=== PATIENT | female | born 1990 | race Caucasian/White ===

== ENCOUNTER → 2017-10-28 15:29 | Outpatient (CLI) | payer SELFPAY ==
[2017-10-28 19:30] LABS: Chlamydia Trachomatis by PCR Negative (Negative); Neisserai gonorrhoeae by PCR Negative (Negative)
[2017-10-28 19:33] LABS: Probe Check PASS; Sample Adequacy Control PASS; Specimen Processing Control PASS
[2017-11-02 10:34] LABS: HPV Reflexed? NOT INDICATED
== END ==
PROVIDERS: Visit Provider Obstetrics & Gynecology
DX: Z12.4 Encounter for screening for malignant neoplasm of cervix (principal); Z11.3 Encounter for screening for infections with a predominantly sexual mode of transmission; Z32.01 Encounter for pregnancy test, result positive
CPT/HCPCS: 87491; 87591; 88175; G0145

== ENCOUNTER → 2017-11-24 16:12 | Outpatient (CLI) | payer SELFPAY ==
[2017-11-24 17:23] LABS: Color, Urine Straw (Yellow); Glucose, Dipstick Normal (Normal); Ketone-Dipstick Negative (Negative); Leukocyte Esterase-Dipstick Negative /ul (Negative); Nitrite-Dipstick Negative (Negative); Occult Blood-Urine Negative /ul (Negative); Protein-Dipstick Negative (Negative); Specific Gravity, Urine 1.005 (1.002-1.030); Urine Bilirubin Dipstick Negative (Negative); Urine Clarity Clear (Clear); Urine Urobilinogen Normal (Normal)
[2017-11-24 17:36] LABS: Absolute Lymphocyte Count 1.45 X10^3/ul (0.83-4.51); Absolute Neutrophil Count 4.5 X10^3/uL (2.0-7.7); Eosinophil# 0.06 X10^3/uL; Eosinophils% 0.9 % (0-5); Hematocrit 36.8 % (37-47); Lymphocyte # 1.45 X10^3/ul (4.0); Lymphocyte % 22.7 % (19-41); Mean Corp Hgb Conc 32.6 g/gl (32-36); Mean Corpuscular Hgb 30.6 pg (27.0-32.0); Mean Corpuscular Volume 93.9 fL (81-99); Mean Platelet Vol. 11.7 fl (6.2-12.0); Monocyte% 6.3 % (0-10); Neutrophil # 4.47 X10^3/uL (2.7-7.7); Neutrophil % 69.8 % (47-70); Platelet Count 219 K/mm3 (150-450); RBC Distribution Width SD 44.6 fl (35.1-43.9); Red Blood Count 3.92 M/mm3 (4.2-5.4); White Blood Count 6.4 K/mm3 (4.4-11.0)
[2017-11-24 17:44] LABS: POSITIVE COUNT NO; POSITIVE DIFFERENTIAL NO; POSITIVE MORPHOLOGY NO
[2017-11-24 17:51] LABS: Thyroid Stim Hormone (TSH) 0.85 uIU/mL (0.358-3.74)
[2017-11-24 17:58] LABS: COTININE Drug Screen Negative (<200 ng/mL)
[2017-11-24 18:04] LABS: Amphetamine Urine VISTA NEGATIVE (<1000 ng/mL); Barbiturate Urine VISTA NEGATIVE (< 200 ng/mL); Benzodiazepine Urine VISTA NEGATIVE (< 200 ng/mL); Cocaine Urine VISTA NEGATIVE (< 300 ng/mL); Ecstacy Urine VISTA NEGATIVE (< 500 ng/mL); Methadone Urine VISTA NEGATIVE (< 300 ng/mL); PCP Urine VISTA NEGATIVE (< 25 ng/mL); THC Urine VISTA NEGATIVE (< 50 ng/mL); Vista UDS pH Range 7
[2017-11-25 10:44] LABS: HIV - WCH Non-Reactive (Nonreactive); Rubella IgG 97.4 IU/mL
[2017-11-27 03:47] LABS: Prenatal RPR NONREACTIVE (NONREACTIVE)
[2017-11-27 07:07] LABS: HEPATITIS B SURFACE AG Negative (Negative); Hep C Antibodies <0.1 s/co ratio (0.0-0.9)
== END ==
PROVIDERS: Visit Provider Obstetrics & Gynecology
DX: Z34.82 Encounter for supervision of other normal pregnancy, second trimester (principal)
CPT/HCPCS: 36415; 80307; 81002; 84443; 85025; 86703; 86762; 86803; 87340

== ENCOUNTER → 2018-02-10 14:29 | Outpatient (CLI) | payer OTHER, SELFPAY ==
[2018-02-10 15:42] LABS: Glucose Challenge Gest 1H 50g 171 mg/dL (70-140)
[2018-02-10 15:44] LABS: Hematocrit 37.6 % (37-47); Hemoglobin 12.2 g/dl (12.0-15.0); Mean Corp Hgb Conc 32.4 g/gl (32-36); Mean Corpuscular Hgb 31.4 pg (27.0-32.0); Mean Corpuscular Volume 96.7 fL (81-99); Mean Platelet Vol. 11.9 fl (6.2-12.0); Platelet Count 184 K/mm3 (150-450); RBC Distribution Width CV 13.4 % (11.6-14.6); RBC Distribution Width SD 46.8 fl (35.1-43.9); Red Blood Count 3.89 M/mm3 (4.2-5.4); White Blood Count 7.5 K/mm3 (4.4-11.0)
[2018-02-10 15:56] LABS: Scan Indicated on CBC? Y/N NO
== END ==
PROVIDERS: Visit Provider Obstetrics & Gynecology
DX: Z34.83 Encounter for supervision of other normal pregnancy, third trimester (principal)
CPT/HCPCS: 82950; 85027

== ENCOUNTER → 2018-02-24 09:27 | Outpatient (CLI) | payer OTHER, SELFPAY ==
[2018-02-24 10:33] LABS: Glucose GTT-Gestation. Fasting 82 mg/dL (<105)
[2018-02-24 11:33] LABS: Glucose GTT-Gestational 1 Hr 213 mg/dL (<190)
[2018-02-24 13:19] LABS: Glucose GTT-Gestational 2 Hr 171 mg/dL (<165)
[2018-02-24 13:42] LABS: Glucose GTT-Gestational 3 Hr 115 L (<145)
== END ==
PROVIDERS: Visit Provider Obstetrics & Gynecology
DX: Z34.83 Encounter for supervision of other normal pregnancy, third trimester (principal)
CPT/HCPCS: 36415; 82951; 82952

== ENCOUNTER 2018-03-12 10:30 | Outpatient (RCR) | payer OTHER, SELFPAY | END 2018-03-14 23:59 | LOC: NS 10:30 | PROVIDERS: Visit Provider Obstetrics & Gynecology | DX: O24.912 Unspecified diabetes mellitus in pregnancy, second trimester (principal); Z71.3 Dietary counseling and surveillance | CPT/HCPCS: 97802; G0108 ==

== ENCOUNTER 2018-03-23 17:30 | Outpatient (RCR) | payer OTHER, SELFPAY | END 2018-03-23 23:59 | LOC: DC 17:30 | PROVIDERS: Visit Provider Obstetrics & Gynecology | DX: O24.912 Unspecified diabetes mellitus in pregnancy, second trimester (principal); Z71.3 Dietary counseling and surveillance ==

== ENCOUNTER → 2018-04-02 14:11 | Outpatient (CLI) | payer OTHER, SELFPAY ==
[2018-04-02 19:21] LABS: Group B Strep DNA By PCR Negative (Negative); Internal Control PASS; Probe Check PASS; Specimen Processing Control PASS
== END ==
PROVIDERS: Visit Provider Obstetrics & Gynecology
DX: Z36.85 Encounter for antenatal screening for Streptococcus B (principal)
CPT/HCPCS: 87081; 87653

== ENCOUNTER 2018-04-11 18:10 | Inpatient (IN) | payer OTHER, SELFPAY ==
[2018-04-11 13:17] VITALS: BMI 36.1
[2018-04-11 13:38] LABS: ROM Internal Control Test YES-OK TO RESULT pt. (Internal QC); ROM Patient Test Negative (Negative)
[2018-04-11] MEDS: Betamethasone/Betamethasone 30 MG/5 ML Vial 12 MG IM (14:16)
[2018-04-11 14:45] LABS: Bedside Glucose 79 mg/dL (70-110)
[2018-04-11 14:50] LABS: Bacteria 0 SEEN /hpf (None Seen); Mucous, Urine 0 SEEN /hpf (<or=2+); Red Blood Cells-Urine 0 SEEN /hpf (0-5)
[2018-04-11 14:51] LABS: Color, Urine Yellow (Yellow); Glucose, Dipstick Normal (Normal); Ketone-Dipstick Negative (Negative); Leukocyte Esterase-Dipstick 100 /ul (Negative); Nitrite-Dipstick Negative (Negative); Occult Blood-Urine Negative /ul (Negative); Protein-Dipstick Negative (Negative); Specific Gravity, Urine 1.005 (1.002-1.030); Urine Bilirubin Dipstick Negative (Negative); Urine Clarity Clear (Clear); Urine Urobilinogen Normal (Normal)
[2018-04-11 14:57] LABS: Amorphous Sediment 1+; White Blood Cells 0-5 SEEN /hpf (0-5)
[2018-04-11 15:04] LABS: Squamous Epithelial Cells - UA 0-5 SEEN /hpf (5-10)
[2018-04-11] MEDS: Lactated Ringers 1,000 ML 50 ML IV (16:15)
[2018-04-11 16:34] LABS: Absolute Neutrophil Count 8.9 X10^3/uL (2.0-7.7); Eosinophil# 0.01 X10^3/uL; Eosinophils% 0.1 % (0-5); Hematocrit 42.1 % (37-47); Hemoglobin 13.9 g/dl (12.0-15.0); Lymphocyte % 8.8 % (19-41); Mean Corpuscular Hgb 31.6 pg (27.0-32.0); Mean Corpuscular Volume 95.7 fL (81-99); Mean Platelet Vol. 12.8 fl (6.2-12.0); Monocyte# 0.37 X10^3/uL; Monocyte% 3.6 % (0-10); Neutrophil # 8.91 X10^3/uL (2.7-7.7); Neutrophil % 87.2 % (47-70); Platelet Count 193 K/mm3 (150-450); RBC Distribution Width CV 13.4 % (11.6-14.6); RBC Distribution Width SD 46.8 fl (35.1-43.9); White Blood Count 10.2 K/mm3 (4.4-11.0)
[2018-04-11 16:35] LABS: POSITIVE COUNT NO; POSITIVE DIFFERENTIAL NO; POSITIVE MORPHOLOGY NO
[2018-04-11] MEDS: Oxytocin 30 units/NS 500 ml 30 UNITS/500 ML IV.SOLN 334 UNITS IV (18:23)
--- NOTE | 2018-04-11 18:46 | OP.PCM_ITS ---
- Problem List (1) 36 weeks gestation of Status: Acute (2) (spontaneous vaginal delivery) Status: Acute Vaginal Delivery Maternal Presentation: Active Labor, - - labor Amniotic Membrane Rupture Type: Spontaneous Amniotic Fluid Description: Clear Final JOSEMANUEL: 05/05/18 Gestational age: 36 Weeks and 4 Days [place] doctor who attended delivery (if requested by OB): Haylee Gilbert Date of Procedure: 04/11/18 Pre-Operative Diagnosis: 36 4/7wga, labor Post-Operative Diagnosis: 36 4/7wga, labor Surgery/ Procedure Performed: Spontaneous Vaginal Delivery Type of Anesthesia: None Description of Procedure: Patient was previously 4cm. She had spontaneous rupture of membranes and rapidly progressed to 7cm and was FD/+3 on my arrival. She pushed to deliver a vigorous female infant over an intact perineum. The infant was placed on the maternal abdomen and further attended by the nursery personnel. The cord was doubly clamped and cut after approximately 3 minutes of life. The placenta delivered spontaneously and appeared intact on inspection. Cord gases obtained. Sponge counts correct x 2. Fundus firm, good hemostasis. Presentation: Vertex Placental Delivery Description: Spontaneous Placenta Disposition: Sent to Pathology Cord Vessel Description: 3 Vessels Nuchal Cord Compression: Without compression Cord Gases drawn per routine: ABG, VBG Cord Entanglement: None Estimated Blood Loss: 200 ml Infant A gender: Female (1 minute): 8 (5 minute): 9 Episiotomy Description: None Laceration: None Medications given after delivery: IV Pitocin Complications: None
--- NOTE | 2018-04-11 18:50 | PLAC_PTH ---
PATIENT: KATHARINE MACIAS LOC: [facility] U#:[id number] AGE/SX: 27/F ROOM: WP008 RE04/11/[address]: Dr. Gloria Sahu MD : 1990 BED: 1 DIS: 04/13/2018 SPEC #: [id number] RECD: 04/12/18 02:42 STATUS: JULIÁN REQ #: [id number] MARY JO: 04/11/18 18:[address]: Gloria Esparza DEPT: SURGICAL PATHOLOGY RECD BY: Juan Pickett ENTERED: 04/12/18 09:41 SP TYPE: PLACENTA OTHR DR: MD Tania Cardenas Tissues: Placenta, NOS Procedures: Surgery Specimen Level V HEADER OPERATION: Vaginal delivery PRE-OP DIAGNOSIS: labor 36wga TISSUE SUBMITTED: Placenta MICROSCOPIC DIAGNOSIS Placenta: Placental disc - third trimester placenta (264 gm). Focal area of increased intervillous and perivillous fibrin deposition (1.5 cm in greatest dimension). Membranes - no pathologic diagnosis. Umbilical cord - three blood vessels and no pathologic diagnosis. SJ:ingel 04/14/18 MICROSCOPIC DESCRIPTION Slides are reviewed. GROSS DESCRIPTION SPECIMEN: PLACENTA / CLINICAL INFORMATION: A. Weight: 2.015 kg B. Gestational Age: 36 weeks C. Sex: Female PLACENTAL WEIGHT (POST FIXATION): 264 gm PLACENTAL DIMENSIONS: 15 x 15 x 2.5 cm PLACENTAL SHAPE: Usual ovoid PLACENTAL WEIGHT FOR GESTATIONAL AGE: <10th percentile MEMBRANES - Present A. Insertion: Marginal B. Site of rupture from edge: At edge of placental disc C. Color of membrane: Durand-damico D. Abnormalities: None UMBILICAL CORD - Present A. Color: Durand-damico B. Insertion: Paracentral C. Length: 21 cm D. Diameter: 1 cm E. Number of vessels: Three F. Abnormalities: None PLACENTAL DISC - Present A. Color of surface: Durand-damico B. surface abnormalities: None C. Maternal cotyledons: Intact with minimal tears D. Attached retro placental clot: No clot E. Cut surface: Dark red and spongy F. Lesions: Sections reveal a durand, indurated area close to maternal surface measuring 1.5 x 1 x 1 cm. G. Separate clot: Received are multiple blood clots measuring in aggregate 6.5 x 6 x 2 cm and weighing 20 gm. SECTIONS SUBMITTED: 1. Membrane roll 2. Cord, maternal end 3. Cord, end 4. Placental disc, and maternal surfaces, lesion 5. Placental disc, and maternal surfaces 6. Placental disc, and maternal surfaces DEBORAH:nigel 04/13/18 TC:5 CPT: 76422
[2018-04-11] MEDS: Oxytocin 30 units/NS 500 ml 30 UNITS/500 ML IV.SOLN 167 UNITS IV (18:53)
[2018-04-11 19:36] LABS: Bedside Glucose 116 mg/dL (70-110)
[2018-04-11] MEDS: 0.9% Saline Lock 10 ML Syringe IV (20:18)
--- NOTE | 2018-04-11 21:37 | DCINST_ITS ---
Discharge Diet: No Restrictions Discharge Activity: Return to Normal Activity, May Shower, May Take a Tub Bath May resume sexual activity in: 6 weeks Lifting Restrictions: 20 lb Call your doctor if you observe: Fever of 101 or Higher, Inability to urinate, Inability to have a bowel movement, Using more than one pad per hour, Shortness of breath, Chest pain, Calf discomfort, Uncontrolled pain Additional Instructions: If you experience any of the following, contact your healthcare provider. * Bleeding that soaks a pad every hour for 2 hours * Fever 100.4 or higher * Unrelieved incision or abdominal pain * Swelling, redness, discharge or bleeding from your incision or episiotomy site * Your incision begins to separate * Problems urinating (including inability to urinate or burning while urinating). * Visual changes * Severe headache * Flu-like symptoms * Pain or redness in one of both of your breasts * Pain, warmth, tenderness or swelling in your legs, especially the calf area * Frequent nausea and vomiting * Symptoms of depression or anxiety If you experience any of the following, call 911 or go to the nearest Emergency Room. * Chest pain * Problems breathing * Seizure activity * Partial or complete paralysis of a body part, slurred speech, weakness or drooping of the face, or a sudden inability to walk or hold your balance Allergies/Adverse Reactions: Allergies Penicillins Allergy (Verified 04/11/18 13:19) Rash Medications to take at Discharge Docusate Sodium [Colace] 100 mg PO BID PRN PRN #60 capsule 04/11/18 Ibuprofen 600 mg PO TID PRN #30 tablet 04/11/18 Vits [Prenatabs FA] 1 tablet PO DAILY 04/11/18 The following prescriptions were given: Docusate Sodium [Colace] 100 mg PO BID PRN PRN #60 capsule PRN Reason: Constipation Ibuprofen 600 mg PO TID PRN #30 tablet PRN Reason: Pain Please Follow Up With: Juvencio Benton MD When: 6 weeks Primary Care Physician: Juvencio Madrigal MD [Primary Care Provider] - Test Results: Test results from this visit will be discussed in further detail at your follow- up appointment, if applicable.
[2018-04-12 00:15] VITALS: BP 98/47; PULSE 73; RESP 16; TEMP 36.2; O2SAT 97
[2018-04-12] MEDS: Ibuprofen 600 MG Tablet PO (00:57)
[2018-04-12 04:05] VITALS: BP 118/66; PULSE 64; RESP 18; TEMP 36.4; O2SAT 98
[2018-04-12 05:41] LABS: Bedside Glucose 104 mg/dL (70-110)
[2018-04-12 08:00] VITALS: BP 85/55; PULSE 61; RESP 16; TEMP 36.1
--- NOTE | 2018-04-12 08:30 | PCM.PN.OB ---
Patient Problems: Active and Suspected Problems 36 weeks gestation of (Acute) (spontaneous vaginal delivery) (Acute) Subjective: No issues overnight. She feels well and is without complaints. She is nursing and latching well. Objective: AVSS - Physical Exam General: Alert, Oriented x3, Cooperative, No apparent distress HEENT: Atraumatic, Normocephalic Lungs: Normal air movement Cardiovascular: Regular rate, Regular Rhythm, Normal S1, Normal S2 Abdomen: Soft, Non Tender, Non-Distended Neurological: Neuro grossly intact Psych/Mental Status: Normal Affect, Appropriate, Alert and oriented to time, place, person, mood and affect Vital Signs Temp Pulse Resp BP Pulse Ox 97.1 F L 67 16 111/73 98 04/12/18 16:00 04/12/18 16:00 04/12/18 16:00 04/12/18 16:00 04/12/18 04:05 Oxygen Delivery Method Room Air Weight: 92.533 kg Body Mass Index (BMI) 36.1 Intake and Output for Last 24 Hours 04/10/18 04/11/18 04/12/18 23:59 23:59 23:59 Output Total 800 / 800 Balance -800 / -800 POC Glucose 04/12/18 04/11/18 05:36 19:20 POC Glucose 104 116 H Medical Necessity - Tobacco Use Smoking Status: Never smoker Assessment/Plan All Active Problems 36 weeks gestation of (Acute) (spontaneous vaginal delivery) (Acute) 27yo PPD#1 s/p doing well. -Rh positive - -Routine care
[2018-04-12] MEDS: Prenatal Vits Tablet 1 TABLET PO (11:16)
[2018-04-12 11:49] VITALS: BP 107/56; PULSE 69; RESP 18; TEMP 36.1
[2018-04-12 16:00] VITALS: BP 111/73; PULSE 67; RESP 16; TEMP 36.2
[2018-04-12 19:51] VITALS: BP 125/68; PULSE 71; RESP 18; TEMP 36.8
[2018-04-13 02:00] VITALS: BP 122/70; PULSE 68; RESP 16; TEMP 36.8
--- NOTE | 2018-04-13 08:19 | PCM.PN.OB ---
Patient Problems: Active and Suspected Problems 36 weeks gestation of (Acute) (spontaneous vaginal delivery) (Acute) Subjective: No complaints. Denies heavy lochia, feels well and looks forward to going home. Objective: avss - Physical Exam General: Alert, Oriented x3, Cooperative, No apparent distress HEENT: Atraumatic, Normocephalic Lungs: Clear to auscultation, Normal air movement Cardiovascular: Regular rate, Regular Rhythm, Normal S1, Normal S2 Abdomen: Soft, Non Tender, Non-Distended, - - Fundus firm and nontender Extremities: No edema, No Calf Tenderness Neurological: Neuro grossly intact Psych/Mental Status: Normal Affect, Appropriate, Alert and oriented to time, place, person, mood and affect Vital Signs Temp Pulse Resp BP Pulse Ox 98.2 F 68 16 122/70 H 98 04/13/18 02:00 04/13/18 02:00 04/13/18 02:00 04/13/18 02:00 04/12/18 04:05 Oxygen Delivery Method Room Air Weight: 92.533 kg Body Mass Index (BMI) 36.1 Intake and Output for Last 24 Hours 04/11/18 04/12/18 04/13/18 23:59 23:59 23:59 Output Total 800 / 800 Balance -800 / -800 Medical Necessity - Tobacco Use Smoking Status: Never smoker Assessment/Plan All Active Problems 36 weeks gestation of (Acute) (spontaneous vaginal delivery) (Acute) 27yo PPD#2 s/p doing well. -Rh positive - -Routine care -ms home
--- NOTE | 2018-04-13 08:29 | PCM.DC.SUM ---
Discharge Date and Diagnosis - Problem List Patient Problems: Active and Suspected Problems 36 weeks gestation of (Acute) (spontaneous vaginal delivery) (Acute) Date of Admission: 04/11/18 Date of Discharge: 04/13/18 - Primary Discharge Diagnosis Active and Suspected Problems 36 weeks gestation of (Acute) (spontaneous vaginal delivery) (Acute) Hospital Course and Treatment Operations: None Procedures: - - Summary of Care Provided: The patient is a 27 year old F [admitted in labor progressed to FD then pushed to deliver a live female without complication. Post course unremarkable. Discharged home on PP day#2.] Patient Problems: Active and Suspected Problems 36 weeks gestation of (Acute) (spontaneous vaginal delivery) (Acute) - Physical Exam Vital Signs Temp Pulse Resp BP Pulse Ox 98.2 F 68 16 122/70 H 98 04/13/18 02:00 04/13/18 02:00 04/13/18 02:00 04/13/18 02:00 04/12/18 04:05 Oxygen Delivery Method Room Air Weight: 204 lb Body Mass Index (BMI) 36.1 Intake and Output for Last 24 Hours 04/11/18 04/12/18 04/13/18 23:59 23:59 23:59 Output Total 800 / 800 Balance -800 / -800 Discharge Diet: No Restrictions Discharge Activity: Return to Normal Activity, May Shower, May Take a Tub Bath Return to work on:: 06/11/18 May shower in (days): 0 May resume sexual activity in: 6 weeks Call your doctor if your incision/area has: Sudden Increased Bleeding, Increased Pain/ Swelling, Increased Redness, Foul Smelling Discharge Call your doctor if you observe: Fever of 101 or Higher, Inability to urinate, Inability to have a bowel movement, Using more than one pad per hour, Shortness of breath, Chest pain, Calf discomfort, Uncontrolled pain Home Medications: Medications to take at Discharge Docusate Sodium [Colace] 100 mg PO BID PRN PRN #60 capsule 04/11/18 Ibuprofen 600 mg PO TID PRN #30 tablet 04/11/18 Vits [Prenatabs FA] 1 tablet PO DAILY 04/11/18 Following Prescrptions Were Given to Patient: Docusate Sodium [Colace] 100 mg PO BID PRN PRN #60 capsule PRN Reason: Constipation Ibuprofen 600 mg PO TID PRN #30 tablet PRN Reason: Pain Primary Care Physician: Juvencio Madrigal MD [Primary Care Provider] - Please Follow Up With: Juvencio Benton MD When: 6 weeks Disposition: Home Minutes spent on discharge:: 15 Patient Condition:: Good Medical Necessity - Tobacco Use Smoking Status: Never smoker Meaningful Use Info Meaningful Use Diagnoses (Choose all that apply): None applicable
[2018-04-13 08:57] VITALS: BP 124/67; PULSE 62; RESP 14; TEMP 36.6; O2SAT 97
[2018-04-15 09:44] LABS: Pathology Specimen OB SEE PATHOLOGY REPORT
== END 2018-04-13 10:15 | disposition home or self-care (01) | DRG 807 ==
LOC: WP 18:32 → WPOUT 04-12 10:31
PROVIDERS: Admitting Provider Obstetrics & Gynecology; Visit Provider Obstetrics & Gynecology
DX: O60.14X0 Preterm labor third trimester with preterm delivery third trimester, not applicable or unspecified (principal); Z37.0 Single live birth; O62.3 Precipitate labor; Z3A.36 36 weeks gestation of pregnancy
CPT/HCPCS: 59025; 59050; 81001; 82962; 84112; 85025; 86850; 86900; 88307; 99218; J7120; A4216; G0378; J0702

== ENCOUNTER → 2018-05-25 11:23 | Outpatient (CLI) | payer OTHER, SELFPAY ==
[2018-05-25 12:57] LABS: Progesterone Level 0.51 ng/mL (See Comment)
[2018-05-25 13:07] LABS: hCG Titer Quant., Serum < 1 mIU/mL (<9 non-preg)
--- OUTSIDE RECORDS SUMMARY | 2018-07-11 12:25 | XMS RPT_ITS ---
:1990 Author Organization [place] Support Name Relationship Address Phone RORO GAINES Unavailable [address] + [place] [address] [facility] Unavailable [address] + [facility] [address] RORO GAINES Unavailable [address] + [place] [address] [facility] Unavailable [address] + [place] [address] ANTONIETA GAINESUA Unavailable [address] + [place] [address] [facility] Unavailable [address] + [place] [address] DANIELLE GAINESSHUA Unavailable [address] + [place] [address] [facility] Unavailable [address] + [place] [address] DANIELLE GAINESSHUA Unavailable [address] + [place] [address] [facility] Unavailable [address] + [place] [address] DANIELLE GAINESSHUA Unavailable [address] + [place] [address] [facility] Unavailable [address] + [place] [address] DANIELLE GAINESSHUA Unavailable [address] + [place] [address] [facility] Unavailable [address] + [place] [address] DANIELLE GAINESSHUA Unavailable [address] + [place] [address] [facility] Unavailable [address] + [place] [address] RORO GAINES Unavailable [address] [phone] [place] [address] [facility] Unavailable [address] + [place] [address] NOT GIVEN Unavailable OFFICE Unavailable RORO GAINES Unavailable [address] [phone] [facility] [address] [facility] Unavailable [address] + [place] [address] Care Team Providers Name Role Phone [facility] Primary Care Unavailable [facility] Attending Unavailable [facility] Admitting Unavailable Seals, Juvencio Attending Unavailable Seals, Juvencio Attending Unavailable Seals, Juvencio Attending Unavailable Seals, Juvencio Attending Unavailable Seals, Juvencio Attending Unavailable Seals, Juvencio Referring Unavailable Madrigal, Juvencio Primary Care Unavailable Seals, Juvencio Attending Unavailable Madrigal, Juvencio Primary Care Unavailable Seals, Juvencio Attending Unavailable Rohan, Juvencio Primary Care Unavailable Seals, Juvencio Attending Unavailable Gloria Levi Attending Unavailable ROHAN, MAXIMINO Primary Care Unavailable Gloria Levi Admitting Unavailable Seals, Juvencio Attending Unavailable ROHAN, MAXIMINO Primary Care Unavailable PROBLEMS PROBLEMS DATE TYPE CONDITION / CODE ATTENDING STATUS SOURCE 05/25/2018 Unknown Z30.014 - Encounter Juvencio Benton Active [facility] for initial Community prescription of Hospital intrauterine Repository contraceptive device / Z30.014(ICD-10) 04/02/2018 Unknown Z36.85 - Encounter Juvencio Benton Active [facility] for Community screening for Hospital Streptococcus B / Repository Z36.85(ICD-10) 04/15/2018 Unknown O24.912 - SealJuvencio salomon Active [facility] Unspecified Community diabetes mellitus Hospital in , Repository second trimester / O24.912(ICD-10) 02/12/2018 Unknown Z34.83 - Encounter Juvencio Benton Active [facility] for supervision of Community other normal Hospital , third Repository trimester / Z34.83(ICD-10) 11/24/2017 Unknown Z34.82 - Encounter Juvencio Benton Active [facility] for supervision of Community other normal Hospital , second Repository trimester / Z34.82(ICD-10) 10/29/2017 Unknown Z12.4 - Encounter SealJuvencio salomon Active [facility] for screening for Community malignant neoplasm Hospital of cervix / Repository Z12.4(ICD-10) 10/29/2017 Unknown Z32.01 - Encounter SealJuvencio salomon Active [facility] for test, Community result positive / Hospital Z32.01(ICD-10) Repository 10/29/2017 Unknown Z11.3 - Encounter SealJuvencio salomon Active [facility] for screening for Community infections with a Hospital predominantly Repository sexual mode of transmission / Z11.3(ICD-10) PROCEDURES PROCEDURES No Procedure Records FoundRESULTS RESULTS PROGESTERONE LEVEL Collected: 05/25/2018 Status: F Source: [place] 11:24 AM [facility] [place] [facility] TYPE CODE TESTS RESULT OUT OF REFERENCE UNITS RANGE LAB L509.4001 See Comment ng/mL Progesterone Normal 0.51 Result Comment: Progesterone Reference Table: UNITS Female: Follicular 0.15 - 1.40 ng/mL Luteal 3.34 - 25.56 ng/mL Mid-luteal 4.44 - 28.03 ng/mL Postmenopausal 0.0 - 0.73 ng/mL : 1st Trimester 11.22 - 90.00 ng/mL 2nd Trimester 25.55 - 89.40 ng/mL 3rd Trimester 48.40 -422.50 ng/mL Performed By: #### L509.4001 #### [facility] [address] [place], [place], [address] HCG TITER QUANT., Collected: 05/25/2018 Status: F Source: [place] SERUM 11:24 AM [facility] [place] TYPE CODE TESTS RESULT OUT OF RANGE REFERENCE UNITS LAB L700.8000 <9 non-preg mIU/mL Normal HCG < 1 QUANT. Performed By: #### L700.8000 #### [facility] [address] [place], [address] DISCHARGE SUMMARY Observed: 04/13/2018 Status: F Source: [place] 8:31 AM [facility] [place] [facility] Medical Records Department [address] [place] [address] Discharge Summary 04/13/18 0829 MR#: [id number] Acct: [id number] Name: JACOB MACIAS Rep #: [id number] : 1990 27 From: Juvencio Benton MD PCP: Juvencio Madrigal MD Status: ADM IN Y [id number] Date and Diagnosis - Problem List Patient Problems: Active and Suspected Problems 36 weeks gestation of (Acute) (spontaneous vaginal delivery) (Acute) Date of Admission: 04/11/18 Date of Discharge: 04/13/18 - Primary Discharge Diagnosis Active and Suspected Problems 36 weeks gestation of (Acute) (spontaneous vaginal delivery) (Acute) Hospital Course and Treatment Operations: None Procedures: - - Summary of Care Provided: The patient is a 27 year old F [admitted in labor progressed to FD then pushed to deliver a live female without complication. Post course unremarkable. Discharged home on PP day#2.] Patient Problems: Active and Suspected Problems 36 weeks gestation of (Acute) (spontaneous vaginal delivery) (Acute) - Physical Exam Vital Signs Temp Pulse Resp BP Pulse Ox 98.2 F 68 16 122/70 H 98 04/13/18 02:00 04/13/18 02:00 04/13/18 02:00 04/13/18 02:00 04/12/18 04:05 Oxygen Delivery Method Room Air Weight: 204 lb Body Mass Index (BMI) 36.1 Intake and Output for Last 24 Hours Output Total 800 / 800 Balance -800 / -800 Discharge Diet: No Restrictions Discharge Activity: Return to Normal Activity, May Shower, May Take a Tub Bath Return to work on:: 06/11/18 May shower in (days): 0 May resume sexual activity in: 6 weeks Call your doctor if your incision/area has: Sudden Increased Bleeding, Increased Pain/ Swelling, Increased Redness, Foul Smelling Discharge Call your doctor if you observe: Fever of 101 or Higher, Inability to urinate, Inability to have a bowel movement, Using more than one pad per hour, Shortness of breath, Chest pain, Calf discomfort, Uncontrolled pain Home Medications: Medications to take at Discharge Docusate Sodium [Colace] 100 mg PO BID PRN PRN #60 capsule 04/11/18 Ibuprofen 600 mg PO TID PRN #30 tablet 04/11/18 Vits [Prenatabs FA] 1 tablet PO DAILY 04/11/18 Following Prescrptions Were Given to Patient: Docusate Sodium [Colace] 100 mg PO BID PRN PRN #60 capsule PRN Reason: Constipation Ibuprofen 600 mg PO TID PRN #30 tablet PRN Reason: Pain Primary Care Physician: Juvencio Madrigal MD [Primary Care Provider] - Please Follow Up With: Juvencio Benton MD When: 6 weeks Disposition: Home Minutes spent on discharge:: 15 Patient Condition:: Good Medical Necessity - Tobacco Use Smoking Status: Never smoker Meaningful Use Info Meaningful Use Diagnoses (Choose all that apply): None applicable 04/13/18830 <Electronically signed by Juvencio Benton MD> Date Juvencio Benton MD Cosigner Signature (if applicable): Date CC: Juvencio Madrigal MD; Juvencio Benton MD; MAXIMINO MADRIGAL Signed BEDSIDE GLUCOSE Collected: 04/12/2018 Status: F Source: [place] 5:36 AM [facility] [place] [facility] TYPE CODE TESTS RESULT OUT OF RANGE REFERENCE UNITS LAB L501.080 70-110 mg/dL Normal BEDSIDE GLU 104 Result Comment: MANAGEMENT OF PATIENT CARE PER NURSING PROTOCOL Performed By: #### L501.080 #### [facility] Point of Care [address] [place] [address]. [place] [address] DISCHARGE INSTRUCTION Observed: 04/11/2018 Status: F Source: [place] 9:37 PM [facility] [place] [facility] Medical Records Department [address] [place] [address] Instructions for Home/Discharge Instructions 04/11/18 2135 MR#: [id number] Acct: [id number] Name: JACOB MACIAS Rep #: [id number] : 1990 27 From: Gloria Sahu MD PCP: Juvencio Madrigal MD Status: ADM IN Discharge Diet: No Restrictions Discharge Activity: Return to Normal Activity, May Shower, May Take a Tub Bath May resume sexual activity in: 6 weeks Lifting Restrictions: 20 lb Call your doctor if you observe: Fever of 101 or Higher, Inability to urinate, Inability to have a bowel movement, Using more than one pad per hour, Shortness of breath, Chest pain, Calf discomfort, Uncontrolled pain Additional Instructions: If you experience any of the following, contact your healthcare provider. * Bleeding that soaks a pad every hour for 2 hours * Fever 100.4 or higher * Unrelieved incision or abdominal pain * Swelling, redness, discharge or bleeding from your incision or episiotomy site * Your incision begins to separate * Problems urinating (including inability to urinate or burning while urinating). * Visual changes * Severe headache * Flu-like symptoms * Pain or redness in one of both of your breasts * Pain, warmth, tenderness or swelling in your legs, especially the calf area * Frequent nausea and vomiting * Symptoms of depression or anxiety If you experience any of the following, call 911 or go to the nearest Emergency Room. * Chest pain * Problems breathing * Seizure activity * Partial or complete paralysis of a body part, slurred speech, weakness or drooping of the face, or a sudden inability to walk or hold your balance Allergies/Adverse Reactions: Allergies Penicillins Allergy (Verified 04/11/18 13:19) Rash Medications to take at Discharge Docusate Sodium [Colace] 100 mg PO BID PRN PRN #60 capsule 04/11/18 Ibuprofen 600 mg PO TID PRN #30 tablet 04/11/18 Vits [Prenatabs FA] 1 tablet PO DAILY 04/11/18 The following prescriptions were given: Docusate Sodium [Colace] 100 mg PO BID PRN PRN #60 capsule PRN Reason: Constipation Ibuprofen 600 mg PO TID PRN #30 tablet PRN Reason: Pain Please Follow Up With: Juvencio Benton MD When: 6 weeks Primary Care Physician: Juvencio Madrigal MD [Primary Care Provider] - Test Results: Test results from this visit will be discussed in further detail at your follow-up appointment, if applicable. 04/11/182136 <Electronically signed by Gloria Levi MD> Date Summer Amita MALDONADO CC: Juvencio Madrigal MD; MAXIMINO MADRIGAL PATHOLOGY SPECIMEN OB Collected: 04/11/2018 Status: F Source: [place] 7:22 PM [facility] [place] Order Comment: Reason for Laboratory Test Placenta for lab studies Send Specimen For (Specify): Studies @ [facility] Lab:Routine Time of Procedure: 1849 Date of Procedure: 04/11/18 Reason specimen being sent to pathology (Hx/complications): labor 36wga Type of specimen: Placenta Type of procedure performed: othe TYPE CODE TESTS RESULT OUT OF RANGE REFERENCE UNITS LAB L350.1800 SEE Normal PATH. PATHOLOGY Spec. OB REPORT Result Comment: Specimen submitted to Anatomical Pathology Department for testing. Performed By: #### L350.1800 #### [facility] [address] [place], [address] BEDSIDE GLUCOSE Collected: 04/11/2018 Status: F Source: [place] 7:20 PM [facility] [place] TYPE CODE TESTS RESULT OUT OF REFERENCE UNITS RANGE LAB L501.080 70-110 mg/dL High BEDSIDE GLU 116 Result Comment: MANAGEMENT OF PATIENT CARE PER NURSING PROTOCOL Performed By: #### L501.080 #### [facility] Point of Care [address] [facility] [place] [address] PLACENTA Observed: 04/11/2018 Status: F Source: [place] 6:50 PM [facility] [place] [facility] Patient: JACOB MACIAS : 1990 () Acct Num: [id number] Phys: Amita MALDONADO,Summer Unit Num: [id number] Loc: WP [id number] Specimen: [id number] Received: 04/12/18 - 0242 Spec Type: PLACENTA TISSUES 1 TISSUES: Placenta, NOS GROSS DESCRIPTION SPECIMEN: PLACENTA / CLINICAL INFORMATION: A. Weight: 2.015 kg B. Gestational Age: 36 weeks C. Sex: Female PLACENTAL WEIGHT (POST FIXATION): 264 gm PLACENTAL DIMENSIONS: 15 x 15 x 2.5 cm PLACENTAL SHAPE: Usual ovoid PLACENTAL WEIGHT FOR GESTATIONAL AGE: <10th percentile MEMBRANES - Present A. Insertion: Marginal B. Site of rupture from edge: At edge of placental disc C. Color of membrane: Durand-damico D. Abnormalities: None UMBILICAL CORD - Present A. Color: Durand-damico B. Insertion: Paracentral C. Length: 21 cm D. Diameter: 1 cm E. Number of vessels: Three F. Abnormalities: None PLACENTAL DISC - Present A. Color of surface: Durand-damico B. surface abnormalities: None C. Maternal cotyledons: Intact with minimal tears D. Attached retro placental clot: No clot E. Cut surface: Dark red and spongy F. Lesions: Sections reveal a durand, indurated area close to maternal surface measuring 1.5 x 1 x 1 cm. G. Separate clot: Received are multiple blood clots measuring in aggregate 6.5 x 6 x 2 cm and weighing 20 gm. SECTIONS SUBMITTED: 1. Membrane roll 2. Cord, maternal end 3. Cord, end 4. Placental disc, and maternal surfaces, lesion 5. Placental disc, and maternal surfaces 6. Placental disc, and maternal surfaces SJ:nigel 04/13/18 TC:5 CPT: 69187 HEADER OPERATION: Vaginal delivery PRE-OP DIAGNOSIS: labor 36wga TISSUE SUBMITTED: Placenta MICROSCOPIC DESCRIPTION Slides are reviewed. MICROSCOPIC DIAGNOSIS Placenta: Placental disc - third trimester placenta (264 gm). Focal area of increased intervillous and perivillous fibrin deposition (1.5 cm in greatest dimension). Membranes - no pathologic diagnosis. Umbilical cord - three blood vessels and no pathologic diagnosis. :nigel 04/14/18 Signed Julio Monteiro 04/14/18 <signature on file> Performed By: #### PPLA #### [facility] [address] [facility] [address] [place], [place], [address] OPERATIVE REPORT Observed: 04/11/2018 Status: F Source: [place] 6:47 PM [facility] [place] [facility] Medical Records Department [address] [place] [address] Operative Report 04/11/18 1841 MR#: [id number] Acct: [id number] Name: JACOB MACIAS Rep #: [id number] : 1990 27 From: Gloria Sahu MD PCP: Juvencio Madrigal MD Status: ADM IN Y Location: [id number] - Problem List (1) 36 weeks gestation of Status: Acute (2) (spontaneous vaginal delivery) Status: Acute Vaginal Delivery Maternal Presentation: Active Labor, - - labor Amniotic Membrane Rupture Type: Spontaneous Amniotic Fluid Description: Clear Final JOSEMANUEL: 05/05/18 Gestational age: 36 Weeks and 4 Days doctor who attended delivery (if requested by OB): Haylee Gilbert Date of Procedure: 04/11/18 Pre-Operative Diagnosis: 36 4/7wga, labor Post-Operative Diagnosis: 36 4/7wga, labor Surgery/ Procedure Performed: Spontaneous Vaginal Delivery Type of Anesthesia: None Description of Procedure: Patient was previously 4cm. She had spontaneous rupture of membranes and rapidly progressed to 7cm and was FD/+3 on my arrival. She pushed to deliver a vigorous female infant over an intact perineum. The was placed on the maternal abdomen and further attended by the nursery personnel. The cord was doubly clamped and cut after approximately 3 minutes of life. The placenta delivered spontaneously and appeared intact on inspection. Cord gases obtained. Sponge counts correct x 2. Fundus firm, good hemostasis. Presentation: Vertex Placental Delivery Description: Spontaneous Placenta Disposition: Sent to Pathology Cord Vessel Description: 3 Vessels Nuchal Cord Compression: Without compression Cord Gases drawn per routine: ABG, VBG Cord Entanglement: None Estimated Blood Loss: 200 ml A gender: Female (1 minute): 8 (5 minute): 9 Episiotomy Description: None Laceration: None Medications given after delivery: IV Pitocin Complications: None 04/11/18 1847 <Electronically signed by Gloria Levi MD> Date Gloria Levi MD CC: Juvencio Madrigal MD; Gloria Levi MD; MAXIMINO MADRIGAL Signed CBC W/DIFF, AUTOMATED Collected: 04/11/2018 Status: F Source: [place] 4:15 PM [facility] [place] TYPE CODE TESTS RESULT OUT OF RANGE REFERENCE UNITS LAB L100.1000 4.4-11.0 K/mm3 Normal WBC 10.2 LAB L100.1200 4.2-5.4 M/mm3 Normal RBC 4.40 LAB L100.1300 12.0-15.0 g/dl Normal HGB 13.9 LAB L100.1400 37-47 % Normal HCT 42.1 LAB L100.1500 81-99 fL Normal MCV 95.7 LAB L100.1600 27.0-32.0 pg Normal MCH 31.6 LAB L100.1700 32-36 g/gl Normal MCHC 33.0 LAB L100.1810 11.6-14.6 % Normal RDW CV 13.4 LAB L100.1820 35.1-43.9 fl High RDW SD 46.8 LAB L100.1900 150-450 K/mm3 Normal PLT 193 LAB L100.2000 6.2-12.0 fl High MPV 12.8 LAB L100.2100 47-70 % High NEUT% 87.2 LAB L100.2200 19-41 % Low LY% 8.8 LAB L100.2300 0-10 % Normal MONO% 3.6 LAB L100.2400 0-5 % Normal EO% 0.1 LAB L100.2500 0-1 % Normal BASO% 0.0 LAB L100.2550 0.0-0.9 % Normal IM GRAN % 0.300 Result Comment: IG% - Immature Granulocytes (promyelocytes, myelocytes and metamyelocytes) > 1% indicates that a LEFT SHIFT is Present. LAB L100.2620 2.0-7.7 X10 3/uL High Absolute Neut 8.9 LAB L100.2720 0.83-4.51 X10 3/ul Normal Absolute Lymph 0.90 Performed By: #### L100.0100 #### [facility] [address] [place], [place], [address] TYPE AND SCREEN Collected: 04/11/2018 Status: F Source: [place] 4:15 PM [facility] Order Comment: Reason for Type AND Screen/Red Cells: admission TYPE CODE TESTS RESULT OUT OF RANGE REFERENCE UNITS LAB B10.0800 A Normal BLOOD TYPE GEL POSITIVE LAB B100.4000 Normal Antibody NEGATIVE Screen Performed By: #### B101.7450 #### [facility] [address] [place], [place], [address] URINALYSIS, COMPLETE Collected: 04/11/2018 Status: C Source: [place] 2:30 PM [facility] Order Comment: How was Urine Obtained? HOSPITAL SCIENTIST TO SPECIFY TYPE CODE TESTS RESULT OUT OF RANGE REFERENCE UNITS LAB L400.3000 Yellow COLOR Normal Yellow LAB L400.3050 Clear Normal CLARITY Clear LAB L400.3200 Normal mg/dl Normal GLUCOSE, UR Normal LAB L400.3300 Negative mg/dL Normal BILIRUBIN URINE Negative LAB L400.3400 Negative mg/dl Normal KETONE UR Negative LAB L400.3465 1.002-1.030 Normal SP.GR. DIPSTX 1.005 LAB L400.3550 5.0 - 8.0 pH UR Normal 7.0 LAB L400.3600 Negative mg/dl PROT Normal DIPSTX Negative LAB L400.3700 Normal mg/dl Normal UROBILI Normal LAB L400.3750 Negative Normal NITRITE UR Negative LAB L400.3780 Negative /ul Normal OCCULT BLOOD-UR Negative LAB L400.3800 Negative /ul High LEUK ESTERASE 100 LAB L400.4050 0-5 /hpf WBC Normal 0-5 SEEN LAB L400.4100 0-5 /hpf 0 Normal RBC-UA SEEN LAB L400.4150 5-10 /hpf SQUAM Normal EPI 0-5 SEEN Result Comment: AMENDED REPORT 04/11/18 1504 SQUAM EPI previously reported as: 0 SEEN /hpf LAB L400.4300 None Seen /hpf BACTERIA Normal 0 SEEN LAB L400.4350 <or=2+ /hpf MUCUS, Normal URINE 0 SEEN LAB L400.4900 Normal AMORPHOUS 1+ Performed By: #### L400.0001 #### [facility] [address] [place], [address] BEDSIDE GLUCOSE Collected: 04/11/2018 Status: F Source: [place] 2:12 PM [facility] TYPE CODE TESTS RESULT OUT OF RANGE REFERENCE UNITS LAB L501.080 70-110 mg/dL Normal BEDSIDE GLU 79 Result Comment: MANAGEMENT OF PATIENT CARE PER NURSING PROTOCOL Performed By: #### L501.080 #### [facility] Point of Care [address] [place], [place] [address] (ROM) RUPTURE OF Collected: 04/11/2018 Status: F Source: [place] MEMBRANES 1:10 PM [facility] TYPE CODE TESTS RESULT OUT OF RANGE REFERENCE UNITS LAB L205.1310 Negative Normal ROM Negative Result Comment: Amniotic fluid not present indicates No Rupture of Membranes at time of specimen collection. Performed By: #### L205.1000 #### [facility] [address] [place], [address] GROUP B STREP DNA Collected: 04/02/2018 Status: F Source: [place] BY PCR 1:45 PM [facility] Order Comment: Source: Vaginal-Rectal TYPE CODE TESTS RESULT OUT OF RANGE REFERENCE UNITS LAB L8200.0100 Negative Normal GBS TEST Negative RESULT Performed By: #### L8200.0000 #### [facility], [address] Observed: 04/02/2018 Status: F Source: [place] CULTURE, GROUP B 12:00 AM [facility] REPOSIT[facility] ZACH Culture Group B Beta Streptococcus is not isolated. Performed By: #### M100.1800 #### [facility] [place], [place], [address] GESTATIONAL GTT 3HR Collected: 02/24/2018 Status: F Source: [place] 100G 9:45 AM [facility] Order Comment: Is Patient Fasting? Y TYPE CODE TESTS RESULT OUT OF RANGE REFERENCE UNITS LAB L501.0650 <105 mg/dL Normal GLU 82 GTT-FASTING Result Comment: GLUCOSE TOLERANCE TEST FOR Reference Interval GESTATIONAL DIABETES Fasting <105 mg/dL 1 hour <190 mg/dl 2 hour <165 mg/dl 3 hour <145 mg/dl LAB L501.0660 <190 mg/dL High GLU GTT- 1HR 213 LAB L501.0670 <165 mg/dL High GLU GTT- 2HR 171 LAB L501.0680 <145 L Normal GLU GTT- 3HR 115 Performed By: #### L500.4710 #### [facility] [address] [facility] [place], [address] GLUCOSE CHALLENGE GEST Collected: 02/10/2018 Status: F Source: [place] 1H 50G 10:50 AM [facility] [place] TYPE CODE TESTS RESULT OUT OF RANGE REFERENCE UNITS LAB L501.0250 70-140 mg/dL High GLU GEST 171 50g 1H Performed By: #### L501.0250 #### [facility] [address] [place], [address] CBC-COMPLETE BLOOD CNT Collected: 02/10/2018 Status: F Source: [place] NO DIFF 10:50 AM [facility] TYPE CODE TESTS RESULT OUT OF RANGE REFERENCE UNITS LAB L100.1000 4.4-11.0 K/mm3 Normal WBC 7.5 LAB L100.1200 4.2-5.4 M/mm3 Low RBC 3.89 LAB L100.1300 12.0-15.0 g/dl Normal HGB 12.2 LAB L100.1400 37-47 % Normal HCT 37.6 LAB L100.1500 81-99 fL Normal MCV 96.7 LAB L100.1600 27.0-32.0 pg Normal MCH 31.4 LAB L100.1700 32-36 g/gl Normal MCHC 32.4 LAB L100.1810 11.6-14.6 % Normal RDW CV 13.4 LAB L100.1820 35.1-43.9 fl High RDW SD 46.8 LAB L100.1900 150-450 K/mm3 Normal PLT 184 LAB L100.2000 6.2-12.0 fl Normal MPV 11.9 Performed By: #### L100.0500 #### [facility] [address] [place], [address] URINE DRUG SCREEN Collected: 11/24/2017 Status: F Source: [place] (VISTA) 4:16 PM [facility] Order Comment: List of Drugs Taken or Suspected? UNK TYPE CODE TESTS RESULT OUT OF RANGE REFERENCE UNITS LAB L505.0075 TO BE Normal CONFIRMED Result Comment: CONFIRMATORY TESTING FOR ALL POSITIVE URINE DRUG SCREEN RESULTS WILL ONLY BE SENT OUT UPON PHYSICIAN ORDER. VISTA Urine Drug Screen methods provide only preliminary analytical test results. A more specific alternate chemical method must be used in order to obtain a confirmed analytical result. Gas chromatography/mass spectrometery (GC/MS) is the preferred confirmatory method. Clinical consideration and professional judgement should be applied to any drug of abuse test result, particularly when preliminary positive results are used. URINE TCA TESTING MUST BE ORDERED SEPARATELY. USE TEST MNEMONIC: [facility] LAB L505.5005 VISTA UDS PH 7 Normal LAB L505.5015 <1000 ng/mL AMPHETAMINES Normal NEGATIVE LAB L505.5025 < 200 ng/mL BARBITIURATES Normal NEGATIVE LAB L505.5035 < 200 ng/mL BENZODIAZIPINE Normal NEGATIVE LAB L505.5045 < 300 ng/mL COCAINE Normal NEGATIVE LAB L505.5055 < 500 ng/mL ECSTACY Normal NEGATIVE LAB L505.5065 < 300 ng/mL METHADONE Normal NEGATIVE LAB L505.5075 < 300 ng/mL OPIATES Normal NEGATIVE LAB L505.5085 < 25 ng/mL PCP Normal NEGATIVE LAB L505.5095 < 50 ng/mL THC Normal NEGATIVE Performed By: #### L505.5000, L505.6240 #### [facility] [address] [place], [place], [id number] NICOTINE URINE DRUG Collected: 11/24/2017 Status: F Source: [place] SCREEN 4:16 PM [facility] Order Comment: List of Drugs Taken or Suspected? UNK TYPE CODE TESTS RESULT OUT OF RANGE REFERENCE UNITS LAB L505.6250 TO BE Normal CONFIRMED Result Comment: CONFIRMATORY TESTING FOR ALL POSITIVE URINE DRUG SCREEN RESULTS WILL ONLY BE SENT OUT UPON PHYSICIAN ORDER. The results of Urine Drug Screen methods provide only preliminary analytical test results. A more specific alternate chemical method must be used in order to obtain a confirmed analytical result. Gas chromatography/mass spectrometery (GC/MS) is the preferred confirmatory method. Clinical consideration and professional judgement should be applied to any drug of abuse test result, particularly when preliminary positive results are used. LAB L505.6270 <200 ng/mL Normal COT DRG Negative SCREEN Result Comment: Cotinine is the first-stage metabolite of Nicotine. Performed By: #### L505.5000, L505.6240 #### [facility] [address] [place], [place], [id number] URINALYSIS, ROUTINE Collected: 11/24/2017 Status: F Source: EVERT (DIPSTICK) 4:16 PM [facility] Order Comment: How was Urine Obtained? Urine, Random TYPE CODE TESTS RESULT OUT OF RANGE REFERENCE UNITS LAB L400.3000 Yellow COLOR Normal Straw LAB L400.3050 Clear Normal CLARITY Clear LAB L400.3200 Normal mg/dl Normal GLUCOSE, UR Normal LAB L400.3300 Negative mg/dL Normal BILIRUBIN URINE Negative LAB L400.3400 Negative mg/dl Normal KETONE UR Negative LAB L400.3465 1.002-1.030 Normal SP.GR. DIPSTX 1.005 LAB L400.3550 5.0 - 8.0 pH UR Normal 7.0 LAB L400.3600 Negative mg/dl PROT Normal DIPSTX Negative LAB L400.3700 Normal mg/dl Normal UROBILI Normal LAB L400.3750 Negative Normal NITRITE UR Negative LAB L400.3780 Negative /ul Normal OCCULT BLOOD-UR Negative LAB L400.3800 Negative /ul LEUK Normal ESTERASE Negative Performed By: #### L400.2010 #### [facility] [address] [place], [address] CBC W/DIFF, AUTOMATED Collected: 11/24/2017 Status: F Source: EVERT 4:16 PM [facility] TYPE CODE TESTS RESULT OUT OF RANGE REFERENCE UNITS LAB L100.1000 4.4-11.0 K/mm3 Normal WBC 6.4 LAB L100.1200 4.2-5.4 M/mm3 Low RBC 3.92 LAB L100.1300 12.0-15.0 g/dl Normal HGB 12.0 LAB L100.1400 37-47 % Low HCT 36.8 LAB L100.1500 81-99 fL Normal MCV 93.9 LAB L100.1600 27.0-32.0 pg Normal MCH 30.6 LAB L100.1700 32-36 g/gl Normal MCHC 32.6 LAB L100.1810 11.6-14.6 % Normal RDW CV 13.0 LAB L100.1820 35.1-43.9 fl High RDW SD 44.6 LAB L100.1900 150-450 K/mm3 Normal PLT 219 LAB L100.2000 6.2-12.0 fl Normal MPV 11.7 LAB L100.2100 47-70 % Normal NEUT% 69.8 LAB L100.2200 19-41 % Normal LY% 22.7 LAB L100.2300 0-10 % Normal MONO% 6.3 LAB L100.2400 0-5 % Normal EO% 0.9 LAB L100.2500 0-1 % Normal BASO% 0.0 LAB L100.2550 0.0-0.9 % Normal IM GRAN % 0.300 Result Comment: IG% - Immature Granulocytes (promyelocytes, myelocytes and metamyelocytes) > 1% indicates that a LEFT SHIFT is Present. LAB L100.2620 2.0-7.7 X10 3/uL Normal Absolute Neut 4.5 LAB L100.2720 0.83-4.51 X10 3/ul Normal Absolute Lymph 1.45 Performed By: #### L100.0100 #### [facility] [address] [place], [place], [id number] THYROID STIM HORMONE Collected: 11/24/2017 Status: F Source: PICKENS (TSH) 4:16 PM [facility] TYPE CODE TESTS RESULT OUT OF RANGE REFERENCE UNITS LAB L501.9520 0.358-3.74 uIU/mL Normal TSH 0.85 Performed By: #### L501.9520 #### [facility] [place], [place], [id number] T AND S-NO Collected: 11/24/2017 Status: F Source: EV[place] CHARGE W/PNP 4:16 PM [facility] Order Comment: Reason for Type AND Screen/Red Cells: Surgery? N TYPE CODE TESTS RESULT OUT OF RANGE REFERENCE UNITS LAB B10.0800 A Normal BLOOD POSITIVE TYPE GEL LAB B100.4050 Normal Ab SCREEN NEGATIVE GEL Performed By: #### B100.7550 #### [facility] [place], [place], [id number] RUBELLA IGG Collected: 11/24/2017 Status: F Source: PICKENS 4:16 PM [facility] TYPE CODE TESTS RESULT OUT OF RANGE REFERENCE UNITS LAB L509.4000 IU/mL Normal Rubella IgG 97.4 Result Comment: Antibody results Interpretation of Immune Status < 5 IU/ml Presumed Non-immune 5 - < 10 IU/ml Equivocal > or = 10 IU/ml Presumed Immune Performed By: #### L509.4000, L3890.6005 #### [facility] [address] [place], [place], [address] HIV - [facility] Collected: 11/24/2017 Status: F Source: [place] 4:16 PM [facility] TYPE CODE TESTS RESULT OUT OF RANGE REFERENCE UNITS LAB L3890.6005 Nonreactive Normal HIV - [facility] Non-Reactive Performed By: #### L509.4000, L3890.6005 #### [facility] [address] [place], [place], [address] RPR Collected: 11/24/2017 Status: F Source: [place]ENS 4:16 PM [facility] TYPE CODE TESTS RESULT OUT OF REFERENCE UNITS RANGE LAB L700.5100 NONREACTIVE Normal RPR NONREACTIVE Performed By: #### L700.5100 #### [facility] [address] [facility] [place], [place], [address] HEPATITIS B SURFACE Collected: 11/24/2017 Status: F Source: [place] AG 4:16 PM [facility] TYPE CODE TESTS RESULT OUT OF RANGE REFERENCE UNITS LAB L3100.0400 Negative Normal HB Negative SURF AG Result Comment: Performed at: [facility] [id number] Team Cdl Driver: Danyel Loja PhD, Phone: [phone] Performed By: #### L3100.0390, L3100.0625 #### [facility] (refer to report for specific site) refer to report for address and phone number HEPATITIS C ANTIBODIES Collected: 11/24/2017 Status: F Source: [place] 4:16 PM [facility] TYPE CODE TESTS RESULT OUT OF RANGE REFERENCE UNITS LAB L3100.0650 0.0-0.9 s/co ratio Normal HEP C AB <0.1 Result Comment: Negative: < 0.8 Indeterminate: 0.8 - 0.9 Positive: > 0.9 The CDC recommends that a positive HCV antibody result be followed up with a HCV Nucleic Acid Amplification test (064581). Performed By: #### L3100.0390, L3100.0625 #### [facility] (refer to report for specific site) refer to report for address and phone number CT/NG [facility] BY PCR Collected: 10/28/2017 Status: F Source: PICKENS 3:05 PM [facility] TYPE CODE TESTS RESULT OUT OF RANGE REFERENCE UNITS LAB L8200.2100 Negative Normal Chlam Negative Trac PCR LAB L8200.2200 Negative Normal NG by Negative PCR Performed By: #### L8200.2000 #### [facility] [address] [place], [address] PAP I-G W/RFX HRHPV Collected: 10/28/2017 Status: F Source: PICKENS 3:05 PM [facility] Order Comment: CYTOLOGY INFORMATION: - CLINICAL INFORMATION: - DATE LMP/MENOPAUSE: 08/04/17 LMP - COLLECTION VIAL: Thin Prep Vial - SURFBOARD MAKER SOURCE: CERVICAL/ENDOCERVICAL - COLLECTION TECHNIQUE: BRUSH/SPATULA Specimen Comment: [id number] Specimen Comment: No. of containers..01 ThinPrep Vial TYPE CODE TESTS RESULT OUT OF RANGE REFERENCE UNITS LAB L7400.0800 . Normal DIAGN Comment Result Comment: NEGATIVE FOR INTRAEPITHELIAL LESION AND MALIGNANCY. LAB L7400.0900 . Normal ADEQ Comment Result Comment: Satisfactory for evaluation. Endocervical and/or squamous metaplastic cells (endocervical component) are present. LAB L7400.1400 . Normal PERFORM Comment Result Comment: Gabriel Cummins, Despatching And Receiving Clerk (ASCP) LAB L7400.2575 . Normal TEST METHOD Comment Result Comment: This liquid based ThinPrep(R) pap test was screened with the use of an image guided system. LAB L7400.2600 . Normal . COMM LAB L7400.2700 . Normal PAPSMR Comment Result Comment: The Pap smear is a screening test designed to aid in the detection of premalignant and malignant conditions of the uterine cervix. It is not a diagnostic procedure and should not be used as the sole means of detecting cervical cancer. Both false-positive and false-negative reports do occur. LAB L7400.2800 . Normal HPV RFLX Comment Result Comment: The HPV DNA reflex criteria were not met with this specimen result therefore, no HPV testing was performed. Performed at: [facility] [id number] Team Cdl Driver: Julisa Lazcano MD, Phone: [phone] Performed By: #### L7200.0350 #### [facility] (refer to report for specific site) refer to report for address and phone number ALLERGIES ALLERGIES DATE TYPE / CODE NAME / CODE REACTION SEVERITY SOURCE 04/11/2018 Drug Penicillins/ Rash Unknown [facility] Allergy/4160 [id number]( Hospital [address](SNOMED XNORM) Repository CT) ENCOUNTERS ENCOUNTERS ADMIT/DISCHARGE ACCOUNT ADMITTING ENCOUNTER LOCATION SOURCE NUMBER CLASS 05/25/2018 [id number] [place] 1 [facility] ing:WOBLAB Repository 04/25/2018 [id number] Ambulatory [place] 6 [facility] ing:DC Repository 04/11/2018/ [id number] Amita, Inpatient [place] 8 4 Summer Encounter [facility] ing:WPRoom: Repository [id number]: 1 04/02/2018 [id number] Ambulatory [place] 3 [facility] ing:LABSPEC Repository 03/23/2018/ [id number] Ambulatory [place] 8 7 [facility] ing:DC Repository 03/12/2018/ [id number] Ambulatory [place] 8 4 [facility] ing:NS Repository 02/24/2018 [id number] Ambulatory [place] 3 [facility] Hospital ing:LAB Repository 02/10/2018 [id number] Ambulatory [place] 1 [facility] ing:LABSPEC Repository 11/24/2017 [id number] Ambulatory [place] 5 [facility] ing:WOBLAB Repository 11/20/2017/ [id number] NABIL, [facility] Repository 10/28/2017 [id number] Ambulatory [place] 5 [facility] ing:LABSPEC Repository PAYERS PAYERS ENCOUNTER GUARANTOR PAYER SUBSCRIBER SOURCE 05/25/2018 JACOB Johnson Primary JACOB [id number] Insurance:AULTCAREPol ALGIREDOB: Community WATER icy Number: [id number], [id number] Repository [place] [address]Buz: Date:7911-28-02UL [address] [place] [address] () [phone]: 05/25/2018 Secondary NOT GIVENUNK [place] Insurance:SELF PAY [facility] Number: Effective Repository Date:2018-05-25 04/25/2018 JACOB Johnson Primary JACOB [address] [id number] Insurance:AULTCAREPol ALGIREDOB: Community WATER icy Number: [id number], [id number] [place]ository [place] [address]Pbv: Date:9413-92-90LY [address] [place] [address] () [phone]: 04/25/2018 Secondary NOT GIVENUNK [place] Insurance:SELF PAY [facility] Number: Effective Repository Date:2018-04-15 04/11/2018 JACOB Johnson Primary JACOB Elizabeth [address] [id number] Insurance:AULTCAREPol ALGIREDOB: Community WATER icy Number: [id number], [id number] [place]ository [place] [address]Mbx: Date:4185-34-42VJ [address], [place] () [phone]: 04/11/2018 Secondary NOT GIVENUNK [place] Insurance:SELF PAY [facility] Number: Effective Repository Date:2018-04-11 04/02/2018 JACOB Johnson Primary JACOB [id number] Insurance:AULTCAREPol ALGIREDOB: Community WATER icy Number: [id number] [facility], [id number] [place]ository [place] [address]Ual: Date:0766-26-87RR [address], [place] () [address]VQ: 04/02/2018 Secondary NOT GIVENUNK [place] Insurance:SELF PAY [facility] Number: Effective Repository Date:2018-04-02 03/23/2018 JACOB Johnson Primary JACOB Johnson Evertmini [id number] Insurance:AULTCAREPol ALGIREDOB: Community WATER icy Number: [id number] [facility], [id number] Repository [place] [address]Rxf: Date:0518-44-87EL [address] [place] [address] () [phone]: 03/23/2018 Secondary NOT GIVENUNK [place] Insurance:SELF PAY [facility] Number: Effective Repository Date:2018-03-15 03/12/2018 JACOB Elizabeth Primary JACOB Elizabeth [address] [id number] Insurance:AULTCAREPol ALGIREDOB: Community WATER icy Number: [id number] [facility], [id number] Repository [place] [address]Oqz: Date:0715-37-77BT [address] [place] [address] () [phone]: 03/12/2018 Secondary NOT GIVENUNK [place] Insurance:SELF PAY [facility] Number: Effective Repository Date:2018-03-02 02/24/2018 JACOB Elizabeth Primary AJCOB [id number] Insurance:AULTCAREPol ALGIREDOB: Community WATER icy Number: [id number] [facility], [id number] Repository [place] [address]Yom: Date:1657-47-09LQ [address] [place] [address] () [phone]: 02/24/2018 Secondary NOT GIVENUNK [place] Insurance:SELF PAY [facility] Number: Effective Repository Date:2018-02-17 02/10/2018 Jacob Avalos Primary Jacob [address] Insurance:AULTCAREPol AlgireDOB: [facility] Number: [id number]. [facility] [place] [address]Sje: [id number] Repository Date:8403-92-94BL [address] [address]VS: 02/10/2018 Secondary NOT GIVENUNK [place] Insurance:SELF PAY [facility] Number: Effective Repository Date:2018-02-10 11/24/2017 Jacob Avalos Primary NOT GIVENUNK [place] [address] Insurance:[facility]LF [facility] [place] [address]Ckn: Number: Effective Repository Date:2017-11-24 () 10/28/2017 Jacob Avalos Primary NOT GIVENUNK [place] [address] Insurance:SELF [place], [place] [address]Ezq: Number: Effective Repository Date:2017-10-28 ()
== END ==
PROVIDERS: Visit Provider Obstetrics & Gynecology
DX: Z30.014 Encounter for initial prescription of intrauterine contraceptive device (principal)
CPT/HCPCS: 36415; 84144; 84702

== ENCOUNTER 2025-01-23 17:20 | Outpatient (CLI) | payer OTHER, SELFPAY ==
[2025-01-23 17:23] VITALS: BMI 34.4
[2025-01-23 17:40] VITALS: BP 146/71; PULSE 60; RESP 16; TEMP 36.8; O2SAT 99
[2025-01-23] MEDS: 0.9% Saline Lock 10 ML Syringe IV (18:05)
[2025-01-23 19:25] VITALS: BP 139/72; PULSE 78; RESP 16; TEMP 36.2; O2SAT 97
--- OUTSIDE RECORDS SUMMARY | 2025-01-23 21:33 | XMS RPT_ITS | CCD ---
Author Organization [facility] Care Team Providers Care Manager Benefit Name Role Phone Chetan, Crispin Attending Unavailable Seals, Crispin Attending Unavailable Seals, Crispin Attending Unavailable Seals, Crispin Attending Unavailable Seals, Crispin Attending Unavailable Seals, Crispin Referring Unavailable Madrigal, Crispin Primary Care Unavailable Seals, Crispin Attending Unavailable Madrigal, Crispin Primary Care Unavailable Seals, Crispin Attending Unavailable Rohan, Crispin Primary Care Unavailable Seals, Crispin Attending Unavailable Gloria Levi Attending Unavailable ROHAN, MAXIMINO Primary Care Unavailable Gloria Levi Admitting Unavailable Sealumm, Crispin Attending Unavailable MAXIMINO MADRIGAL Primary Care Unavailable LAZARO VARMA Consulting Unavailable NATHANIEL, DR JOHANNY Calero Attending Unavaila ble NATHANIEL, DR JOHANNY Calero Primary Care Unavaila ble NATHANIEL, DR JOHANNY Calero Admitting Unavaila ble PROVIDER, UNKNOWN Consulting Unavailable OberhausPatricia aguilar DO Primary Care Provider [phone] PATRICIA AARON Primary Care Unavailable SEAN SMITH Attending Unava ilable OBERPATRICIA KEY Primary Care Unavailable OBERHAUSERPATRICIA Primary Care Unavailable OBERHAUSERPATRICIA Attending Unavailable OBERHAUSERPATRICIA Primary Care Unavailable OBERHAUSERPATRICIA Attending Unavailable OBERHAUSERPATRICIA Referring Unavailable OBERHAUSERPATRICIA Primary Care Unavailable OBERHAUSERPATRICIA Attending Unavailable OBERHAUSER, PATRICIA Grace Referring Unavailable OBERHAUSER, PATRICIA Grace Primary Care Unavailable Oberhauser Patricia FORRESTER Primary Care Provider [phone] OberPatricia key DO Primary Care Provider PATRICIA AARON Primary Care Unavailab BERT Terrell Referring Unavailable SHEYLA ELLIS Attending Unavailable OBERHAUSER, PATRICIA CATALINO Primary Care Unavailab JAIME Briseno Attending Unavailable OBERHAUSER, PATRICIA BAE Primary Care Unavailab le ANY TREVINO Referring Unavail able OBERHAUSER, PATRICIA BAE Primary Care Unavailab le PLOTTS, HAYLEE Attending Unavailable OBERHAUSERPATRICIA Primary Care Unavailab SHEYLA Ohara Referring Unavailable BERT WAGNER Attending Unavailable OBERHAUSER, PATRICIA BAE Primary Care Unavailab le GONZALEZSHEYLA PRICE Referring Unavailable OBERHAUSER, PATRICIA BAE Primary Care Unavailab le PLOTTS, HAYLEE Referring Unavailable OBERHAUSER, PATRICIA BAE Primary Care Unavailab le PLOTTS, HAYLEE Referring Unavailable OBERHAUSER, PATRICIA BAE Primary Care Unavailab le KRISTY, BERT Grace Referring Unavailable OBERHAUSER, PATRICIA BAE Primary Care Unavailab le PLOTTS, HAYLEE Referring Unavailable GONZALEZSHEYLA PRICE Attending Unavailable OBERHAUSERPATRICIA Primary Care Unavailab le GONZALEZ, SHEYLA Referring Unavailable GONZALEZ, SHEYLA Attending Unavailable OBERHAUSERPATRICIA Primary Care Unavailab malou GONZALEZ, SHEYLA Referring Unavailable OBERHAUSER, PATRICIA BAE Primary Care Unavailab le PLOTTS, HAYLEE Referring Unavailable ANY TREVINO Attending Unavail able OBERHAUSER, PATRICIA BAE Primary Care Unavailab MAYRA Gray Attending Unavailable OBERHAUSER, PATRICIA BAE Primary Care Unavailab malou CHAUHAN, KARDONA Referring Unavailable GONZALEZSHEYLA PRICE Attending Unavailable OBERHAUSERPATRICIA Primary Care Unavailab malou TIEN, KARMON Referring Unavailable OBERHAUSER, PATRICIA BAE Primary Care Unavailab le PLOTTS, HAYLEE Referring Unavailable BRITTANEY CHAUHAN Attending Unavailable OBERHAUSERPATRICIA Primary Care Unavailab le PLOTTS, HAYLEE Referring Unavailable YOLANDA BUCHANAN Attending Unavailable OBERHAUSER, PATRICIA BAE Primary Care Unavailab le PLOTTS, HAYLEE Referring Unavailable Allergies Allergy Classification Reported Allergen(s) Allergy Type Date of Onset Reaction(s) Facility (6 sources) Penicillins; Translations: [PENICILLINS] Drug allergy (disorder) 5 Hivviviana, Swelling [facility] (4 sources) Penicillins Propensity to adverse reactions 5 Hives [facility] (20 sources) Penicillins Drug Allergy 5 Hives, Swelling [facility] Medications Current Medications Medication Drug Class(es) Dates Sig (Normalized) Sig (Original) aspirin 81 mg delayed release oral tablet (20 sources) Platelet Aggregation Inhibitor, Nonsteroidal Anti-inflammatory Drug Start: 08-11-2024 take 1 tablet by mouth once daily aspirin, enteric coated (ECOTRIN LOW STRENGTH) 81 mg EC tablet Take 1 tablet by mouth once daily. 90 tablet 3 08/11/2024 Active Blood-Glucose Sensor (DEXCOM G7 SENSOR) jonathan (20 sources) Start: 10-17-2024 Blood-Glucose Sensor (DEXCOM G7 SENSOR) jonathan 1 device every 10 days. 3 each 3 10/17/2024 Active Start: 09-13-2024 End: 10-17-2024 Blood-Glucose Sensor (DEXCOM G7 SENSOR) jonathan 1 Device every 10 days. 3 Each 3 09/13/2024 10/17/2024 Discontinued Start: 09-13-2024 Blood-Glucose Sensor (DEXCOM G7 SENSOR) jonathan 1 Device every 10 days. 3 Each 3 09/13/2024 Active 3 ml insulin isophane, human 100 unt/ml pen injector (20 sources) Start: 2024 inject 24 [IU] by subcutaneous injection once daily in the morning, then inject 14 [IU] by subcutaneous injection once daily at bedtime insulin NPH subcutaneous pen Indications: Insulin controlled gestational diabetes mellitus (GDM) in second trimester ([facility]) Inject 24 Units subcutaneously every morning AND 14 Units daily at bedtime. 15 mL 2 2024 Active Start: 11-23-2024 End: 2024 inject 14 [IU] by subcutaneous injection once daily in the morning, then inject 14 [IU] by subcutaneous injection once daily at bedtime insulin NPH subcutaneous pen Indications: Insulin controlled gestational diabetes mellitus (GDM) in second trimester ([facility]) Inject 14 Units subcutaneously every morning AND 14 Units daily at bedtime. 15 mL 1 11/23/2024 2024 Discontinued Start: 11-01-2024 inject 10 [IU] by dewey bcutaneous injection once daily at bedtime insulin NPH subcutaneous pen Indications: Insulin controlled gestational diabetes mellitus (GDM) in second trimester ([facility]) Inject 10 Units subcutaneously daily at bedtime. 15 mL 11/01/2024 Active 3 ml insulin lispro 100 unt/ml pen injector (17 sources) Insulin Analog Start: 11-23-2024 inject 4 [IU] by subcutaneous injection once daily at breakfast, then inject 4 [IU] by subcutaneous injection once daily at dinner insulin lispro (HUMALOG KWIKPEN) 100 unit/mL Inject 4 Units subcutaneously daily with breakfast AND 4 Units daily with dinner. 15 mL 11/23/2024 Active PNV no.103/folic/om 3s/fish oil ( WITH DHA-FOLIC ACID ORAL) (20 sources) PNV no.103/folic/om3s/fi sh oil ( WITH DHA-FOLIC ACID ORAL) Take by mouth. Active Completed/Discontinued Medications Medication Drug Class(es) Dates Sig (Normalized) Sig (Original) metFORMIN hydrochloride 500 mg oral tablet (19 sources) Biguanide Start: 07-25-2024 End: 07-25-2025 take 2 tablets by mouth twice daily metFORMIN (Glucophage) 500 mg tablet Indications: Type 2 diabetes mellitus without complication, without long-term current use of insulin (Multi) Take 2 tablets (1,000 mg) by mouth 2 times daily (morning and late afternoon). 360 tablet 3 07/25/2024 07/25/2025 Active Start: 10-06-2022 End: 02-21-2025 take 1 mg by mouth twice daily at mealtime metFORMIN (GLUCOPHAGE) 500 mg tablet Take 500 mg by mouth two times a day with meals. Has RX for 1000mg BID to 07/28/2024 11/11/2024 Discontinued (Other) ondansetron 4 mg disintegrating oral tablet (10 sources) Serotonin-3 Receptor Antagonist Start: 07-25-2024 End: 10-14-2024 take 1 tablet by mouth every eight hours for nausea ondansetron orally disintegrating (ZOFRAN ODT) 4 mg disintegrating tablet Dissolve 1 tablet (4 mg) in the mouth every 8 hours if needed for nausea or vomiting. 07/25/2024 10/14/2024 Discontinued (Other) semaglutide 0.25 mg or 0.5 mg (2 mg/3 mL) pen injector (2 sources) Start: 06-06-2024 End: 07-25-2024 semaglutide 0.25 mg or 0.5 mg (2 mg/3 mL) pen injector Indications: Type 2 diabetes mellitus without complication, without long-term current use of insulin (Multi) Inject 0.25 mg under the skin 1 (one) time per week. 2 mL 2 06/06/2024 07/25/2024 Discontinued (Therapy completed) Start: 05-30-2024 semaglutide 0. 25 mg or 0.5 mg (2 mg/3 mL) pen injector Indications: Type 2 diabetes mellitus without complication, without long-term current use of insulin (Multi) Inject 0.25 mg under the skin 1 (one) time per week. 2 mL 05/30/2024 Active Problems Active Problems Problem Classification Problem Date Documented Date Episodic/Chronic Contraceptive and procreative management (1 source) Encounter for initial prescription of intrauterine contraceptive device; Translations: [Z30.014 - Encounter for initial prescription of intrauterine contraceptive device] Onset: 05-25-2018 Episodic Diabetes mellitus without complication (20 sources) Type 2 diabetes mellitus without complication; Translations: [Type 2 diabetes mellitus without complications] Onset: 02-22-2024 05-30-2024 Chronic Diabetes or abnormal glucose tolerance complicating ; childbirth; or the puerperium (9 sources) Unspecified diabetes mellitus in , second trimester; Translations: [Pre-existing diabetes mellitus in ] Onset: 08-09-2018 11-11-2024 Chronic Diabetes or abnormal glucose tolerance complicating ; childbirth; or the puerperium (6 sources) Gestational diabetes mellitus; Translations: [Gestational diabetes mellitus in , insulin controlled] Onset: 2024 12-12-2024 Episodic Immunizations and screening for infectious disease (4 sources) Encounter for screening for infections with a predominantly sexual mode of transmission; Translations: [Patient encounter status] Onset: 10-29-2017 08-11-2024 Episodic Nonspecific chest pain (1 source) Chest pain; Translations: [Chest pain, unspecified] 10-02-2022 Episodic Open wounds of extremities (2 sources) Laceration without foreign body of left little finger without damage to nail, initial encounter; Translations: [Laceration without foreign body of left little finger without damage to nail, initial encounter] Onset: 01-25-2024 Episodic Other complications of (15 sources) High risk ; Translations: [Supervision of high risk , unspecified, second trimester] Onset: 08-11-2024 08-11-2024 Episodic Other complications of (1 source) Supervision of high risk , unspecified, third trimester; Translations: [Supervision of high risk in third trimester ([facility])] Onset: 01-09-2025 Episodic Other complications of (1 source) Supervision of elderly multigravida, third trimester; Translations: [AMA (advanced maternal age) multigravida 35+, third trimester ([facility])] Onset: 01-09-2025 Episodic Other complications of (1 source) Supervision of with insufficient care, unspecified trimester; Translations: [Late care ([facility])] Onset: 2024 Episodic Other complications of (1 source) Supervision of high risk , unspecified, second trimester; Translations: [Supervision of high risk in second trimester ([facility])] Onset: 2024 Episodic Other screening for suspected conditions (not mental disorders or infectious disease) (1 source) Encounter for screening for Streptococcus B; Translations: [Z36.85 - Encounter for screening for Streptococcus B] Onset: 04-02-2018 Residual codes; unclassified (3 sources) First trimester ; Translations: [Less than 8 weeks gestation of ] Onset: 07-25-2024 07-25-2024 Episodic Residual codes; unclassified (1 source) Less than 8 weeks gestation of ; Translations: [Less than 8 weeks gestation of ([facility])] Onset: 07-25-2024 Episodic Residual codes; unclassified (2 sources) Gestation period, 12 weeks; Translations: [12 weeks gestation of ] 08-11-2024 Episodic Residual codes; unclassified (2 sources) Gestation period, 17 weeks; Translations: [17 weeks gestation of ] 09-13-2024 Episodic Residual codes; unclassified (2 sources) Gestation period, 21 weeks; Translations: [21 weeks gestation of ] 10-14-2024 Episodic Residual codes; unclassified (1 source) Gestation period, 25 weeks; Translations: [25 weeks gestation of ] 11-11-2024 Episodic Residual codes; unclassified (1 source) Gestation period, 28 weeks; Translations: [28 weeks gestation of ] 12-02-2024 Episodic Residual codes; unclassified (1 source) Gestation period, 31 weeks; Translations: [31 weeks gestation of ] 12-19-2024 Episodic Residual codes; unclassified (4 sources) Gestation period, 32 weeks; Translations: [32 weeks gestation of ] 2024 Episodic Residual codes; unclassified (1 source) Gestation period, 34 weeks; Translations: [34 weeks gestation of ] 01-09-2025 Episodic Residual codes; unclassified (1 source) 34 weeks gestation of ; Translations: [34 weeks gestation of (HCC)] Onset: 01-09-2025 Episodic Residual codes; unclassified (1 source) 25 weeks gestation of ; Translations: [25 weeks gestation of (HCC)] Onset: 2024 Episodic Residual codes; unclassified (1 source) 32 weeks gestation of ; Translations: [32 weeks gestation of (HCC)] Onset: 2024 Episodic Residual codes; unclassified (1 source) 31 weeks gestation of ; Translations: [31 weeks gestation of (HCC)] Onset: 12-19-2024 Episodic Residual codes; unclassified (1 source) 28 weeks gestation of ; Translations: [28 weeks gestation of (HCC)] Onset: 12-02-2024 Episodic Unclassified (1 source) CONTACT WITH AND SUSPECTED EXPOSURE TO COVID-19; Translations: [CONTACT WITH AND SUSPECTED EXPOSURE TO COVID-19] Onset: 03-12-2021 Unclassified (20 sources) [facility] Education - COMMON Onset: 08-11-2024 08-11-2024 Unclassified (20 sources) Education - [place] Onset: 08-11-2024 08-11-2024 Unclassified (20 sources) Gestational Diabetes Home Monitoring Onset: 09-13-2024 09-13-2024 Unclassified (1 source) OPENED IN ERROR 11-18-2024 Viral infection (1 source) COVID-19; Translations: [COVID-19] Onset: 03-12-2021 Past or Other Problems Problem Classification Problem Date Documented Da te Episodic/Chronic Allergic reactions (20 sources) Allergy to penicillin; Translations: [Allergy status to penicillin] Onset: 08-11-2024 08-11-2024 Episodic Diabetes mellitus without complication (5 sources) Prediabetes; Translations: [Prediabetes] Onset: 08-14-2019 10-02-2022 Episodic Other complications of (20 sources) Late entry into care; Translations: [Supervision of with insufficient care, unspecified trimester] Onset: 08-11-2024 Resolved: 09-13-2024 08-11-2024 Episodic Other complications of (20 sources) Multigravida of advanced maternal age; Translations: [Supervision of elderly multigravida, second trimester] Onset: 08-11-2024 08-11-2024 Episodic Other complications of (1 source) Supervision of elderly multigravida, second trimester; Translations: [Multigravida of advanced maternal age in second trimester ([facility])] Onset: 09-12-2024 Episodic Other female genital disorders (20 sources) H/O: premature delivery; Translations: [Personal history of pre-term labor] Onset: 08-11-2024 08-11-2024 Episodic Other female genital disorders (1 source) Personal history of pre-term labor; Translations: [History of delivery] Onset: 08-11-2024 Episodic Other and delivery including normal (8 sources) Encounter for supervision of other normal , third trimester; Translations: [Encounter for supervision of other normal , second trimester] Onset: 10-29-2017 08-11-2024 Episodic Other screening for suspected conditions (not mental disorders or infectious disease) (7 sources) Encounter for screening for malignant neoplasm of cervix; Translations: [Patient encounter status] Onset: 10-29-2017 10-02-2022 Episodic Residual codes; unclassified (1 source) 21 weeks gestation of ; Translations: [21 weeks gestation of ([facility])] Onset: 10-14-2024 Episodic Residual codes; unclassified (2 sources) 12 weeks gestation of ; Translations: [12 weeks gestation of ([facility])] Onset: 09-08-2024 Episodic Unclassified (1 source) CONTACT WITH AND SUSPECTED EXPOSURE TO COVID-19; Translations: [CONTACT WITH AND SUSPECTED EXPOSURE TO COVID-19] Onset: 03-12-2021 Unclassified (4 sources) Onset: 10-02-2022 Resolved: 02-22-2024 10-02-2022 Results Test Name Value Interpretation Reference Range Facil ity CBC W Auto Differential pane l (Bld)on 2024 Basophils (Bld) [#/Vol] 10*3/uL Normal <0.11 [facility] Comment on above: Order Comment: Speci men Type: BLOOD SPECIMEN Ordering Facility: [facility] Address: [address] [place] [address] Performed By: #### 5 195-3, 38534-8, 62408-1 #### [facility] CLIA [id number] [address] [place] [address] [place] Basophils/100 WBC (Bld) 0.3 % Normal [facility] Comment on above: Order Comment: Speci men Type: BLOOD SPECIMEN Ordering Facility: [facility] Address: [address] [place] [address] Performed By: #### 5 195-3, 63351-3, 36647-5 #### [facility] CLIA [id number] [address] [place] [address] [place] Differential cell count method Nom (Bld) Auto Normal [facility] Comment on above: Order Comment: Speci men Type: BLOOD SPECIMEN Ordering Facility: [facility] Address: [address] [place] [address] Performed By: #### 5 195-3, 45457-4, 85394-2 #### [facility] CLIA [id number] [address] [place] [address] [place] Eosinophils (Bld) [#/Vol] 0.10 10*3/uL Normal <0.46 [facility] Comment on above: Order Comment: Speci men Type: BLOOD SPECIMEN Ordering Facility: [facility] Address: [address] [place] [address] Performed By: #### 5 195-3, 39907-3, 73136-9 #### [facility] CLIA [id number] [address] [place] [address] [place] Eosinophils/100 WBC (Bld) 1.3 % Normal [facility] Comment on above: Order Comment: Speci men Type: BLOOD SPECIMEN Ordering Facility: [facility] Address: [address] [place] [address] Performed By: #### 5 195-3, 38123-4, 26621-0 #### [facility] CLIA [id number] [address] [place] [address] [place] Erythrocyte distribution width (RBC) [Ratio] 13.4 % Normal 11.5-15.0 [facility] Comment on above: Order Comment: Speci men Type: BLOOD SPECIMEN Ordering Facility: [facility] Address: [address] [place] [address] Performed By: #### 5 195-3, 88160-0, 40619-7 #### [facility] CLIA [id number] [address] [place] [address] [place] Hematocrit (Bld) [Volume fraction] 38.7 % Normal 36.0-46.0 [facility] Comment on above: Order Comment: Speci men Type: BLOOD SPECIMEN Ordering Facility: [facility] Address: [address] [place] [address] Performed By: #### 5 195-3, 45455-3, 22934-2 #### [facility] CLIA [id number] [address] [place] [address] [place] Hemoglobin (Bld) [Mass/Vol] 13.0 g/dL Normal 11.5-15.5 [facility] Comment on above: Order Comment: Speci men Type: BLOOD SPECIMEN Ordering Facility: [facility] Address: [address] [place] [address] Performed By: #### 5 195-3, 40198-8, 86282-3 #### [facility] CLIA [id number] [address] [place] [address] [place] Immature granulocytes (Bld) [#/Vol] 0.04 10*3/uL Normal <0.10 [facility] Comment on above: Order Comment: Speci men Type: BLOOD SPECIMEN Ordering Facility: [facility] Address: [address] [place] [address] Performed By: #### 5 195-3, 15507-3, 11339-5 #### [facility] CLIA [id number] [address] [place] [address] [place] Immature granulocytes/100 WBC (Bld) 0.5 % Normal [facility] Comment on above: Order Comment: Speci men Type: BLOOD SPECIMEN Ordering Facility: [facility] Address: [address] [place] [address] Performed By: #### 5 195-3, 05150-9, 04890-3 #### [facility] CLIA [id number] [address] [place] [address] [place] Lymphocytes (Bld) [#/Vol] 1.49 10*3/uL Normal 1.00-4.00 [facility] Comment on above: Order Comment: Speci men Type: BLOOD SPECIMEN Ordering Facility: [facility] Address: [address] [place] [address] Performed By: #### 5 195-3, 37110-8, 66601-4 #### [facility] CLIA [id number] [address] [place] [address] [place] Lymphocytes/100 WBC (Bld) 18.9 % Normal [facility] Comment on above: Order Comment: Speci men Type: BLOOD SPECIMEN Ordering Facility: [facility] Address: [address] [place] [address] Performed By: #### 5 195-3, 09094-6, 75288-6 #### [facility] CLIA [id number] [address] [place] [address] [place] MCH (RBC) [Entitic mass] 30.5 pg Normal 26.0-34.0 [facility] Comment on above: Order Comment: Speci men Type: BLOOD SPECIMEN Ordering Facility: [facility] Address: [address] [place] [address] Performed By: #### 5 195-3, 33381-4, 81029-5 #### [facility] CLIA [id number] [address] [place] [address] [place] MCHC (RBC) [Mass/Vol] 33.6 g/dL Normal 30.5-36.0 [facility] Comment on above: Order Comment: Speci men Type: BLOOD SPECIMEN Ordering Facility: [facility] Address: [address] [place] [address] Performed By: #### 5 195-3, 90433-0, 89846-2 #### [facility] CLIA [id number] [address] [place] [address] [place] MCV (RBC) [Entitic vol] 90.8 fL Normal 80.0-100.0 [facility] Comment on above: Order Comment: Speci men Type: BLOOD SPECIMEN Ordering Facility: [facility] Address: [address] [place] [address] Performed By: #### 5 195-3, 82619-9, 98391-0 #### [facility] CLIA [id number] [address] [place] [address] [place] Monocytes (Bld) [#/Vol] 0.68 10*3/uL Normal <0.87 [facility] Comment on above: Order Comment: Speci men Type: BLOOD SPECIMEN Ordering Facility: [facility] Address: [address] [place] [address] Performed By: #### 5 195-3, 94754-3, 92756-2 #### [facility] CLIA [id number] [address] [place] [address] [place] Monocytes/100 WBC (Bld) 8.6 % Normal [facility] Comment on above: Order Comment: Speci men Type: BLOOD SPECIMEN Ordering Facility: [facility] Address: [address] [place] [address] Performed By: #### 5 195-3, 79806-2, 54489-6 #### [facility] CLIA [id number] [address] [place] [address] [place] Neutrophils (Bld) [#/Vol] 5.57 10*3/uL Normal 1.45-7.50 [facility] Comment on above: Order Comment: Speci men Type: BLOOD SPECIMEN Ordering Facility: [facility] Address: [address] [place] [address] Performed By: #### 5 195-3, 71158-5, 02845-5 #### [facility] CLIA [id number] [address] [place] [address] [place] Neutrophils/100 WBC (Bld) 70.4 % Normal [facility] Comment on above: Order Comment: Speci men Type: BLOOD SPECIMEN Ordering Facility: [facility] Address: [address] [place] [address] Performed By: #### 5 195-3, 77932-7, 20162-8 #### [facility] CLIA [id number] [address] [place] [address] [place] Nucleated RBC (Bld) [#/Vol] 10*3/uL Normal <0.01 [facility] Comment on above: Order Comment: Speci men Type: BLOOD SPECIMEN Ordering Facility: [facility] Address: [address] [place] [address] Performed By: #### 5 195-3, 83887-6, 88783-4 #### [facility] CLIA [id number] [address] [place] [address] [place] Nucleated RBC/100 WBC (Bld) [Ratio] 0.0 /100 WBC Normal [facility] Comment on above: Order Comment: Speci men Type: BLOOD SPECIMEN Ordering Facility: [facility] Address: [address] [place] [address] Performed By: #### 5 195-3, 92982-4, 82274-3 #### [facility] CLIA [id number] [address] [place] [address] [place] Platelet mean volume (Bld) [Entitic vol] 11.3 fL Normal 9.0-12.7 [facility] Comment on above: Order Comment: Speci men Type: BLOOD SPECIMEN Ordering Facility: [facility] Address: [address] [place] [address] Performed By: #### 5 195-3, 95553-4, 63916-0 #### [facility] CLIA [id number] [address] [place] [address] [place] Platelets (Bld) [#/Vol] 212 10*3/uL Normal 150-400 [facility] Comment on above: Order Comment: Speci men Type: BLOOD SPECIMEN Ordering Facility: [facility] Address: [address] [place] [address] Performed By: #### 5 195-3, 06344-4, 18170-6 #### [facility] CLIA [id number] [address] [place] [address] [place] RBC (Bld) [#/Vol] 4.26 10*6/uL Normal 3.90-5.20 [facility] Comment on above: Order Comment: Speci men Type: BLOOD SPECIMEN Ordering Facility: [facility] Address: [address] [place] [address] Performed By: #### 5 195-3, 20474-3, 42388-5 #### [facility] CLIA [id number] [address] [place], [place] [address] [place] WBC (Bld) [#/Vol] 7.90 10*3/uL Normal 3.70-11.00 [facility] Comment on above: Order Comment: Speci men Type: BLOOD SPECIMEN Ordering Facility: [facility] Address: [address] [place] [address] Performed By: #### 5 195-3, 72525-2, 66355-1 #### [facility] CLIA [id number] [address] [place] [address] [place] Examination level ultrasound on 2024 [facility] Radiology Study observation (narrative) [facility] HbA1c (Bld)on 2024 Average glucose Estimated from glycated hemoglobin (Bld) [Mass/Vol] 105 mg/dL Normal [facility] Comment on above: Order Comment: Derrell perez Type: BLOOD SPECIMEN Ordering Facility: [facility] Address: [address] [place] [address] Result Comment: eAG: (Estimated average glucose) is a calculated value from HgbA1c and 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 Performed By: #### 5 195-3, 16030-7, 52542-7 #### [facility] CLIA [id number] [address] [place] [address] [place] HbA1c (Bld) [Mass fraction] 5.3 % Normal 4.3-5.6 [facility] Comment on above: Order Comment: Derrell perez Type: BLOOD SPECIMEN Ordering Facility: [facility] Address: [address] [place] [address] Result Comment: [place] Diabetes Association guidelines indicate that patients with HgbA1c in the range 5.7-6.4% are at increased risk for development of diabetes, and intervention by lifestyle modification may be beneficial. HgbA1c greater or equal to 6.5% is considered diagnostic of diabetes. Performed By: #### 5 195-3, 53200-3, 42578-1 #### [facility] CLIA [id number] [address] [place] [address] [place] Reagin and Treponema pallidu m IgG and IgM [Interp]on 2024 T. pallidum IgG+IgM IA Ql (S) Non-Reactive Normal Nonreactive [facility] Comment on above: Order Comment: Derrell perez Type: BLOOD SPECIMENOrdering Facility: [facility] Address: [address] [place] [address] Performed By: #### 7 3752-8 ####[facility] [id number] [place] [address] [place] Reagin+T pallidum IgG+IgM Se rPl-Impon 2024 Reagin and Treponema pallidum IgG and IgM [Interp] Cannot exclude recent Treponemal infection if specimen collected within 7-10 days after appearance of suspect lesions or 2-3 weeks after an exposure. Clinical correlation is required. Normal [facility] Comment on above: Order Comment: Speci men Type: BLOOD SPECIMENOrdering Facility: [facility] Address: [address] [place] [address] Performed By: #### 7 3752-8 ####[facility] [id number] [place] [id number] [place] URINE OB DIP B/Oon 5 Glucose Ql (U) Negative Neg mg/dL [facility] Interpretation and review of laboratory results Normal [facility] Protein.monoclonal (U) [Mass/Vol] Negative Neg mg/dL [facility] URINE OB DIP B/Oon 5 Glucose Ql (U) Negative Neg mg/dL [facility] Interpretation and review of laboratory results Normal [facility] Protein.monoclonal (U) [Mass/Vol] Negative Neg mg/dL [facility] Examination level ultrasound on 12-02-2024 [facility] Radiology Study observation (narrative) [facility] URINE OB DIP B/Oon 5 Glucose Ql (U) Negative Neg mg/dL [facility] Interpretation and review of laboratory results Normal [facility] Protein.monoclonal (U) [Mass/Vol] Negative Neg mg/dL [facility] CNPNon 11-21-2024 CNPN Telephone ([facility]) KATHARINE FARAH ([id number]) 1990 F Date Time Provider Department 11/21/24 FV OB MFM [facility] During your visit today, we recorded the following information about you: Allergies As of Date: 11/21/2024 Noted Allergy Reaction PENICILLINS 08/10/2024 4 - Hives 7 - Swelling Comments: Childhood reaction Date Reviewed: 11/11/2024 Reviewed by: Melissa Arredondo MA - Fully Assessed Prescriptions as of 11/22/2024 - insulin NPH subcutaneous pen Inject 10 Units subcutaneously daily at bedtime. - insulin needles, DISPOSABLE, (LITE TOUCH INSULIN PEN NEEDLES) 31 gauge x 5/16 1 each daily at bedtime. - Blood-Glucose Sensor (DEXCOM G7 SENSOR) jonathan 1 device every 10 days. - aspirin, enteric coated (ECOTRIN LOW STRENGTH) 81 mg EC tablet Take 1 tablet by mouth once daily. - PNV no.103/folic/om3s/fi sh oil ( WITH DHA-FOLIC ACID ORAL) Take by mouth. Problem List As Of Date 11/21/2024 Noted Resolved Late care (HCC) [O09.30] 08/11/2024 09/13/2024 History of delivery [Z87.51] 08/11/2024 Multigravida of advanced maternal age in second*08/11/2024 Penicillin allergy [Z88.0] 08/11/2024 Controlled type 2 diabetes mellitus without com* Encounter Status:Closed by OLGA PUTNAM on 11/22/24 Normal [facility] URINE OB DIP B/Oon Glucose Ql (U) Negative Neg mg/dL [facility] Interpretation and review of laboratory results Normal [facility] Protein.monoclonal (U) [Mass/Vol] Negative Neg mg/dL [facility] Examination level ultrasound on 10-14-2024 Indication Detailed anatomic survey Advanced maternal age, Maternal obesity, BMI >30, Diabetes mellitus, History of delivery Impression The patient is referred for a detailed anatomic survey. - Single, live, intrauterine . - biometry is consistent with the established gestational age. - No malformations were visualized on a complete detailed anatomic survey. - The amniotic fluid volume is normal amount. - The placenta is posterior, fundal. - The Transabdominal cervical length measures 39.3 mm with no evidence of funneling or other dynamic changes. Patient declined TV ultrasound for cervical length. - Not all structural malformations can be detected by ultrasound examination. Recommendations Monthly growth ultrasound at 28 weeks Maternal Assessment Height 163 cm Height (ft) 5 ft Height (in) 4 in Physical Exam Initial weight (lb) 193 lb Initial BMI 33.13 kg/m Maternal assessment other: 4 Para 3 REMOTE READ Method Transabdominal ultrasound examination. View: Adequate visualization Bejarano . Number of fetuses: 1 Dating LMP on: 05/15/2024 GA by LMP 21 w + 5 d JOSEMANUEL by LMP: 02/19/2025 GA by prior assessment 21 w + 5 d JOSEMANUEL by prior assessment: 02/19/2025 Ultrasound examination on: 10/14/2024 GA by U/S based upon: AC, BPD, Femur, HC GA by U/S 20 w + 6 d JOSEMANUEL by U/S: 02/25/2025 Assigned: based on stated JOSEMANUEL, selected on 10/14/2024 Assigned GA 21 w + 5 d Assigned JOSEMANUEL: 02/19/2025 General Evaluation Cardiac activity present. FHR 158 bpm. movements: present. Presentation: breech Placenta: Placental site: posterior, fundal Umbilical cord: Cord vessels: 3 vessel cord Amniotic fluid: Amount of AF: normal amount. MVP 5.0 cm Growth Overview Exam date GA BPD (mm) HC (mm) AC (mm) FL (mm) HL (mm) EFW (g) 09/13/2024 17w 2d 34.3 19% 135.3 33% 109.9 34% 21.8 27% 21 22% 165 14% 10/14/2024 21w 5d 46.6 4% 186.1 28% 162.7 30% 34.2 32% 33.3 32% 395 16% Biometry Standard BPD 46.6 mm 20w 1d 4% Hadlock OFD 68.5 mm 21w 3d 61% Nicolaides HC 186.1 mm 20w 6d 28% Morris Cerebellum tr 22.6 mm 21w 0d 47% Hill Nuchal fold 4.9 mm AC 162.7 mm 21w 2d 30% Hadlock Femur 34.2 mm 21w 0d 32% Morris Humerus 33.3 mm 21w 2d 32% Morris EFW 395 g 21w 0d 16% Hadlock EFW (lb) 0 lb EFW (oz) 14 oz EFW by: Hadlock (HC-AC-FL) Extended Certified Alcohol Drug Counselor 5.9 mm CM 5.0 mm 36% Nicolaides Extremities / Bony Struc FL / HC 0.18 Other Structures FHR 158 bpm Anatomy Cranium: normal Lateral ventricles: normal Choroid plexus: normal Midline falx: normal Cavum septi pellucidi: normal Cerebellum: normal Cisterna magna: normal Head / Neck Vermis: normal Neck: normal Nuchal fold: normal Lips: normal Profile: normal Nose: normal Face Maxilla: normal Mandible: normal Orbits: normal Lens: normal 4-chamber view: normal RVOT view: normal LVOT view: normal 3-vessel view: normal 4-ysnqal-tqskrpx view: normal Heart / Thorax Situs: situs solitus (normal) Aortic arch view: normal SVC: normal IVC: normal Cardiac axis: normal Rt lung: normal Lt lung: normal Diaphragm: normal Cord insertion: normal Stomach: normal Kidneys: normal Bladder: normal Genitals: normal Abdomen Abdom. wall: normal Cervical spine: normal Thoracic spine: normal Lumbar spine: normal Sacral spine: normal Arms: normal Legs: normal Rt upper arm: normal Rt forearm: normal Rt hand: normal Rt fingers: normal Lt upper arm: normal Lt forearm: normal Lt hand: normal Lt fingers: normal Rt upper leg: normal Rt lower leg: normal Rt foot: normal Lt upper leg: normal Lt lower leg: normal Lt foot: normal sex: female Wants to know sex: yes Maternal Structures Uterus / Cervix Uterus: Visualized Cervix: Visualized Approach: Transabdominal Cervical length 39.3 mm Other: Patient declined transvaginal ultrasound for cervical length. Ovaries / Tubes / Adnexa Rt ovary: Not visualized Lt ovary: Visualized Performed By: Alyssa Szymanski RDMS, RVT Read By: Yolanda Buchanan M.D. MATERNAL MEDICINE [facility] Radiology Study observation (narrative) [facility] URINE OB DIP B/Oon 5 Glucose Ql (U) Negative Neg mg/dL [facility] Interpretation and review of laboratory results Normal [facility] Protein.monoclonal (U) [Mass/Vol] Negative Neg mg/dL [facility] CNNURSEon 09-13-2024 CNNURSE Nurse Visit (ENDIMT) KATHARINE FARAH ([id number]) 1990 F Date Time Provider Department 09/13/24 11:00 AM CRISPIN LAY During your visit today, we recorded the following information about you: Crispin Lay RN 09/13/2024 11:08 AM Signed DIABETES CARE AND EDUCATION VISIT Location: [place] Type of visit: In person individual PATIENT'S MAIN CONCERN TODAY: Pre-existing type 2 Support person present for education today: none Cognitive ability: Alert and oriented Motivation to learn: Interested Learning barriers identified by educator: none Method of instruction: written, verbal, and demonstration DIABETES FINDINGS: Monitoring: Pingree about Dexcom G7 today Meal Planning: Reviewed basic GDM dietary recommendations Medications: discussed use of insulin in as Problem Solving: Reviewed checking of sugars and reporting to physician Physical Activity: benefits of gentle exercise following meals reviewed HANDOUTS: Healthy You: Diabetes and LEARNING RESPONSE: Monitoring glucose: Demonstrated understanding/compet ency today or at previous visit POSSIBLE FUTURE TOPICS: 1. DIABETES CARE AND EDUCATION PLAN: Education completed and annual diabetes education follow-up visit recommended Time Spent (Minutes): 30 This visit note will be communicated to the healthcare provider via access to shared medical record. SIGNATURE: Crispin Lay RN PATIENT NAME: Katharine Farah DATE: September 13, 2024 TIME: 10:37 AM Referring Provider: HAYLEE SEPULVEDA [[id number]] Allergies As of Date: 09/13/2024 Noted Allergy Reaction PENICILLINS 08/10/2024 4 - Hives 7 - Swelling Comments: Childhood reaction Date Reviewed: 09/13/2024 Reviewed by: Radha Coleman MA - Fully Assessed Primary Visit Diagnosis:Controlled type 2 diabetes mellitus without complication, without long-term current use of insulin (HCC) [E11.9] Prescriptions as of 09/13/2024 - Blood-Glucose Sensor (DEXCOM G7 SENSOR) jonathan 1 Device every 10 days. - aspirin, enteric coated (ECOTRIN LOW STRENGTH) 81 mg EC tablet Take 1 tablet by mouth once daily. - metFORMIN (GLUCOPHAGE) 500 mg tablet Take 500 mg by mouth two times a day with meals. Has RX for 1000mg BID to - ondansetron orally disintegrating (ZOFRAN ODT) 4 mg disintegrating tablet Dissolve 1 tablet (4 mg) in the mouth every 8 hours if needed for nausea or vomiting. - PNV no.103/folic/om3s/fi sh oil ( WITH DHA-FOLIC ACID ORAL) Take by mouth. Problem List As Of Date 09/13/2024 Noted Resolved Late care [O09.30] 08/11/2024 Encounter for supervision of high risk pregnanc*08/11/2024 History of delivery [Z87.51] 08/11/2024 Multigravida of advanced maternal age in second*08/11/2024 Penicillin allergy [Z88.0] 08/11/2024 Controlled type 2 diabetes mellitus without com* Encounter Status:Closed by CRISPIN LAY on 09/13/24 Normal [facility] Examination level ultrasound on 09-13-2024 Indication Early anatomic survey Maternal obesity, BMI >30, Advanced maternal age, Diabetes mellitus, History of delivery 36 weeks Impression The patient is referred for an early anatomic survey because of identified risk factors. - Single, live, intrauterine . - biometry is consistent with the established gestational age. - No malformations were visualized on a complete early anatomic assessment. - The amniotic fluid volume is normal amount. - The placenta is posterior. - A detailed anatomic survey at 20 weeks is indicated secondary to increased risk. - Not all structural malformations can be detected by ultrasound examination. Recommendations Return around 20 weeks for detailed anatomic survey echocardiogram ordered Maternal Assessment Height 163 cm Height (ft) 5 ft Height (in) 4 in Physical Exam Initial weight (lb) 193 lb Initial BMI 33.13 kg/m Maternal assessment other: 4 Para 3 Method Transabdominal and transvaginal ultrasound examination. View: Suboptimal view: limited by early gestational age Bejarano . Number of fetuses: 1 Dating LMP on: 05/15/2024 GA by LMP 17 w + 2 d JOSEMANUEL by LMP: 02/19/2025 GA by prior assessment 17 w + 2 d JOSEMANUEL by prior assessment: 02/19/2025 Ultrasound examination on: 09/13/2024 GA by U/S based upon: AC, BPD, Femur, HC GA by U/S 16 w + 5 d JOSEMANUEL by U/S: 02/23/2025 Assigned: based on stated JOSEMANUEL, selected on 09/13/2024 Assigned GA 17 w + 2 d Assigned JOSEMANUEL: 02/19/2025 General Evaluation Cardiac activity present. FHR 153 bpm. movements: present. Presentation: cephalic Placenta: Placental site: posterior Umbilical cord: Cord vessels: 3 vessel cord Amniotic fluid: Amount of AF: normal amount Biometry Standard BPD 34.3 mm 16w 4d 19% Hadlock OFD 49.9 mm 17w 0d 61% Nicolaides HC 135.3 mm 16w 5d 33% Morris AC 109.9 mm 16w 6d 34% Hadlock Femur 21.8 mm 16w 4d 27% Morris Humerus 21.0 mm 16w 2d 22% Morris EFW 165 g 16w 4d 14% Hadlock EFW (lb) 0 lb EFW (oz) 6 oz EFW by: Hadlock (HC-AC-FL) Extended Certified Alcohol Drug Counselor 5.5 mm Extremities / Bony Struc FL / HC 0.16 14% Hadlock Other Structures FHR 153 bpm Anatomy Cranium: normal Lateral ventricles: normal Choroid plexus: normal Midline falx: normal Cerebellum: normal Cisterna magna: normal Lips: normal 4-chamber view: normal RVOT view: normal LVOT view: normal 3-vessel view: normal 9-pbvkwl-vgffpzg view: normal Heart / Thorax Diaphragm: normal Cord insertion: normal Stomach: normal Kidneys: normal Bladder: normal Cervical spine: normal Thoracic spine: normal Lumbar spine: normal Sacral spine: normal Arms: normal Legs: normal Rt upper arm: normal Rt forearm: normal Rt hand: normal Lt upper arm: normal Lt forearm: normal Lt hand: normal Rt upper leg: normal Rt lower leg: normal Rt foot: normal Lt upper leg: normal Lt lower leg: normal Lt foot: normal sex: female Wants to know sex: yes Maternal Structures Uterus / Cervix Uterus: Visualized Cervix: Visualized Approach: Transvaginal Cervical length 39.6 mm Ovaries / Tubes / Adnexa Rt ovary: Not visualized Lt ovary: Visualized Performed By: Alyssa Szymanski RDMS, RVT Read By: Yolanda Buchanan M.D. MATERNAL MEDICINE [facility] Radiology Study observation (narrative) [facility] URINE OB DIP B/Oon Glucose Ql (U) Negative Neg mg/dL [facility] Interpretation and review of laboratory results Normal [facility] Protein.monoclonal (U) [Mass/Vol] Negative Neg mg/dL [facility] CBC W Auto Differential pane l (Bld)on 09-08-2024 Basophils (Bld) [#/Vol] 10*3/uL Normal <0.11 [facility] Comment on above: Order Comment: Speci men Type: BLOOD SPECIMEN Ordering Facility: [facility] Address: [address] [place] [address] Performed By: #### 5 7021-8 #### [facility] CLIA [id number] [address] [place] [address] [place] Basophils/100 WBC (Bld) 0.3 % Normal [facility] Comment on above: Order Comment: Speci men Type: BLOOD SPECIMEN Ordering Facility: [facility] Address: [address] [place] [address] Performed By: #### 5 7021-8 #### [facility] CLIA [id number] [address] [place] [address] [place] Differential cell count method Nom (Bld) Auto Normal [facility] Comment on above: Order Comment: Speci men Type: BLOOD SPECIMEN Ordering Facility: [facility] Address: [address] [place] [address] Performed By: #### 5 7021-8 #### [facility] CLIA [id number] [address] [place] [address] [place] Eosinophils (Bld) [#/Vol] 0.23 10*3/uL Normal <0.46 [facility] Comment on above: Order Comment: Speci men Type: BLOOD SPECIMEN Ordering Facility: [facility] Address: [address] [place] [address] Performed By: #### 5 7021-8 #### [facility] CLIA [id number] [address] [place] [address] [place] Eosinophils/100 WBC (Bld) 3.4 % Normal [facility] Comment on above: Order Comment: Speci men Type: BLOOD SPECIMEN Ordering Facility: [facility] Address: [address] [place] [address] Performed By: #### 5 7021-8 #### [facility] CLIA [id number] [address] [place] [address] [place] Erythrocyte distribution width (RBC) [Ratio] 12.8 % Normal 11.5-15.0 [facility] Comment on above: Order Comment: Speci men Type: BLOOD SPECIMEN Ordering Facility: [facility] Address: [address] [place], [place] [address] Performed By: #### 5 7021-8 #### [facility] CLIA [id number] [address] [place] [address] [place] Hematocrit (Bld) [Volume fraction] 36.9 % Normal 36.0-46.0 [facility] Comment on above: Order Comment: Speci men Type: BLOOD SPECIMEN Ordering Facility: [facility] Address: [address] [place] [address] Performed By: #### 5 7021-8 #### [facility] CLIA [id number] [address] [place] [address] [place] Hemoglobin (Bld) [Mass/Vol] 12.5 g/dL Normal 11.5-15.5 [facility] Comment on above: Order Comment: Speci men Type: BLOOD SPECIMEN Ordering Facility: [facility] Address: [address] [place], [place] [address] Performed By: #### 5 7021-8 #### [facility] CLIA [id number] [address] [place] [address] [place] Immature granulocytes (Bld) [#/Vol] 0.04 10*3/uL Normal <0.10 [facility] Comment on above: Order Comment: Speci men Type: BLOOD SPECIMEN Ordering Facility: [facility] Address: [address] [place] [address] Performed By: #### 5 7021-8 #### [facility] CLIA [id number] [address] [place] [address] [place] Immature granulocytes/100 WBC (Bld) 0.6 % Normal [facility] Comment on above: Order Comment: Speci men Type: BLOOD SPECIMEN Ordering Facility: [facility] Address: [address] [place] [address] Performed By: #### 5 7021-8 #### [facility] CLIA [id number] [address] [place] [address] [place] Lymphocytes (Bld) [#/Vol] 1.39 10*3/uL Normal 1.00-4.00 [facility] Comment on above: Order Comment: Speci men Type: BLOOD SPECIMEN Ordering Facility: [facility] Address: [address] [place] [address] Performed By: #### 5 7021-8 #### [facility] CLIA [id number] [address] [place] [address] [place] Lymphocytes/100 WBC (Bld) 20.4 % Normal [facility] Comment on above: Order Comment: Speci men Type: BLOOD SPECIMEN Ordering Facility: [facility] Address: [address] [place] [address] Performed By: #### 5 7021-8 #### [facility] CLIA [id number] [address] [place] [address] [place] MCH (RBC) [Entitic mass] 30.3 pg Normal 26.0-34.0 [facility] Comment on above: Order Comment: Speci men Type: BLOOD SPECIMEN Ordering Facility: [facility] Address: [address] [place] [address] Performed By: #### 5 7021-8 #### [facility] CLIA [id number] [address] [place] [address] [place] MCHC (RBC) [Mass/Vol] 33.9 g/dL Normal 30.5-36.0 [facility] Comment on above: Order Comment: Speci men Type: BLOOD SPECIMEN Ordering Facility: [facility] Address: [address] [place] [address] Performed By: #### 5 7021-8 #### [facility] CLIA [id number] [address] [place] [address] [place] MCV (RBC) [Entitic vol] 89.6 fL Normal 80.0-100.0 [facility] Comment on above: Order Comment: Speci men Type: BLOOD SPECIMEN Ordering Facility: [facility] Address: [address] [place] [address] Performed By: #### 5 7021-8 #### [facility] CLIA [id number] [address] [place] [address] [place] Monocytes (Bld) [#/Vol] 0.53 10*3/uL Normal <0.87 [facility] Comment on above: Order Comment: Speci men Type: BLOOD SPECIMEN Ordering Facility: [facility] Address: [address] [place] [address] Performed By: #### 5 7021-8 #### [facility] CLIA [id number] [address] [place] [address] [place] Monocytes/100 WBC (Bld) 7.8 % Normal [facility] Comment on above: Order Comment: Speci men Type: BLOOD SPECIMEN Ordering Facility: [facility] Address: [address] [place] [address] Performed By: #### 5 7021-8 #### [facility] CLIA [id number] [address] [place] [address] [place] Neutrophils (Bld) [#/Vol] 4.62 10*3/uL Normal 1.45-7.50 [facility] Comment on above: Order Comment: Speci men Type: BLOOD SPECIMEN Ordering Facility: [facility] Address: [address] [place] [address] Performed By: #### 5 7021-8 #### [facility] CLIA [id number] [address] [place] [address] [place] Neutrophils/100 WBC (Bld) 67.5 % Normal [facility] Comment on above: Order Comment: Speci men Type: BLOOD SPECIMEN Ordering Facility: [facility] Address: [address] [place] [address] Performed By: #### 5 7021-8 #### [facility] CLIA [id number] [address] [place] [address] [place] Nucleated RBC (Bld) [#/Vol] 10*3/uL Normal <0.01 [facility] Comment on above: Order Comment: Speci men Type: BLOOD SPECIMEN Ordering Facility: [facility] Address: [address] [place] [address] Performed By: #### 5 7021-8 #### [facility] CLIA [id number] [address] [place] [address] [place] Nucleated RBC/100 WBC (Bld) [Ratio] 0.0 /100 WBC Normal [facility] Comment on above: Order Comment: Speci men Type: BLOOD SPECIMEN Ordering Facility: [facility] Address: [address] [place] [address] Performed By: #### 5 7021-8 #### [facility] CLIA [id number] [address] [place] [address] [place] Platelet mean volume (Bld) [Entitic vol] 10.3 fL Normal 9.0-12.7 [facility] Comment on above: Order Comment: Speci men Type: BLOOD SPECIMEN Ordering Facility: [facility] Address: [address] [place] [address] Performed By: #### 5 7021-8 #### [facility] CLIA [id number] [address] [place] [address] [place] Platelets (Bld) [#/Vol] 220 10*3/uL Normal 150-400 [facility] Comment on above: Order Comment: Speci men Type: BLOOD SPECIMEN Ordering Facility: [facility] Address: [address] [place] [address] Performed By: #### 5 7021-8 #### [facility] CLIA [id number] [address] [place] [address] [place] RBC (Bld) [#/Vol] 4.12 10*6/uL Normal 3.90-5.20 [facility] Comment on above: Order Comment: Speci men Type: BLOOD SPECIMEN Ordering Facility: [facility] Address: [address] [place] [address] Performed By: #### 5 7021-8 #### [facility] CLIA [id number] [address] [place] [address] [place] WBC (Bld) [#/Vol] 6.83 10*3/uL Normal 3.70-11.00 [facility] Comment on above: Order Comment: Speci men Type: BLOOD SPECIMEN Ordering Facility: [facility] Address: [address] [place] [address] Performed By: #### 5 7021-8 #### [facility] CLIA [id number] [address] [place] [address] [place] HBV surface Ag Ser Qlon 03-2 HBV surface Ag Ql (S) Negative Normal Negative [facility] Comment on above: Order Comment: Speci men Type: BLOOD SPECIMEN Ordering Facility: [facility] Address: [address] [place] [address] Performed By: #### 5 195-3, 02741-1, 56010-0 #### [facility] CLIA [id number] [address] [place] [address] [place] HCV Ab Ser Qlon 09-08-2024 HCV Ab Ql (S) Negative Normal Negative [facility] Comment on above: Order Comment: Speci men Type: BLOOD SPECIMENOrdering Facility: [facility] Address: [address] [place] [address] Result Comment: The result suggests no evidence of infection with Hepatitis C virus. Should recent infection be suspected, repeat testing may be considered 4-6 weeks after this draw. Performed By: #### 1 6128-1 ####[facility] [id number] [place] [address] [place] HIV 1+2 Ab IA Qlon HIV 1 and 2 Ab IA.rapid Nom (S/P/Bld) Normal [facility] Comment on above: Order Comment: Speci men Type: BLOOD SPECIMEN Ordering Facility: [facility] Address: [address] [place] [address] Result Comment: Test not indicated. Performed By: #### 5 195-3, 79889-9, 94222-3 #### [facility] CLIA [id number] [address] [place] [address] [place] HIV 1+2 Ab+HIV1 p24 Ag IA Ql Non-Reactive Normal Nonreactive [facility] Comment on above: Order Comment: Speci men Type: BLOOD SPECIMEN Ordering Facility: [facility] Address: [address] [place] [address] Performed By: #### 5 195-3, 82172-7, 24491-1 #### [facility] CLIA [id number] [address] [place] [address] [place] HIV immunoassay testing algorithm interpretation (S/P/Bld) [Interp] Normal [facility] Comment on above: Order Comment: Speci men Type: BLOOD SPECIMEN Ordering Facility: [facility] Address: [address] [place] [address] Result Comment: No e vidence of HIV-1 or HIV-2 infection. Should recent infection be suspected, repeat testing may be considered 2-3 weeks after this draw. [place] Rev. Code 3701.243(E): This information has been disclosed to you from confidential records protected from disclosure by state law. ???You shall make no further disclosure of this information without the specific, written, and informed release of the individual to whom it pertains or as otherwise permitted by state law. A general authorization for the release of medical or other information is not sufficient for the purpose of the release of HIV test results or diagnoses. Performed By: #### 5 195-3, 33492-2, 01928-7 #### [facility] CLIA [id number] [address] [place] [address] [place] HbA1c (Bld)on 09-08-2024 Average glucose Estimated from glycated hemoglobin (Bld) [Mass/Vol] 131 mg/dL Normal [facility] Comment on above: Order Comment: Amandasameer perez Type: BLOOD SPECIMEN Ordering Facility: [facility] Address: [address] [place] [address] Result Comment: eAG: (Estimated average glucose) is a calculated value from HgbA1c and 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 Performed By: #### 5 195-3, 20496-2, 51577-7 #### [facility] CLIA [id number] [address] [place] [address] [place] HbA1c (Bld) [Mass fraction] 6.2 % High 4.3-5.6 [facility] Comment on above: Order Comment: Derrell perez Type: BLOOD SPECIMEN Ordering Facility: [facility] Address: [address] [place] [address] Result Comment: Amer [place] Diabetes Association guidelines indicate that patients with HgbA1c in the range 5.7-6.4% are at increased risk for development of diabetes, and intervention by lifestyle modification may be beneficial. HgbA1c greater or equal to 6.5% is considered diagnostic of diabetes. Performed By: #### 5 195-3, 80483-4, 75797-4 #### [facility] CLIA [id number] [address] [place] [address] [place] RUBELLA IGG ANTIBODYon 09-08 RUBELLA IGG AB, QUAL Positive Normal Positive [facility] Comment on above: Order Comment: Derrell perez Type: BLOOD SPECIMEN Ordering Facility: [facility] Address: [address] [place] [address] Result Comment: The result suggests recent or past exposure to Rubella virus or history of Rubella vaccination. Positive result may also be seen due to presence of passively-transferred antibodies. Please correlate with patient's history. Performed By: #### 5 195-3, 03502-5, 43103-3 #### [facility] CLIA [id number] [address] [place] [address] [place] Reagin and Treponema pallidu m IgG and IgM [Interp]on 09-08-2024 T. pallidum IgG+IgM IA Ql (S) Non-Reactive Normal Nonreactive [facility] Comment on above: Order Comment: Derrell perez Type: BLOOD SPECIMEN Ordering Facility: [facility] Address: [address] [place] [address] Performed By: #### 5 195-3, 78593-1, 79422-0 #### [facility] CLIA [id number] [address] [place] [address] [place] Reagin+T pallidum IgG+IgM Se rPl-Impon 09-08-2024 Reagin and Treponema pallidum IgG and IgM [Interp] Cannot exclude recent Treponemal infection if specimen collected within 7-10 days after appearance of suspect lesions or 2-3 weeks after an exposure. Clinical correlation is required. Normal [facility] Comment on above: Order Comment: Derrell perez Type: BLOOD SPECIMEN Ordering Facility: [facility] Address: [address] [place] [address] Performed By: #### 5 195-3, 18762-5, 94714-4 #### [facility] CLIA [id number] [address] [place] [address] [place] TYPE + SCREEN PRENATALon ABO A Normal [facility] Comment on above: Order Comment: Speci men Type: BLOOD SPECIMEN Ordering Facility: [facility] Address: [address] [place] [address] Performed By: #### 5 195-3, 02970-5, 19788-6 #### [facility] CLIA [id number] [address] [place] [address] [place] Rh Nom (Bld) Positive Normal [facility] Comment on above: Order Comment: Speci men Type: BLOOD SPECIMEN Ordering Facility: [facility] Address: [address] [place] [address] Performed By: #### 5 195-3, 33352-0, 67212-4 #### [facility] CLIA [id number] [address] [place] [address] [place] TYPE AND SCREEN EXPIRATION 09/11/2024 23:59 Normal [facility] Comment on above: Order Comment: Speci men Type: BLOOD SPECIMEN Ordering Facility: [facility] Address: [address] [place] [address] Performed By: #### 5 195-3, 76245-9, 77838-5 #### [facility] CLIA [id number] [address] [place], [place] [address] [place] Bacteria Ur Culton 5 Bacteria identified Cx Nom (U) ORGANISM ID: 1 <10,000 CFU/ml Normal urogenital elissa Normal [facility] Comment on above: Performed By: #### 5 195-3, 74385-7, 47966-4 #### [facility] CLIA [id number] [address] [place] [address] [place] C. trachomatis+N. gonorrhoea e DNA JOSE+probe Ql (Unsp spec)on 08-11-2024 C. trachomatis rRNA JOSE+probe Ql (Unsp spec) Not detected Normal Not detected [facility] Comment on above: Order Comment: Speci men Type: SWABOrdering Facility: [facility] Address: [address] [place] [address] Performed By: #### T RVAMP, 00229-5 ####[facility] [id number] [place] [address] [place] N. gonorrhoeae rRNA JOSE+probe Ql (Unsp spec) Not detected Normal Not detected [facility] Comment on above: Order Comment: Speci men Type: SWABOrdering Facility: [facility] Address: [address] [place] [address] Performed By: #### T RVAMP, 59238-2 ####[facility] [id number] [place] [address] [place] HIGH RISK HUMAN PAPILLOMA VIVI (HPV), PCR FOR DETECTION AND GENOTYPINGon 08-11-2024 HPV 16 Ag Ql (Unsp spec) Not detected Normal Not detected [facility] Comment on above: Order Comment: Speci men Type: FLUID SPECIMENOrdering Facility: [facility] Address: [address] [place] [address] Performed By: #### H PVHRT ####[facility] [id number] [place] [address] [place] HPV 18 Ag Ql (Unsp spec) Not detected Normal Not detected [facility] Comment on above: Order Comment: Speci men Type: FLUID SPECIMENOrdering Facility: [facility] Address: [address] [place] [address] Performed By: #### H PVHRT ####[facility] [id number] [address] [address] [place] HPV 31+33+35+39+45+51+5 2+56+58+59+66+68 DNA JOSE+probe Ql (Cvx) Not detected Normal Not detected [facility] Comment on above: Order Comment: Speci men Type: FLUID SPECIMENOrdering Facility: [facility] Address: [address] [place] [address] Result Comment: High Risk HPV Other Type includes HPV types 31, 33, 35, 39, 45, 51, 52, 56, 58, 59, 66 and 68. Performed By: #### H PVHRT ####[facility] [id number] [place] [address] [place] PAP TESTon 08-11-2024 ADEQUACY Normal [facility] Comment on above: Order Comment: Speci men Type: BLOOD SPECIMEN Ordering Facility: [facility] Address: [address] [place] [address] Result Comment: Sati sfactory for interpretation. Transformation zone present Performed By: #### 5 195-3, 54550-3, 35773-4 #### [facility] CLIA [id number] [address] [place] [address] [place] CASE REPORT Normal [facility] Comment on above: Order Comment: Speci men Type: BLOOD SPECIMEN Ordering Facility: [facility] Address: [address] [place] [address] Result Comment: Gyne cologic Cytology Report Case: [id number] Authorizing Provider: Haylee Sepulveda APRN.CNM Collected: 08/11/2024 09:43 AM Ordering Location: OB/Gynecology Received: 08/11/2024 12:13 PM First Screen: Alexandre, Fiona, CT, ASCP Rescreen: Clapacs, Rosalinda Specimen: Pap Test, ThinPrep, Cervix Performed By: #### 5 195-3, 73513-0, 39386-6 #### [facility] CLIA [id number] [address] [place] [address] [place] CLINICAL HISTORY, CYTOLOGY, PAIN COORDINATOR Routine Exam Normal [facility] Comment on above: Order Comment: Speci men Type: BLOOD SPECIMEN Ordering Facility: [facility] Address: [address] [place] [address] Performed By: #### 5 195-3, 09658-9, 69291-6 #### [facility] CLIA [id number] [address] [place] [address] [place] FINAL PERFORMING LAB Normal [facility] Comment on above: Order Comment: Speci men Type: BLOOD SPECIMEN Ordering Facility: [facility] Address: [address] [place], [place] [address] Result Comment: Tech nical component, bench boring machine operator screening performed at [facility], [address] [place] [address] CLIA# [id number] Diagnostic interpretation performed at [facility], [address] [place] [address] CLIA# [id number] Financial Reserve Clerk: Rip Kerr M.D. Performed By: #### 5 195-3, 45972-4, 12495-4 #### [facility] CLIA [id number] [address] [place] [address] [place] INTERPRETATION, CYTOLOGY, PAIN COORDINATOR Normal [facility] Comment on above: Order Comment: Speci men Type: BLOOD SPECIMEN Ordering Facility: [facility] Address: [address] [place] [address] Result Comment: Nega tive for intraepithelial lesion or malignancy. at 1526 EST Performed By: #### 5 195-3, 78209-1, 77083-2 #### [facility] CLIA [id number] [address] [place] [address] [place] LMP 05/17/2024 Normal [facility] Comment on above: Order Comment: Speci men Type: BLOOD SPECIMEN Ordering Facility: [facility] Address: [address] [place] [address] Performed By: #### 5 195-3, 37516-8, 76923-0 #### [facility] CLIA [id number] [address] [place], [place] [address] [place] PAP DISCLAIMER COMMENT The Pap Smear is a screening test for cervical cancer. False negative results occur with all screening tests, emphasizing the need for rescreening at recommended intervals, and clinical correlation. Normal [facility] Comment on above: Order Comment: Speci men Type: BLOOD SPECIMEN Ordering Facility: [facility] Address: [address] [place] [address] Performed By: #### 5 195-3, 90370-1, 39529-5 #### [facility] CLIA [id number] [address] [place] [address] [place] PAP ASSOCIATE SOFTWARE APPLICATION ENGINEER COMMENT This specimen has been analyzed by the ThinPrep Imaging System, an automated imaging and review system, which assists the laboratory in evaluating cells on ThinPrep Pap tests. Following automated imaging, selected rea from every slide are reviewed by a bench boring machine operator. Normal [facility] Comment on above: Order Comment: Speci men Type: BLOOD SPECIMEN Ordering Facility: [facility] Address: [address] [place] [address] Performed By: #### 5 195-3, 45905-8, 89755-7 #### [facility] CLIA [id number] [address] [place], [place] [address] [place] POC DOCK SUPERINTENDENT ULTRASOUNDon 08-11-19 25 Indication Uncertain dates Impression Single intrauterine gestational sac, CRL is appropriate for clinical dates, corresponding to JOSEMANUEL cardiac activity is visualized Recommendations Follow up for 1st Trimester Anatomy with Nuchal Translucency as clinically indicated if desired. Method Transabdominal ultrasound examination Bejarano . Number of fetuses: 1 Dating LMP on: 05/15/2024 GA by LMP 12 w + 4 d JOSEMANUEL by LMP: 02/19/2025 Ultrasound examination on: 08/11/2024 GA by U/S based upon: CRL GA by U/S 12 w + 0 d JOSEMANUEL by U/S: 02/23/2025 Assigned: based on the LMP, selected on 08/11/2024 Assigned GA 12 w + 4 d Assigned JOSEMANUEL: 02/19/2025 Biometry Standard FHR 174 bpm 97% Nicolaides CRL 54.6 mm 12w 0d 9% Hadlock Assessment CRL 54.6 mm 12w 0d 9% Hadlock Cardiac activity: present FHR 174 bpm 97% Nicolaides General Evaluation Cardiac activity present. FHR 174 bpm Performed By: Haylee Sepulveda CNM Read By: Haylee Sepulveda CNM MATERNAL MEDICINE [facility] Radiology Study observation (narrative) [facility] TRICHOMONAS VAGINALIS NAATon 08-11-2024 T. vaginalis DNA JOSE+probe Ql (Unsp spec) Not detected Normal Not detected [facility] Comment on above: Order Comment: Speci men Type: SWABOrdering Facility: [facility] Address: [address] [place] [address] Performed By: #### T RVAMP, 75674-4 ####[facility] [id number] [address] CNPNon 08-09-2024 CNPN Telephone (OBGYWM) KATHARINE FARAH ([id number]) 1990 F Date Time Provider Department 08/09/24 HAYLEE SEPULVEDA OBGYWM During your visit today, we recorded the following information about you: Mary Jane Bernal MA 08/09/2024 2:58 PM Signed Attempted to contact patient to go over new ob intake questions. Patient identified by using phone number listed in chart. No answer but did leave a voicemail. Will attempt to call patient back. SANGEETA Avalos Teresa, ROBEL 08/10/2024 9:00 AM Signed Patient agreeable for callback today at 11am Allergies As of Date: 08/09/2024 (Not on File) Date Reviewed: Never Reviewed Reason for Visit: Appointment [186] Problem List As Of Date: 08/09/2024 (None) Encounter Status:Closed by PINA MARK on 08/10/24 Normal [facility] metabolic 2000 panelon 05-30-2024 Albumin BCP dye [Mass/Vol] 4.1 g/dL Normal 3.4-5.0 [facility] Comment on above: Performed By: #### 2 4323-8 #### JAS ANTONY ([id number]) [facility] ([facility]) [address] [place] [address] ALP [Catalytic activity/Vol] 90 U/L Normal 33-110 [facility] Comment on above: Performed By: #### 2 4323-8 #### JAS ANTONY ([id number]) [facility] ([facility]) [address] [place] [address] 71091 ALT With P-5'-P [Catalytic activity/Vol] 17 U/L Normal 7-45 [facility] Comment on above: Result Comment: Teressa ents treated with Sulfasalazine may generate falsely decreased results for ALT. Performed By: #### 2 4323-8 #### JAS ANTONY ([id number]) [facility] ([facility]) [address] [place] [address] 21958 Anion gap [Moles/Vol] 11 mmol/L Normal 10-20 [facility] Comment on above: Performed By: #### 2 4323-8 #### JAS ANTONY ([id number]) [facility] ([facility]) [address] [place] [address]17 AST With P-5'-P [Catalytic activity/Vol] 24 U/L Normal 9-39 [facility] Comment on above: Performed By: #### 2 4323-8 #### JAS ANTONY ([id number]) [facility] ([facility]) [address] [place] [address]1986 Bilirubin [Mass/Vol] 0.5 mg/dL Normal 0.0-1.2 [facility] Comment on above: Performed By: #### 2 4323-8 #### JAS ANTONY ([id number]) [facility] ([facility]) [address] [place] [address] Calcium [Mass/Vol] 9.2 mg/dL Normal 8.6-10.3 [facility] Comment on above: Performed By: #### 2 4323-8 #### JAS ANTONY ([id number]) [facility] ([facility]) [address] [place] [address] 18270 Chloride [Moles/Vol] 102 mmol/L Normal 98-107 [facility] Comment on above: Performed By: #### 2 4323-8 #### JAS ANTONY ([id number]) [facility] ([facility]) [address] [place] [address]307 CO2 [Moles/Vol] 29 mmol/L Normal 21-32 [facility] Comment on above: Performed By: #### 2 4323-8 #### JAS ANTOYN ([id number]) [facility] ([facility]) [address] [place] [address]103 Creatinine [Mass/Vol] 0.66 mg/dL Normal 0.50-1.05 [facility] Comment on above: Performed By: #### 2 4323-8 #### JAS ANTONY ([id number]) [facility] ([facility]) [address] [place] [address]843 GFR/1.73 sq M.predicted MDRD (S/P/Bld) [Vol rate/Area] mL/min/{1.73_m2} Normal >60 [facility] Comment on above: Result Comment: Calc ulations of estimated GFR are performed using the 2020 CKD-EPI Study Refit equation without the race variable for the IDMS-Traceable creatinine methods. https://jasn.asnjournals.org/content//ASN.33573789 88 Performed By: #### 2 4323-8 #### JAS ANTONY ([id number]) [facility] ([facility]) [address] [place] [address] 26570 Glucose [Mass/Vol] 138 mg/dL High 74-99 [facility] Comment on above: Performed By: #### 2 4323-8 #### JAS ANTONY ([id number]) [facility] ([facility]) [address] [place] [address]80 Potassium [Moles/Vol] 4.6 mmol/L Normal 3.5-5.3 [facility] Comment on above: Performed By: #### 2 4323-8 #### JAS ANTONY ([id number]) [facility] ([facility]) [address] [place] [address] 17306 Protein [Mass/Vol] 6.6 g/dL Normal 6.4-8.2 [facility] Comment on above: Performed By: #### 2 4323-8 #### JAS ANTONY ([id number]) [facility] LAB ([facility]) [address] [place] [address]31 Sodium [Moles/Vol] 137 mmol/L Normal 136-145 [facility] Comment on above: Performed By: #### 2 4323-8 #### JAS ANTONY ([id number]) [facility] ([facility]) [address] [place] [address] 09352 Urea nitrogen [Mass/Vol] 15 mg/dL Normal 6-23 [facility] Comment on above: Performed By: #### 2 4323-8 #### JAS ANTONY ([id number]) [facility] ([facility]) [address] [place] [address] 72093 HbA1c (Bld) [Mass fraction]o n 05-30-2024 Average glucose Estimated from glycated hemoglobin (Bld) [Mass/Vol] 157 mg/dL Normal Not Established [facility] Comment on above: Order Comment: Diagn osis of Diabetes-Adults Non-Diabetic: < or = 5.6% Increased risk for developing diabetes: 5.7-6.4% Diagnostic of diabetes: > or = 6.5% Performed By: #### 4 548-4 #### ALBERT Grace ([id number]) [facility] ([facility]) [address] [place] [address] Hemoglobin A1c/Hemoglobin.to cony 05-30-2024 HbA1c (Bld) [Mass fraction] 7.1 % High See comment [facility] Comment on above: Order Comment: Diagn osis of Diabetes-Adults Non-Diabetic: < or = 5.6% Increased risk for developing diabetes: 5.7-6.4% Diagnostic of diabetes: > or = 6.5% Performed By: #### 4 548-4 #### ALBERT Grace ([id number]) [facility] ([facility]) [address] [place] [address] Lipid 1996 panelon 4 Cholesterol [Mass/Vol] 188 mg/dL Normal 0-199 [facility] Comment on above: Result Comment: Age Desirable Borderline High High 0-19 Y 0 - 169 170 - 199 >/= 200 20-24 Y 0 - 189 190 - 224 >/= 225 >24 Y 0 - 199 200 - 239 >/= 240 All ranges are based on fasting samples. Specific therapeutic targets will vary based on patient-specific cardiac risk. Pediatric guidelines reference:Pediatrics 2011, 128(S5).Adult guidelines reference: NCEP ATPIII Guidelines,JULIANNE 2001, 258:2486-97 Venipuncture immediately after or during the administration of Metamizole may lead to falsely low results. Testing should be performed immediately prior to Metamizole dosing. Performed By: #### 2 4331-1 #### JAS ANTONY ([id number]) [facility] ([facility]) [facility] [place] [address] Cholesterol in HDL [Mass/Vol] 40.0 mg/dL Normal [facility] Comment on above: Result Comment: Age Very Low Low Normal High 0-19 Y < 35 < 40 40-45 ---- 20-24 Y ---- < 40 >45 ---- >24 Y ---- < 40 40-60 >60 Performed By: #### 2 4331-1 #### JAS ANTONY ([id number]) [facility] ([facility]) [facility] [place] [address] Cholesterol in LDL [Mass/Vol] 109 mg/dL High <=99 [facility] Comment on above: Result Comment: Near Borderline AGE Desirable Optimal High High Very High 0-19 Y 0 - 109 --- 110-129 >/= 130 ---- 20-24 Y 0 - 119 --- 120-159 >/= 160 ---- >24 Y 0 - 99 100-129 130-159 160-189 >/=190 Performed By: #### 2 4331-1 #### JAS ANTONY ([id number]) [facility] ([facility]) [address] [place] [address] Cholesterol in VLDL [Mass/Vol] 39 mg/dL Normal 0-40 [facility] Comment on above: Performed By: #### 2 4331-1 #### JAS ANTONY ([id number]) [facility] ([facility]) [address] [place] [address] 38144 CHOLESTEROL/HDL RATIO 4.7 Normal [facility] Comment on above: Result Comment: Ref Values Desirable < 3.4 High Risk > 5.0 Performed By: #### 2 4331-1 #### JAS ANTONY ([id number]) [facility] ([facility]) [address] [place] [address] 89015 NON HDL CHOLESTEROL 148 mg/dL Normal 0-149 [facility] Comment on above: Result Comment: Age Desirable Borderline High High Very High 0-19 Y 0 - 119 120 - 144 >/= 145 >/= 160 20-24 Y 0 - 149 150 - 189 >/= 190 ---- >24 Y 30 mg/dL above LDL Cholesterol goal Performed By: #### 2 4331-1 #### JAS ANTONY ([id number]) [facility] ([facility]) [address] [place] [address] 29852 Triglyceride [Mass/Vol] 194 mg/dL High 0-149 [facility] Comment on above: Result Comment: Age Desirable Borderline High Very High SEX:B mg/dL mg/dL mg/dL mg/dL <=14D 86-277 ---- ---- ---- 15D-365D 55-277 ---- ---- ---- 1Y-9Y 0-74 75-99 >=100 ---- 10Y-19Y 0-89 90-129 >=130 ---- 20Y-24Y 0-114 115-149 >=150 ---- >= 25Y 0-149 150-199 200-499 >=500 Venipuncture immediately after or during the administration of Metamizole may lead to falsely low results. Testing should be performed immediately prior to Metamizole dosing. Performed By: #### 2 4331-1 #### JAS ANTONY ([id number]) [facility] ([facility]) [address] [place] [address] Comprehensive metabolic 2000 panelon 02-29-2024 Albumin BCP dye [Mass/Vol] 4.0 g/dL Normal 3.4-5.0 [facility] Comment on above: Performed By: #### 2 4323-8 #### JAS ANTONY ([id number]) [facility] ([facility]) [address] [place] [address] ALP [Catalytic activity/Vol] 81 U/L Normal 33-110 [facility] Comment on above: Performed By: #### 2 4323-8 #### JAS ANTONY ([id number]) [facility] ([facility]) [address] [place] [address] ALT With P-5'-P [Catalytic activity/Vol] 30 U/L Normal 7-45 [facility] Comment on above: Result Comment: Teressa ents treated with Sulfasalazine may generate falsely decreased results for ALT. Performed By: #### 2 4323-8 #### JAS ANTONY ([id number]) [facility] ([facility]) [address] [place] [address] Anion gap [Moles/Vol] 10 mmol/L Normal 10-20 [facility] Comment on above: Performed By: #### 2 4323-8 #### JAS ANTONY ([id number]) [facility] ([facility]) [address] [place] [address] 66704 AST With P-5'-P [Catalytic activity/Vol] 39 U/L Normal 9-39 [facility] Comment on above: Performed By: #### 2 4323-8 #### JAS ANTONY ([id number]) [facility] ([facility]) [address] [place] [address] Bilirubin [Mass/Vol] 0.5 mg/dL Normal 0.0-1.2 [facility] Comment on above: Performed By: #### 2 4323-8 #### JAS ANTONY ([id number]) [facility] ([facility]) [address] [place] [address] Calcium [Mass/Vol] 8.7 mg/dL Normal 8.6-10.3 [facility] Comment on above: Performed By: #### 2 4323-8 #### JAS ANTONY ([id number]) [facility] ([facility]) [address] [place] [address] Chloride [Moles/Vol] 104 mmol/L Normal 98-107 [facility] Comment on above: Performed By: #### 2 4323-8 #### JAS ANTONY ([id number]) [facility] ([facility]) [address] [place] [address] 39032 CO2 [Moles/Vol] 27 mmol/L Normal 21-32 [facility] Comment on above: Performed By: #### 2 4323-8 #### JAS ANTONY ([id number]) [facility] ([facility]) [facility] [place] [address] Creatinine [Mass/Vol] 0.71 mg/dL Normal 0.50-1.05 [facility] Comment on above: Performed By: #### 2 4323-8 #### JAS ANTONY ([id number]) [facility] ([facility]) [address] [place] [address] 52238 GFR/1.73 sq M.predicted MDRD (S/P/Bld) [Vol rate/Area] mL/min/{1.73_m2} Normal >60 [facility] Comment on above: Result Comment: Calc ulations of estimated GFR are performed using the 2020 CKD-EPI Study Refit equation without the race variable for the IDMS-Traceable creatinine methods. https://jasn.asnjournals.org/content//ASN.96106923 88 Performed By: #### 2 4323-8 #### JAS ANTONY ([id number]) [facility] ([facility]) [facility] [place] [address] Glucose [Mass/Vol] 146 mg/dL High 74-99 [facility] Comment on above: Performed By: #### 2 432-8 #### JAS ANTONY ([id number]) [facility] ([facility]) [address] [place] [address] 29631 Potassium [Moles/Vol] 4.3 mmol/L Normal 3.5-5.3 [facility] Comment on above: Performed By: #### 2 4322-8 #### JAS ANTONY ([id number]) [facility] ([facility]) [address] [place] [address] 68369 Protein [Mass/Vol] 6.3 g/dL Low 6.4-8.2 [facility] Comment on above: Performed By: #### 2 4322-8 #### JAS ANTONY ([id number]) [facility] ([facility]) [address] [place] [address] 17791 Sodium [Moles/Vol] 137 mmol/L Normal 136-145 [facility] Comment on above: Performed By: #### 2 4322-8 #### JAS ANTONY ([id number]) [facility] ([facility]) [address] [place] [address] 56467 Urea nitrogen [Mass/Vol] 13 mg/dL Normal 6-23 [facility] Comment on above: Performed By: #### 2 4322-8 #### JAS ANTONY ([id number]) [facility] ([facility]) [address] [place] [address] 07884 HbA1c (Bld) [Mass fraction]o n 02-29-2024 Average glucose Estimated from glycated hemoglobin (Bld) [Mass/Vol] 192 mg/dL Normal Not Established [facility] Comment on above: Order Comment: Diagn osis of Diabetes-Adults Non-Diabetic: < or = 5.6% Increased risk for developing diabetes: 5.7-6.4% Diagnostic of diabetes: > or = 6.5% Performed By: #### 4 548-4 #### ALBERT Grace ([id number]) [facility] ([facility]) [address] [place] [address] Hemoglobin A1c/Hemoglobin.to cony 02-29-2024 HbA1c (Bld) [Mass fraction] 8.3 % High see below [facility] Comment on above: Order Comment: Diagn osis of Diabetes-Adults Non-Diabetic: < or = 5.6% Increased risk for developing diabetes: 5.7-6.4% Diagnostic of diabetes: > or = 6.5% Performed By: #### 4 548-4 #### ALBERT Grace ([id number]) [facility] ([facility]) [address] [place] [address] TSH WITH REFLEX TO FREE T4 I F ABNORMALon 02-29-2024 TSH Qn 1.34 m[IU]/L Normal 0.44-3.98 [facility] Comment on above: Order Comment: TSH t esting is performed using different testing methodology at [facility] than at [facility]. Direct result comparisons should only be made within the same method. Performed By: #### T HYDS #### MARK ARPAN ([id number]) [facility] ([facility]) [address] [place] [address] ED Prov Noteon 01-25-2024 ED Prov Note ED PROVIDER NOTE [facility] EMERGENCY DEPARTMENT NAME: Katharine Farah AGE: 33 y.o. : 1990 VISIT DATE: 01/25/2024 CSN: [id number] PCP: Patricia Aaron DO No chief complaint on file. Patient is a 33-year-old female with no significant past medical history who presents today for concern of finger laceration. 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 Bleeding was controlled direct pressure. Patient's tetanus is not up-to-date. Patient denies any paresthesias or loss of function. Patient denies any concern for foreign body. Patient denies any concern for underlying bony fracture. History reviewed. No pertinent past medical history. History reviewed. No pertinent surgical history. History reviewed. No pertinent family history. Social History Socioeconomic History Marital status: Single Tobacco Use Smoking status: Never Smokeless tobacco: Never Vaping Use Vaping status: Never Used Substance and Sexual Activity Alcohol use: Never Drug use: Never No current outpatient medications on file prior to encounter. Allergies Allergen Reactions Penicillins Rash Review of Systems Constitutional: Negative for chills and fever. Eyes: Negative for pain. Respiratory: Negative for cough, chest tightness and shortness of breath. Cardiovascular: Negative for chest pain and palpitations. Gastrointestinal: Negative for abdominal pain, nausea and vomiting. Genitourinary: Negative for flank pain. Musculoskeletal: Negative for arthralgias and myalgias. Skin: Positive for wound. Negative for rash. Neurological: Negative for dizziness, syncope, light-headedness and headaches. Psychiatric/Behavior al: Negative for agitation. All other systems reviewed and are negative. Patient Vitals for the past 24 hrs: BP Temp Temp src Pulse Resp SpO2 Height Weight 01/25/24 1858 (!) 162/105 98.7 degrees F (37.1 degrees C) Oral 88 16 96 % 5' 4 89.8 kg (198 lb) Physical Exam Vitals and nursing note reviewed. Constitutional: Appearance: Normal appearance. HENT: Head: Normocephalic. Eyes: Pupils: Pupils are equal, round, and reactive to light. Cardiovascular: Rate and Rhythm: Normal rate and regular rhythm. Pulses: Normal pulses. Heart sounds: Normal heart sounds. Musculoskeletal: Cervical back: Normal range of motion. Pulmonary: Effort: Pulmonary effort is normal. Breath sounds: Normal breath sounds. Skin: General: Skin is warm. Capillary Refill: Capillary refill takes less than 2 seconds. Comments: Left fifth digit has 2 linear well-approximated lacerations on the dorsal aspect with no evidence of associated foreign body or infection. Equal sensation motor function the bilateral median, radial ulnar nerve. Equal radial pulses bilaterally. Neurological: General: No focal deficit present. Mental Status: She is alert. Psychiatric: Mood and Affect: Mood normal. . Laboratory & Radiographic Imaging (if done): No results found for this visit on 01/25/24. No orders to display Procedures Medical Decision Making Patient was seen and evaluated for concern of finger laceration. Patient's finger laceration was cleansed with no foreign body identified. Tetanus updated. Patient received 5.0 x 7 nylon sutures which provided good wound approximation. Patient was neurovascularly intact. Patient educated regarding wound care. Patient agrees assessment and plan and was told to have stitches removed in 7 to 10 days and educated on reasons return and agrees to do so and was discharged in stable condition. The patient has been informed that they may have pre-hypertension or hypertension based on a blood pressure reading in the Emergency Department. I recommend that the patient call the primary care provider listed on their discharge instructions or a physician of their choice as soon as possible to arrange follow-up in the next 4 weeks for further evaluation of possible pre-hypertension or hypertension. . Clinical Impression: 1. Laceration of left little finger without foreign body without damage to nail, initial encounter ED Disposition ED Disposition Discharge Condition Stable Comment Katharine Farah discharged to home/self care in stable condition. Follow-up Information 1. Patricia Aaron DO. Specialty: Internal Medicine Why: As needed, If symptoms worsen, For suture removal [address] [phone] Contact information for after-discharge care Follow-up information has not been specified. Sean Smith DO 01/25/241929 AUTHENTICATED BY SHONDA MEDINA 01/25/2024 19:30:21 Normal [facility] CBC AND DIFFERENTIALon 10-03 % AUTOMATED IMMATURE GRAN 0.7 % Normal 0.0 - 0.9 [facility] Comment on above: Result Comment: Tressa ture Granulocyte Count (IG) includes promyelocytes, myelocytes and metamyelocytes but does not include bands. Percent differential counts (%) should be interpreted in the context of the absolute cell counts (cells/L). Performed By: #### C BCDF #### [address] [address] Basophils (Bld) [#/Vol] 0.02 10*3/uL Normal 0.00 - 0.10 [facility] Comment on above: Performed By: #### C BCDF #### [address] [address] Basophils/100 WBC (Bld) 0.3 % Normal 0.0 - 2.0 [facility] Comment on above: Performed By: #### C BCDF #### [facility] [address] Eosinophils (Bld) [#/Vol] 0.13 10*3/uL Normal 0.00 - 0.70 [facility] Comment on above: Performed By: #### C BCDF #### [address] [address] Eosinophils/100 WBC (Bld) 2.2 % Normal 0.0 - 6.0 [facility] Comment on above: Performed By: #### C BCDF #### [address] [address] Erythrocyte distribution width (RBC) [Ratio] 12.1 % Normal 11.5 - 14.5 [facility] Comment on above: Performed By: #### C BCDF #### [address] [address] Hematocrit (Bld) [Volume fraction] 44.3 % Normal 36.0 - 46.0 [facility] Comment on above: Performed By: #### C BCDF #### [address] [address] Hemoglobin (Bld) [Mass/Vol] 14.4 g/dL Normal 12.0 - 16.0 [facility] Comment on above: Performed By: #### C BCDF #### [address] [address] Lymphocytes (Bld) [#/Vol] 1.86 10*3/uL Normal 1.20 - 4.80 [facility] Comment on above: Performed By: #### C BCDF #### [address] [address] Lymphocytes/100 WBC (Bld) 31.7 % Normal 13.0 - 44.0 [facility] Comment on above: Performed By: #### C BCDF #### [address] [address] MCHC (RBC) [Mass/Vol] 32.5 g/dL Normal 32.0 - 36.0 [facility] Comment on above: Performed By: #### C BCDF #### [address] [address] MCV (RBC) [Entitic vol] 94 fL Normal 80 - 100 [facility] Comment on above: Performed By: #### C BCDF #### [address] [address] Monocytes (Bld) [#/Vol] 0.47 10*3/uL Normal 0.10 - 1.00 [facility] Comment on above: Performed By: #### C BCDF #### [address] [address] Monocytes/100 WBC (Bld) 8.0 % Normal 2.0 - 10.0 [facility] Comment on above: Performed By: #### C BCDF #### [address] [address] Neutrophils (Bld) [#/Vol] 3.35 10*3/uL Normal 1.20 - 7.70 [facility] Comment on above: Result Comment: Perc ent differential counts (%) should be interpreted in the context of the absolute cell counts (cells/L). Performed By: #### C BCDF #### [address] [address] Neutrophils/100 WBC (Bld) 57.1 % Normal 40.0 - 80.0 [facility] Comment on above: Performed By: #### C BCDF #### [address] [address] Platelets (Bld) [#/Vol] 244 10*3/uL Normal 150 - 450 [facility] Comment on above: Performed By: #### C BCDF #### [address] [address] RBC 4.70 x10E12/L Normal 4.00 - 5.20 [facility] Comment on above: Performed By: #### C BCDF #### [address] [address] WBC (Bld) [#/Vol] 5.9 10*3/uL Normal 4.4 - 11.3 [facility] Comment on above: Performed By: #### C BCDF #### [place] [address] Lab Specimen Source Normal [facility] Comment on above: Performed By: #### C BCDF #### [place] [address] Performed By: #### T HYDS #### [place] [address] Performed By: #### L IPID #### [place] [address] Performed By: #### C MP #### [place] [address] COMPREHENSIVE PANELon 2022 Albumin [Mass/Vol] 4.1 g/dL Normal 3.4 - 5.0 [facility] Comment on above: Performed By: #### C MP #### [place] [address] ALP [Catalytic activity/Vol] 101 U/L Normal 33 - 110 [facility] Comment on above: Performed By: #### C MP #### [place] [address] ALT [Catalytic activity/Vol] 46 U/L High 7 - 45 [facility] Comment on above: Result Comment: Teressa ents treated with Sulfasalazine may generate falsely decreased results for ALT. Performed By: #### C MP #### [place] [address] Anion gap [Moles/Vol] 11 mmol/L Normal 10 - 20 [facility] Comment on above: Performed By: #### C MP #### [place] [id number] AST [Catalytic activity/Vol] 65 U/L High 9 - 39 [facility] Comment on above: Performed By: #### C MP #### [place] [id number] Bilirubin [Mass/Vol] 0.5 mg/dL Normal 0.0 - 1.2 [facility] Comment on above: Performed By: #### C MP #### [place] [address] Calcium [Mass/Vol] 9.2 mg/dL Normal 8.6 - 10.3 [facility] Comment on above: Performed By: #### C MP #### [address] [address] Chloride [Moles/Vol] 103 mmol/L Normal 98 - 107 [facility] Comment on above: Performed By: #### C MP #### [address] [address] Creatinine [Mass/Vol] 0.72 mg/dL Normal 0.50 - 1.05 [facility] Comment on above: Performed By: #### C MP #### [address] [address] eGFR FEMALE >90 Normal >90 [facility] Comment on above: Result Comment: CALC ULATIONS OF ESTIMATED GFR ARE PERFORMED USING THE 2020 CKD-EPI STUDY REFIT EQUATION WITHOUT THE RACE VARIABLE FOR THE IDMS-TRACEABLE CREATININE METHODS. https://jasn.asnjournals.org/content/early//ASN.33084403 88 Performed By: #### C MP #### [address] [address] Glucose [Mass/Vol] 160 mg/dL High 74 - 99 [facility] Comment on above: Performed By: #### C MP #### [address] [address] HCO3 (Bld) [Moles/Vol] 29 mmol/L Normal 21 - 32 [facility] Comment on above: Performed By: #### C MP #### [address] [address] Potassium [Moles/Vol] 4.0 mmol/L Normal 3.5 - 5.3 [facility] Comment on above: Performed By: #### C MP #### [address] [address] Protein [Mass/Vol] 6.8 g/dL Normal 6.4 - 8.2 [facility] Comment on above: Performed By: #### C MP #### [address] [address] Sodium [Moles/Vol] 139 mmol/L Normal 136 - 145 [facility] Comment on above: Performed By: #### C MP #### [address] [address] Urea nitrogen [Mass/Vol] 15 mg/dL Normal 6 - 23 [facility] Comment on above: Performed By: #### C MP #### [address] [address] HEMOGLOBIN A1Con 10-03-2022 Glucose [Mass/Vol] 189 mg/dL Normal [facility] Comment on above: Performed By: #### H BA1E #### [address] [address] HbA1c (Bld) [Mass fraction] 8.2 % Abnormal [facility] Comment on above: Result Comment: Diag nosis of Diabetes-Adults Non-Diabetic: < or = 5.6% Increased risk for developing diabetes: 5.7-6.4% Diagnostic of diabetes: > or = 6.5% . Monitoring of Diabetes Age (y) Therapeutic Goal (%) Adults: >18 <7.0 Pediatrics: 13-18 <7.5 7-12 <8.0 0- 6 7.5-8.5 [employer]. Diabetes Care 33(S1), Jun 2009. Performed By: #### H BA1E #### [address] [address] LIPID PANEL (CORONARY RISK 2 )on 10-03-2022 Cholesterol [Mass/Vol] 200 mg/dL High 0 - 199 [facility] Comment on above: Result Comment: . AGE DESIRABLE BORDERLINE HIGH HIGH 0-19 Y 0 - 169 170 - 199 >/= 200 20-24 Y 0 - 189 190 - 224 >/= 225 >24 Y 0 - 199 200 - 239 >/= 240 All ranges are based on fasting samples. Specific therapeutic targets will vary based on patient-specific cardiac risk. . Pediatric guidelines reference:Pediatrics 2011, 128(S5). Adult guidelines reference: NCEP ATPIII Guidelines, JULIANNE 2001, 258:2486-97 . Venipuncture immediately after or during the administration of Metamizole may lead to falsely low results. Testing should be performed immediately prior to Metamizole dosing. Performed By: #### L IPID #### [address] [address] Cholesterol in HDL [Mass/Vol] 45.0 mg/dL Normal [facility] Comment on above: Result Comment: . AGE VERY LOW LOW NORMAL HIGH 0-19 Y < 35 < 40 40-45 ---- 20-24 Y ---- < 40 >45 ---- >24 Y ---- < 40 40-60 >60 . Performed By: #### L IPID #### [address] [address] Cholesterol in LDL [Mass/Vol] 126 mg/dL High 0 - 99 [facility] Comment on above: Result Comment: . NEAR BORD AGE DESIRABLE OPTIMAL HIGH HIGH VERY HIGH 0-19 Y 0 - 109 --- 110-129 >/= 130 ---- 20-24 Y 0 - 119 --- 120-159 >/= 160 ---- >24 Y 0 - 99 100-129 130-159 160-189 >/=190 . Performed By: #### L IPID #### [address] [address] Cholesterol in VLDL [Mass/Vol] 29 mg/dL Normal 0 - 40 [facility] Comment on above: Performed By: #### L IPID #### [address] [address] Cholesterol.total/C holesterol in HDL [Mass ratio] 4.4 {ratio} Normal [facility] Comment on above: Result Comment: REF VALUES DESIRABLE < 3.4 HIGH RISK > 5.0 Performed By: #### L IPID #### [address] [address] Triglyceride [Mass/Vol] 145 mg/dL Normal 0 - 149 [facility] Comment on above: Result Comment: . AGE DESIRABLE BORDERLINE HIGH HIGH VERY HIGH 0 D-90 D 19 - 174 ---- ---- ---- 91 D- 9 Y 0 - 74 75 - 99 >/= 100 ---- 10-19 Y 0 - 89 90 - 129 >/= 130 ---- 20-24 Y 0 - 114 115 - 149 >/= 150 ---- >24 Y 0 - 149 150 - 199 200- 499 >/= 500 . Venipuncture immediately after or during the administration of Metamizole may lead to falsely low results. Testing should be performed immediately prior to Metamizole dosing. Performed By: #### L IPID #### [address] [address] TSH WITH REFLEX TO FREE T4 I F ABNORMALon 10-03-2022 TSH Qn 1.25 m[IU]/L Normal 0.44 - 3.98 [facility] Comment on above: Result Comment: TSH testing is performed using different testing methodology at [facility] than at other [facility]. Direct result comparisons should only be made within the same method. Performed By: #### T HYDS #### [address] [address] CORONAVIRUS PCR - [facility] 03-12-2021 SARS-CoV-2 (COVID-19) RNA JOSE+probe Ql (Unsp spec) Positive Critically abnormal NORMAL: NEGATIVE [facility] Comment on above: Result Comment: { CA LLED TO FAXED TO AG { READ BACK BY Performed By: #### [id number] #### [facility],[address] [place] [address] SEND TO IC? YES Normal [facility] Comment on above: Result Comment: RESU LTS FAXED TO INFECTION CONTROL. SARS-CoV-2 THIS TEST IS BEING USED UNDER THE FDA EUA PROCEDURE. THIS ASSAY HAS BEEN VALIDATED IN THE [facility] FOR USE WITH NASOPHARYNGEAL SPECIMENS IN [facility]. INTERPRETIVE DATA LABORATORY TEST RESULTS SHOULD ALWAYS BE CONSIDERED IN THE CONTEXT OF CLINICAL OBSERVATIONS AND EPIDEMIOLOGICAL DATA IN MAKING FINAL DIAGNOSIS AND PATIENT MANAGEMENT DECISIONS. PATIENT MANAGEMENT SHOULD FOLLOW CURRENT CDC GUIDELINES. A POSITIVE TEST RESULT FOR COVID-19 INDICATES THAT RNA FROM SARS-CoV-2 WAS DETECTED, AND THE PATIENT IS INFECTED WITH THE VIRUS AND PRESUMED TO BE CONTAGIOUS. A NEGATIVE TEST RESULT FOR THIS TEST MEANS THAT SARS-CoV-2 RNA WAS NOT PRESENT IN THE SPECIMEN ABOVE THE LIMIT OF DETECTION. HOWEVER, A NEGATVIE RESULT DOES NOT RULE OUT COVID-19 AND SHOULD NOT BE USED THE SOLE BASIS FOR TREATMENT OR PATIENT MANAGEMENT DECISIONS. A NEGATIVE RESULT DOES NOT EXCLUDE THE POSSIBILITY OF COVID-19. WHEN DIAGNOSTIC TESTING IS NEGATIVE, THE POSSIBLILTY OF A FALSE NEGATIVE RESULT SHOULD BE CONSIDERED IN THE CONTEXT OF A PATIENT'S RECENT EXPOSURES AND THE PRESENCE OF CLINICAL SIGNS AND SYMPTOMS CONSISTENT WITH COVID-19. THE POSSIBILITY OF A FALSE NEGATIVE RESULT SHOULD ESPECIALLY BE CONSIDERED IF THE PATIENT'S RECENT EXPOSURES OR CLINICAL PRESENTATION INDICATE THAT COVID-19 IS LIKELY, AND DIAGNOSTIC TESTS FOR OTHER CAUSES OF ILLNESS (e.g., OTHER RESPIRATORY ILLNESS) ARE NEGATIVE. IF COVID-19 IS STILL SUSPECTED BASED ON EXPOSURE HISTORY TOGETHER WITH OTHER CLINICAL FINDINGS, RE-TESTED SHOULD BE CONSIDERED BY HEALTHCARE PROVIDERS IN CONSULTATION WITH PUBLIC HEALTH AUTHORITIES. Performed By: #### 2 [id number] #### [facility],[address] [place] [address] Coronavirus 2019on 0 COVID 19 Result [employer]DER Normal Negative for COVID19 (SARS CoV2) by PCR. [facility] Comment on above: Result Comment: Nega tive for This test was developed and its performance characteristics determined by [facility] [place]. This test has been authorized by FDA under an Emergency Use Authorization (EUA). This test has been validated in accordance with the FDA's Guidance Document Policy for Diagnostics Testing in Laboratories Certified to Perform High Complexity Testing under CLIA prior to Emergency use Authorization for Coronavirus Disease 2019 during the Public Health Emergency issued on August 13, 2019. COVID19 (SARS This test was developed and its performance characteristics determined by [facility] [place]. This test has been authorized by FDA under an Emergency Use Authorization (EUA). This test has been validated in accordance with the FDA's Guidance Document Policy for Diagnostics Testing in Laboratories Certified to Perform High Complexity Testing under CLIA prior to Emergency use Authorization for Coronavirus Disease 2019 during the Public Health Emergency issued on August 13, 2019. CoV2) by PCR. This test was developed and its performance characteristics determined by [facility] [place]. This test has been authorized by FDA under an Emergency Use Authorization (EUA). This test has been validated in accordance with the FDA's Guidance Document Policy for Diagnostics Testing in Laboratories Certified to Perform High Complexity Testing under CLIA prior to Emergency use Authorization for Coronavirus Disease 2019 during the Public Health Emergency issued on August 13, 2019. COVID 19 Source [employer] BUILDER Normal [facility] Comment on above: Result Comment: Naso pharyngeal Corrected on 12/16 AT 0601: Previously reported as LOOM [employer] CH[employer]DER SWAB Swab Corrected on 12/16 AT 0601: Previously reported as LOOM CONTROL CH[employer] BU[employer]DER SWAB Hemoglobin A1con 10-04-2019 HbA1c (Bld) [Mass fraction] 6.0 % High 4.3-5.6 [facility] Comment on above: Performed By: #### H BA1C #### [facility] Lab [address] [address] HbA1c (Bld) [Mass fraction] 126 mg/dL Normal [facility] Comment on above: Performed By: #### H BA1C #### [facility] Lab [facility] [phone] POC Strep Aon 10-29-2018 Strep A Screen Positive Abnormal Negative [facility] Comment on above: Performed By: #### C [id number] #### [facility] POC Subsection [address] [place] [address] Strep A Scrn Int Ctl Negative Abnormal Positive [facility] Comment on above: Performed By: #### C [id number] #### [facility] POC Subsection [address] [place] [address] Progesterone Levelon 018 Protein mass conc 0.51 ng/mL Normal See Comment [facility] Comment on above: Result Comment: Prog esterone Reference Table: UNITS Female: Follicular 0.15 - 1.40 ng/mL Luteal 3.34 - 25.56 ng/mL Mid-luteal 4.44 - 28.03 ng/mL Postmenopausal 0.0 - 0.73 ng/mL : 1st Trimester 11.22 - 90.00 ng/mL 2nd Trimester 25.55 - 89.40 ng/mL 3rd Trimester 48.40 -422.50 ng/mL Performed By: #### L 505.5000, L505.6240 #### [facility] [address] [place], [address] hCG Titer Quant., Serumon HCG QUANT. < 1 Normal <9 non-preg [facility] Comment on above: Performed By: #### L 505.5000, L505.6240 #### [facility] [address] [place], [address] Pathology Specimen OBon PATH. Spec. OB SEE PATHOLOGY REPORT Normal [facility] Comment on above: Order Comment: List of Drugs Taken or Suspected? UNK Result Comment: Spec imen submitted to Anatomical Pathology Department for testing. Performed By: #### L 505.5000, L505.6240 #### [facility] [address] [place], [address] Bedside Glucoseon 04-12-2018 BEDSIDE GLU 104 mg/dL Normal 70-110 [facility] Comment on above: Result Comment: KIMBERLEY GEMENT OF PATIENT CARE PER NURSING PROTOCOL Performed By: #### L 505.5000, L505.6240 #### [facility] [address] [place], [address] (ROM) Rupture Of Membraneson 04-11-2018 ROM Negative Normal Negative [facility] Comment on above: Result Comment: Amni otic fluid not present indicates No Rupture of Membranes at time of specimen collection. Performed By: #### L 7400.0350 #### [facility] (refer to report for specific site) refer to report for address and phone number Bedside Glucoseon 04-11-2018 BEDSIDE GLU 116 mg/dL High 70-110 [facility] Comment on above: Result Comment: KIMBERLEY GEMENT OF PATIENT CARE PER NURSING PROTOCOL Performed By: #### L 505.5000, L505.6240 #### [facility] [address] [place], [address] BEDSIDE GLU 79 mg/dL Normal 70-110 [facility] Comment on above: Result Comment: KIMBERLEY GEMENT OF PATIENT CARE PER NURSING PROTOCOL Performed By: #### L 7400.0350 #### [facility] (refer to report for specific site) refer to report for address and phone number CBC W/Diff, Automatedon 10-2 Absolute Neut 8.9 X10 3/uL High 2.0-7.7 [facility] Comment on above: Performed By: #### L 505.5000, L505.6240 #### [facility] [address] [place], [address] Basophils/100 WBC (Bld) 0.0 % Normal 0-1 [facility] Comment on above: Performed By: #### L 505.5000, L505.6240 #### [facility] [address] [place], [address] Eosinophils/100 WBC (Bld) 0.1 % Normal 0-5 [facility] Comment on above: Performed By: #### L 505.5000, L505.6240 #### [facility] [address] [place], [address] Erythrocyte distribution width Ratio (RBC) 13.4 % Normal 11.6-14.6 [facility] Comment on above: Performed By: #### L 505.5000, L505.6240 #### [facility] [address] [place], [address] Hematocrit Volume Fraction (Bld) 42.1 % Normal 37-47 [facility] Comment on above: Performed By: #### L 505.5000, L505.6240 #### [facility] [address] [place], [address] Hemoglobin mass conc (Bld) 13.9 g/dL Normal 12.0-15.0 [facility] Comment on above: Performed By: #### L 505.5000, L505.6240 #### [facility] [address] [place], [address] IM GRAN % 0.300 % Normal 0.0-0.9 [facility] Comment on above: Result Comment: IG% - Immature Granulocytes (promyelocytes, myelocytes and metamyelocytes) > 1% indicates that a LEFT SHIFT is Present. Performed By: #### L 505.5000, L505.6240 #### [facility] [address] [place], [address] Lymphocytes #/vol (Bld) 0.90 X10 3/ul Normal 0.83-4.51 [facility] Comment on above: Performed By: #### L 505.5000, L505.6240 #### [facility] [address] [place], [address] Lymphocytes/100 WBC (Bld) 8.8 % Low 19-41 [facility] Comment on above: Performed By: #### L 505.5000, L505.6240 #### [facility] [address] [place], [address] MCH Entitic mass (RBC) 31.6 pg Normal 27.0-32.0 [facility] Comment on above: Performed By: #### L 505.5000, L505.6240 #### [facility] [address] [place], [address] MCHC mass conc (RBC) 33.0 g/gl Normal 32-36 [facility] Comment on above: Performed By: #### L 505.5000, L505.6240 #### [facility] [address] [place], [address] MCV Entitic volume (RBC) 95.7 fL Normal 81-99 [facility] Comment on above: Performed By: #### L 505.5000, L505.6240 #### [facility] [address] [place], [address] Monocytes/100 WBC (Bld) 3.6 % Normal 0-10 [facility] Comment on above: Performed By: #### L 505.5000, L5.6240 #### [facility] [address] [place], [address] Neutrophils/100 WBC (Bld) 87.2 % High 47-70 [facility] Comment on above: Performed By: #### L 505.5000, L505.6240 #### [facility] [address] [place], [address] Platelet mean volume Entitic volume (Bld) 12.8 fL High 6.2-12.0 [facility] Comment on above: Performed By: #### L 505.5000, L505.6240 #### [facility] [address] [place], [address] Platelets #/vol (Bld) 193 10*3/uL Normal 150-450 [facility] Comment on above: Performed By: #### L 505.5000, L505.6240 #### [facility] [address] [place], [address] RBC #/vol (Bld) 4.40 M/mm3 Normal 4.2-5.4 [facility] Comment on above: Performed By: #### L 505.5000, L505.6240 #### [facility] [address] [place], [address] RDW SD 46.8 fl High 35.1-43.9 [facility] Comment on above: Performed By: #### L 505.5000, L505.6240 #### [facility] [address] [place], [address] WBC #/vol (Bld) 10.2 10*3/uL Normal 4.4-11.0 [facility] Comment on above: Performed By: #### L 505.5000, L505.6240 #### [facility] [address] [place], [address] Discharge Instructionon 10-2 Discharge Instruction [facility] Medical Records Department [address] [place] [address] Instructions for Home/Discharge Instructions 04/11/18 2135 MR#: [id number] Acct: [id number] Name: KATHARINE FARAH Rep #: [id number] : 1990 27 From: Gloria Levi MD PCP: Crispin Madrigal MD Status: ADM IN Discharge Diet: [...] PRN Reason: Pain Please Follow Up With: Crispin Benton MD When: 6 weeks Primary Care Physician: Crispin Madrigal MD [Primary Care Provider] - Test Results: Test results from this visit will be discussed in further detail at your follow-up appointment, if applicable. 04/11/182136 Date Gloria Levi MD CC: Crispin Madrigal MD; MAXIMINO MADRIGAL Normal [facility] Operative Reporton 8 Operative Report [facility] Medical Records Department [address] [place] [address] Operative Report 04/11/18 1841 MR#: [id number] Acct: [id number] Name: KATHARINE FARAH Rep #: [id number] : 1990 27 From: Gloria Levi MD PCP: Crispin Madrigal MD Status: ADM IN Location: [id number] - Problem List (1) 36 weeks gestation of Status: Acute (2) (spontaneous vaginal delivery) Status: Acute Vaginal Delivery Maternal Presentation: Active Labor, - - labor Amniotic Membrane Rupture Type: Spontaneous Amniotic Fluid Description: Clear Final JOSEMANUEL: 05/05/18 Gestational age: 36 Weeks and 4 Days [place] doctor who attended delivery (if requested by [...] female infant over an intact perineum. The infant was placed on the maternal abdomen and [...] given after delivery: IV Pitocin Complications: None 04/11/181846 Date Gloria Levi MD CC: Crispin Madrigal MD; Gloria Levi MD; MAXIMINO MADRIGAL Signed Normal [facility] PLACENTAon 04-11-2018 PLACENTA Patient: KATHARINE FARAH : 1990 () Acct Num: [id number] Phys: Amita MALDONADO,Summer Unit Num: [id number] Loc: WP [id number] Specimen: [id number] Received: 04/12/18241 Spec Type: PLACENTA TISSUES 1 TISSUES: Placenta, [...] of placental disc C. Color of membrane: Ansari-damico D. Abnormalities: None UMBILICAL CORD - Present A. Color: Ansari-damico B. Insertion: Paracentral C. Length: 21 cm D. Diameter: 1 cm E. Number of vessels: Three F. Abnormalities: None PLACENTAL DISC - Present A. Color of surface: Ansari-damico B. surface abnormalities: None C. Maternal cotyledons: Intact with minimal tears D. Attached retro placental clot: No clot E. Cut surface: Dark red and spongy F. Lesions: Sections reveal a ansari, indurated area close to maternal surface measuring [...] surfaces 6. Placental disc, and maternal surfaces : 04/13/18 TC:5 CPT: 43212 HEADER OPERATION: Vaginal delivery PRE-OP DIAGNOSIS: labor 36wga TISSUE SUBMITTED: Placenta MICROSCOPIC DESCRIPTION Slides are reviewed. MICROSCOPIC DIAGNOSIS Placenta: Placental disc - third trimester placenta (264 gm). Focal area of increased intervillous and perivillous fibrin deposition (1.5 cm in greatest dimension). Membranes - no pathologic diagnosis. Umbilical cord - three blood vessels and no pathologic diagnosis. SJ:nigel 04/14/18 Signed ____ Julio Monteiro 04/14/18 Normal [facility] Comment on above: Performed By: #### L 505.5000, L505.6240 #### [facility] [address] [place], [place], [address] Type AND Screenon 04-11-2018 ABO and Rh group Nom (Bld) A POSITIVE Normal [facility] Comment on above: Order Comment: List of Drugs Taken or Suspected? UNK Performed By: #### L 505.5000, L505.6240 #### [facility] [address] [place], [place], [address] Urinalysis, Completeon 04-11 SQUAM EPI 0-5 SEEN Normal 5-10 [facility] Comment on above: Order Comment: List of Drugs Taken or Suspected? UNK Result Comment: AMENDED REPORT 04/11/18 1504 SQUAM EPI previously reported as: 0 SEEN /hpf Performed By: #### L 505.5000, L505.6240 #### [facility] [address] [place], [address] AMORPHOUS 1+ Normal [facility] Comment on above: Order Comment: List of Drugs Taken or Suspected? UNK Performed By: #### L 505.5000, L505.6240 #### [facility] [address] [place], [address] Bacteria LM.HPF #/area (Urine sed) 0 SEEN Normal None Seen [facility] Comment on above: Order Comment: List of Drugs Taken or Suspected? UNK Performed By: #### L 505.5000, L505.6240 #### [facility] [address] [place], [address] MUCUS, URINE 0 SEEN Normal [facility] Comment on above: Order Comment: List of Drugs Taken or Suspected? UNK Performed By: #### L 505.5000, L505.6240 #### [facility] [address] [place], [address] RBC #/vol (U) 0 SEEN Normal 0-5 [facility] Comment on above: Order Comment: List of Drugs Taken or Suspected? UNK Performed By: #### L 505.5000, L505.6240 #### [facility] [address] [place], [address] WBC #/vol (Bld) 0-5 SEEN Normal 0-5 [facility] Comment on above: Order Comment: List of Drugs Taken or Suspected? UNK Performed By: #### L 505.5000, L505.6240 #### [facility] [address] [place], [address] BILIRUBIN URINE Negative Normal Negative [facility] Comment on above: Order Comment: List of Drugs Taken or Suspected? UNK Performed By: #### L 505.5000, L505.6240 #### [facility] [address] [place], [address] Clarity Nom (U) Clear Normal Clear [facility] Comment on above: Order Comment: List of Drugs Taken or Suspected? UNK Performed By: #### L 505.5000, L505.6240 #### [facility] [address] [place], [address] Color Nom (U) Yellow Normal Yellow [facility] Comment on above: Order Comment: List of Drugs Taken or Suspected? UNK Performed By: #### L 505.5000, L505.6240 #### [facility] [address] [place], [address] GLUCOSE, UR Normal Normal Normal [facility] Comment on above: Order Comment: List of Drugs Taken or Suspected? UNK Performed By: #### L 505.5000, L505.6240 #### [facility] [address] [place], [address] KETONE UR Negative Normal Negative [facility] Comment on above: Order Comment: List of Drugs Taken or Suspected? UNK Performed By: #### L 505.5000, L505.6240 #### [facility] [address] [place], [address] LEUK ESTERASE 100 /ul High Negative [facility] Comment on above: Order Comment: List of Drugs Taken or Suspected? UNK Performed By: #### L 505.5000, L505.6240 #### [facility] [address] [place], [address] NITRITE UR Negative Normal Negative [facility] Comment on above: Order Comment: List of Drugs Taken or Suspected? UNK Performed By: #### L 505.5000, L505.6240 #### [facility] [address] [place], [address] OCCULT BLOOD-UR Negative Normal Negative [facility] Comment on above: Order Comment: List of Drugs Taken or Suspected? UNK Performed By: #### L 505.5000, L505.6240 #### [facility] [address] [place], [address] pH UR 7.0 Normal 5.0 - 8.0 [facility] Comment on above: Order Comment: List of Drugs Taken or Suspected? UNK Performed By: #### L 505.5000, L505.6240 #### [facility] [address] [place], [address] Protein mass conc (U) Negative Normal Negative [facility] Comment on above: Order Comment: List of Drugs Taken or Suspected? UNK Performed By: #### L 505.5000, L505.6240 #### [facility] [address] [place], [address] SP.GR. DIPSTX 1.005 Normal 1.002-1.030 [facility] Comment on above: Order Comment: List of Drugs Taken or Suspected? UNK Performed By: #### L 505.5000, L505.6240 #### [facility] [address] [place], [address] UROBILI Normal Normal Normal [facility] Comment on above: Order Comment: List of Drugs Taken or Suspected? UNK Performed By: #### L 505.5000, L505.6240 #### [facility] [address] [place], [address] Culture, Group B Streptococc uson 04-05-2018 CUGRB ZACH Culture Group B Beta Streptococcus is not isolated. Normal [facility] Comment on above: Performed By: #### L 7400.0350 #### [facility] (refer to report for specific site) refer to report for address and phone number Group B Strep DNA By PCRon 1 GBS TEST RESULT Negative Normal Negative [facility] Comment on above: Order Comment: CYTOL OGY INFORMATION: - CLINICAL INFORMATION: - DATE LMP/MENOPAUSE: 08/04/17 LMP - COLLECTION VIAL: Thin Prep Vial - PAIN COORDINATOR SOURCE: CERVICAL/ENDOCERVICAL - COLLECTION TECHNIQUE: BRUSH/SPATULA Specimen Comment: [id number] Specimen Comment: No. of containers..01 ThinPrep Vial Performed By: #### L 7400.0350 #### [facility] (refer to report for specific site) refer to report for address and phone number Gestational GTT 3HR 100gon 0 02-24-2018 GLU GTT- 3HR 115 L Normal <145 [facility] Comment on above: Order Comment: CYTOL OGY INFORMATION: - CLINICAL INFORMATION: - DATE LMP/MENOPAUSE: 08/04/17 LMP - COLLECTION VIAL: Thin Prep Vial - PAIN COORDINATOR SOURCE: CERVICAL/ENDOCERVICAL - COLLECTION TECHNIQUE: BRUSH/SPATULA Specimen Comment: [id number] Specimen Comment: No. of containers..01 ThinPrep Vial Performed By: #### L 7400.0350 #### [facility] (refer to report for specific site) refer to report for address and phone number GLU GTT- 2HR 171 mg/dL High <165 [facility] Comment on above: Order Comment: CYTOL OGY INFORMATION: - CLINICAL INFORMATION: - DATE LMP/MENOPAUSE: 08/04/17 LMP - COLLECTION VIAL: Thin Prep Vial - PAIN COORDINATOR SOURCE: CERVICAL/ENDOCERVICAL - COLLECTION TECHNIQUE: BRUSH/SPATULA Specimen Comment: [id number] Specimen Comment: No. of containers..01 ThinPrep Vial Performed By: #### L 7400.0350 #### [facility] (refer to report for specific site) refer to report for address and phone number GLU GTT- 1HR 213 mg/dL High <190 [facility] Comment on above: Order Comment: CYTOL OGY INFORMATION: - CLINICAL INFORMATION: - DATE LMP/MENOPAUSE: 08/04/17 LMP - COLLECTION VIAL: Thin Prep Vial - PAIN COORDINATOR SOURCE: CERVICAL/ENDOCERVICAL - COLLECTION TECHNIQUE: BRUSH/SPATULA Specimen Comment: [id number] Specimen Comment: No. of containers..01 ThinPrep Vial Performed By: #### L 7400.0350 #### [facility] (refer to report for specific site) refer to report for address and phone number GLU GTT-FASTING 82 mg/dL Normal <105 [facility] Comment on above: Order Comment: CYTOL OGY INFORMATION: - CLINICAL INFORMATION: - DATE LMP/MENOPAUSE: 08/04/17 LMP - COLLECTION VIAL: Thin Prep Vial - PAIN COORDINATOR SOURCE: CERVICAL/ENDOCERVICAL - COLLECTION TECHNIQUE: BRUSH/SPATULA Specimen Comment: [id number] Specimen Comment: No. of containers..01 ThinPrep Vial Result Comment: GLUCOSE TOLERANCE TEST FOR Reference Interval GESTATIONAL DIABETES Fasting <105 mg/dL 1 hour <190 mg/dl 2 hour <165 mg/dl 3 hour <145 mg/dl Performed By: #### L 74.0350 #### [facility] (refer to report for specific site) refer to report for address and phone number CBC-Complete Blood Cnt No Di ffon 02-10-2018 Erythrocyte distribution width Ratio (RBC) 13.4 % Normal 11.6-14.6 [facility] Comment on above: Performed By: #### L 74.0350 #### [facility] (refer to report for specific site) refer to report for address and phone number Hematocrit Volume Fraction (Bld) 37.6 % Normal 37-47 [facility] Comment on above: Performed By: #### L 7399.0350 #### [facility] (refer to report for specific site) refer to report for address and phone number Hemoglobin mass conc (Bld) 12.2 g/dL Normal 12.0-15.0 [facility] Comment on above: Performed By: #### L 7399.0350 #### [facility] (refer to report for specific site) refer to report for address and phone number MCH Entitic mass (RBC) 31.4 pg Normal 27.0-32.0 [facility] Comment on above: Performed By: #### L 74.0350 #### [facility] (refer to report for specific site) refer to report for address and phone number MCHC mass conc (RBC) 32.4 g/gl Normal 32-36 [facility] Comment on above: Performed By: #### L 7399.0350 #### [facility] (refer to report for specific site) refer to report for address and phone number MCV Entitic volume (RBC) 96.7 fL Normal 81-99 [facility] Comment on above: Performed By: #### L 74.0350 #### [facility] (refer to report for specific site) refer to report for address and phone number Platelet mean volume Entitic volume (Bld) 11.9 fL Normal 6.2-12.0 [facility] Comment on above: Performed By: #### L 7399.0350 #### [facility] (refer to report for specific site) refer to report for address and phone number Platelets #/vol (Bld) 184 10*3/uL Normal 150-450 [facility] Comment on above: Performed By: #### L 74.0350 #### [facility] (refer to report for specific site) refer to report for address and phone number RBC #/vol (Bld) 3.89 M/mm3 Low 4.2-5.4 [facility] Comment on above: Performed By: #### L 74.0350 #### [facility] (refer to report for specific site) refer to report for address and phone number RDW SD 46.8 fl High 35.1-43.9 [facility] Comment on above: Performed By: #### L 74.0350 #### [facility] (refer to report for specific site) refer to report for address and phone number WBC #/vol (Bld) 7.5 10*3/uL Normal 4.4-11.0 [facility] Comment on above: Performed By: #### L 74.0350 #### [facility] (refer to report for specific site) refer to report for address and phone number Glucose Challenge Gest 1H 50 estuardo 02-10-2018 GLU GEST 50g 1H 171 mg/dL High 70-140 [facility] Comment on above: Performed By: #### L 7400.0350 #### [facility] (refer to report for specific site) refer to report for address and phone number Hepatitis B Surface Agon HB SURF AG Negative Normal Negative [facility] Comment on above: Result Comment: Perf ormed at: CB - [facility] [place] [address] [place], [place] [id number] Branch Lending Manager: Danyel Loja PhD, Phone: [phone] Performed By: #### L 7400.0350 #### [facility] (refer to report for specific site) refer to report for address and phone number Hepatitis C Antibodieson HEP C AB <0.1 Normal 0.0-0.9 [facility] Comment on above: Result Comment: Nega tive: < 0.8 Indeterminate: 0.8 - 0.9 Positive: > 0.9 The CDC recommends that a positive HCV antibody result be followed up with a HCV Nucleic Acid Amplification test (965760). Performed By: #### L 7400.0350 #### [facility] (refer to report for specific site) refer to report for address and phone number RPRon 11-27-2017 RPR NONREACTIVE Normal NONREACTIVE [facility] Comment on above: Performed By: #### L 7400.0350 #### [facility] (refer to report for specific site) refer to report for address and phone number HIV - WCHon 11-25-2017 HIV - WCH Non-Reactive Normal Nonreactive [facility] Comment on above: Performed By: #### L 509.4000, L3890.6005 #### [facility] [address] [place], [address] Rubella IgGon 11-25-2017 Rubella IgG 97.4 IU/mL Normal [facility] Comment on above: Result Comment: Anti body results Interpretation of Immune Status < 5 IU/ml Presumed Non-immune 5 - < 10 IU/ml Equivocal > or = 10 IU/ml Presumed Immune Performed By: #### L 509.4000, L3890.6005 #### [facility] [address] [place], [address] CBC W/Diff, Automatedon 11-13 Absolute Neut 4.5 X10 3/uL Normal 2.0-7.7 [facility] Comment on above: Performed By: #### L 100.0100 #### [facility] [address] [place], [address] Basophils/100 WBC (Bld) 0.0 % Normal 0-1 [facility] Comment on above: Performed By: #### L 100.0100 #### [facility] [address] [place], [address] Eosinophils/100 WBC (Bld) 0.9 % Normal 0-5 [facility] Comment on above: Performed By: #### L 100.0100 #### [facility] [address] [place], [address] Erythrocyte distribution width Ratio (RBC) 13.0 % Normal 11.6-14.6 [facility] Comment on above: Performed By: #### L 100.0100 #### [facility] [address] [place], [address] Hematocrit Volume Fraction (Bld) 36.8 % Low 37-47 [facility] Comment on above: Performed By: #### L 100.0100 #### [facility] [address] [place], [address] Hemoglobin mass conc (Bld) 12.0 g/dL Normal 12.0-15.0 [facility] Comment on above: Performed By: #### L 100.0100 #### [facility] [address] [place], [address] IM GRAN % 0.300 % Normal 0.0-0.9 [facility] Comment on above: Result Comment: IG% - Immature Granulocytes (promyelocytes, myelocytes and metamyelocytes) > 1% indicates that a LEFT SHIFT is Present. Performed By: #### L 100.0100 #### [facility] [address] [place], [address] Lymphocytes #/vol (Bld) 1.45 X10 3/ul Normal 0.83-4.51 [facility] Comment on above: Performed By: #### L 100.0100 #### [facility] [address] [place], [address] Lymphocytes/100 WBC (Bld) 22.7 % Normal 19-41 [facility] Comment on above: Performed By: #### L 100.0100 #### [facility] [address] [place], [address] MCH Entitic mass (RBC) 30.6 pg Normal 27.0-32.0 [facility] Comment on above: Performed By: #### L 100.0100 #### [facility] [address] [place], [address] MCHC mass conc (RBC) 32.6 g/gl Normal 32-36 [facility] Comment on above: Performed By: #### L 100.0100 #### [facility] [address] [place], [address] MCV Entitic volume (RBC) 93.9 fL Normal 81-99 [facility] Comment on above: Performed By: #### L 100.0100 #### [facility] [address] [place], [address] Monocytes/100 WBC (Bld) 6.3 % Normal 0-10 [facility] Comment on above: Performed By: #### L 100.0100 #### [facility] [address] [place], [address] Neutrophils/100 WBC (Bld) 69.8 % Normal 47-70 [facility] Comment on above: Performed By: #### L 100.0100 #### [facility] [address] [place], [address] Platelet mean volume Entitic volume (Bld) 11.7 fL Normal 6.2-12.0 [facility] Comment on above: Performed By: #### L 100.0100 #### [facility] [address] [place], [address] Platelets #/vol (Bld) 219 10*3/uL Normal 150-450 [facility] Comment on above: Performed By: #### L 100.0100 #### [facility] [address] [place], [address] RBC #/vol (Bld) 3.92 M/mm3 Low 4.2-5.4 [facility] Comment on above: Performed By: #### L 100.0100 #### [facility] [address] [place], [address] RDW SD 44.6 fl High 35.1-43.9 [facility] Comment on above: Performed By: #### L 100.0100 #### [facility] [address] [place], [address] WBC #/vol (Bld) 6.4 10*3/uL Normal 4.4-11.0 [facility] Comment on above: Performed By: #### L 100.0100 #### [facility] [address] [place], [address] Nicotine Urine Drug Screenon 11-24-2017 COT DRG SCREEN Negative Normal <200 ng/mL [facility] Comment on above: Order Comment: List of Drugs Taken or Suspected? UNK Result Comment: Coti nine is the first-stage metabolite of Nicotine. Performed By: #### L 505.5000, L505.6240 #### [facility] [address] [place], [place], [id number] TO BE CONFIRMED Normal [facility] Comment on above: Order Comment: List of Drugs Taken or Suspected? UNK Result Comment: CONF IRMATORY TESTING FOR ALL POSITIVE URINE DRUG SCREEN [...] particularly when preliminary positive results are used. Performed By: #### L 505.5000, L505.6240 #### [facility] [address] [place], [place], [address] T AND S-No Charge w /PNPon 11-24-2017 Ab SCREEN GEL Negative Normal [facility] Comment on above: Order Comment: Reaso n for Type AND Screen/Red Cells: Surgery? N Performed By: #### B 100.7550 #### [facility] [address] [place], [address] ABO and Rh group Nom (Bld) A POSITIVE Normal [facility] Comment on above: Order Comment: Reaso n for Type AND Screen/Red Cells: Surgery? N Performed By: #### B 100.7550 #### [facility] [address] [place], [address] Thyroid Stim Hormone (TSH)on 11-24-2017 Thyrotropin Qn 0.85 uIU/mL Normal 0.358-3.74 [facility] Comment on above: Performed By: #### L 501.9520 #### [facility] [address] [place], [address] Urinalysis, Routine (Dipstic k)on 11-24-2017 BILIRUBIN URINE Negative Normal Negative [facility] Comment on above: Order Comment: How w as Urine Obtained? Urine, Random Performed By: #### L 400.2010 #### [facility] [address] [place], [address] Clarity Nom (U) Clear Normal Clear [facility] Comment on above: Order Comment: How w as Urine Obtained? Urine, Random Performed By: #### L 400.2010 #### [facility] [address] [place], [address] Color Nom (U) Straw Normal Yellow [facility] Comment on above: Order Comment: How w as Urine Obtained? Urine, Random Performed By: #### L 400.2010 #### [facility] [address] [place], [address] GLUCOSE, UR Normal Normal Normal [facility] Comment on above: Order Comment: How w as Urine Obtained? Urine, Random Performed By: #### L 400.2010 #### [facility] [address] [place], [address] KETONE UR Negative Normal Negative [facility] Comment on above: Order Comment: How w as Urine Obtained? Urine, Random Performed By: #### L 400.2010 #### [facility] [address] [place], [address] LEUK ESTERASE Negative Normal Negative [facility] Comment on above: Order Comment: How w as Urine Obtained? Urine, Random Performed By: #### L 400.2010 #### [facility] [address] [place], [address] NITRITE UR Negative Normal Negative [facility] Comment on above: Order Comment: How w as Urine Obtained? Urine, Random Performed By: #### L 400.2010 #### [facility] [address] [place], [address] OCCULT BLOOD-UR Negative Normal Negative [facility] Comment on above: Order Comment: How w as Urine Obtained? Urine, Random Performed By: #### L 400.2010 #### [facility] [address] [place], [address] pH UR 7.0 Normal 5.0 - 8.0 [facility] Comment on above: Order Comment: How w as Urine Obtained? Urine, Random Performed By: #### L 400.2010 #### [facility] [address] [place], [address] Protein mass conc (U) Negative Normal Negative [facility] Comment on above: Order Comment: How w as Urine Obtained? Urine, Random Performed By: #### L 400.2010 #### [facility] [address] [place], [address] SP.GR. DIPSTX 1.005 Normal 1.002-1.030 [facility] Comment on above: Order Comment: How w as Urine Obtained? Urine, Random Performed By: #### L 400.2010 #### [facility] [address] [place], [address] UROBILI Normal Normal Normal [facility] Comment on above: Order Comment: How w as Urine Obtained? Urine, Random Performed By: #### L #### [facility] [address] [place], [address] Urine Drug Screen (VISTA)on 11-24-2017 Amphetamines Ql (U) Negative Normal <1000 ng/mL [facility] Comment on above: Order Comment: List of Drugs Taken or Suspected? UNK Performed By: #### L 505.5000, L505.6240 #### [facility] [address] [place], [address] BARBITIURATES Negative Normal < 200 ng/mL [facility] Comment on above: Order Comment: List of Drugs Taken or Suspected? UNK Performed By: #### L 505.5000, L505.6240 #### [facility] [address] [place], [address] BENZODIAZIPINE Negative Normal < 200 ng/mL [facility] Comment on above: Order Comment: List of Drugs Taken or Suspected? UNK Performed By: #### L 505.5000, L505.6240 #### [facility] [address] [place], [address] Cocaine Ql (U) Negative Normal < 300 ng/mL [facility] Comment on above: Order Comment: List of Drugs Taken or Suspected? UNK Performed By: #### L 505.5000, L505.6240 #### [facility] [address] [place], [address] ECSTACY Negative Normal < 500 ng/mL [facility] Comment on above: Order Comment: List of Drugs Taken or Suspected? UNK Performed By: #### L 505.5000, L505.6240 #### [facility] [address] [place], [address] Methadone Ql (U) Negative Normal < 300 ng/mL [facility] Comment on above: Order Comment: List of Drugs Taken or Suspected? UNK Performed By: #### L 505.5000, L505.6240 #### [facility] [address] [place], [address] Opiates Ql (U) Negative Normal < 300 ng/mL [facility] Comment on above: Order Comment: List of Drugs Taken or Suspected? UNK Performed By: #### L 505.5000, L505.6240 #### [facility] [address] [place], [address] PCP Negative Normal < 25 ng/mL [facility] Comment on above: Order Comment: List of Drugs Taken or Suspected? UNK Performed By: #### L 505.5000, L505.6240 #### [facility] [address] [place], [address] THC Negative Normal < 50 ng/mL [facility] Comment on above: Order Comment: List of Drugs Taken or Suspected? UNK Performed By: #### L 505.5000, L505.6240 #### [facility] [address] [place], [address] VISTA UDS PH 7 Normal [facility] Comment on above: Order Comment: List of Drugs Taken or Suspected? UNK Performed By: #### L 505.5000, L505.6240 #### [facility] [address] [place], [address] TO BE CONFIRMED Normal [facility] Comment on above: Order Comment: List of Drugs Taken or Suspected? UNK Result Comment: CONF IRMATORY TESTING FOR ALL POSITIVE URINE DRUG SCREEN [...] BE ORDERED SEPARATELY. USE TEST MNEMONIC: [facility] Performed By: #### L 505.5000, L505.6240 #### [facility] [place], [address] PAP I-G w/rfx hrHPVon 2017 ADEQ Comment Normal . [facility] Comment on above: Order Comment: CYTOL OGY INFORMATION: - CLINICAL INFORMATION: - DATE LMP/MENOPAUSE: 08/04/17 LMP - COLLECTION VIAL: Thin Prep Vial - PAIN COORDINATOR SOURCE: CERVICAL/ENDOCERVICAL - COLLECTION TECHNIQUE: BRUSH/SPATULA Specimen Comment: [id number] Specimen Comment: No. of containers..01 ThinPrep Vial Result Comment: Sati sfactory for evaluation. Endocervical and/or squamous metaplastic cells (endocervical component) are present. Performed By: #### L 7400.0350 #### [facility] (refer to report for specific site) refer to report for address and phone number COMM . Normal . [facility] Comment on above: Order Comment: CYTOL OGY INFORMATION: - CLINICAL INFORMATION: - DATE LMP/MENOPAUSE: 08/04/17 LMP - COLLECTION VIAL: Thin Prep Vial - PAIN COORDINATOR SOURCE: CERVICAL/ENDOCERVICAL - COLLECTION TECHNIQUE: BRUSH/SPATULA Specimen Comment: [id number] Specimen Comment: No. of containers..01 ThinPrep Vial Performed By: #### L 7400.0350 #### [facility] (refer to report for specific site) refer to report for address and phone number DIAGN Comment Normal . [facility] Comment on above: Order Comment: CYTOL OGY INFORMATION: - CLINICAL INFORMATION: - DATE LMP/MENOPAUSE: 08/04/17 LMP - COLLECTION VIAL: Thin Prep Vial - PAIN COORDINATOR SOURCE: CERVICAL/ENDOCERVICAL - COLLECTION TECHNIQUE: BRUSH/SPATULA Specimen Comment: [id number] Specimen Comment: No. of containers..01 ThinPrep Vial Result Comment: NEGA TIVE FOR INTRAEPITHELIAL LESION AND MALIGNANCY. Performed By: #### L 7400.0350 #### [facility] (refer to report for specific site) refer to report for address and phone number HPV RFLX Comment Normal . [facility] Comment on above: Order Comment: CYTOL OGY INFORMATION: - CLINICAL INFORMATION: - DATE LMP/MENOPAUSE: 08/04/17 LMP - COLLECTION VIAL: Thin Prep Vial - PAIN COORDINATOR SOURCE: CERVICAL/ENDOCERVICAL - COLLECTION TECHNIQUE: BRUSH/SPATULA Specimen Comment: [id number] Specimen Comment: No. of containers..01 ThinPrep Vial Result Comment: The HPV DNA reflex criteria were not met with this specimen result therefore, no HPV testing was performed. Performed at: [address] [id number] Branch Lending Manager: Julisa Lazcano MD, Phone: [phone] Performed By: #### L 7400.0350 #### [facility] (refer to report for specific site) refer to report for address and phone number PAPSMR Comment Normal . [facility] Comment on above: Order Comment: CYTOL OGY INFORMATION: - CLINICAL INFORMATION: - DATE LMP/MENOPAUSE: 08/04/17 LMP - COLLECTION VIAL: Thin Prep Vial - PAIN COORDINATOR SOURCE: CERVICAL/ENDOCERVICAL - COLLECTION TECHNIQUE: BRUSH/SPATULA Specimen Comment: [id number] Specimen Comment: No. of containers..01 ThinPrep Vial Result Comment: The Pap smear is a screening test designed to aid in the detection of premalignant and malignant conditions of the uterine cervix. It is not a diagnostic procedure and should not be used as the sole means of detecting cervical cancer. Both false-positive and false-negative reports do occur. Performed By: #### L 7400.0350 #### [facility] (refer to report for specific site) refer to report for address and phone number PERFORM Comment Normal . [facility] Comment on above: Order Comment: CYTOL OGY INFORMATION: - CLINICAL INFORMATION: - DATE LMP/MENOPAUSE: 08/04/17 LMP - COLLECTION VIAL: Thin Prep Vial - PAIN COORDINATOR SOURCE: CERVICAL/ENDOCERVICAL - COLLECTION TECHNIQUE: BRUSH/SPATULA Specimen Comment: [id number] Specimen Comment: No. of containers..01 ThinPrep Vial Result Comment: Giorgi Cummins, Pain Coordinator (ASCP) Performed By: #### L 7400.0350 #### [facility] (refer to report for specific site) refer to report for address and phone number TEST METHOD Comment Normal . [facility] Comment on above: Order Comment: CYTOL OGY INFORMATION: - CLINICAL INFORMATION: - DATE LMP/MENOPAUSE: 08/04/17 LMP - COLLECTION VIAL: Thin Prep Vial - PAIN COORDINATOR SOURCE: CERVICAL/ENDOCERVICAL - COLLECTION TECHNIQUE: BRUSH/SPATULA Specimen Comment: [id number] Specimen Comment: No. of containers..01 ThinPrep Vial Result Comment: This liquid based ThinPrep(R) pap test was screened with the use of an image guided system. Performed By: #### L 7400.0350 #### [facility] (refer to report for specific site) refer to report for address and phone number CT/NG [facility] BY PCRon 8 [facility] PCR Negative Normal Negative [facility] Comment on above: Performed By: #### L 8200.1999 #### [facility] [address] [place], [place], [id number] NG by PCR Negative Normal Negative [facility] Comment on above: Performed By: #### L 8200.1999 #### [facility] [address] [place], [place], [id number] Vital Signs Date Time Vital Sign Value Performing Clinician Estefania horton 01-09-2025 14:37-0400 Diastolic blood pressure 79 mm[Hg] Sheyla Ellis MD Work Phone: [facility] 01-09-2025 14:37-0400 Systolic blood pressure 125 mm[Hg] Sheyla Ellis MD Work Phone: [facility] 2024 08:39-0400 Body mass index (BMI) [Ratio] 33.99 kg/m2 Bert Wagner MD Work Phone: [facility] 2024 08:39-0400 Body weight 89.81 kg Bert Wagner MD Work Phone: [facility] 2024 08:39-0400 Diastolic blood pressure 68 mm[Hg] Bert Wagner MD Work Phone: [facility] 2024 08:39-0400 Systolic blood pressure 116 mm[Hg] Bert Wagner MD Work Phone: [facility] 12-19-2024 14:56-0400 Body mass index (BMI) [Ratio] 34.26 kg/m2 Sheyla Ellis MD Work Phone: [facility] 12-19-2024 14:56-0400 Body weight 90.54 kg Sheyla Ellis MD Work Phone: [facility] 12-19-2024 14:56-0400 Diastolic blood pressure 80 mm[Hg] Sheyla Ellis MD Work Phone: [facility] 12-19-2024 14:56-0400 Systolic blood pressure 120 mm[Hg] Sheyla Ellis MD Work Phone: [facility] 12-02-2024 08:59-0400 Body mass index (BMI) [Ratio] 33.81 kg/m2 Sheyla Ellis MD Work Phone: [facility] 12-02-2024 08:59-0400 Body weight 89.36 kg Sheyla Ellis MD Work Phone: [facility] 12-02-2024 08:59-0400 Diastolic blood pressure 60 mm[Hg] Sheyla Ellis MD Work Phone: [facility] 12-02-2024 08:59-0400 Systolic blood pressure 104 mm[Hg] Sheyla Ellis MD Work Phone: [facility] 11-11-2024 09:29-0400 Body mass index (BMI) [Ratio] 33.13 kg/m2 Any Zambrano MD Work Phone: [facility] 11-11-2024 09:29-0400 Body weight 87.54 kg Any Zambrano MD Work Phone: [facility] 11-11-2024 09:29-0400 Diastolic blood pressure 64 mm[Hg] Any Zambrano MD Work Phone: [facility] 11-11-2024 09:29-0400 Systolic blood pressure 108 mm[Hg] Any Itz Zambrano MD Work Phone: [facility] 10-14-2024 10:25-0400 Body mass index (BMI) [Ratio] 33.47 kg/m2 Sheyla Ellis MD Work Phone: [facility] 10-14-2024 10:25-0400 Body weight 88.45 kg Sheyla Ellis MD Work Phone: [facility] 10-14-2024 10:25-0400 Diastolic blood pressure 64 mm[Hg] Sheyla Ellis MD Work Phone: [facility] 10-14-2024 10:25-0400 Systolic blood pressure 112 mm[Hg] Sheyla Ellis MD Work Phone: [facility] 09-13-2024 11:07-0400 Body mass index (BMI) [Ratio] 34.19 kg/m2 Brittaney Chauhan MD Work Phone: [facility] 09-13-2024 11:07-0400 Body weight 90.36 kg Brittaney Chauhan MD Work Phone: [facility] 09-13-2024 11:07-0400 Diastolic blood pressure 80 mm[Hg] Brittaney Chauhan MD Work Phone: [facility] 09-13-2024 11:07-0400 Systolic blood pressure 130 mm[Hg] Brittaney Chauhan MD Work Phone: [facility] 09-13-2024 09:09-0400 Body mass index (BMI) [Ratio] 34.19 kg/m2 Yolanda Buchanan MD Work Phone: [facility] 09-13-2024 09:09-0400 Body weight 90.36 kg Yolanda Buchanan MD Work Phone: [facility] 09-13-2024 09:09-0400 Diastolic blood pressure 80 mm[Hg] Yolanda Buchanan MD Work Phone: [facility] 09-13-2024 09:09-0400 Systolic blood pressure 130 mm[Hg] Yolanda Buchanan MD Work Phone: [facility] 08-11-2024 08:45-0500 Body height 162.6 cm Haylee Plotts NETWORK ADMIN.CNM Work Phone: [facility] 08-11-2024 08:45-0500 Body mass index (BMI) [Ratio] 33.81 kg/m2 Haylee Plotts NETWORK ADMIN.CNM Work Phone: [facility] 08-11-2024 08:45-0500 Body weight 89.36 kg Haylee Plotts NETWORK ADMIN.CNM Work Phone: [facility] 08-11-2024 08:45-0500 Diastolic blood pressure 80 mm[Hg] Haylee Plotts NETWORK ADMIN.CNM Work Phone: [facility] 08-11-2024 08:45-0500 Systolic blood pressure 124 mm[Hg] Haylee Plotts NETWORK ADMIN.CNM Work Phone: [facility] 05-30-2024 07:52-0500 Body height 160 cm Patricia Oberhauser DO Work Phone: [facility] 05-30-2024 07:52-0500 Body mass index (BMI) [Ratio] 35.43 kg/m2 Patricia Oberhauser DO Work Phone: [facility] 05-30-2024 07:52-0500 Body weight 90.72 kg Patricia Oberhauser DO Work Phone: [facility] 05-30-2024 07:52-0500 Diastolic blood pressure 77 mm[Hg] Patricia Oberhauser DO Work Phone: [facility] 05-30-2024 07:52-0500 Heart rate 65 /min Patricia Oberhauser DO Work Phone: [facility] 05-30-2024 07:52-0500 Systolic blood pressure 132 mm[Hg] Patricia Oberhauser DO Work Phone: [facility] 02-22-2024 11:34-0400 Body height 160 cm Patricia Oberhauser DO Work Phone: 5(309)486-833385 [place] [address] 02-22-2024 11:34-0400 Body mass index (BMI) [Ratio] 36.31 kg/m2 Patricia Oberhauser DO Work Phone: 8(464)150-312930 [address] 02-22-2024 11:34-0400 Body weight 92.99 kg Patricia Oberhauser DO Work Phone: 3(668)996-169330 [address] 02-22-2024 11:34-0400 Diastolic blood pressure 85 mm[Hg] Patricia Oberhauser DO Work Phone: 9(314)502-776630 [address] 02-22-2024 11:34-0400 Heart rate 60 /min Patricia Oberhauser DO Work Phone: 3(405)487-811885 [place] [address] 02-22-2024 11:34-0400 Systolic blood pressure 139 mm[Hg] Patricia Oberhauser DO Work Phone: 7(837)753-170585 [place] [address] 10-02-2022 08:51-0400 Body height 160 cm Patricia Oberhauser DO Work Phone: 2(647)[phone] [place] [address] 10-02-2022 08:51-0400 Body mass index (BMI) [Ratio] 35.78 kg/m2 Patricia Oberhauser DO Work Phone: 0(125)[phone] [place] [address] 10-02-2022 08:51-0400 Body weight 91.63 kg Patricia Oberhauser DO Work Phone: 6(761)[phone] [place] [address] 10-02-2022 08:51-0400 Diastolic blood pressure 80 mm[Hg] Patricia Oberhauser DO Work Phone: 5(405)241-912830 [address] 10-02-2022 08:51-0400 Heart rate 57 /min Patricia Oberhauser DO Work Phone: 4([phone])[phone] [place] [address] 10-02-2022 08:51-0400 Systolic blood pressure 124 mm[Hg] Patricia Aaron DO Work Phone: [facility] Encounters Encounter Date Encounter Type Care Provider Facility Start: 01-16-2025 End: 01-16-2025 ambulatory [facility] Ob [facility] Work Phone: [facility]aternal [facility] Start: 01-09-2025 End: 01-09-2025 Patient encounter procedure Sheyla Ellis MD Work Phone: OB/Gynecology Comment on above: Supervision of high risk in third trimester ([facility]) (Primary Dx); Preexisting diabetes complicating in third trimester, antepartum ([facility]); AMA (advanced maternal age) multigravida 35+, third trimester ([facility]); 34 weeks gestation of ([facility]) Start: 01-09-2025 End: 01-09-2025 ambulatory [facility] Ob [facility]fm Work Phone: Maternal [facility] Start: 01-02-2025 End: 01-02-2025 ambulatory Bert Wagner MD Work Phone: OB/Gynecology Comment on above: FMLA paperwork Start: 01-02-2025 End: 01-02-2025 E-mail encounter from caregiver Bert Wagner MD Work Phone: OB/Gynecology Start: 2024 End: 2024 Telemedicine consultation with patient Jaime Nunn MD Work Phone: Maternal Medicine [facility] Start: 2024 End: 2024 ambulatory Jaime Nunn MD Work Phone: Maternal [facility] Comment on above: GDM, class A2 ([facility]) (Primary Dx); Controlled type 2 diabetes mellitus without complication, without long-term current use of insulin ([facility]); History of delivery; 32 weeks gestation of ([facility]) Start: 2024 End: 2024 ambulatory PATRICIA AARON Facility:[facility] Start: 2024 End: 2024 Patient encounter procedure Bert Wagner MD Work Phone: OB/Gynecology Comment on above: Supervision of high risk in third trimester (HCC) (Primary Dx); Preexisting diabetes complicating in third trimester, antepartum ([facility]); 32 weeks gestation of ([facility]); Insulin controlled gestational diabetes mellitus (GDM) in second trimester ([facility]) Encounter for ultras ound to check growth ([facility]) (Primary Dx); Controlled type 2 diabetes mellitus without complication, without long-term current use of insulin ([facility]); Multigravida of advanced maternal age in second trimester ([facility]); 32 weeks gestation of ([facility]) Start: 2024 End: 2024 ambulatory PATRICIA AARON Facility:[facility] Start: 12-27-2024 End: 12-27-2024 ambulatory [facility]v Ob Mfm Work Phone: Maternal Medicine [facility] Start: 12-23-2024 End: 12-23-2024 Refill Bert Wagner MD Work Phone: Maternal Medicine Comment on above: Refill Request Start: 12-19-2024 End: 12-19-2024 Patient encounter procedure Sheyla Ellis MD Work Phone: OB/Gynecology Comment on above: 31 weeks gestation o f ([facility]) (Primary Dx); Supervision of high risk in second trimester ([facility]); Multigravida of advanced maternal age in second trimester ([facility]); Preexisting diabetes complicating in second trimester, antepartum ([facility]) Start: 12-19-2024 End: 12-19-2024 ambulatory PATRICIA AARON Facility:[facility] Start: 12-13-2024 End: 12-13-2024 ambulatory [facility] Ob Mfm Work Phone: Maternal Medicine [facility] Start: 12-12-2024 End: 12-13-2024 Refill Mayra Torres APRN.CNP Work Phone: Maternal Medicine Comment on above: Refill Request Start: 12-05-2024 End: 12-05-2024 ambulatory [facility] Ob [facility] Work Phone: Maternal Medicine [facility] Start: 12-02-2024 End: 12-02-2024 Patient encounter procedure [employer] [facility] [facility] Maternal Medicine Comment on above: Controlled type 2 di abetes mellitus without complication, without long-term current use of insulin (HCC); Multigravida of advanced maternal age in second trimester (HCC) 28 weeks gestation o f (HCC) (Primary Dx); Supervision of high risk in second trimester ([facility]); Multigravida of advanced maternal age in second trimester (HCC); Preexisting diabetes complicating in second trimester, antepartum ([facility]); Late care ([facility]); Need for vaccination Start: 12-02-2024 End: 12-02-2024 ambulatory PATRICIA AARON Facility:[facility] Start: 11-29-2024 End: 11-29-2024 ambulatory [facility] Ob Mfm Work Phone: Maternal Medicine [facility] Start: 11-23-2024 End: 12-05-2024 ambulatory [facility]cf Provider Maternal Medic [facility] Comment on above: Insulin update Start: 11-23-2024 End: 12-05-2024 E-mail encounter from caregiver Ccf Provider Maternal Medicine [facility] Start: 11-21-2024 End: 11-21-2024 ambulatory [facility] Ob Mfm Work Phone: Maternal Medicine [facility] Start: 11-21-2024 End: 11-22-2024 Telephone encounter [facility] Ob [facility] Work Phone: Maternal Medicine [facility] Start: 11-18-2024 End: 11-18-2024 ambulatory Yolanda Buchanan MD Work Phone: Maternal Medicine [facility] Comment on above: Insulin Start: 11-18-2024 End: 11-18-2024 E-mail encounter from caregiver Yolanda Buchanan MD Work Phone: Maternal Medicine [facility] Start: 11-18-2024 End: 11-18-2024 Unlisted evaluation and management service Yolanda Buchanan MD Work Phone: Maternal Medicine [facility] Comment on above: Opened In Error Start: 11-15-2024 End: 11-15-2024 ambulatory [facility] Ob Mfm Work Phone: [facility] Medicine [facility] Start: 11-11-2024 End: 11-11-2024 Patient encounter procedure Any Zambrano MD Work Phone: OB/Gynecology Comment on above: Supervision of high risk in second trimester (HCC) (Primary Dx); Multigravida of advanced maternal age in second trimester (HCC); Preexisting diabetes complicating in second trimester, antepartum ([facility]); Late care ([facility]); History of delivery; 25 weeks gestation of ([facility]) Start: 11-11-2024 End: 11-11-2024 ambulatory PATRICIA AARON Facility:[facility] Start: 11-08-2024 End: 11-08-2024 ambulatory [facility] Ob Mfm Work Phone: Maternal Medicine [facility] Start: 11-01-2024 End: 11-01-2024 ambulatory PATRICIA AARON Facility:[facility] Start: 10-24-2024 End: 10-24-2024 ambulatory [facility] Ob Mfm Work Phone: [facility] Start: 10-14-2024 End: 12-14-2024 Follow-up encounter Brittaney Chauhan MD Work Phone: OB/Gynecology Start: 10-14-2024 End: 10-14-2024 Patient encounter procedure [employer] [facility] Maternal Medicine Comment on above: Encounter for anatomic survey (HCC) (Primary Dx); Controlled type 2 diabetes mellitus without complication, without long-term current use of insulin (HCC); Multigravida of advanced maternal age in second trimester (HCC); 21 weeks gestation of (HCC) Multigravida of adva nced maternal age in second trimester (HCC) (Primary Dx); Controlled type 2 diabetes mellitus without complication, without long-term current use of insulin (HCC); Late care (HCC); History of delivery; 21 weeks gestation of (HCC) Start: 10-14-2024 End: 10-14-2024 ambulatory PATRICIA AARON Facility:[facility] Start: 10-10-2024 End: 10-17-2024 ambulatory Yolanda Buchanan MD Work Phone: Maternal Medicine Comment on above: Dexcom Start: 10-10-2024 End: 10-17-2024 E-mail encounter from caregiver Yolanda Buchanan MD Work Phone: Maternal Medicine Start: 10-03-2024 End: 10-03-2024 ambulatory [facility] Ob M[facility] Work Phone: Maternal Medicine [facility] Comment on above: Blood Sugar update Start: 10-03-2024 End: 10-03-2024 E-mail encounter from caregiver [facility] Ob Mfm Work Phone: Maternal Medicine [facility] Start: 09-26-2024 End: 09-26-2024 ambulatory [facility] Ob Mfm Work Phone: Maternal Medicine [facility] Comment on above: Blood sugar update Start: 09-26-2024 End: 09-26-2024 E-mail encounter from caregiver [facility] Ob [facility] Work Phone: Maternal Medicine [facility] Start: 09-13-2024 End: 09-13-2024 Nursing evaluation of patient and report Crispin Lay RN Work Phone: Endocrinology Comment on above: Controlled type 2 di abetes mellitus without complication, without long-term current use of insulin (HCC) (Primary Dx) Start: 09-13-2024 End: 09-13-2024 ambulatory PATRICIA AARON Facility:[facility] Start: 09-13-2024 End: 09-13-2024 Patient encounter procedure [employer] [facility] Maternal Medicine Comment on above: Encounter for antena leno screening for malformation using ultrasound (HCC) (Primary Dx); Controlled type 2 diabetes mellitus without complication, without long-term current use of insulin (HCC); History of delivery; 17 weeks gestation of (HCC) Controlled type 2 di abetes mellitus without complication, without long-term current use of insulin ([facility]) (Primary Dx); History of delivery; Multigravida of advanced maternal age in second trimester (HCC); 17 weeks gestation of (HCC) Controlled type 2 di abetes mellitus without complication, without long-term current use of insulin ([facility]) (Primary Dx); Multigravida of advanced maternal age in second trimester ([facility]) Start: 09-08-2024 End: 09-08-2024 ambulatory PATRICIA AARON Facility:[facility] Start: 08-11-2024 End: 10-11-2024 Follow-up encounter Haylee Sepulveda APRN.CNM Work Phone: OB/Gynecology Start: 08-11-2024 End: 08-11-2024 ambulatory PATRICIA AARON Facility:[facility] Start: 08-11-2024 End: 08-11-2024 Patient encounter procedure Haylee Sepulveda APRN.CNM Work Phone: OB/Gynecology Comment on above: with uncer tain dates in first trimester (Primary Dx); Encounter for screening for malignant neoplasm of cervix; Special screening examination for human papillomavirus (HPV); 12 weeks gestation of ; Controlled type 2 diabetes mellitus without complication, without long-term current use of insulin ([facility]); History of delivery; Late care; Encounter for supervision of high risk in second trimester, antepartum; Multigravida of advanced maternal age in second trimester; Penicillin allergy Start: 08-09-2024 End: 08-10-2024 Telephone encounter Haylee Sepulveda APRN.CNM Work Phone: OB/Gynecology Comment on above: Appointment Start: 07-25-2024 End: 07-25-2024 Office outpatient visit 15 minutes Patricia Aaron DO Work Phone: [facility] Comment on above: Less than 8 weeks [place] station of ([facility]) (Primary Dx); Type 2 diabetes mellitus without complication, without long-term current use of insulin (Multi) Start: 07-25-2024 End: 07-25-2024 ambulatory [facility] Start: 05-30-2024 End: 05-30-2024 Office outpatient visit 25 minutes Patricia Aaron DO Work Phone: [facility] Comment on above: Type 2 diabetes jazmine itus without complication, without long- term current use of insulin (Multi) (Primary Dx) Start: 05-30-2024 End: 05-30-2024 ambulatory [facility] Start: 02-29-2024 End: 02-29-2024 ambulatory [facility] Start: 02-22-2024 End: 02-22-2024 Patient encounter status Patricia Aaron DO Work Phone: [facility] Work Phone: Start: 02-22-2024 End: 02-22-2024 Periodic preventive med est patient 18-39 yrs Patricia Aaron DO Work Phone: [facility] Comment on above: Wellness examination (Primary Dx); Type 2 diabetes mellitus without complication, without long-term current use of insulin (Multi) Start: 02-22-2024 End: 02-22-2024 ambulatory [facility] Start: 02-22-2024 End: 02-22-2024 Encounter for general adult medical examination without abnormal findings [facility] Start: 01-25-2024 End: 01-25-2024 Emergency department patient visit [facility] Start: 10-02-2022 End: 10-02-2022 Office outpatient new 45 minutes Patricia Aaron DO Work Phone: [facility] Primary [facility] Comment on above: Screening for lipid disorders (Primary Dx); Wellness examination; Chest pain, unspecified type; Pre-diabetes Start: 10-02-2022 End: 10-02-2022 Patient encounter status Patricia Aaron DO Work Phone: [facility] Work Phone: Start: 03-12-2021 End: 03-12-2021 ambulatory LAZARO Ferrer [facility] Start: 05-25-2018 Patient encounter procedure Crispin Benton Facility:[facility] Start: 04-25-2018 Patient encounter procedure Crispin Benton Facility:[facility] Start: 04-11-2018 End: 04-13-2018 Evaluation and management of inpatient Gloria Levi Facility:[facility] Start: 04-02-2018 Patient encounter procedure Crispin Benton Facility:[facility] Start: 03-23-2018 End: 03-24-2018 Patient encounter procedure Crispin Benton Facility:[facility] Start: 03-12-2018 End: 03-15-2018 Patient encounter procedure Crispin [facility] Facility:[facility] Start: 02-24-2018 Patient encounter procedure Crispin Benton Facility:[facility] Start: 02-10-2018 Patient encounter procedure Crispin Benton Facility:[facility] Start: 11-24-2017 Patient encounter procedure Crispin Benton Facility:[facility] Start: 10-28-2017 Patient encounter procedure Crispin Benton Facility:[facility] Procedures Date Procedure Procedure Detail Performing Clinician Start: 2024 Urnls dip stick/tabl et rgnt non-auto w/o micrscp Bert Wagner MD Work Phone: Start: 2024 Us preg uterus after 1st trimest 06/15 gestation Sheyla Ellis MD Work Phone: Start: 12-19-2024 Urnls dip stick/tabl et rgnt non-auto w/o micrscp Sheyla Ellis MD Work Phone: Start: 12-02-2024 Urnls dip stick/tabl et rgnt non-auto w/o micrscp Sheyla Ellis MD Work Phone: Start: 12-02-2024 Us preg uterus after 1st trimest 06/15 gestation Sheyla Ellis MD Work Phone: Start: 11-11-2024 Urnls dip stick/tabl et rgnt non-auto w/o micrscp Any Zambrano MD Work Phone: Start: 10-14-2024 Urnls dip stick/tabl et rgnt non-auto w/o micrscp Sheyla Ellis MD Work Phone: Start: 10-14-2024 Us preg uterus after 1st trimest 1/ gestation Brittaney Chauhan MD Work Phone: Start: 09-13-2024 Urnls dip stick/tabl et rgnt non-auto w/o micrscp Brittaney Chauhan MD Work Phone: Start: 09-13-2024 Us preg uterus after 1st trimest 1/1st gestation Haylee Hassanbryan NETWORK ADMIN.CNM Work Phone: Start: 09-08-2024 Antibody screen PATRICIA PEARCE Comment on above: Order Comment: Speci men Type: BLOOD SPECIMEN Ordering Facility: [facility] Address: [address] [place] [address] Performed By: #### 5 [id number], [id number], [id number] #### [facility] CLIA [id number] [address] [place] [address] [place] Start: 08-11-2024 Us uterus limited 1/> fetuses Haylee Hassanbryan NETWORK ADMIN.CNM Work Phone: Start: 05-30-2024 Lipid 1996 panel - S jethro or Plasma Patricia Aaron DO Work Phone: Start: 10-03-2022 Lipid 1996 panel - S jethro or Plasma Patricia Aaron DO Work Phone: Start: 04-11-2018 Antibody screen Crispin khan Comment on above: Order Comment: List of Drugs Taken or Suspected? UNK Performed By: #### L 505.5000, [id number] #### D[facility] [address] [place], [place], [address] Plan of Treatment Date Care Activity Detail Author Start: 12-31-2063 RSV Vaccine (1 - 1-dose 75+ series) RSV Vaccine (1 - 1-dose 75+ series) [facility] Start: 2038 Zoster Vaccines (1 o f 2) Zoster Vaccines (1 of 2) [facility] Start: 12-02-2034 Urine microalbumin profile DTaP,Tdap,Td Vaccine (8 - Td or Tdap) [facility] Start: 01-24-2034 DTaP/Tdap/Td Vaccine s (2 - Td or Tdap) DTaP/Tdap/Td Vaccines (2 - Td or Tdap) [facility] Start: 01-24-2034 Urine microalbumin profile DTaP,Tdap,Td Vaccine (7 - Td or Tdap) [facility] Start: 08-11-2029 Screening for malignant neoplasm of cervix Cervical Cancer Screening [facility] Start: 10-04-2027 Lipid panel Lipid Panel [facility] Start: 07-02-2025 Hemoglobin A1c measurement HbA1C [facility] Start: 05-30-2025 Hepatitis B surface antibody level LDL Cholesterol [facility] Start: 05-30-2025 Lipid panel Lipid Panel [facility] Start: 03-11-2025 Hemoglobin A1c measurement HbA1C [facility] Start: 02-22-2025 Yearly Adult Physical Yearly Adult P hysical [facility] Start: 02-13-2025 Influenza vaccination C [facility] Start: 02-08-2025 End: 02-08-2025 Patient encounter procedure OB/Gynecology Comment on above: NST NST/OB Start: 01-31-2025 End: 01-31-2025 Patient encounter procedure OB/Gynecology Comment on above: NST NST/OB Start: 01-27-2025 End: 01-27-2025 Patient encounter procedure 01/27/2025 3:30 PM EDT Routine Office Visit OB/Gynecology [address] [place] [address] NST OB/Gynecology Comment on above: NST Start: 01-24-2025 End: 01-24-2025 Patient encounter procedure Maternal Medicine Comment on above: Growth/OB Start: 01-09-2025 End: 01-09-2025 Patient encounter procedure OB/Gynecology Comment on above: Preexisting diabetes complicating in third trimester, antepartum (HCC) [O24.313]; Supervision of high risk in third trimester (HCC) [O09.93]; 32 weeks gestation of (HCC) [Z3A.32] NST/OB NST/OB- FMLA paperwo rk completed and in chart prep folder Start: 2024 End: 2024 ambulatory 2024 11:15 AM EDT [facility] Maternal Medicine [facility] [address] [place] [address] [place] [address] [address] co-mangement Maternal Medicine [facility] Comment on above: co-mangement Start: 2024 End: 2024 Patient encounter procedure Maternal Medicine Comment on above: 32w Growth OB Routine Start: 12-19-2024 End: 12-19-2024 Patient encounter procedure 12/19/2024 3:10 PM EDT Routine Office Visit OB/Gynecology [address] [place] [address] Sheyla Ellis MD [address] [place], [place] [id number] OB OB/Gynecology Comment on above: OB Start: 12-02-2024 End: 12-02-2024 Patient encounter procedure Maternal Medicine Comment on above: Growth/ OB Start: 11-11-2024 End: 02-10-2025 ANEMIA REFLEX PANEL ANEMIA REFLEX PANEL Lab Routine Multigravida of advanced maternal age in second trimester (HCC) Late care ([facility]) History of delivery 25 weeks gestation of ([facility]) Supervision of high risk in second trimester ([facility]) Expected: 11/11/2024, Expires: 02/10/2025 [facility] Comment on above: Expected: 11/11/2024 , Expires: 02/10/2025 Start: 11-11-2024 End: 02-10-2025 Hemoglobin A1c in Blood HEMOGLOBIN A1C Lab Routine Multigravida of advanced maternal age in second trimester (HCC) Late care ([facility]) History of delivery 25 weeks gestation of ([facility]) Supervision of high risk in second trimester ([facility]) Expected: 11/11/2024, Expires: 02/10/2025 [facility] Comment on above: Expected: 11/11/2024 , Expires: 02/10/2025 Start: 11-11-2024 End: 11-11-2025 SYPHILIS TREPONEMAL W/REFLEX SYPHILIS TREPONEMAL W/REFLEX Lab Routine Multigravida of advanced maternal age in second trimester ([facility]) Late care ([facility] [facility] History of delivery 25 weeks gestation of ([facility]) Supervision of high risk in second trimester ([facility]) Expected: 11/11/2024, Expires: 11/11/2025 [facility] Work Phone: Comment on above: Expected: 11/11/2024 , Expires: 11/11/2025 Start: 11-11-2024 End: 11-11-2024 Patient encounter procedure 11/11/2024 9:40 AM EDT Routine Office Visit OB/Gynecology [address] [place] [id number] Any Trevino MD [address] [place] [id number] OB Routine OB/Gynecology Comment on above: OB Routine Start: 11-04-2024 End: 11-04-2024 Patient encounter procedure Ophthalmology Comment on above: CONSULT TO OPHTHALMO LOGY Controlled type 2 di abetes mellitus without complication Start: 10-14-2024 End: 10-14-2024 Patient encounter procedure Maternal Medicine Comment on above: Anatomy OB Start: 09-15-2024 End: 09-15-2024 Patient encounter procedure 09/15/2024 10:20 AM EDT Routine Office Visit OB/Gynecology [address] [place] [address] Bert Wagner MD [address] [place] [address] 1st OB - LMP 05/22/25 OB/Gynecology Comment on above: 1st OB - LMP 12/8/25 Start: 09-13-2024 End: 09-13-2025 OBSTETRIC ULTRASOUND WHI OBSTETRIC ULTRASOUND WHI Anc Imaging Routine Controlled type 2 diabetes mellitus without complication, without long-term current use of insulin (HCC) Multigravida of advanced maternal age in second trimester Expected: 09/13/2024, Expires: 09/13/2025 [facility] Work Phone: Comment on above: Expected: 09/13/2024 , Expires: 09/13/2025 Start: 09-13-2024 End: 09-13-2024 Patient encounter procedure Maternal Medicine Comment on above: Early Anatomy 16w New MFM Consult OB Routine Start: 08-28-2024 Hemoglobin A1c measurement Diabetes: Hemoglobin A1C [facility] Start: 08-11-2024 End: 11-10-2024 ANEMIA REFLEX PANEL ANEMIA REFLEX PANEL Lab Routine with uncertain dates in first trimester Expected: 08/11/2024, Expires: 11/10/2024 [facility] Work Phone: Comment on above: Expected: 08/11/2024 , Expires: 11/10/2024 Start: 08-11-2024 End: 11-10-2024 Hemoglobin A1c in Blood HEMOGLOBIN A1C Lab Routine with uncertain dates in first trimester Expected: 08/11/2024, Expires: 11/10/2024 [facility] Comment on above: Expected: 08/11/2024 , Expires: 11/10/2024 Start: 08-11-2024 End: 11-10-2024 Hepatitis B virus surface Ag [Presence] in Serum HEPATITIS B SURFACE ANTIGEN Lab Routine with uncertain dates in first trimester Expected: 08/11/2024, Expires: 11/10/2024 [facility] Comment on above: Expected: 08/11/2024 , Expires: 11/10/2024 Start: 08-11-2024 End: 11-10-2024 Hepatitis C virus Ab [Presence] in Serum HEPATITIS C ANTIBODY IA WITH CONFIRMATION Lab Routine with uncertain dates in first trimester Expected: 08/11/2024, Expires: 11/10/2024 [facility] Comment on above: Expected: 08/11/2024 , Expires: 11/10/2024 Start: 08-11-2024 End: 11-10-2024 HIV 1+2 Ab [Presence] in Serum or Plasma by Immunoassay HIV 1/2 COMBO WITH REFLEX TO DIFFERENTIATION Lab Routine with uncertain dates in first trimester Expected: 08/11/2024, Expires: 11/10/2024 [facility] Comment on above: Expected: 08/11/2024 , Expires: 11/10/2024 Start: 08-11-2024 End: 08-11-2025 OBSTETRIC ULTRASOUND WHI [facility] Comment on above: Expected: 08/11/2024 , Expires: 08/11/2025 Start: 08-11-2024 End: 11-10-2024 RUBELLA IGG ANTIBODY RUBELLA IGG ANTIBODY Lab Routine with uncertain dates in first trimester Expected: 08/11/2024, Expires: 11/10/2024 [facility] Comment on above: Expected: 08/11/2024 , Expires: 11/10/2024 Start: 08-11-2024 End: 11-10-2024 SYPHILIS TREPONEMAL W/REFLEX SYPHILIS TREPONEMAL W/REFLEX Lab Routine with uncertain dates in first trimester Expected: 08/11/2024, Expires: 11/10/2024 [facility] Comment on above: Expected: 08/11/2024 , Expires: 11/10/2024 Start: 08-11-2024 End: 11-10-2024 TYPE + SCREEN TYPE + SCREEN Blood Bank Routine 12 weeks gestation of Expected: 08/11/2024, Expires: 11/10/2024 [facility] Comment on above: Expected: 08/11/2024 , Expires: 11/10/2024 Start: 08-11-2024 End: 08-11-2024 Patient encounter procedure 08/11/2024 8:45 AM EST Initial Office Visit OB/Gynecology [address] [place], [place] [address] Haylee Sepulveda APRN.[facility] [address] [place] [address] OB/Gynecology Start: 07-25-2024 End: 07-25-2024 Patient encounter procedure 07/25/2024 2:40 PM EST Office Visit [facility] [address] [facility] [address] [place] [address] Patricia Aaron, DO [address] [facility] [place] [address] [facility] Start: 05-30-2024 Hemoglobin A1c measurement Diabetes: Hemoglobin A1C [facility] Start: 05-30-2024 End: 05-30-2024 Patient encounter procedure 05/30/2024 8:00 AM EST Office Visit [facility] [address] [facility] [address] [place] [address] Patricia Aaron, DO [address] [facility] [place] [address] [facility] Start: 05-23-2024 End: 02-21-2025 Comprehensive metabolic 2000 panel - Serum or Plasma Comprehensive Metabolic Panel Lab Routine Type 2 diabetes mellitus without complication, without long-term current use of insulin (Multi) Expected: 05/23/2024 (Approximate), Expires: 02/21/2025 [facility] Work Phone: Comment on above: Expected: 05/23/2024 (Approximate), Expires: 02/21/2025 Start: 05-23-2024 End: 02-21-2025 Hemoglobin A1c/Hemoglobin.total in Blood Hemoglobin A1C Lab Routine Type 2 diabetes mellitus without complication, without long-term current use of insulin (Multi) Expected: 05/23/2024 (Approximate), Expires: 02/21/2025 [facility] Work Phone: Comment on above: Expected: 05/23/2024 (Approximate), Expires: 02/21/2025 Start: 05-23-2024 End: 02-21-2025 Lipid 1996 panel - Serum or Plasma Lipid Panel Lab Routine Type 2 diabetes mellitus without complication, without long-term current use of insulin (Multi) Expected: 05/23/2024 (Approximate), Expires: 02/21/2025 [facility] Work Phone: Comment on above: Expected: 05/23/2024 (Approximate), Expires: 02/21/2025 Start: 02-22-2024 End: 02-21-2025 Comprehensive metabolic 2000 panel - Serum or Plasma Comprehensive Metabolic Panel Lab Routine Type 2 diabetes mellitus without complication, without long-term current use of insulin (Multi) Expected: 02/22/2024 (Approximate), Expires: 02/21/2025 [facility] Service Area Work Phone: Comment on above: Expected: 02/22/2024 (Approximate), Expires: 02/21/2025 Start: 02-22-2024 End: 02-21-2025 Hemoglobin A1c/Hemoglobin.total in Blood Hemoglobin A1C Lab Routine Type 2 diabetes mellitus without complication, without long-term current use of insulin (Multi) Expected: 02/22/2024 (Approximate), Expires: 02/21/2025 [facility] Work Phone: Comment on above: Expected: 02/22/2024 (Approximate), Expires: 02/21/2025 Start: 02-22-2024 End: 02-21-2025 TSH with reflex to Free T4 if abnormal TSH with reflex to Free T4 if abnormal Lab Routine Type 2 diabetes mellitus without complication, without long-term current use of insulin (Multi) Expected: 02/22/2024 (Approximate), Expires: 02/21/2025 [facility] Work Phone: Comment on above: Expected: 02/22/2024 (Approximate), Expires: 02/21/2025 Start: 02-14-2024 COVID-19 Vaccine ( season) COVID-19 Vaccine ( season) [facility] Start: 02-14-2024 COVID-19 Vaccine () COVID-19 Vaccine ( season) [facility] Start: 02-14-2024 Influenza vaccination Influenza Vacc ine (#1) [facility] Start: 10-04-2023 Hemoglobin A1c measurement Diabetes: Hemoglobin A1C [facility] Start: 10-04-2023 Lipid panel Lipid Panel [facility] Start: 02-13-2023 Influenza vaccination Influenz a Vaccine (Season Ended) [facility] Start: 10-02-2022 End: 10-03-2023 CBC W Auto Differential panel - Blood CBC and Auto Differential Lab Routine Wellness examination Expected: 10/02/2022 (Approximate), Expires: 10/03/2023 [facility] Work Phone: Comment on above: Expected: 10/02/2022 (Approximate), Expires: 10/03/2023 Start: 10-02-2022 End: 10-03-2023 Comprehensive metabolic 2000 panel - Serum or Plasma Comprehensive Metabolic Panel Lab Routine Wellness examination Expected: 10/02/2022 (Approximate), Expires: 10/03/2023 [facility] Service Area Work Phone: Comment on above: Expected: 10/02/2022 (Approximate), Expires: 10/03/2023 Start: 10-02-2022 End: 10-03-2023 Hemoglobin A1c/Hemoglobin.total in Blood Hemoglobin A1C Lab Routine Pre-diabetes Expected: 10/02/2022 (Approximate), Expires: 10/03/2023 [facility] Work Phone: Comment on above: Expected: 10/02/2022 (Approximate), Expires: 10/03/2023 Start: 10-02-2022 End: 10-03-2023 Lipid 1996 panel - Serum or Plasma Lipid Panel Lab Routine Screening for lipid disorders Expected: 10/02/2022 (Approximate), Expires: 10/03/2023 [facility] Work Phone: Comment on above: Expected: 10/02/2022 (Approximate), Expires: 10/03/2023 Start: 10-02-2022 End: 10-03-2023 TSH with reflex to Free T4 if abnormal TSH with reflex to Free T4 if abnormal Lab Routine Chest pain, unspecified type Expected: 10/02/2022 (Approximate), Expires: 10/03/2023 [facility] Work Phone: Comment on above: Expected: 10/02/2022 (Approximate), Expires: 10/03/2023 Start: 2010 DTaP/Tdap/Td Vaccine s (1 - Tdap) DTaP/Tdap/Td Vaccines (1 - Tdap) [facility] Start: 2009 Screening for malignant neoplasm of cervix [facility] Start: 12-31-2007 Hepatitis B Vaccine (1 of 3 - 19+ 3-dose series) Hepatitis B Vaccine (1 of 3 - 19+ 3-dose series) [facility] Start: 12-31-2007 Hepatitis B Vaccines (1 of 3 - 19+ 3-dose series) Hepatitis B Vaccines (1 of 3 - 19+ 3-dose series) [facility] Start: 12-31-2007 Pneumococcal vaccination Pneumococcal Vaccine (1 of 2 - PCV) [facility] Start: 12-31-2007 Pneumococcal Vaccine : Pediatrics and At-Risk Adult Patients (1 of 2 - PCV) Pneumococcal Vaccine: Pediatrics and At-Risk Adult Patients (1 of 2 - PCV) [facility] Start: 12-31-2007 Urine microalbumin profile DTaP,Tdap,Td Vaccine (1 - Tdap) [facility] Start: 12-31-2007 Urine screening for protein Diabetes: Urine Protein Screening [facility] Start: 2006 Annual PCP Team Chronic Disease Visit Annual PCP Team Chronic Disease Visit [facility] Start: 2006 Anxiety Screening Anxiety Screening [facility] Start: 2006 Depression Screening Depression Scre ening [facility] Start: 2006 Hepatitis C screening Hepatitis C Sc reening [facility] Start: 2006 HIV screening HIV Screening [facility] Start: 2001 Varicella vaccination Varicell a Vaccines (1 of 2 - 13+ 2-dose series) [facility] Start: 1998 Diabetic foot examination Diabetic Foot Exam [facility] Start: 1998 Glaucoma screening [facility] Start: 1998 Hepatitis B screening Urine Al bumin:Creatinine Ratio [facility] Start: 1994 Pneumococcal Vaccine : Pediatrics (0 to 5 Years) and At-Risk Patients (6 to 64 Years) (1 of 2 - PCV) Pneumococcal Vaccine: Pediatrics (0 to 5 Years) and At-Risk Patients (6 to 64 Years) (1 of 2 - PCV) [facility] Start: 1989 MMR Vaccines (1 of 1 - Standard series) MMR Vaccines (1 of 1 - Standard series) [facility] Start: 1989 Varicella vaccination Varicell a Vaccines (1 of 2 - 2-dose childhood series) [facility] Start: 07-02-1989 COVID-19 Vaccine (#1) COVID-19 Vacci ne (#1) [facility] Start: 1988 Hemoglobin A1c measurement Diabetes: Hemoglobin A1C [facility] Start: 1988 Hepatitis B Vaccines (1 of 3 - 3-dose series) Hepatitis B Vaccines (1 of 3 - 3-dose series) [facility] Start: 1988 HIV screening HIV Screening [facility] Start: 1988 Lipid panel Lipid Panel [facility] Start: 1988 Urine screening for protein Diabetes: Urine Protein Screening [facility] Start: 1988 Yearly Adult Physical Yearly Adult P hysical [facility] Bacteria identified in Urine by Culture BACTERIAL CULTURE, URINE Microbiology Routine with uncertain dates in first trimester 08/11/2024 9:43 AM [facility] End: 06-28-2025 BIOPHYSICAL PROFILE US I BIOPHYSICAL PROFILE US [facility] Anc Imaging Routine GDM, class A2 ([facility]) Once per week for 10 Occurrences starting 2024 until 06/28/2025 [facility] Work Phone: Comment on above: Once per week for 10 Occurrences starting 2024 until 06/28/2025 Chlamydia trachomatis+Neisseria gonorrhoeae DNA [Presence] in Unspecified specimen by JOSE with probe detection GONORRHEA/CHLAMYDIA NAAT Lab Routine with uncertain dates in first trimester 08/11/2024 9:43 AM [facility] End: 03-30-2025 nonstress test NON-STRESS TEST Procedures Routine Preexisting diabetes complicating in third trimester, antepartum ([facility]) Supervision of high risk in third trimester ([facility]) 32 weeks gestation of ([facility]) Once per week for 8 Occurrences starting 2024 until 03/30/2025 [facility] Work Phone: Comment on above: Once per week for 8 Occurrences starting 2024 until 03/30/2025 End: 04-12-2025 OBSTETRIC ULTRASOUND WHI OBSTETRIC ULTRASOUND WHI Anc Imaging Routine Controlled type 2 diabetes mellitus without complication, without long-term current use of insulin (HCC) Multigravida of advanced maternal age in second trimester (HCC) Once per month for 5 Occurrences starting 10/14/2024 until 04/12/2025 [facility] Work Phone: Comment on above: Once per month for 5 Occurrences starting 10/14/2024 until 04/12/2025 PAP TEST PAP TEST Lab Chela polo Encounter for screening for malignant neoplasm of cervix Special screening examination for human papillomavirus (HPV) 08/11/2024 9:43 AM [facility] TRICHOMONAS VAGINALI S NAAT TRICHOMONAS VAGINALIS NAAT Lab Routine with uncertain dates in first trimester 08/11/2024 9:43 AM [facility] URINE OB DIP B/O URINE OB DIP B/ O Lab Routine Preexisting diabetes complicating in third trimester, antepartum ([facility]) Supervision of high risk in third trimester ([facility]) AMA (advanced maternal age) multigravida 35+, third trimester ([facility]) 34 weeks gestation of ([facility]) Ordered: 01/09/2025 [facility] Work Phone: Comment on above: Ordered: 01/09/2025 Immunizations Immunization Date Immunization Notes Care Provider Lorin boogie 12-02-2024 tetanus toxoid, redu mauricio diphtheria toxoid, and acellular pertussis vaccine, adsorbed [facility] 04-19-2009 influenza virus vacc ine, unspecified formulation Haylee Sepulveda APRN.CNM Work Phone: [facility] Payers Date Payer Category Payer Private Health Insurance [employer] [id number] 2022 Managed Care (Private) [employer] [id number] 2022 Unknown [employer] [id number] 2022-Present [address] [place] [address] [id number] 2022 Unknown [id number] 2018 Unknown [id number] 2017 Self-pay 1988 Unknown [id number]. 2.651 1988 Unknown [id number] .[id number]. 2.902 1988 Unknown [id number] .[id number]. 2.124 1988 Unknown [id number]. 2.124 1988 Unknown [id number] .[id number]. 2.124 1988 Unknown [id number] .[id number]. 2.124 1988 Unknown [id number] .[id number]. 2.1244 Unknown [id number] [id number]. 2.462 Unknown [id number] 2.16.840.1.182833.3.579. 2.462 Unknown [id number] 2.16.840.1.156461.3.579. 2.462 Unknown [id number] 2.16.840.1.216923.3.579. 2.462 Unknown [id number] [id number]. 2.462 Unknown [id number] 2.16.840.1.424420.3.579. 2.462 Unknown [id number] 2.16.840.1.373565.3.579. 2.462 Unknown [id number] 2.16.840.1.738978.3.579. 2.462 Unknown [id number] [id number]. 2.462 Unknown [id number] [id number]. 2.462 Social History Date Type Detail Facility Start: 10-02-2022 End: 08-10-2024 Tobacco smoking status NHIS Never smoked tobacco [facility] Work Phone: Start: 10-02-2022 End: 08-10-2024 Tobacco use and exposure Smokeless tobacco non-user [facility] Work Phone: Start: 10-02-2022 End: 07-25-2024 Alcohol intake Current drinker of alcohol (finding) [facility] Work Phone: Start: 10-02-2022 End: 09-08-2024 Alcohol intake [facility] Work Phone: Start: 10-02-2022 End: 09-08-2024 Tobacco use panel [facility] Work Phone: Start: 1990 Sex Assigned At Not on file [facility] Work Phone: Start: 09-22-2022 End: 07-25-2024 Exposure to SARS-CoV-2 (event) Not sure [facility] Start: 02-22-2024 Alcohol Comment Occasional glass of wine [facility] Work Phone: Tobacco smoking stat us [facility] Tobacco smoking consumption unknown [facility] Start: 08-11-2024 End: 01-09-2025 Alcoholic beverage intake Ex-drinker (finding) [facility] Start: 08-10-2024 Education 16 [facility] Start: 08-10-2024 [facility] Start: 05-29-2024 [facility] National Score (1-100), lower number is lower risk 89 [facility] Medical Equipment Procedure Code Equipment Code Equipment Origin al Text Equipment Identifier Dates 1 each daily at bedtime. [id number] Start: 11-01-2024 End: 12-12-2024 1 each daily at bedtime. [id number] Start: 12-13-2024 Goals Date Patient Goal Desired Activity /State Personal health goal Personal health goal Clinical Notes 10-02-2022 to 01-16-2025 Olga Putnam LPN - 01/16/2025 9:28 AM EDTPrenatal Quick Notes - Sheyla Ellis MD - 01/09/2025 3:39 PM EDTPrenatal Quick Notes - Sheyla Ellis MD - 01/09/2025 3:39 PM EDT Note Date & Type Note Facility 01-16-2025 Note HNO ID: [id number] Author: OLGA PUTNAM LPN Service: ? Author Type: LICENSED NURSE Type: Progress Notes Filed: 01/16/2025 09:34 Note Text: Diabetes in Monitoring MFM Recommendations Katharine Farah is a 34 year old, , [place] 35w1d with Type 2 Diabetes. [facility] Management: Medication controlled NPH 24 units in AM, 14 units in PM Lispro 4 units breakfast, 8 units lunch and 14 units dinner Maternal Medicine Recommendations: Dr. Buchanan to review blood sugar readings. Olga Putnam LPN January 16, 2025 9:28 AM [facility] 01-16-2025 History of Presen t illness Narrative Diabetes in Monitoring MFM Recommendations Katharine Farah is a 34 year old, , [place] 35w1d with Type 2 Diabetes. [facility] Management: Medication controlled NPH 24 units in AM, 14 units in PM Lispro 4 units breakfast, 8 units lunch and 14 units dinner Maternal Medicine Recommendations: Dr. Buchanan to review blood sugar readings. Olga Putnam LPN January 16, 2025 9:28 AM documented in this encounter [facility] 01-11-2025 Note HNO ID: [id number] Author: YOLANDA BUCHANAN MD Service: ? Author Type: Physician Type: Progress Notes Filed: 01/11/2025 10:47 Note Text: Glucoses reviewed Mostly goal range still some mild postprandial lunch and dinner elevations Please notify patient of recommended adjustment: NPH Lispro 09/20/13 Thanks Yolanda Buchanan MD [facility] 01-09-2025 Progress note Formatting of t his note might be different from the original. S: Katharine Farah is a 34 year old female who presents at 02/19/2025, by Last Menstrual Period for a routine visit. Denies headache, visual changes, chest pain, shortness of breath, vaginal bleeding, leakage of fluid, or dysuria. Feeling well, no complaints. Good movement, No contractions O: See flow sheet Gen: No apparent distress Abd: Gravid, nontender BG managed by MFM NST reactive FMLA papers given today Wants tubal after delivery ASSESSMENT/PLAN: 1. Supervision of high risk in third trimester ([facility]) - ICD9: V23.9, ICD10: O09.93 (primary diagnosis) - URINE OB DIP B/O 2. Preexisting diabetes complicating in third trimester, antepartum ([facility]) - ICD9: 648.03, 250.00, ICD10: O24.313 - Controlled Weekly NSTs - URINE OB DIP B/O 3. AMA (advanced maternal age) multigravida 35+, third trimester ([facility]) - ICD9: 659.63, ICD10: O09.523 - URINE OB DIP B/O 4. 34 weeks gestation of ([facility]) - ICD9: V22.2, ICD10: Z3A.34 - URINE OB DIP B/O Sheyla Ellis MD [facility] 01-09-2025 Miscellaneous Notes S: Katharine Farah is a 34 year old female who presents at 02/19/2025, by Last Menstrual Period for a routine visit. Denies headache, visual changes, chest pain, shortness of breath, vaginal bleeding, leakage of fluid, or dysuria. Feeling well, no complaints. Good movement, No contractions O: See flow sheet Gen: No apparent distress Abd: Gravid, nontender BG managed by MFM NST reactive FMLA papers given today Wants tubal after delivery ASSESSMENT/PLAN: 1. Supervision of high risk in third trimester ([facility]) - ICD9: V23.9, ICD10: O09.93 (primary diagnosis) - URINE OB DIP B/O 2. Preexisting diabetes complicating in third trimester, antepartum ([facility]) - ICD9: 648.03, 250.00, ICD10: O24.313 - Controlled Weekly NSTs - URINE OB DIP B/O 3. AMA (advanced maternal age) multigravida 35+, third trimester ([facility]) - ICD9: 659.63, ICD10: O09.523 - URINE OB DIP B/O 4. 34 weeks gestation of ([facility]) - ICD9: V22.2, ICD10: Z3A.34 - URINE OB DIP B/O Sheyla Ellis MD documented in this encounter [facility] 01-09-2025 Note HNO ID: [id number] Author: SHEYLA ELLIS MD Service: ? Author Type: Physician Type: Progress Notes Filed: 01/09/2025 15:40 Note Text: NST SUMMARY PROVIDER ASSESSMENT AND INTERPRETATION Indications for NST: Diabetes - Insulin Controlled Baseline: 135 Variability: Moderate Accelerations: Present 15 X 15 Decelerations: None Interpretation: Reactive SIGNATURE: Sheyla Ellis MD [facility] 01-09-2025 History of Presen t illness Narrative NST SUMMARY PROVIDER ASSESSMENT AND INTERPRETATION Indications for NST: Diabetes - Insulin Controlled Baseline: 135 Variability: Moderate Accelerations: Present 15 X 15 Decelerations: None Interpretation: Reactive SIGNATURE: Sheyla Ellis MD documented in this encounter [facility] 01-09-2025 Instructions Melissa Arredondo MA - 01/09/2025 2:34 PM EDT SEQUENTIAL SCREENINGS The [facility] offers sequential screenings for women who are interested in screenings for chromosomal abnormalities and certain defects during a . The sequential screen combines ultrasound and blood tests to determine the risk of chromosomal abnormalities, including Down's Syndrome (Trisomy 21) and Trisomy 18, as well as open neural tube defects including spina bifida. Ultrasound examination is performed between 11 weeks and 13 weeks gestational age. Blood tests are drawn after the ultrasound and again later in the between 15 and 21 weeks gestational age. Please let your physician know if you are interested in this testing. It will require an appointment with our geotechnical laboratory technician. This is not an ultrasound performed by a physician in our office during a routine visit. SIGNS AND SYMPTOMS OF LABOR 1. Contractions every 10 minutes or more often 2. Clear, pink, or brownish fluid (water) leaking from vagina 3. Feeling that baby is pushing down, pressure 4. Low, dull backache 5. Cramps that feel like a period 6. Cramps with or without diarrhea If you notice any of the above symptoms, contact our office at [phone] and ask to speak with a nurse. After hours, you can call doctors registry at [phone] OR call [facility] at [phone] and ask to have the doctor front office clerk paged. If you consider this an emergency, dial or go to your nearest emergency department. NEED HELP? Are you dealing with a violent or abusive relationship? Are you a victim of rape or sexual assult? Call [facility] ([place]) 24 hour Crisis Hotline: 167.962.8110 or 572-204-3642. MANUAL Your Guide to a Healthy manual is now on-line. Visit [email or web address] to download your free copy documented in this encounter [facility] 01-09-2025 Note HNO ID: [id number] Author: OLGA PUTNAM LPN Service: ? Author Type: LICENSED NURSE Type: Progress Notes Filed: 01/09/2025 10:05 Note Text: Diabetes in Monitoring MFM Recommendations Katharine Farah is a 34 year old, , [place] 34w1d with Type 2 Diabetes. [facility] Management: Medication controlled NPH 24/14 Lispro 12 Maternal Medicine Recommendations: Dr. Buchanan to review blood sugar readings. Olga Putnam LPN January 09, 2025 10:03 AM [facility] 01-09-2025 History of Presen t illness Narrative Diabetes in Monitoring MFM Recommendations Katharine Farah is a 34 year old, , GA 34w1d with Type 2 Diabetes. [facility] Management: Medication controlled NPH 24/14 Lispro /12 Maternal Medicine Recommendations: Dr. Buchanan to review blood sugar readings. Olga Putnam LPN January 09, 2025 10:03 AM documented in this encounter [facility] 2024 Note HNO ID: [id number] Author: JAIME NUNN MD Service: ? Author Type: Physician Type: Progress Notes Filed: 2024 12:05 Note Text: CARE VISIT VIDEO VISIT Katharine Farah is a 34 year old at 32w5d being seen for routine care and management of medical co morbidities. She reports Good movement. Denies vaginal bleeding., Denies contractions., Denies leaking of fluid. . Her comorbidities include Gestational Diabetes OBJECTIVE: LMP 05/15/2024 See ultrasound report for details. See ACOG flowsheet. EXAM: GENERAL: pleasant, in no apparent distress ASSESSMENT/PLAN: 34 year old at 32w5d Problem List Items Addressed This Visit Endocrinology Controlled type 2 diabetes mellitus without complication, without long-term current use of insulin (HCC) Overview Pre Metformin 500mg BID (discontinues on 11/01) Hgb A1c 6.2 - 09/08/2024 Managed by: MARI Current treatment regimen (12/28/2024 ): NPH , Lispro 09/17/11 [x] MFM consult - individual [] Diabetes education consult [] Nutrition consult [x] Testing supplies [] Growth ultrasound every 4 weeks [] Twice-weekly testing starting at 32 weeks if on pharmacotherapy Current Assessment AND Plan Following with MFM - insulin was adjusted 2 days ago - discussed need for twice weekly testing - BPP/NST - discussed delivery timing - delivery between 38-39w if stable , - I explained that if diabetes is suboptimal we may need to consider an earlier delivery Plan BPP/NST weekly - BPP ordered Growth in 3-4w Monitor glucose if she has continuous spikes informed 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 Haylee Sepulveda APRN.CNM Current Assessment AND Plan Had 36w delivery with fast labors - recommended coming to hospital if she starts having regular contractions - explained that risk for earlier delivery is elevated Other Visit Diagnoses GDM, class A2 (HCC) - Primary Relevant Orders BIOPHYSICAL PROFILE [facility] Plan Continue monitoring Upload blood glucose weekly Jaime Nunn MD 2024 11:58 AM Medical Decision Making: Problems: Moderate: New problem with uncertain prognosis Data: Unique test(s) ordered: 1 Risk: Moderate: Moderate risk from testing/treatment Medical Decision Making Level: 4 - Moderate [facility] 2024 History of Presen t illness Narrative Images from the original note were not included. CARE VISIT VIDEO VISIT Katharine Farah is a 34 year old at 32w5d being seen for routine care and management of medical co morbidities. She reports Good movement. Denies vaginal bleeding., Denies contractions., Denies leaking of fluid. . Her comorbidities include Gestational Diabetes OBJECTIVE: LMP 05/15/2024 See ultrasound report for details. See ACOG flowsheet. EXAM: GENERAL: pleasant, in no apparent distress ASSESSMENT/PLAN: 34 year old at 32w5d Problem List Items Addressed This Visit Endocrinology Controlled type 2 diabetes mellitus without complication, without long-term current use of insulin (HCC) Overview Pre Metformin 500mg BID (discontinues on 11/01) Hgb A1c 6.2 - 09/08/2024 Managed by: MFM Current treatment regimen (12/28/2024 ): NPH , Lispro 09/17/11 [x] MFM consult - individual [] Diabetes education consult [] Nutrition consult [x] Testing supplies [] Growth ultrasound every 4 weeks [] Twice-weekly testing starting at 32 weeks if on pharmacotherapy Current Assessment & Plan Following with MFM - insulin was adjusted 2 days ago - discussed need for twice weekly testing - BPP/NST - discussed delivery timing - delivery between 38-39w if stable , - I explained that if diabetes is suboptimal we may need to consider an earlier delivery Plan BPP/NST weekly - BPP ordered Growth in 3-4w Monitor glucose if she has continuous spikes informed 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 Haylee Sepulveda APRN.MO Current Assessment & Plan Had 36w delivery with fast labors - recommended coming to hospital if she starts having regular contractions - explained that risk for earlier delivery is elevated Other Visit Diagnoses GDM, class A2 ([facility]) - Primary Relevant Orders BIOPHYSICAL PROFILE [facility] Plan Continue monitoring Upload blood glucose weekly Jaime Nunn MD 2024 11:58 AM Medical Decision Making: Problems: Moderate: New problem with uncertain prognosis Data: Unique test(s) ordered: 1 Risk: Moderate: Moderate risk from testing/treatment Medical Decision Making Level: 4 - Moderate documented in this encounter [facility] 2024 Note Indication Evaluation of growth, Evaluation of well-being. Advanced maternal age, Maternal obesity, BMI >30, Diabetes mellitus Impression - Single, live, intrauterine . - presentation is cephalic. - The biometry is consistent with the assigned gestational dating. - The EFW is 1864 g, at the 20%. AC is at the 17%. - The amniotic fluid volume is normal amount with an MVP of 5.3 cm and an CORBIN of 15.7 cm. - The placenta is posterior, fundal. - BPP 01/20. - No malformations visualized on a limited survey as detailed below. Recommendations Continue planned testing Growth in four weeks Maternal Assessment Height 163 cm Height (ft) 5 ft Height (in) 4 in Physical Exam Initial weight (lb) 193 lb Initial BMI 33.13 kg/m Maternal assessment other: 4 Para 3 REMOTE READ Method Transabdominal ultrasound examination Bejarano . Number of fetuses: 1 Dating LMP on: 05/15/2024 GA by LMP 32 w + 5 d JOSEMANUEL by LMP: 02/19/2025 GA by prior assessment 32 w + 5 d JOSEMANUEL by prior assessment: 02/19/2025 Ultrasound examination on: 2024 GA by U/S based upon: AC, BPD, Femur, HC GA by U/S 31 w + 4 d JOSEMANUEL by U/S: 02/27/2025 Assigned: based on stated JOSEMANUEL, selected on 10/14/2024 Assigned GA 32 w + 5 d Assigned JOSEMANUEL: 02/19/2025 General Evaluation Cardiac activity present. FHR 139 bpm. movements: present. Presentation: cephalic Placenta: Placental site: posterior, fundal Umbilical cord: Cord vessels: 3 vessel cord Amniotic fluid: Amount of AF: normal amount. MVP 5.3 cm. CORBIN 15.7 cm. Q1 2.6 cm, Q2 5.3 cm, Q3 3.9 cm, Q4 3.9 cm Biophysical Profile 2: breathing movements 2: Gross body movements 2: tone 2: Amniotic fluid volume 01/20 Biophysical profile score Growth Overview Exam date GA BPD (mm) HC (mm) AC (mm) FL (mm) HL (mm) EFW (g) 09/13/2024 17w 2d 34.3 19% 135.3 33% 109.9 34% 21.8 27% 21 22% 165 14% 10/14/2024 21w 5d 46.6 4% 186.1 28% 162.7 30% 34.2 32% 33.3 32% 395 16% 12/02/2024 28w 5d 68.8 11% 264.9 40% 233.8 16% 54 58% 1189 21% 2024 32w 5d 76.2 3% 300.7 45% 274.1 17% 61.5 38% 1864 20% Biometry Standard BPD 76.2 mm 30w 4d 3% Hadlock OFD 111.0 mm 33w 4d 72% Nicolaides HC 300.7 mm 32w 3d 45% Morris AC 274.1 mm 31w 3d 17% Hadlock Femur 61.5 mm 31w 5d 38% Morris EFW 1,864 g 31w 4d 20% Hadlock EFW (lb) 4 lb EFW (oz) 2 oz EFW by: Hadlock (HC-AC-FL) Extended Certified Alcohol Drug Counselor 5.3 mm Extremities / Bony Struc FL / HC 0.20 Other Structures FHR 139 bpm Anatomy Lateral ventricles: normal Cavum septi pellucidi: normal Cerebellum: normal Cisterna magna: normal 4-chamber view: normal RVOT view: normal LVOT view: normal 3-vessel view: normal Heart / Thorax Situs: situs solitus (normal) Diaphragm: normal Stomach: normal Kidneys: normal Bladder: normal sex: female Wants to know sex: yes Performed By: Alyssa Szymanski RDMS, RVT Read By: Yolanda Buchanan M.D. [facility] 2024 Progress note Formatting of t his note might be different from the original. RR- VB No. LOF No. CTXS No. Movement: present. Other c/o: deneis CERRATO or visual changes Medication list reviewed. SENSITIVE EXAM: Sensitive exam not performed. Physical Exam See Flow Sheet Abd: soft, nontender, gravid Ext: edema: Trace A/P 32w5d Estimated Date of Delivery: 02/19/25 Assessment & Plan Preexisting diabetes complicating in third trimester, antepartum ([facility]) Orders: URINE OB DIP B/O NON-STRESS TEST; Standing Supervision of high risk in third trimester ([facility]) Orders: URINE OB DIP B/O NON-STRESS TEST; Standing 32 weeks gestation of ([facility]) Orders: URINE OB DIP B/O NON-STRESS TEST; Standing Insulin controlled gestational diabetes mellitus (GDM) in second trimester ([facility]) Orders: insulin NPH subcutaneous pen; Inject 24 Units subcutaneously every morning AND 14 Units daily at bedtime. MFM following BS, refill on insulin recommend allergy consult cont. terence Wagner M.D. [facility] 2024 Miscellaneous Notes RR- VB No. LOF No. CTXS No. Movement: present. Other c/o: deneis CERRATO or visual changes Medication list reviewed. SENSITIVE EXAM: Sensitive exam not performed. Physical Exam See Flow Sheet Abd: soft, nontender, gravid Ext: edema: Trace A/P 32w5d Estimated Date of Delivery: 02/19/25 Assessment & Plan Preexisting diabetes complicating in third trimester, antepartum ([facility]) Orders: URINE OB DIP B/O NON-STRESS TEST; Standing Supervision of high risk in third trimester ([facility]) Orders: URINE OB DIP B/O NON-STRESS TEST; Standing 32 weeks gestation of ([facility]) Orders: URINE OB DIP B/O NON-STRESS TEST; Standing Insulin controlled gestational diabetes mellitus (GDM) in second trimester ([facility]) Orders: insulin NPH subcutaneous pen; Inject 24 Units subcutaneously every morning AND 14 Units daily at bedtime. MFM following BS, refill on insulin recommend allergy consult cont. terence Wagner M.D. documented in this encounter [facility] 2024 Instructions Melissa Arredondo MA - 2024 8:39 AM EDT SEQUENTIAL SCREENINGS The [facility] offers sequential screenings for women who are interested in screenings for chromosomal abnormalities and certain defects during a . The sequential screen combines ultrasound and blood tests to determine the risk of chromosomal abnormalities, including Down's Syndrome (Trisomy 21) and Trisomy 18, as well as open neural tube defects including spina bifida. Ultrasound examination is performed between 11 weeks and 13 weeks gestational age. Blood tests are drawn after the ultrasound and again later in the between 15 and 21 weeks gestational age. Please let your physician know if you are interested in this testing. It will require an appointment with our geotechnical laboratory technician. This is not an ultrasound performed by a physician in our office during a routine visit. SIGNS AND SYMPTOMS OF LABOR 1. Contractions every 10 minutes or more often 2. Clear, pink, or brownish fluid (water) leaking from vagina 3. Feeling that baby is pushing down, pressure 4. Low, dull backache 5. Cramps that feel like a period 6. Cramps with or without diarrhea If you notice any of the above symptoms, contact our office at [phone] and ask to speak with a nurse. After hours, you can call doctors registry at [phone] OR call [facility] at [phone] and ask to have the doctor front office clerk paged. If you consider this an emergency, dial 7- or go to your nearest emergency department. NEED HELP? Are you dealing with a violent or abusive relationship? Are you a victim of rape or sexual assult? Call [facility] ([place]) 24 hour Crisis Hotline: 135.688.3075 or 796-519-7145. MANUAL Your Guide to a Healthy manual is now on-line. Visit [email or web address] to download your free copy documented in this encounter [facility] 12-28-2024 Note HNO ID: [id number] Author: YOLANDA BUCHANAN MD Service: ? Author Type: Physician Type: Progress Notes Filed: 12/28/2024 10:07 Note Text: Glucoses reviewed Elevated postprandial dinner and lunches Please notify patient of recommended increase: NPH 24u AM, 14u PM Lispro 4u breakfast, 4 units lunch and 12 units dinner Yolanda Buchanan MD [facility] 12-27-2024 Note HNO ID: [id number] Author: OLGA PUTNAM LPN Service: ? Author Type: LICENSED NURSE Type: Progress Notes Filed: 12/27/2024 08:21 Note Text: Diabetes in Monitoring MFM Recommendations Katharine Farah is a 33 year old, , [place] 32w2d with Type 2 Diabetes. [facility] Management: Medication controlled NPH 20 units AM, NPH 14 units PM Lispro 4 units with breakfast, Lispro 8 units with dinner. Maternal Medicine Recommendations: Dr. Buchanan to review blood sugar readings. Pt has an appt virtually with Dr. Nunn. Olga Putnam LPN December 27, 2024 8:16 AM [facility] 12-27-2024 History of Presen t illness Narrative Diabetes in Monitoring MFM Recommendations Katharine Farah is a 33 year old, , GA 32w2d with Type 2 Diabetes. [facility] Management: Medication controlled NPH 20 units AM, NPH 14 units PM Lispro 4 units with breakfast, Lispro 8 units with dinner. Maternal Medicine Recommendations: Dr. Buchanan to review blood sugar readings. Pt has an appt virtually with Dr. Nunn. Olga Putnam LPN December 27, 2024 8:16 AM documented in this encounter [facility] 12-19-2024 Progress note Formatting of t his note might be different from the original. S: Katharine Farah is a 33 year old female who presents at 02/19/2025, by Last Menstrual Period for a routine visit. Denies headache, visual changes, chest pain, shortness of breath, vaginal bleeding, leakage of fluid, or dysuria. Feeling well, no complaints. Good movement, No contractions O: See flow sheet Gen: No apparent distress Abd: Gravid, nontender Will stop and get remaining 28 week labs Insulin increased today by MFM. Growth US at next appointment. ASSESSMENT/PLAN: 1. 31 weeks gestation of ([facility]) - ICD9: V22.2, ICD10: Z3A.31 (primary diagnosis) - URINE OB DIP B/O 2. Supervision of high risk in second trimester ([facility]) - ICD9: V23.9, ICD10: O09.92 - URINE OB DIP B/O 3. Multigravida of advanced maternal age in second trimester ([facility]) - ICD9: 659.63, ICD10: O09.522 - URINE OB DIP B/O 4. Preexisting diabetes complicating in second trimester, antepartum ([facility]) - ICD9: 648.03, 250.00, ICD10: O24.312 Managed by [facility] - URINE OB DIP B/O Sheyla Ellis MD [facility] 12-19-2024 Miscellaneous Notes S: Katharine Farah is a 33 year old female who presents at 02/19/2025, by Last Menstrual Period for a routine visit. Denies headache, visual changes, chest pain, shortness of breath, vaginal bleeding, leakage of fluid, or dysuria. Feeling well, no complaints. Good movement, No contractions O: See flow sheet Gen: No apparent distress Abd: Gravid, nontender Will stop and get remaining 28 week labs Insulin increased today by [facility]. Growth US at next appointment. ASSESSMENT/PLAN: 1. 31 weeks gestation of ([facility]) - ICD9: V22.2, ICD10: Z3A.31 (primary diagnosis) - URINE OB DIP B/O 2. Supervision of high risk in second trimester ([facility]) - ICD9: V23.9, ICD10: O09.92 - URINE OB DIP B/O 3. Multigravida of advanced maternal age in second trimester ([facility]) - ICD9: 659.63, ICD10: O09.522 - URINE OB DIP B/O 4. Preexisting diabetes complicating in second trimester, antepartum ([facility]) - ICD9: 648.03, 250.00, ICD10: O24.312 Managed by [facility] - URINE OB DIP B/O Sheyla Ellis MD documented in this encounter [facility] 12-19-2024 Instructions Radha Coleman MA - 12/19/2024 2:52 PM EDT SEQUENTIAL SCREENINGS The [facility] offers sequential screenings for women who are interested in screenings for chromosomal abnormalities and certain defects during a . The sequential screen combines ultrasound and blood tests to determine the risk of chromosomal abnormalities, including Down's Syndrome (Trisomy 21) and Trisomy 18, as well as open neural tube defects including spina bifida. Ultrasound examination is performed between 11 weeks and 13 weeks gestational age. Blood tests are drawn after the ultrasound and again later in the between 15 and 21 weeks gestational age. Please let your physician know if you are interested in this testing. It will require an appointment with our geotechnical laboratory technician. This is not an ultrasound performed by a physician in our office during a routine visit. SIGNS AND SYMPTOMS OF LABOR 1. Contractions every 10 minutes or more often 2. Clear, pink, or brownish fluid (water) leaking from vagina 3. Feeling that baby is pushing down, pressure 4. Low, dull backache 5. Cramps that feel like a period 6. Cramps with or without diarrhea If you notice any of the above symptoms, contact our office at [phone] and ask to speak with a nurse. After hours, you can call doctors registry at [phone] OR call [facility] at [phone] and ask to have the doctor front office clerk paged. If you consider this an emergency, dial 9-1-0 or go to your nearest emergency department. NEED HELP? Are you dealing with a violent or abusive relationship? Are you a victim of rape or sexual assult? Call [facility] ([place]) 24 hour Crisis Hotline: 610.240.7961 or 847-165-5882. MANUAL Your Guide to a Healthy manual is now on-line. Visit [email or web address] to download your free copy documented in this encounter [facility] 12-13-2024 Note HNO ID: [id number] Author: YOLANDA BUCHANAN MD Service: ? 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 [facility] Management: Medication controlled NPH 14 units BID Lispro 4 units with breakfast and dinner Maternal Medicine Recommendations: Dr. Buchanan to review blood sugars. Olga Putnam LPN December 13, 2024 9:16 AM documented in this encounter [facility] 12-13-2024 Note HNO ID: [id number] Author: OLGA PUTNAM LPN Service: ? Author Type: LICENSED NURSE Type: Progress Notes Filed: 12/13/2024 09:18 Note Text: Diabetes in Monitoring MFM Recommendations Katharine Farah is a 33 year old, , GA 30w2d with Type 2 Diabetes. [facility] Management: Medication controlled NPH 14 units BID Lispro 4 units with breakfast and dinner Maternal Medicine Recommendations: Dr. Buchanan to review blood sugars. Olga Putnam LPN December 13, 2024 9:16 AM [facility] 12-05-2024 Note HNO ID: [id number] Author: OLGA PUTNAM LPN Service: ? Author Type: LICENSED NURSE Type: Progress Notes Filed: 12/05/2024 10:27 Note Text: Diabetes in Monitoring MFM Recommendations Katharine Farah is a 33 year old, , GA 29w1d with Type 2 Diabetes. [facility] Management: Medication controlled NPH 14 units BID Lispro 4 units with breakfast and dinner Maternal Medicine Recommendations: Dr. Buchanan to review blood sugars. Olga Putnam LPN December 05, 2024 10:22 AM [facility] 12-05-2024 History of Presen t illness Narrative Diabetes in Monitoring [facility] Recommendations Katharine Farah is a 33 year old, , GA 29w1d with Type 2 Diabetes. [facility] Management: Medication controlled NPH 14 units BID Lispro 4 units with breakfast and dinner Maternal Medicine Recommendations: Dr. Buchanan to review blood sugars. Olga Putnam LPN December 05, 2024 10:22 AM documented in this encounter [facility] 12-02-2024 Note Indication Evaluation of growth. Advanced maternal age, Maternal obesity, BMI >30, Diabetes mellitus Impression REMOTE READ - Single, live, intrauterine . - presentation is cephalic. - The biometry is consistent with the assigned gestational dating. - The EFW is 1189 g, at the 21%. AC is at the 16%. - Amniotic fluid volume is normal amount with an MVP of 4.5 cm and CORBIN of 13.7 cm. - The placenta is posterior, fundal. - No malformations visualized on a limited survey as detailed below. Recommendations - growth scan every 4 weeks - Additional follow up as clinically indicated. Maternal Assessment Height 163 cm Height (ft) 5 ft Height (in) 4 in Physical Exam Initial weight (lb) 193 lb Initial BMI 33.13 kg/m Method Transabdominal ultrasound examination Bejarano . Number of fetuses: 1 Dating LMP on: 05/15/2024 GA by LMP 28 w + 5 d JOSEMANUEL by LMP: 02/19/2025 GA by prior assessment 28 w + 5 d JOSEMANUEL by prior assessment: 02/19/2025 Ultrasound examination on: 12/02/2024 GA by U/S based upon: AC, BPD, Femur, HC GA by U/S 28 w + 1 d JOSEMANUEL by U/S: 02/23/2025 Assigned: based on stated JOSEMANUEL, selected on 10/14/2024 Assigned GA 28 w + 5 d Assigned JOSEMANUEL: 02/19/2025 General Evaluation Cardiac activity present. FHR 143 bpm. movements: present. Presentation: cephalic Placenta: Placental site: posterior, fundal Umbilical cord: Cord vessels: 3 vessel cord. Insertion site: normal insertion Amniotic fluid: Amount of AF: normal amount. MVP 4.5 cm. CORBIN 13.7 cm. Q1 3.6 cm, Q2 3.1 cm, Q3 4.5 cm, Q4 2.6 cm Growth Overview Exam date GA BPD (mm) HC (mm) AC (mm) FL (mm) HL (mm) EFW (g) 09/13/2024 17w 2d 34.3 19% 135.3 33% 109.9 34% 21.8 27% 21 22% 165 14% 10/14/2024 21w 5d 46.6 4% 186.1 28% 162.7 30% 34.2 32% 33.3 32% 395 16% 12/02/2024 28w 5d 68.8 11% 264.9 40% 233.8 16% 54 58% 1189 21% Biometry Standard BPD 68.8 mm 27w 5d 11% Hadlock OFD 96.8 mm 28w 4d 59% Nicolaides HC 264.9 mm 28w 2d 40% Morris AC 233.8 mm 27w 5d 16% Hadlock Femur 54.0 mm 28w 5d 58% Morris EFW 1,189 g 27w 6d 21% Hadlock EFW (lb) 2 lb EFW (oz) 10 oz EFW by: Hadlock (HC-AC-FL) Extended Certified Alcohol Drug Counselor 2.6 mm Extremities / Bony Struc FL / HC 0.20 Other Structures FHR 143 bpm Anatomy Lateral ventricles: normal Cavum septi pellucidi: normal Cerebellum: normal Cisterna magna: normal 4-chamber view: normal RVOT view: normal LVOT view: normal 3-vessel view: normal Heart / Thorax Situs: situs solitus (normal) Diaphragm: normal Stomach: normal Kidneys: normal Bladder: normal sex: female Wants to know sex: yes Performed By: Loulou Ramos RDMS Read By: Suzanne Gonzalez M.D. [facility] 12-02-2024 Progress note Formatting of t his note might be different from the original. S: Katharine Farah is a 33 year old female who presents at 02/19/2025, by Last Menstrual Period for a routine visit. Denies headache, visual changes, chest pain, shortness of breath, vaginal bleeding, leakage of fluid, or dysuria. Feeling well, no complaints. Good movement, No contractions O: See flow sheet Gen: No apparent distress Abd: Gravid, nontender EFW 21% CORBIN 13.7 BG and insulin managed by MFM. No changes recently Declined LARC wants tubal Desires TDAP ASSESSMENT/PLAN: 1. 28 weeks gestation of ([facility]) - ICD9: V22.2, ICD10: Z3A.28 (primary diagnosis) - URINE OB DIP B/O 2. Supervision of high risk in second trimester ([facility]) - ICD9: V23.9, ICD10: O09.92 - URINE OB DIP B/O 3. Multigravida of advanced maternal age in second trimester ([facility]) - ICD9: 659.63, ICD10: O09.522 - URINE OB DIP B/O 4. Preexisting diabetes complicating in second trimester, antepartum ([facility]) - ICD9: 648.03, 250.00, ICD10: O24.312 Now on insulin managed by MFM - URINE OB DIP B/O 5. Late care ([facility]) - ICD9: V23.7, ICD10: O09.30 - URINE OB DIP B/O 6. Need for vaccination - ICD9: V05.9, ICD10: Z23 TDAP today Sheyla Ellis MD [facility] 12-02-2024 Miscellaneous Notes S: Katharine Farah is a 33 year old female who presents at 02/19/2025, by Last Menstrual Period for a routine visit. Denies headache, visual changes, chest pain, shortness of breath, vaginal bleeding, leakage of fluid, or dysuria. Feeling well, no complaints. Good movement, No contractions O: See flow sheet Gen: No apparent distress Abd: Gravid, nontender EFW 21% CORBIN 13.7 BG and insulin managed by MFM. No changes recently Declined LARC wants tubal Desires TDAP ASSESSMENT/PLAN: 1. 28 weeks gestation of ([facility]) - ICD9: V22.2, ICD10: Z3A.28 (primary diagnosis) - URINE OB DIP B/O 2. Supervision of high risk in second trimester ([facility]) - ICD9: V23.9, ICD10: O09.92 - URINE OB DIP B/O 3. Multigravida of advanced maternal age in second trimester ([facility]) - ICD9: 659.63, ICD10: O09.522 - URINE OB DIP B/O 4. Preexisting diabetes complicating in second trimester, antepartum ([facility]) - ICD9: 648.03, 250.00, ICD10: O24.312 Now on insulin managed by MFM - URINE OB DIP B/O 5. Late care ([facility]) - ICD9: V23.7, ICD10: O09.30 - URINE OB DIP B/O 6. Need for vaccination - ICD9: V05.9, ICD10: Z23 TDAP today Sheyla Ellis MD documented in this encounter [facility] 12-02-2024 Note HNO ID: [id number] Author: RADHA COLEMAN MA Service: ? Author Type: Video Recorder Mechanic Type: Progress Notes Filed: 12/02/2024 11:45 Note Text: Patient identified by name and date of . Katharine Farah presents today for a vaccination of Tdap. Patient denies an allergy to latex: yes Patient denies a severe (life-threatening) allergy to a previous dose of Tdap, DTP, DTaP, DT or Td vaccine. Yes Patient denies history of epilepsy or neurological problems: Yes Patient is afebrile and denies being moderately or severely ill: Yes Patient denies history of Guillain-Sikeston Syndrome (a severe paralytic illness): Yes Tdap Adacel injection was given without incident. See immunizations for details of immunizations administered today. VIS sheet provided: Yes Provider Sheyla Ellis MD was present in office at time of injection. Radha Coleman MA [facility] 12-02-2024 History of Presen t illness Narrative Patient identified by name and date of . Katharine Farah presents today for a vaccination of Tdap. Patient denies an allergy to latex: yes Patient denies a severe (life-threatening) allergy to a previous dose of Tdap, DTP, DTaP, DT or Td vaccine. Yes Patient denies history of epilepsy or neurological problems: Yes Patient is afebrile and denies being moderately or severely ill: Yes Patient denies history of Guillain-Sikeston Syndrome (a severe paralytic illness): Yes Tdap Adacel injection was given without incident. See immunizations for details of immunizations administered today. VIS sheet provided: Yes Provider Sheyla Ellis MD was present in office at time of injection. Radha Coleman MA documented in this encounter [facility] 12-02-2024 Instructions Radha Coleman MA - 12/02/2024 8:55 AM EDT SEQUENTIAL SCREENINGS The [facility] offers sequential screenings for women who are interested in screenings for chromosomal abnormalities and certain defects during a . The sequential screen combines ultrasound and blood tests to determine the risk of chromosomal abnormalities, including Down's Syndrome (Trisomy 21) and Trisomy 18, as well as open neural tube defects including spina bifida. Ultrasound examination is performed between 11 weeks and 13 weeks gestational age. Blood tests are drawn after the ultrasound and again later in the between 15 and 21 weeks gestational age. Please let your physician know if you are interested in this testing. It will require an appointment with our geotechnical laboratory technician. This is not an ultrasound performed by a physician in our office during a routine visit. SIGNS AND SYMPTOMS OF LABOR 1. Contractions every 10 minutes or more often 2. Clear, pink, or brownish fluid (water) leaking from vagina 3. Feeling that baby is pushing down, pressure 4. Low, dull backache 5. Cramps that feel like a period 6. Cramps with or without diarrhea If you notice any of the above symptoms, contact our office at [phone] and ask to speak with a nurse. After hours, you can call doctors registry at [phone] OR call [facility] at [phone] and ask to have the doctor front office clerk paged. If you consider this an emergency, dial 9--1 or go to your nearest emergency department. NEED HELP? Are you dealing with a violent or abusive relationship? Are you a victim of rape or sexual assult? Call [facility] ([place]) 24 hour Crisis Hotline: 787.201.2345 or 925-410-9611. MANUAL Your Guide to a Healthy manual is now on-line. Visit [email or web address] to download your free copy documented in this encounter [facility] 11-29-2024 Note HNO ID: [id number] Author: OLGA PUTNAM LPN Service: ? Author Type: LICENSED NURSE Type: Progress Notes Filed: 11/29/2024 09:01 Note Text: Diabetes in Monitoring MFM Recommendations Katharine Farah is a 33 year old, , [place] 28w2d with Type 2 Diabetes. [facility] Management: Medication controlled NPH 14 units BID Lispro 4 units with breakfast and dinner Maternal Medicine Recommendations: Dr. Buchanan to review blood sugars. Olga Putnam LPN November 29, 2024 8:54 AM [facility] 11-29-2024 History of Presen t illness Narrative Diabetes in Monitoring MFM Recommendations Katharine Farah is a 33 year old, , [place] 28w2d with Type 2 Diabetes. [facility] Management: Medication controlled NPH 14 units BID Lispro 4 units with breakfast and dinner Maternal Medicine Recommendations: Dr. Buchanan to review blood sugars. Olga Putnam LPN November 29, 2024 8:54 AM documented in this encounter [facility] 11-23-2024 Note HNO ID: [id number] Author: YOLANDA BUCHANAN MD Service: ? Author Type: Physician Type: Progress Notes Filed: 11/23/2024 15:10 Note Text: Glucoses reviewed Post-prandial breakfast and dinner remain elevated Please notify patient of recommendations and call in the following: Increase NPH to 14 units twice daily Would like to start short-acting (Lispro) with breakfast and dinner, 4 units. Could we make her virtual appointment with Mayra to review in the next 2 weeks or so? We have been increasing pretty consistently. Thanks Yolanda [facility] 11-21-2024 Note HNO ID: [id number] Author: OLGA PUTNAM LPN Service: ? Author Type: LICENSED NURSE Type: Progress Notes Filed: 11/21/2024 16:02 Note Text: Diabetes in Monitoring MFM Recommendations Katharine Farah is a 33 year old, , [place] 27w1d with Type 2 Diabetes. [facility] Management: Medication controlled Metformin 500mg BID NPH 10 units in the morning NPH 10 units at bedtime Maternal Medicine Recommendations: Dr. Buchanan to review blood sugar readings. Olag Putnam LPN November 21, 2024 3:58 PM [facility] 11-21-2024 History of Presen t illness Narrative Diabetes in Monitoring MFM Recommendations Katharine Farah is a 33 year old, , [place] 27w1d with Type 2 Diabetes. [facility] Management: Medication controlled Metformin 500mg BID NPH 10 units in the morning NPH 10 units at bedtime Maternal Medicine Recommendations: Dr. Buchanan to review blood sugar readings. Olga Putnam LPN November 21, 2024 3:58 PM documented in this encounter [facility] 11-18-2024 Note HNO ID: [id number] Author: ALTAGRACIA BEJARANO RN Service: ? Author Type: Registered Nurse Type: Progress Notes Filed: 11/18/2024 09:56 Note Text: This encounter was opened in error. [facility] 11-18-2024 History of Presen t illness Narrative This encounter was opened in error. documented in this encounter [facility] 11-17-2024 Note HNO ID: [id number] Author: YOLANDA BUCHANAN MD Service: ? Author Type: Physician Type: Progress Notes Filed: 11/17/2024 16:50 Note Text: Glucoses reviewed Post-prandial dinner some elevations Please inform patient that I recommend starting 10 units NPH in the morning for twice daily NPH 10 units AM and 10 units PM Yolanda Buchanan MD [facility] 11-15-2024 Note HNO ID: [id number] Author: OLGA PUTNAM LPN Service: ? Author Type: LICENSED NURSE Type: Progress Notes Filed: 11/15/2024 10:35 Note Text: Diabetes in Monitoring [facility] Recommendations Katharine Farah is a 33 year old, , [place] 26w2d with Type 2 Diabetes. [facility] Management: Medication controlled Metformin 500mg BID NPH 10 units at bedtime Maternal Medicine Recommendations: Dr. Buchanan to review blood sugar readings. Olga Putnam LPN November 15, 2024 10:34 AM [facility] 11-15-2024 History of Presen t illness Narrative Diabetes in Monitoring [facility] Recommendations Katharine Farah is a 33 year old, , [place] 26w2d with Type 2 Diabetes. [facility] Management: Medication controlled Metformin 500mg BID NPH 10 units at bedtime Maternal Medicine Recommendations: Dr. Buchanan to review blood sugar readings. Olga Putnam LPN November 15, 2024 10:34 AM documented in this encounter [facility] 11-11-2024 Progress note Formatting of t his note might be different from the original. DM-Pt doing well. Denies vaginal Bleeding, Leaking fluid, or regular Contractions. Pt reports good movement. Seeing M for insulin and DM control. Just stopped metformin and on NPH 10u at night Physical Exam: Gen: female in no apparent distress Abd: soft, Gravid. Non tender to palpation. See flow sheet @ 25.5 weeks Assessment & Plan Supervision of high risk in second trimester (HCC) Orders: SYPHILIS TREPONEMAL W/REFLEX; Future ANEMIA REFLEX PANEL; Future HEMOGLOBIN A1C; Future URINE OB DIP B/O Multigravida of advanced maternal age in second trimester (HCC) Orders: SYPHILIS TREPONEMAL W/REFLEX; Future ANEMIA REFLEX PANEL; Future HEMOGLOBIN A1C; Future URINE OB DIP B/O Preexisting diabetes complicating in second trimester, antepartum ([facility]) Continue NPH 10u at night. Follow up with MFM for adjustment as indicated Late care ([facility]) Orders: SYPHILIS TREPONEMAL W/REFLEX; Future ANEMIA REFLEX PANEL; Future HEMOGLOBIN A1C; Future URINE OB DIP B/O History of delivery Orders: SYPHILIS TREPONEMAL W/REFLEX; Future ANEMIA REFLEX PANEL; Future HEMOGLOBIN A1C; Future URINE OB DIP B/O 25 weeks gestation of ([facility]) Will schedule growth us at 28 weeks Orders: SYPHILIS TREPONEMAL W/REFLEX; Future ANEMIA REFLEX PANEL; Future HEMOGLOBIN A1C; Future URINE OB DIP B/O Any Combs MD [facility] 11-11-2024 Miscellaneous Notes DM-Pt doing well. Denies vaginal Bleeding, Leaking fluid, or regular Contractions. Pt reports good movement. Seeing MFM for insulin and DM control. Just stopped metformin and on NPH 10u at night Physical Exam: Gen: female in no apparent distress Abd: soft, Gravid. Non tender to palpation. See flow sheet @ 25.5 weeks Assessment & Plan Supervision of high risk in second trimester ([facility]) Orders: SYPHILIS TREPONEMAL W/REFLEX; Future ANEMIA REFLEX PANEL; Future HEMOGLOBIN A1C; Future URINE OB DIP B/O Multigravida of advanced maternal age in second trimester ([facility]) Orders: SYPHILIS TREPONEMAL W/REFLEX; Future ANEMIA REFLEX PANEL; Future HEMOGLOBIN A1C; Future URINE OB DIP B/O Preexisting diabetes complicating in second trimester, antepartum ([facility]) Continue NPH 10u at night. Follow up with MFM for adjustment as indicated Late care ([facility]) Orders: SYPHILIS TREPONEMAL W/REFLEX; Future ANEMIA REFLEX PANEL; Future HEMOGLOBIN A1C; Future URINE OB DIP B/O History of delivery Orders: SYPHILIS TREPONEMAL W/REFLEX; Future ANEMIA REFLEX PANEL; Future HEMOGLOBIN A1C; Future URINE OB DIP B/O 25 weeks gestation of ([facility]) Will schedule growth us at 28 weeks Orders: SYPHILIS TREPONEMAL W/REFLEX; Future ANEMIA REFLEX PANEL; Future HEMOGLOBIN A1C; Future URINE OB DIP B/O Any Combs MD documented in this encounter [facility] 11-11-2024 Instructions Melissa Arredondo MA - 11/11/2024 9:32 AM EDT SEQUENTIAL SCREENINGS The [facility] offers sequential screenings for women who are interested in screenings for chromosomal abnormalities and certain defects during a . The sequential screen combines ultrasound and blood tests to determine the risk of chromosomal abnormalities, including Down's Syndrome (Trisomy 21) and Trisomy 18, as well as open neural tube defects including spina bifida. Ultrasound examination is performed between 11 weeks and 13 weeks gestational age. Blood tests are drawn after the ultrasound and again later in the between 15 and 21 weeks gestational age. Please let your physician know if you are interested in this testing. It will require an appointment with our geotechnical laboratory technician. This is not an ultrasound performed by a physician in our office during a routine visit. SIGNS AND SYMPTOMS OF LABOR 1. Contractions every 10 minutes or more often 2. Clear, pink, or brownish fluid (water) leaking from vagina 3. Feeling that baby is pushing down, pressure 4. Low, dull backache 5. Cramps that feel like a period 6. Cramps with or without diarrhea If you notice any of the above symptoms, contact our office at [phone] and ask to speak with a nurse. After hours, you can call doctors registry at [phone] OR call [facility] at [phone] and ask to have the doctor front office clerk paged. If you consider this an emergency, dial 9-3-9 or go to your nearest emergency department. NEED HELP? Are you dealing with a violent or abusive relationship? Are you a victim of rape or sexual assult? Call [facility] ([place]) 24 hour Crisis Hotline: 527.195.1591 or 651-775-2260. MANUAL Your Guide to a Healthy manual is now on-line. Visit [email or web address] to download your free copy documented in this encounter [facility] 11-08-2024 Note HNO ID: [id number] Author: OLGA PUTNAM LPN Service: ? Author Type: LICENSED NURSE Type: Progress Notes Filed: 11/08/2024 09:24 Note Text: Diabetes in Monitoring [facility] Recommendations Katharine Farah is a 33 year old, , [place] 25w2d with Type 2 Diabetes. [facility] Management: Medication controlled Metformin 500mg BID NPH 10 units at bedtime Maternal Medicine Recommendations: Dr. Buchanan to review blood sugar readings. Olga Putnam LPN November 08, 2024 9:20 AM [facility] 11-08-2024 History of Presen t illness Narrative Diabetes in Monitoring [facility] Recommendations Katharine Farah is a 33 year old, , [place] 25w2d with Type 2 Diabetes. [facility] Management: Medication controlled Metformin 500mg BID NPH 10 units at bedtime Maternal Medicine Recommendations: Dr. Buchanan to review blood sugar readings. Olga Putnam LPN November 08, 2024 9:20 AM documented in this encounter [facility] 11-01-2024 Note HNO ID: [id number] Author: MAYRA TORRES APRN.GRETA Service: ? Author Type: Nurse Practitioner Type: Progress Notes Filed: 11/02/2024 13:17 Note Text: GDM FOLLOW UP Date of service: 11/01/2024 HPI: Ms. Farah is a 33 year old old at 24w2d who presents for a follow up appointment for gestational diabetes and medication management. A/P: 33 year old at 24w2d: Problem List Items Addressed This Visit Endocrinology Controlled type 2 diabetes mellitus without complication, without long-term current use of insulin (HCC) Overview Pre Metformin 500mg BID (discontinues on 11/01) Hgb A1c 6.2 - 09/08/2024 Managed by: MFM Current treatment regimen (11/02/2024 ): NPH 10 units at bedtime [x] MFM consult - individual [] Diabetes education consult [] Nutrition consult [x] Testing supplies [] Growth ultrasound every 4 weeks [] Twice-weekly testing starting at 32 weeks if on pharmacotherapy Current Assessment AND Plan Type Low High % of the last 7 days that were over goal !Fasting % !After BF % !2H After BF % !Before Lunch % !After Lunch % !2H After Lunch % !Before Dinner % !After Dinner % !2H After Dinner % !Bedtime % *Values are calculated from the past 7 days starting yesterday. ! Indicates data missing from at least one of the days. 10/04/2024 10/03/2024 09/21/2024 09/14/2024 09/13/2024 Diabetes in Monitoring Electrical Inspector Fasting 102 90 85 67 After BF 171 183 173 128 2H After BF 129 127 148 120 Lunch 81 73 66 After [place] 136 191 117 2H After Lunch 114 160 100 Dinner 106 138 After Din 156 130 2H After Dinner 135 128 Bedtime 100 140 Update Day Thursday Patient-reported Maternal Medicine Recommendations: Blood sugars reviewed. Start NPH 10 units at bedtime. Insulin injection methods reviewed. Start twice weekly testings starting at 32 weeks (BPPS with MFM and NSTs with Obs office.) Continue weekly blood sugar reviews with insulin adjustments as needed Follow up in 2-4 weeks for co-management visits. Mayra Torres APRN.HEALTHCARE MANAGER November 02, 2024 1:10 PM Relevant Medications insulin NPH subcutaneous pen Other Visit Diagnoses Insulin controlled gestational diabetes mellitus (GDM) in second trimester (HCC) - Primary Relevant Medications insulin NPH subcutaneous pen insulin needles, DISPOSABLE, (LITE TOUCH INSULIN PEN NEEDLES) 31 gauge x 5/16 I spent a total of 30 minutes on the date of the service which included preparing to see the patient, [id number] patient care, completing clinical documentation, obtaining and/or reviewing separately obtained history, counseling and educating the patient/family/caregiver, ordering medications, tests, or procedures, communicating with other HCPs (not separately reported), and independently interpreting results (not separately reported). [facility] 10-24-2024 Note HNO ID: [id number] Author: YOLANDA BUCHANAN MD Service: ? Author Type: Physician Type: Progress Notes Filed: 10/24/2024 15:52 Note Text: Glucoses reviewed, AM and after lunch appear above goal however targets need to be adjusted to (mine are reading 70-180 however should be 63-140) Can you please let her know to adjust target range and that we recommend insulin start, 10 units Lantus nightly. Please offer virtual visit with Mayra Torres CNP for insulin start and we can review one week after starting. Yolanda Buchanan MD [facility] 10-24-2024 History of Presen t illness Narrative Glucoses reviewed, AM and after lunch appear above goal however targets need to be adjusted to (mine are reading 70-180 however should be 63-140) Can you please let her know to adjust target range and that we recommend insulin start, 10 units Lantus nightly. Please offer virtual visit with Mayra Torres CNP for insulin start and we can review one week after starting. Yolanda Buchanan MD Diabetes in Monitoring [facility] Recommendations Katharine Farah is a 33 year old, , [place] 23w1d with Type 2 Diabetes. [facility] Management: Medication controlled Metformin 500mg BID Maternal Medicine Recommendations: Dr. Buchanan to review blood sugar readings. Olga Putnam LPN October 24, 2024 2:03 PM documented in this encounter [facility] 10-24-2024 Note HNO ID: [id number] Author: OLGA PUTNAM LPN Service: ? Author Type: LICENSED NURSE Type: Progress Notes Filed: 10/24/2024 14:05 Note Text: Diabetes in Monitoring MFM Recommendations Katharine Farah is a 33 year old, , [place] 23w1d with Type 2 Diabetes. [facility] Management: Medication controlled Metformin 500mg BID Maternal Medicine Recommendations: Dr. Buchanan to review blood sugar readings. Olga Putnam LPN October 24, 2024 2:03 PM [facility] 10-17-2024 Telephone encounter Note RX originally written by Dr. Buchanan. Patient seen in the office today. Are you able to send in RX for her or do we need to route to Dr. Buchanan? Requested Prescriptions Pending Prescriptions Disp Refills Blood-Glucose Sensor (DEXCOM G7 SENSOR) jonathan 3 each 3 Si device every 10 days. Recent Office Visits - This Specialty None Sheyla Valverde RN [facility] 10-17-2024 Miscellaneous Notes RX originally written by Dr. Buchanan. Patient seen in the office today. Are you able to send in RX for her or do we need to route to Dr. Buchanan? Requested Prescriptions Pending Prescriptions Disp Refills Blood-Glucose Sensor (DEXCOM G7 SENSOR) jonathan 3 each 3 Si device every 10 days. Recent Office Visits - This Specialty None Sheyla Valverde RN documented in this encounter [facility] 10-14-2024 Progress note Formatting of t his note might be different from the original. S: Katharine Farah is a 33 year old female who presents at 02/19/2025, by Last Menstrual Period for a routine visit. Denies headache, visual changes, chest pain, shortness of breath, vaginal bleeding, leakage of fluid, or dysuria. Feeling well, no complaints. O: See flow sheet Gen: No apparent distress Blood sugar controlled with metformin Anatomy completed today ASSESSMENT/PLAN: 1. Multigravida of advanced maternal age in second trimester ([facility]) - ICD9: 659.63, ICD10: O09.522 (primary diagnosis) - URINE OB DIP B/O - OBSTETRIC ULTRASOUND WHI 2. Controlled type 2 diabetes mellitus without complication, without long-term current use of insulin ([facility]) - ICD9: 250.00, ICD10: E11.9 - Controlled - URINE OB DIP B/O - OBSTETRIC ULTRASOUND WHI 3. Late care ([facility]) - ICD9: V23.7, ICD10: O09.30 - URINE OB DIP B/O 4. History of delivery - ICD9: V13.21, ICD10: Z87.51 - URINE OB DIP B/O 5. 21 weeks gestation of ([facility]) - ICD9: V22.2, ICD10: Z3A.21 - URINE OB DIP B/O Sheyla Ellis MD [facility] 10-14-2024 Miscellaneous Notes S: Katharine Farah is a 33 year old female who presents at 02/19/2025, by Last Menstrual Period for a routine visit. Denies headache, visual changes, chest pain, shortness of breath, vaginal bleeding, leakage of fluid, or dysuria. Feeling well, no complaints. O: See flow sheet Gen: No apparent distress Blood sugar controlled with metformin Anatomy completed today ASSESSMENT/PLAN: 1. Multigravida of advanced maternal age in second trimester ([facility]) - ICD9: 659.63, ICD10: O09.522 (primary diagnosis) - URINE OB DIP B/O - OBSTETRIC ULTRASOUND WHI 2. Controlled type 2 diabetes mellitus without complication, without long-term current use of insulin ([facility]) - ICD9: 250.00, ICD10: E11.9 - Controlled - URINE OB DIP B/O - OBSTETRIC ULTRASOUND WHI 3. Late care ([facility]) - ICD9: V23.7, ICD10: O09.30 - URINE OB DIP B/O 4. History of delivery - ICD9: V13.21, ICD10: Z87.51 - URINE OB DIP B/O 5. 21 weeks gestation of ([facility]) - ICD9: V22.2, ICD10: Z3A.21 - URINE OB DIP B/O Sheyla Ellis MD documented in this encounter [facility] 10-14-2024 Instructions Melissa Arredondo MA - 10/14/2024 10:25 AM EDT SEQUENTIAL SCREENINGS The [facility] offers sequential screenings for women who are interested in screenings for chromosomal abnormalities and certain defects during a . The sequential screen combines ultrasound and blood tests to determine the risk of chromosomal abnormalities, including Down's Syndrome (Trisomy 21) and Trisomy 18, as well as open neural tube defects including spina bifida. Ultrasound examination is performed between 11 weeks and 13 weeks gestational age. Blood tests are drawn after the ultrasound and again later in the between 15 and 21 weeks gestational age. Please let your physician know if you are interested in this testing. It will require an appointment with our geotechnical laboratory technician. This is not an ultrasound performed by a physician in our office during a routine visit. SIGNS AND SYMPTOMS OF LABOR 1. Contractions every 10 minutes or more often 2. Clear, pink, or brownish fluid (water) leaking from vagina 3. Feeling that baby is pushing down, pressure 4. Low, dull backache 5. Cramps that feel like a period 6. Cramps with or without diarrhea If you notice any of the above symptoms, contact our office at [phone] and ask to speak with a nurse. After hours, you can call doctors registry at [phone] OR call [facility] at [phone] and ask to have the doctor front office clerk paged. If you consider this an emergency, dial 9-1-1 or go to your nearest emergency department. NEED HELP? Are you dealing with a violent or abusive relationship? Are you a victim of rape or sexual assult? Call [facility] ([place]) 24 hour Crisis Hotline: 524.750.1776 or 961-925-6905. MANUAL Your Guide to a Healthy manual is now on-line. Visit [email or web address] to download your free copy documented in this encounter [facility] 10-10-2024 Note HNO ID: [id number] Author: OLGA PUTNAM LPN Service: ? Author Type: LICENSED NURSE Type: Progress Notes Filed: 10/10/2024 10:03 Note Text: Diabetes in Monitoring [facility] Recommendations Katharine Farah is a 33 year old, , [place] 21w1d with Type 2 Diabetes. [place]- DEXCOM Management: Medication controlled BID with meals Metformin 500 mg Maternal Medicine Recommendations: Dr. Buchanan to review blood sugar readings. Olga Putnam LPN October 10, 2024 10:00 AM [facility] 09-13-2024 Progress note Formatting of t his note might be different from the original. KJ - S: Katharine denies LOF, contractions or vaginal bleeding. O: 17w2d, see flow sheet SENSITIVE EXAM: Sensitive exam not performed. A/P: Assessment & Plan Controlled type 2 diabetes mellitus without complication, without long-term current use of insulin ([facility]) MFM consult today. Dexcom monitor placed and MFM to manage BS. Orders: URINE OB DIP B/O OBSTETRIC ULTRASOUND WHI; Future Multigravida of advanced maternal age in second trimester (HCC) Orders: URINE OB DIP B/O OBSTETRIC ULTRASOUND WHI; Future Brittaney Chauhan MD [facility] 09-13-2024 Miscellaneous Notes KJ - S: Katharine denies LOF, contractions or vaginal bleeding. O: 17w2d, see flow sheet SENSITIVE EXAM: Sensitive exam not performed. A/P: Assessment & Plan Controlled type 2 diabetes mellitus without complication, without long-term current use of insulin ([facility]) MFM consult today. Dexcom monitor placed and MFM to manage BS. Orders: URINE OB DIP B/O OBSTETRIC ULTRASOUND WHI; Future Multigravida of advanced maternal age in second trimester (HCC) Orders: URINE OB DIP B/O OBSTETRIC ULTRASOUND WHI; Future Brittaney Chauhan MD documented in this encounter [facility] 09-13-2024 Note HNO ID: [id number] Author: CRISPIN LAY RN Service: ? Author Type: Registered Nurse Type: Progress Notes Filed: 09/13/2024 11:08 Note Text: DIABETES CARE AND EDUCATION VISIT Location: [place] Type of visit: In person individual PATIENT'S MAIN CONCERN TODAY: Pre-existing type 2 Support person present for education today: none Cognitive ability: Alert and oriented Motivation to learn: Interested Learning barriers identified by educator: none Method of instruction: written, verbal, and demonstration DIABETES FINDINGS: Monitoring: Pingree about Dexcom G7 today Meal Planning: Reviewed basic GDM dietary recommendations Medications: discussed use of insulin in as Problem Solving: Reviewed checking of sugars and reporting to physician Physical Activity: benefits of gentle exercise following meals reviewed HANDOUTS: Healthy You: Diabetes and LEARNING RESPONSE: Monitoring glucose: Demonstrated understanding/competency today or at previous visit POSSIBLE FUTURE TOPICS: 1. DIABETES CARE AND EDUCATION PLAN: Education completed and annual diabetes education follow-up visit recommended Time Spent (Minutes): 30 This visit note will be communicated to the healthcare provider via access to shared medical record. SIGNATURE: Crispin Lay RN PATIENT NAME: Katharine Farah DATE: September 13, 2024 TIME: 10:37 AM [facility] 09-13-2024 History of Presen t illness Narrative DIABETES CARE AND EDUCATION VISIT Location: [place] Type of visit: In person individual PATIENT'S MAIN CONCERN TODAY: Pre-existing type 2 Support person present for education today: none Cognitive ability: Alert and oriented Motivation to learn: Interested Learning barriers identified by educator: none Method of instruction: written, verbal, and demonstration DIABETES FINDINGS: Monitoring: Pingree about Dexcom G7 today Meal Planning: Reviewed basic GDM dietary recommendations Medications: discussed use of insulin in as Problem Solving: Reviewed checking of sugars and reporting to physician Physical Activity: benefits of gentle exercise following meals reviewed HANDOUTS: Healthy You: Diabetes and LEARNING RESPONSE: Monitoring glucose: Demonstrated understanding/competency today or at previous visit POSSIBLE FUTURE TOPICS: 1. DIABETES CARE AND EDUCATION PLAN: Education completed and annual diabetes education follow-up visit recommended Time Spent (Minutes): 30 This visit note will be communicated to the healthcare provider via access to shared medical record. SIGNATURE: Crispin Lay RN PATIENT NAME: Katharine Farah DATE: September 13, 2024 TIME: 10:37 AM documented in this encounter [facility] 09-13-2024 Instructions Radha Coleman MA - 09/13/2024 10:08 AM EDT SEQUENTIAL SCREENINGS The [facility] offers sequential screenings for women who are interested in screenings for chromosomal abnormalities and certain defects during a . The sequential screen combines ultrasound and blood tests to determine the risk of chromosomal abnormalities, including Down's Syndrome (Trisomy 21) and Trisomy 18, as well as open neural tube defects including spina bifida. Ultrasound examination is performed between 11 weeks and 13 weeks gestational age. Blood tests are drawn after the ultrasound and again later in the between 15 and 21 weeks gestational age. Please let your physician know if you are interested in this testing. It will require an appointment with our geotechnical laboratory technician. This is not an ultrasound performed by a physician in our office during a routine visit. SIGNS AND SYMPTOMS OF LABOR 1. Contractions every 10 minutes or more often 2. Clear, pink, or brownish fluid (water) leaking from vagina 3. Feeling that baby is pushing down, pressure 4. Low, dull backache 5. Cramps that feel like a period 6. Cramps with or without diarrhea If you notice any of the above symptoms, contact our office at [phone] and ask to speak with a nurse. After hours, you can call doctors registry at [phone] OR call [facility] at [phone] and ask to have the doctor front office clerk paged. If you consider this an emergency, dial 9-1-1 or go to your nearest emergency department. NEED HELP? Are you dealing with a violent or abusive relationship? Are you a victim of rape or sexual assult? Call [facility] ([place]) 24 hour Crisis Hotline: 746.308.3751 or 445-797-5349. MANUAL Your Guide to a Healthy manual is now on-line. Visit [email or web address] to download your free copy documented in this encounter [facility] 09-12-2024 Note HNO ID: [id number] Author: YOLANDA BUCHANAN MD Service: ? Author Type: Physician Type: Progress Notes Filed: 09/13/2024 11:16 Note Text: Obstetrics AND Gynecology [place] Maternal Medicine Outpatient Visit Type: Maternal Medicine Consult Outpatient Visit Date: September 13, 2024 Service Time: 12:41 PM Requesting Provider: Haylee Sepulveda History of Present Illness: Katharine Farah is 33 year old at 17w2d presenting for consultation with Maternal- Medicine at [facility] in the setting of Pre-existing Diabetes. She had GDM with her previous and was diagnosed with type 2 diabetes between delivery and current . No known complications related to diabetes. History Review Obstetric History T2 L3 SAB0 IAB0 Ectopic0 Multiple0 Live Births3 Name of Baby 1: Abbie Date: 09/01/12 GA: 39w0d Type: Vaginal, Spontaneous Apgar1: Not recorded Apgar5: Not recorded Living: Living Name of Baby 2: Arun Date: 09/23/14 GA: 38w0d Type: Vaginal, Spontaneous Apgar1: Not recorded Apgar5: Not recorded Living: Living Name of Baby 3: Parth Date: 04/11/18 GA: 36w4d Type: Vaginal, Spontaneous Apgar1: Not recorded Apgar5: Not recorded Living: Living Name of Baby 4: Not recorded Date: Not recorded GA: Not recorded Type: Not recorded Apgar1: Not recorded Apgar5: Not recorded Living: Not recorded PAST MEDICAL HISTORY Diagnosis Date Diabetes mellitus (HCC) Gestational diabetes (HCC) History reviewed. No pertinent surgical history. Current Outpatient Medications Medication Instructions aspirin, enteric coated (ECOTRIN LOW STRENGTH) 81 mg, ORAL, DAILY Blood-Glucose Sensor (DEXCOM G7 SENSOR) jonathan 1 Device, Miscell. (Med.Supl.;Non-Drugs), EVERY 10 DAYS metFORMIN (GLUCOPHAGE) 500 mg, 2 TIMES DAILY W/MEALS ondansetron orally disintegrating (ZOFRAN ODT) 4 mg disintegrating tablet Dissolve 1 tablet (4 mg) in the mouth every 8 hours if needed for nausea or vomiting. PNV no.103/folic/om3s/fish oil ( WITH DHA-FOLIC ACID ORAL) Take by mouth. ALLERGIES Allergen Reactions Penicillins Hives, Swelling Childhood reaction FAMILY HISTORY Problem Relation Age of Onset Hypertension Mother Heart Father bypass surgery 2019 Asthma Sister other (tumor-benign ear) Sister Diabetes Maternal Grandmother Lung Cancer Maternal Grandfather Heart Paternal Grandmother Melanoma Paternal Grandfather Social History Tobacco Use Smoking status: Never Smokeless tobacco: Never Vaping Use Vaping status: Never Used Substance Use Topics Alcohol use: Not Currently Comment: rarely Drug use: Never Review of Systems: The patient denies bleeding, leakage of fluid, contractions, back pain, nausea, heartburn, headache, SOB, chest pain, and palpitations. BP: 130/80, Weight: 199 lb 3.2 oz (90.4 kg) Body mass index is 34.19 kg/m?. Physical Exam: Gen: Well appearing, in no acute distress. Lungs: Non-labored breathing on room air Abd: Abdomen soft, non-tender during US exam SVE: Deferred SSE:Deferred Legs: Moving spontaneously, no significant bilateral edema. Labs: Most recent labs reviewed. Labs within 120 days: WBC Date Value Ref Range Status 09/08/2024 6.83 3.70 - 11.00 k/uL Final Hemoglobin Date Value Ref Range Status 09/08/2024 12.5 11.5 - 15.5 g/dL Final Hematocrit Date Value Ref Range Status 09/08/2024 36.9 36.0 - 46.0 % Final Platelet Count Date Value Ref Range Status 09/08/2024 220 150 - 400 k/uL Final Hemoglobin A1C Date Value Ref Range Status 09/08/2024 6.2 (H) 4.3 - 5.6 % Final Comment: [employer] guidelines indicate that patients with HgbA1c in the range 5.7-6.4% are at increased risk for development of diabetes, and intervention by lifestyle modification may be beneficial. HgbA1c greater or equal to 6.5% is considered diagnostic of diabetes. Estimated Average Glucose Date Value Ref Range Status 09/08/2024 131 mg/dL Final Comment: eAG: (Estimated average glucose) is a calculated value from HgbA1c and 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 Assessment and Plan: 33 year old at 17w2d with the following issues. Please see my counseling and recommendations documented in problem-based charting below. Preconceptual/first trimester A1c is closely related to miscarriage risk as well as congenital malformation risk, most specifically of the central nervous and cardiovascular systems. Risks of the diabetic were reviewed including (but not limited to) growth disturbance (most commonly, large babies), increased risk of preeclampsia (especially with a diagnosis of preexisting hypertension or nephropathy), possible delivery for macrosomia, in addition to the possibility of intrauterine demise (this risk is decreased significantly, but not completely, with optimal glucose control and (more content not included)... [facility] 09-12-2024 History of Presen t illness Narrative Obstetrics & Gynecology [place] [facility]aternal Medicine Outpatient Visit Type: Maternal Medicine Consult Outpatient Visit Date: September 13, 2024 Service Time: 12:41 PM Requesting Provider: Haylee Sepulveda History of Present Illness: Katharine Farah is 33 year old at 17w2d presenting for consultation with Maternal- Medicine at [facility] in the setting of Pre-existing Diabetes. She had GDM with her previous and was diagnosed with type 2 diabetes between delivery and current . No known complications related to diabetes. History Review Obstetric History T2 L3 SAB0 IAB0 Ectopic0 Multiple0 Live Births3 Name of Baby 1: Abbie Date: 09/01/12 GA: 39w0d Type: Vaginal, Spontaneous Apgar1: Not recorded Apgar5: Not recorded Living: Living Name of Baby 2: Arun Date: 09/23/14 GA: 38w0d Type: Vaginal, Spontaneous Apgar1: Not recorded Apgar5: Not recorded Living: Living Name of Baby 3: Parth Date: 04/11/18 GA: 36w4d Type: Vaginal, Spontaneous Apgar1: Not recorded Apgar5: Not recorded Living: Living Name of Baby 4: Not recorded Date: Not recorded GA: Not recorded Type: Not recorded Apgar1: Not recorded Apgar5: Not recorded Living: Not recorded PAST MEDICAL HISTORY Diagnosis Date Diabetes mellitus (HCC) Gestational diabetes (HCC) History reviewed. No pertinent surgical history. Current Outpatient Medications Medication Instructions aspirin, enteric coated (ECOTRIN LOW STRENGTH) 81 mg, ORAL, DAILY Blood-Glucose Sensor (DEXCOM G7 SENSOR) jonathan 1 Device, Miscell. (Med.Supl.;Non-Drugs), EVERY 10 DAYS metFORMIN (GLUCOPHAGE) 500 mg, 2 TIMES DAILY W/MEALS ondansetron orally disintegrating (ZOFRAN ODT) 4 mg disintegrating tablet Dissolve 1 tablet (4 mg) in the mouth every 8 hours if needed for nausea or vomiting. PNV no.103/folic/om3s/fish oil ( WITH DHA-FOLIC ACID ORAL) Take by mouth. ALLERGIES Allergen Reactions Penicillins Hives, Swelling Childhood reaction FAMILY HISTORY Problem Relation Age of Onset Hypertension Mother Heart Father bypass surgery 2019 Asthma Sister other (tumor-benign ear) Sister Diabetes Maternal Grandmother Lung Cancer Maternal Grandfather Heart Paternal Grandmother Melanoma Paternal Grandfather Social History Tobacco Use Smoking status: Never Smokeless tobacco: Never Vaping Use Vaping status: Never Used Substance Use Topics Alcohol use: Not Currently Comment: rarely Drug use: Never Review of Systems: The patient denies bleeding, leakage of fluid, contractions, back pain, nausea, heartburn, headache, SOB, chest pain, and palpitations. BP: 130/80, Weight: 199 lb 3.2 oz (90.4 kg) Body mass index is 34.19 kg/m . Physical Exam: Gen: Well appearing, in no acute distress. Lungs: Non-labored breathing on room air Abd: Abdomen soft, non-tender during US exam SVE: Deferred SSE:Deferred Legs: Moving spontaneously, no significant bilateral edema. Labs: Most recent labs reviewed. Labs within 120 days: WBC Date Value Ref Range Status 09/08/2024 6.83 3.70 - 11.00 k/uL Final Hemoglobin Date Value Ref Range Status 09/08/2024 12.5 11.5 - 15.5 g/dL Final Hematocrit Date Value Ref Range Status 09/08/2024 36.9 36.0 - 46.0 % Final Platelet Count Date Value Ref Range Status 09/08/2024 220 150 - 400 k/uL Final Hemoglobin A1C Date Value Ref Range Status 09/08/2024 6.2 (H) 4.3 - 5.6 % Final Comment: [place] Diabetes [employer] guidelines indicate that patients with HgbA1c in the range 5.7-6.4% are at increased risk for development of diabetes, and intervention by lifestyle modification may be beneficial. HgbA1c greater or equal to 6.5% is considered diagnostic of diabetes. Estimated Average Glucose Date Value Ref Range Status 09/08/2024 131 mg/dL Final Comment: eAG: (Estimated average glucose) is a calculated value from HgbA1c and 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 Assessment and Plan: 33 year old at 17w2d with the following issues. Please see my counseling and recommendations documented in problem-based charting below. Preconceptual/first trimester A1c is closely related to miscarriage risk as well as congenital malformation risk, most specifically of the central nervous and cardiovascular systems. Risks of the diabetic were reviewed including (but not limited to) growth disturbance (most commonly, large babies), increased risk of preeclampsia (especially with a diagnosis of preexisting hypertension or nephropathy), possible delivery for macrosomia, in addition to the possibility of intrauterine demise (this risk is decreased significantly, but not completely, with optimal glucose control and compliance with testing). Risks to the patient's , including possible intensive care unit stay, hypoglycemia, jaundice, metabolic abnormalities and respiratory complications were reviewed, all less likely with optimal glucose control and delivery at term gestation. The need to perform fingerstick self monitoring of fasting, pre-meal and 1 hour post-meal glucoses were reviewed with the patient. Targets for blood glucose control including fasting 60-95, preprandial 60-100 and 1 hour postprandial <140 were emphasized. She was advised to send her glucose log weekly for review. She has been taking glucoses intermittently with some elevations although mostly seem to be within goal range. We discussed option of CGM if possible, she is interested in this option to consistently monitor glucose levels for goal control. She was counseled regarding the need for increased surveillance in a affected by diabetes including early dating of the and an anatomic survey and echocardiogram. We reviewed the need for serial growth scans beginning at 24 weeks to assess growth as well as twice weekly testing beginning at 32 weeks. Delivery at 39 weeks is recommended, unless co-morbid complications arise. Mode of delivery will be based on standard obstetrical practices. Given her history of 36 week delivery, we discussed the option of cervical length screening with discussion of vaginal progesterone if TVCL < 25 mm. TV cervix normal today, patient interested in additional screening with anatomy ultrasound at 20 weeks. We also discussed increasing to two low-dose aspirin (162 mg) nightly for preeclampsia risk reduction. The need to return to the patient's diabetic primary care provider in the 4-6 weeks following their delivery is recommended. Problem List Items Addressed This Visit Endocrinology Controlled type 2 diabetes mellitus without complication, without long-term current use of insulin ([facility]) - Primary Overview Metformin Hgb A1c 6.2 - 09/08/2024 Current Assessment & Plan Dexcom ordered today will check glucoses weekly Detailed anatomy ultrasound with cervical length around 20 weeks echocardiogram 22-24 weeks Monthly growth ultrasounds third trimester testing 32 weeks Delivery 39 weeks unless indicated earlier Relevant Orders CONSULT TO OPHTHALMOLOGY CUSTOMER SERVICE LEADER History of delivery Overview 08/11/24- History of delivery at 36.4 weeks gestation with last delivery in 2018. Haylee Sepulveda APRN.MO Current Assessment & Plan TV cervix normal today Cervical length at 20 weeks with anatomy ultrasound Other Multigravida of advanced maternal age in second trimester (HCC) Overview Negative NIPT Other Visit Diagnoses 17 weeks gestation of (HCC) Patient should continue care with her general OBGYN, please re consult should new issues or questions arise. I spent a total of 55 minutes on the date of the service which included preparing to see the patient, [id number] patient care, completing clinical documentation, counseling and educating the patient/family/caregiver, ordering medications, tests, or procedures, and communicating results to the patient/family/caregiver. Consultation requested by Haylee Sepulveda CNM for an opinion regarding type 2 diabetes in pregancy. My final recommendations will be communicated back to the requesting physician by way of shared Medical record or letter to requesting physician via [place] mail. I shared my findings and recommendations via the shared medical record or via the mail to the referring provider. Yolanda Buchanan MD documented in this encounter [facility] 08-11-2024 Progress note Formatting of t his note might be different from the original. Patient is at 12.2 weeks gestation here for NOB. Patient recently found out she was . Type 2 DM on Metformin. History of delivery at 36.4 weeks gestation with last . See progress note. Haylee Sepulveda APRN.CNM [facility] 08-11-2024 Miscellaneous Notes Patient is at 12.2 weeks gestation here for NOB. Patient recently found out she was . Type 2 DM on Metformin. History of delivery at 36.4 weeks gestation with last . See progress note. Haylee Sepulveda APRN.CNM documented in this encounter [facility] 08-11-2024 Nas Carter MA - 08/11/2024 8:47 AM EST Please select the following link to access the [facility] Your Guide to a Healthy . [email or web address] documented in this encounter [facility] 08-11-2024 Note HNO ID: [id number] Author: NAS KEATING MA Service: ? Author Type: Video Recorder Mechanic Type: Progress Notes Filed: 08/11/2024 12:43 Note Text: OB point of care ultrasound was performed. See imaging tab for details. Nas Keating MA [facility] 08-11-2024 History of Presen t illness Narrative OB point of care ultrasound was performed. See imaging tab for details. Nas Keating MA *Patient is 33 years old. This is an unplanned . States she recently found out on July 25 that she was and was seen at the [facility] center on July 28. Information on screening for chromosomal abnormalities given to patient. Patient declines NIPT. *Patient considering genetic carrier screening testing. Contact information for [facility] carrier screening testing given the patient. *Patient delivered her last child at 36 weeks. She presented to hospital in labor with spontaneous rupture of membranes. Her 2 other children were born term *Patient diagnosed with diabetes in 2023 and treated by Patricia Mendoza at in [place]. She states that her primary care is aware that she is . Currently taking her blood sugars every other day. I have advised her on the importance of taking her blood sugars every day and bringing them to each and every appointment. Patient states she had gestational diabetes with her last . She is open to seeing nurse educator here in [place]. *Patient states she has a history of fast labors. She reports her first delivery was 1-1/2 hours, second delivery 45 minutes total and last delivery 17 minutes INITIAL OB ASSESSMENT HPI: Katharine is a 33 year old White here to establish Obstetrical Care. Patient's last menstrual period was 05/15/2024 (approximate). from OB Dating Form. was unplanned but accepted Complaints: (!) Rash or viral illness (had flu like symptoms in june) OB History Gravida4 Para3 Term2 Preterm1 AB0 Living3 SAB0 IAB0 Ectopic0 Multiple0 Live Births3 Previous history: Prior : never History of 4th degree laceration: No History of shoulder dystocia: No History of Hypertensive disorders including pre-eclampsia or gestational hypertension: No History of gestational diabetes: Yes Patient's Risk Screening for delivery: Have you had a prior bejarano between 20w and 36w6d? (!) Yes How many pregnancies have you had before? 3 Did you have a previous baby with a GBS Infection? No Please select all that apply for any prior : N/A MEDICAL/PSYCHOSOCIAL HISTORY: History of hemorrhage or bleeding concerns: No Thyroid Disease: No History of chronic hypertension: No History of pre-existing diabetes: Yes No results found for: ABORHD No weight on file for this encounter. Last Pap: History of abnormal pap: No Prior treatment for cervical dysplasia: none. Last HPV: History of STDs: None Partner History of STDs: None Did you have a partner with Herpes? No Tobacco use: No E-Cigarette/Vaping Use: No Caffeine use: Yes drinks soda 3-4 times a week Drug use: No Alcohol use: No Multivitamin with Folic acid: Yes Would refuse blood transfusion if medically necessary: No Social Needs: How often does this describe you? I don't have enough money to pay my bills: Never Within the past 12 months, have you worried that your food would run out before you had money to buy more? Never In the past 12 months, has lack of reliable transportation kept you from going to medical appointments or work, or from getting things needed for daily living? Never In the past 12 months, have you had any concerns about having a place to live, or about the condition or quality of your housing? Never Would you like more information on any of the following (please check all that apply)? Not interested Social History: Do you have any history of depression, anxiety, PTSD, or other mood problems? No Do you have a history of abuse or trauma that may impact your experience? No Are you currently employed? Yes Depression/Anxiety Screening: denies symptoms of depression. OB Depression and Anxiety Screening- This Encounter (since 08/09/2024) Over the past 2 weeks have you felt down, depressed, or hopeless? Negative Over the past two weeks, have you felt little interest or pleasure in doing things? Negative Feeling nervous, anxious or on edge 1-Several days Not being able to stop or control worrying 0-Not al all Anxiety Pre-Screening Total (If >/= 3 additional questions will be reviewed) 1 Genetic Screening: Partner present: No Patient verbalized knowledge of partner family health history: Yes Do you or your partner have any personal or family history of defects not previously discussed: No Do you have history of a complicated by anomaly, genetic condition, or demise: No Preeclampsia Risk Screening: Screening for prevention of preeclampsia: High risk factors: Type I or II diabetes mellitus Moderate risk ractors: Obesity (body mass index greater than 30) and Age 35 years or older OB Risk Screening: Completed, positive findings include: Patient answered 'Yes' they had a prior bejarano between 20w and 36w6d. Marital Status:Committed relationship-20 years, he is the father of all her children Partner: Name: Gokul Canada Age: 36 Occupation: [employer] Gender: Male PAST MEDICAL HISTORY Diagnosis Date Diabetes mellitus (HCC) Gestational diabetes History reviewed. No pertinent surgical history. Current Outpatient Medications Medication Sig Dispense Refill metFORMIN (GLUCOPHAGE) 500 mg tablet Take 500 mg by mouth two times a day with meals. Has RX for 1000mg BID to ondansetron orally disintegrating (ZOFRAN ODT) 4 mg disintegrating tablet Dissolve 1 tablet (4 mg) in the mouth every 8 hours if needed for nausea or vomiting. PNV no.103/folic/om3s/fish oil ( WITH DHA-FOLIC ACID ORAL) Take by mouth. No current facility-administered medications for this visit. Allergies As of Date: 08/11/2024 Allergen Noted Reaction PENICILLINS 08/10/2024 Hives and Swelling reviewed none Does patient have penicillin allergy: Yes, plan for allergy testing. REVIEW OF SYSTEMS: GENERAL: Negative for: Fever or Chills HEENT: Negative for: Headache, Impaired Vision, Ringing in Ears, Nosebleeds NECK: Negative for: Swelling, Pain, Stiffness RESPIRATORY: Negative for: Cough, Shortness of breath, Wheezing GASTROINTESTINAL: Negative for: Heartburn, Constipation, Diarrhea, Blood in stool, Vomiting MUSCULOSKELETAL: Negative for: Muscle or joint pain, stiffness, Joint swelling NEUROLOGIC/PSYCHIATRIC: Negative for: Weakness, Paralysis, Numbness, Tingling, Tremor, Anxiety, Depression, Memory loss SKIN: Negative for: Rash, Itching GENITOURINARY: Negative for: vaginal itching, vaginal discharge, hematuria or dysuria SENSITIVE EXAM: The sensitive examination was discussed with the Patient or Patient's Authorized Bible Worker. As applicable, any other physician, advance practice provider, medical student, or other health professional student that will be observing or involved in the sensitive examination for educational or training purposes was discussed with the Patient or Authorized Bible Worker. The Patient or Authorized Bible Worker has agreed to proceed with the sensitive examination. (Sensitive examination includes inspection and/or palpation of the breasts, pelvis, prostate and anorectal regions). PHYSICAL EXAM: BP 124/80 Ht 5' 4 (1.63m) Wt 197 lb (89.4kg) LMP 05/15/2024 BMI 33.80 kg/(m^2). GENERAL: pleasant in no apparent distress DERMATOLOGY: Normal and without lesions NECK: Supple, full range of motion, and no adenopathy CHEST: Normal inspiratory effort BREAST: soft, non-tender, symmetric, no dominant mass, normal nipple-areolar complex, no lymphadenopathy, no nipple discharge, fibrocystic changes, and dark mole noted to left breast under areola. Recommended patient see dermatology to monitor / possible removal ABDOMEN: soft, non-tender, and no masses NEURO: alert and oriented x3,exam grossly non-focal PELVIS: External genitalia normal without lesions. Perineal body intact. No vaginal or cervical lesions. Scant bleeding with exam. Cervix closed. Clinical Pelvimetry: Pelvimetry clinically assessed as adequate Limited OB ultrasound exam: single intrauterine , positive cardiac activity, and crown-rump length [id number] SBIRT Katharine Farah was given the 4P's screening tool. Katharine answered No to all the questions, the result is determined to be negative. ASSESSMENT: 33 year old at 12w3d wks gestational age PLAN: 1) Patient oriented to practice. Discussed nutrition, folic acid supplementation, dietary guidelines, exercise, smoking, alcohol, caffeine, and drug use. Discussed gestational weight gain guidelines. Discussed routine OB labs including STD/HIV. Discussed how to access Your guide to a health and the Electrical Inspector. Patient has penicillin allergy, plan for allergy testing. Reviewed midwifery and still operator helper services that are available. 2) Screening: Hemoglobin A1C: ordered Baby Aspirin: The patient has been counseled about the potential benefits of low dose aspirin in and our recommendation that this be offered to all patients, regardless of whether they meet the high risk criteria specified above. She Accepts Aneuploidy Screening: Discussed aneuploidy screening, nuchal translucency/first trimester early anatomy ultrasound and NIPT. The risks/benefits and limitations of NIPT/aneuploidy screening were reviewed including the potential for false negative and false positive results. The availability of genetic counseling was reviewed. Information on aneuploidy screening was provided. The patient declines screening Myriad Carrier Screening: Discussed myriad carrier screening. We discussed the availability of professional-society guided carrier screening and reviewed the conditions screened and limitations of screening. The availability of genetic counseling was reviewed. Information on carrier screening was provided. The patient Declines 3) Patient offered option of Virtual Visits. Patient prefers in person visits. 4) History of . Will order MFM consult for further discussion. History of diabetes: GDM A2 Type 2 Diabetes Follow up in 4 weeks for early anatomy / MFM consult or sooner prn. Haylee Sepulveda APRN.CNM documented in this encounter [facility] 08-10-2024 Note HNO ID: [id number] Author: HAYLEE SEPULVEDA APRN.CNM Service: ? Author Type: Field Service Analyst Type: Progress Notes Filed: 08/11/2024 12:43 Note Text: *Patient is 33 years old. This is an unplanned . States she recently found out on July 25 that she was and was seen at the [facility] center on July 28. Information on screening for chromosomal abnormalities given to patient. Patient declines NIPT. *Patient considering genetic carrier screening testing. Contact information for [facility] carrier screening testing given the patient. *Patient delivered her last child at 36 weeks. She presented to hospital in labor with spontaneous rupture of membranes. Her 2 other children were born term *Patient diagnosed with diabetes in 2023 and treated by Patricia Mendoza at in [place]. She states that her primary care is aware that she is . Currently taking her blood sugars every other day. I have advised her on the importance of taking her blood sugars every day and bringing them to each and every appointment. Patient states she had gestational diabetes with her last . She is open to seeing nurse educator here in [place]. *Patient states she has a history of fast labors. She reports her first delivery was 1-1/2 hours, second delivery 45 minutes total and last delivery 17 minutes INITIAL OB ASSESSMENT HPI: Katharine is a 33 year old White here to establish Obstetrical Care. Patient's last menstrual period was 05/15/2024 (approximate). from OB Dating Form. was unplanned but accepted Complaints: (!) Rash or viral illness (had flu like symptoms in june) OB History Gravida4 Para3 Term2 Preterm1 AB0 Living3 SAB0 IAB0 Ectopic0 Multiple0 Live Births3 Previous history: Prior : never History of 4th degree laceration: No History of shoulder dystocia: No History of Hypertensive disorders including pre-eclampsia or gestational hypertension: No History of gestational diabetes: Yes Patient's Risk Screening for delivery: Have you had a prior bejarano between 20w and 36w6d? (!) Yes How many pregnancies have you had before? 3 Did you have a previous baby with a GBS Infection? No Please select all that apply for any prior : N/A MEDICAL/PSYCHOSOCIAL HISTORY: History of hemorrhage or bleeding concerns: No Thyroid Disease: No History of chronic hypertension: No History of pre-existing diabetes: Yes No results found for: ABORHD No weight on file for this encounter. Last Pap: History of abnormal pap: No Prior treatment for cervical dysplasia: none. Last HPV: History of STDs: None Partner History of STDs: None Did you have a partner with Herpes? No Tobacco use: No E-Cigarette/Vaping Use: No Caffeine use: Yes drinks soda 3-4 times a week Drug use: No Alcohol use: No Multivitamin with Folic acid: Yes Would refuse blood transfusion if medically necessary: No Social Needs: How often does this describe you? I don't have enough money to pay my bills: Never Within the past 12 months, have you worried that your food would run out before you had money to buy more? Never In the past 12 months, has lack of reliable transportation kept you from going to medical appointments or work, or from getting things needed for daily living? Never In the past 12 months, have you had any concerns about having a place to live, or about the condition or quality of your housing? Never Would you like more information on any of the following (please check all that apply)? Not interested Social History: Do you have any history of depression, anxiety, PTSD, or other mood problems? No Do you have a history of abuse or trauma that may impact your experience? No Are you currently employed? Yes Depression/Anxiety Screening: denies symptoms of depression. OB Depression and Anxiety Screening- This Encounter (since 08/09/2024) Over the past 2 weeks have you felt down, depressed, or hopeless? Negative Over the past two weeks, have you felt little interest or pleasure in doing things?? Negative Feeling nervous, anxious or on edge 1-Several days Not being able to stop or control worrying 0-Not al all Anxiety Pre-Screening Total (If >/= 3 additional questions will be reviewed) 1 Genetic Screening: Partner present: No Patient verbalized knowledge of partner family health history: Yes Do you or your partner have any personal or family history of defects not previously discussed: No Do you have history of a complicated by anomaly, genetic condition, or demise: No Preeclampsia Risk Screening: Screening for prevention of preeclampsia: High risk factors: Type I or II diabetes mellitus Moderate risk ractors: Obesity (body mass index greater than 30) and Age 35 years or older OB Risk Screening: Completed, positive (more content not included)... [facility] 08-10-2024 Telephone encounter Note Patient agreeable for callback today at 11am [facility] 08-10-2024 Miscellaneous Notes Patient agreeable for callback today at 11am Attempted to contact patient to go over new ob intake questions. Patient identified by using phone number listed in chart. No answer but did leave a voicemail. Will attempt to call patient back. Mary Jane Bernal MA documented in this encounter [facility] 08-09-2024 Telephone encounter Note Attempted to contact patient to go over new ob intake questions. Patient identified by using phone number listed in chart. No answer but did leave a voicemail. Will attempt to call patient back. Mary Jane Bernal MA [facility] 07-25-2024 History of Presen t illness Narrative Subjective Patient ID: Katharine Farah is a 33 y.o. female who presents for follow up . HPI Patient is here today for follow up Patient and physician are at two separate locations. Pt was verbally consented for the encounter. Pt reports that she was experiencing feeling off the last few days, was nauseas and she really had not felt that way prior just associated with the ozempic. Patient just took a pregnacny test and it was positive. She is not sure that she had a period in June so is not sure how far along she might be, has not started taking a yet as she just found out. Patient has to find a new vp communications. Review of Systems HENT: Negative for congestion, hearing loss, sinus pressure, sneezing and sore throat. Gastrointestinal: Negative for abdominal distention and abdominal pain. Genitourinary: +missed period Objective There were no vitals taken for this visit. Physical Exam No physical exam was completed due to telephone visit. 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 , just found out now sure how far along she is -recommend stop ozempic as above - start selin - recommend [facility], that's who she saw previously, is going to call to schedule Pt aware that I am leaving at the end of Aug 09. Final diagnoses: [E11.9] Type 2 diabetes mellitus without complication, without long-term current use of insulin (Multi) [Z3A.01] Less than 8 weeks gestation of ([facility]) documented in this encounter [facility] Work Phone: 05-30-2024 History of Presen t illness Narrative Subjective Patient ID: Katharine Farah is a 33 y.o. female who presents for Follow-up (3 month). HPI Patient is here today for 3 mo follow up Pt reports that she has been doing ok, will order updated A1c. Last A1c was 8.2%. Review of Systems Constitutional: Negative for fatigue. Respiratory: Negative for cough, shortness of breath and wheezing. Cardiovascular: Negative for chest pain and leg swelling. Gastrointestinal: Negative for abdominal distention. Objective BP 132/77 Pulse 65 Ht 1.6 m (5' 3) Wt 90.7 kg (200 lb) BMI 35.43 kg/m Physical Exam Constitutional: General: She is not in acute distress. Appearance: Normal appearance. HENT: Head: Normocephalic. Nose: Nose normal. Mouth/Throat: Pharynx: No oropharyngeal exudate. Eyes: General: Right eye: No discharge. Left eye: No discharge. Extraocular Movements: Extraocular movements intact. Pupils: Pupils are equal, round, and reactive to light. Cardiovascular: Rate and Rhythm: Normal rate and regular rhythm. Heart sounds: No murmur heard. No gallop. Pulmonary: Effort: Pulmonary effort is normal. No respiratory distress. Breath sounds: Normal breath sounds. No wheezing. Musculoskeletal: General: No swelling. Normal range of motion. Skin: General: Skin is warm and dry. Coloration: Skin is not jaundiced. Neurological: General: No focal deficit present. Mental Status: She is alert and oriented to person, place, and time. Cranial Nerves: No cranial nerve deficit. Psychiatric: Mood and Affect: Mood normal. Behavior: Behavior normal. 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 If she finds someone else to get established with in the meantime, can cancel the appt. Final diagnoses: [E11.9] Type 2 diabetes mellitus without complication, without long-term current use of insulin (Multi) documented in this encounter [facility] Work Phone: 02-22-2024 History of Presen t illness Narrative Subjective Patient ID: Katharine Farah is a 33 y.o. female who presents for Diabetes (Discuss medications /Pt states she has not been taking her metformin/Would like to get back on track ). Diabetes She has type 2 diabetes mellitus. No MedicAlert identification noted. The initial diagnosis of diabetes was made 1 years ago. Hypoglycemia symptoms include headaches and nervousness/anxiousness. Pertinent negatives for hypoglycemia include no confusion, dizziness, hunger, mood changes, pallor, seizures, sleepiness, speech difficulty, sweats or tremors. Associated symptoms include fatigue. Pertinent negatives for hypoglycemia complications include no blackouts, no hospitalization, no nocturnal hypoglycemia, no required assistance and no required glucagon injection. Pertinent negatives for diabetic complications include no CVA, heart disease, impotence, nephropathy, peripheral neuropathy, PVD or retinopathy. Risk factors for coronary artery disease include family history, obesity and stress. When asked about current treatments, none were reported. She is compliant with treatment none of the time. Her weight is fluctuating minimally. She has not had a previous visit with a dietitian. She participates in exercise intermittently. Her breakfast blood glucose is taken between 6-7 am. Her lunch blood glucose is taken between 12-1 pm. Her dinner blood glucose is taken between 6-7 pm. Her bedtime blood glucose is taken between 10-11 pm. She does not see a back stayer.Eye exam is not current. Patient is here today for DMII Pt reports that she was diagnosed with DMII and was supposed to be on metformin but she ran out of it and has not been back. A1c was 8.2% in 10/05. She is having polyuria and polydypsia. Review of Systems Constitutional: Positive for fatigue. Genitourinary: Negative for impotence. Skin: Negative for pallor. Neurological: Positive for headaches. Negative for dizziness, tremors, seizures and speech difficulty. Psychiatric/Behavioral: Negative for confusion. The patient is nervous/anxious. Objective BP 139/85 Pulse 60 Ht 1.6 m (5' 3) Wt 93 kg (205 lb) BMI 36.31 kg/m Physical Exam Constitutional: General: She is not in acute distress. Appearance: Normal appearance. HENT: Head: Normocephalic. Nose: Nose normal. Mouth/Throat: Pharynx: No oropharyngeal exudate. Eyes: General: Right eye: No discharge. Left eye: No discharge. Extraocular Movements: Extraocular movements intact. Pupils: Pupils are equal, round, and reactive to light. Cardiovascular: Rate and Rhythm: Normal rate and regular rhythm. Heart sounds: No murmur heard. No gallop. Pulmonary: Effort: Pulmonary effort is normal. No respiratory distress. Breath sounds: Normal breath sounds. No wheezing. Abdominal: General: Bowel sounds are normal. There is no distension. Palpations: Abdomen is soft. Tenderness: There is no abdominal tenderness. Musculoskeletal: General: No swelling. Normal range of motion. Cervical back: Neck supple. No tenderness. Skin: General: Skin is warm and dry. Coloration: Skin is not jaundiced. Neurological: General: No focal deficit present. Mental Status: She is alert and oriented to person, place, and time. Cranial Nerves: No cranial nerve deficit. Psychiatric: Mood and Affect: Mood normal. Behavior: Behavior normal. 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 female who presents for Establish Care (NPV/ CHECK-UP/Pt reports the last time she was at a doctor she was told she was a pre-diabetic (3 years ago)/Requesting labs) and Heartburn (Pt states she had an episode about 3 weeks ago/She though it was turning into chest pain which have her anxiety and she had a mild panic attack). Heartburn She complains of heartburn. She reports no abdominal pain, no chest pain, no coughing, no nausea or no sore throat. Pertinent negatives include no fatigue. Patient is a 31 y.o. female patient who is here today to establish care. Patient reports that a few years ago she was told that she was pre-diabetic so overdue for labs. Patient reports that she works at a [employer] and she had some chest pressure, thought maybe it was gerd, was not experiencing anxiety at work. It has not happened since and it self resolved on its own without any intervention. Review of Systems Constitutional: Negative for activity change, appetite change, fatigue, fever and unexpected weight change. HENT: Negative for congestion, ear discharge, ear pain, nosebleeds, postnasal drip, rhinorrhea, sinus pressure, sneezing, sore throat, tinnitus and trouble swallowing. Eyes: Negative for discharge. Respiratory: Negative for cough and shortness of breath. Cardiovascular: Negative for chest pain. Gastrointestinal: Positive for heartburn. Negative for abdominal distention, abdominal pain, blood in stool, constipation, diarrhea, nausea and vomiting. Endocrine: Negative for cold intolerance. Genitourinary: Negative for dysuria and frequency. Musculoskeletal: Negative for arthralgias, back pain and neck pain. Skin: Negative for rash. Neurological: Negative for dizziness, weakness, numbness and headaches. Psychiatric/Behavioral: Negative for hallucinations. The patient is not nervous/anxious. Objective BP 124/80 (BP Location: Right arm, Patient Position: Sitting, BP Cuff Size: Adult) Pulse 57 Ht 1.6 m (5' 3) Wt 91.6 kg (202 lb) BMI 35.78 kg/m Physical Exam Constitutional: General: She is not in acute distress. Appearance: Normal appearance. She is not toxic-appearing. HENT: Head: Normocephalic and atraumatic. Right Ear: Tympanic membrane, ear canal and external ear normal. Left Ear: Tympanic membrane, ear canal and external ear normal. Nose: Nose normal. Mouth/Throat: Mouth: Mucous membranes are moist. Pharynx: Oropharynx is clear. Eyes: Extraocular Movements: Extraocular movements intact. Conjunctiva/sclera: Conjunctivae normal. Pupils: Pupils are equal, round, and reactive to light. Cardiovascular: Rate and Rhythm: Normal rate and regular rhythm. Heart sounds: No murmur heard. No friction rub. No gallop. Pulmonary: Effort: Pulmonary effort is normal. Breath sounds: Normal breath sounds. Abdominal: General: Bowel sounds are normal. There is no distension. Palpations: Abdomen is soft. There is no mass. Tenderness: There is no abdominal tenderness. There is no guarding. Musculoskeletal: General: No swelling. Normal range of motion. Cervical back: Normal range of motion. Skin: General: Skin is warm and dry. Neurological: General: No focal deficit present. Mental Status: She is alert and oriented to person, place, and time. Psychiatric: Mood and Affect: Mood normal. Thought Content: Thought content normal. Judgment: Judgment normal. Flu shots declines COVID: declines Pap: 2020 Assessment/Plan Problem List Items Addressed This Visit None Visit Diagnoses Screening for lipid disorders - Primary Relevant Orders Lipid Panel Wellness examination Relevant Orders Comprehensive Metabolic Panel CBC and Auto Differential Chest pain, unspecified type Relevant Orders TSH with reflex to Free T4 if abnormal Pre-diabetes Relevant Orders Hemoglobin A1C 1 One episode of chest pain, possibly anxiety, vs gerd, indigestion doubt cardiac, no palpitations, or other concerning symptoms - will check cbc, cmp, tsh 2. Screening lipid panel 3. Hx of pre-diabetic - will check a1c Final diagnoses: [Z13.220] Screening for lipid disorders [Z00.00] Wellness examination [R07.9] Chest pain, unspecified type [R73.03] Pre-diabetes documented in this encounter [facility] Work Phone: Evaluation note Diagnosis Screening for lipid disorders- Primary Wellness examination Chest pain, unspecified type Pre-diabetes Other abnormal glucose documented in this encounter [facility] Work Phone: Evaluation note* Diagnosis Type 2 diabetes mellitus without complication, without long-term current use of insulin (Multi)- Primary documented in this encounter [facility] Work Phone: Evaluation note* Diagnosis Wellness examination- Primary Type 2 diabetes mellitus without complication, without long-term current use of insulin (Multi) documented in this encounter [facility] Work Phone: Evaluation note* Diagnosis Less than 8 weeks gestation of ([facility])- Primary Type 2 diabetes mellitus without complication, without long-term current use of insulin (Multi) documented in this encounter [facility] Work Phone: Evaluation note* Diagnosis with uncertain dates in first trimester- Primary Encounter for screening for malignant neoplasm of cervix Screening for malignant neoplasm of the cervix Special screening examination for human papillomavirus (HPV) 12 weeks gestation of state, incidental Controlled type 2 diabetes mellitus without complication, without long-term current use of insulin (HCC) History of delivery Late care Insufficient care Encounter for supervision of high risk in second trimester, antepartum Multigravida of advanced maternal age in second trimester Penicillin allergy Personal history of allergy to penicillin [facility]* Diagnosis Encounter for screening for malformation using ultrasound ([facility])- Primary Controlled type 2 diabetes mellitus without complication, without long-term current use of insulin ([facility]) History of delivery 17 weeks gestation of ([facility]) state, incidental Controlled type 2 diabetes mellitus without complication, without long-term current use of insulin (HCC)- Primary History of delivery Multigravida of advanced maternal age in second trimester (HCC) 17 weeks gestation of ([facility]) state, incidental Controlled type 2 diabetes mellitus without complication, without long-term current use of insulin ([facility])- Primary Multigravida of advanced maternal age in second trimester ([facility]) documented in this encounter [facility] note* Diagnosis Controlled type 2 diabetes mellitus without complication, without long-term current use of insulin ([facility])- Primary History of delivery Multigravida of advanced maternal age in second trimester (HCC) 17 weeks gestation of ([facility]) state, incidental Controlled type 2 diabetes mellitus without complication, without long-term current use of insulin ([facility])- Primary Multigravida of advanced maternal age in second trimester (HCC) Controlled type 2 diabetes mellitus without complication, without long-term current use of insulin ([facility])- Primary documented in this encounter [facility] note* Diagnosis Controlled type 2 diabetes mellitus without complication, without long-term current use of insulin ([facility])- Primary History of delivery Multigravida of advanced maternal age in second trimester (HCC) 17 weeks gestation of ([facility]) state, incidental Controlled type 2 diabetes mellitus without complication, without long-term current use of insulin ([facility])- Primary Multigravida of advanced maternal age in second trimester ([facility]) * Assessment & Plan Note - Yolanda Buchanan MD - 09/13/2024 11:13 AM EDT Associated Problem(s): Controlled type 2 diabetes mellitus without complication, without long-term current use of insulin ([facility]) Dexcom ordered today will check glucoses weekly Detailed anatomy ultrasound with cervical length around 20 weeks echocardiogram 22-24 weeks Monthly growth ultrasounds third trimester testing 32 weeks Delivery 39 weeks unless indicated earlier * Assessment & Plan Note - Yolanda Buchanan MD - 09/12/2024 12:39 PM EDT Associated Problem(s): History of delivery TV cervix normal today Cervical length at 20 weeks with anatomy ultrasound documented in this encounter [facility] note* Diagnosis Controlled type 2 diabetes mellitus without complication, without long-term current use of insulin ([facility])- Primary History of delivery Multigravida of advanced maternal age in second trimester (HCC) 17 weeks gestation of ([facility]) state, incidental Controlled type 2 diabetes mellitus without complication, without long-term current use of insulin ([facility])- Primary Multigravida of advanced maternal age in second trimester ([facility]) * Assessment & Plan Note - Brittaney Chauhan MD - 09/13/2024 11:20 AM EDTAssociated Problem(s): Controlled type 2 diabetes mellitus without complication, without long-term current use of insulin ([facility]) MFM consult today. Dexcom monitor placed and MFM to manage BS. Orders: URINE OB DIP B/O OBSTETRIC ULTRASOUND WHI; Future * Assessment & Plan Note - Brittaney Chauhan MD - 09/13/2024 11:20 AM EDTAssociated Problem(s): Multigravida of advanced maternal age in second trimester (HCC) Orders: URINE OB DIP B/O OBSTETRIC ULTRASOUND WHI; Future documented in this encounter [facility] note* Diagnosis Controlled type 2 diabetes mellitus without complication, without long-term current use of insulin ([facility])- Primary History of delivery Multigravida of advanced maternal age in second trimester (HCC) 17 weeks gestation of ([facility]) state, incidental Controlled type 2 diabetes mellitus without complication, without long-term current use of insulin ([facility])- Primary Multigravida of advanced maternal age in second trimester ([facility]) Encounter for anatomic survey ([facility])- Primary Encounter for anatomic survey Controlled type 2 diabetes mellitus without complication, without long-term current use of insulin ([facility]) Multigravida of advanced maternal age in second trimester ([facility]) 21 weeks gestation of ([facility]) state, incidental documented in this encounter [facility] note* Diagnosis Controlled type 2 diabetes mellitus without complication, without long-term current use of insulin ([facility])- Primary History of delivery Multigravida of advanced maternal age in second trimester ([facility]) 17 weeks gestation of ([facility]) state, incidental Controlled type 2 diabetes mellitus without complication, without long-term current use of insulin ([facility])- Primary Multigravida of advanced maternal age in second trimester ([facility]) Multigravida of advanced maternal age in second trimester ([facility])- Primary Controlled type 2 diabetes mellitus without complication, without long-term current use of insulin ([facility]) Late care ([facility]) Insufficient care History of delivery 21 weeks gestation of ([facility]) state, incidental documented in this encounter [facility] note* Diagnosis Controlled type 2 diabetes mellitus without complication, without long-term current use of insulin ([facility])- Primary History of delivery Multigravida of advanced maternal age in second trimester ([facility]) 17 weeks gestation of ([facility]) state, incidental Controlled type 2 diabetes mellitus without complication, without long-term current use of insulin ([facility])- Primary Multigravida of advanced maternal age in second trimester ([facility]) Insulin controlled gestational diabetes mellitus (GDM) in second trimester ([facility])- Primary Controlled type 2 diabetes mellitus without complication, without long-term current use of insulin ([facility]) Supervision of high risk in second trimester ([facility])- Primary Unspecified high-risk Multigravida of advanced maternal age in second trimester ([facility]) Preexisting diabetes complicating in second trimester, antepartum ([facility]) Late care ([facility]) Insufficient care History of delivery 25 weeks gestation of ([facility]) state, incidental * Assessment & Plan Note - Any Trevino MD - 11/11/2024 9:50 AM EDT Associated Problem(s): Multigravida of advanced maternal age in second trimester (HCC) Orders: SYPHILIS TREPONEMAL W/REFLEX; Future ANEMIA REFLEX PANEL; Future HEMOGLOBIN A1C; Future URINE OB DIP B/O * Assessment & Plan Note - Any Trevino MD - 11/11/2024 9:50 AM EDT Associated Problem(s): History of delivery Orders: SYPHILIS TREPONEMAL W/REFLEX; Future ANEMIA REFLEX PANEL; Future HEMOGLOBIN A1C; Future URINE OB DIP B/O documented in this encounter [facility] note* Diagnosis Controlled type 2 diabetes mellitus without complication, without long-term current use of insulin ([facility])- Primary History of delivery Multigravida of advanced maternal age in second trimester ([facility]) 17 weeks gestation of ([facility]) state, incidental Controlled type 2 diabetes mellitus without complication, without long-term current use of insulin ([facility])- Primary Multigravida of advanced maternal age in second trimester ([facility]) Insulin controlled gestational diabetes mellitus (GDM) in second trimester ([facility])- Primary Controlled type 2 diabetes mellitus without complication, without long-term current use of insulin ([facility]) Supervision of high risk in second trimester ([facility])- Primary Unspecified high-risk Multigravida of advanced maternal age in second trimester ([facility]) Preexisting diabetes complicating in second trimester, antepartum ([facility]) Late care ([facility]) Insufficient care History of delivery 25 weeks gestation of ([facility]) state, incidental OPENED IN ERROR- Primary To allow closing an encounter opened in error (used in SmartSet) documented in this encounter [facility] note* Diagnosis Controlled type 2 diabetes mellitus without complication, without long-term current use of insulin ([facility])- Primary History of delivery Multigravida of advanced maternal age in second trimester ([facility]) 17 weeks gestation of ([facility]) state, incidental Controlled type 2 diabetes mellitus without complication, without long-term current use of insulin ([facility])- Primary Multigravida of advanced maternal age in second trimester ([facility]) Insulin controlled gestational diabetes mellitus (GDM) in second trimester ([facility])- Primary Controlled type 2 diabetes mellitus without complication, without long-term current use of insulin ([facility]) Supervision of high risk in second trimester ([facility])- Primary Unspecified high-risk Multigravida of advanced maternal age in second trimester ([facility]) Preexisting diabetes complicating in second trimester, antepartum ([facility]) Late care ([facility]) Insufficient care History of delivery 25 weeks gestation of ([facility]) state, incidental Controlled type 2 diabetes mellitus without complication, without long-term current use of insulin ([facility]) Multigravida of advanced maternal age in second trimester ([facility]) [facility]* Diagnosis Controlled type 2 diabetes mellitus without complication, without long-term current use of insulin ([facility])- Primary History of delivery Multigravida of advanced maternal age in second trimester ([facility]) 17 weeks gestation of ([facility]) state, incidental Controlled type 2 diabetes mellitus without complication, without long-term current use of insulin ([facility])- Primary Multigravida of advanced maternal age in second trimester ([facility]) Insulin controlled gestational diabetes mellitus (GDM) in second trimester ([facility])- Primary Controlled type 2 diabetes mellitus without complication, without long-term current use of insulin ([facility]) Supervision of high risk in second trimester ([facility])- Primary Unspecified high-risk Multigravida of advanced maternal age in second trimester ([facility]) Preexisting diabetes complicating in second trimester, antepartum ([facility]) Late care ([facility]) Insufficient care History of delivery 25 weeks gestation of ([facility]) state, incidental 28 weeks gestation of ([facility])- Primary state, incidental Supervision of high risk in second trimester ([facility]) Unspecified high-risk Multigravida of advanced maternal age in second trimester ([facility]) Preexisting diabetes complicating in second trimester, antepartum ([facility]) Late care ([facility]) Insufficient care Need for vaccination Need for prophylactic vaccination and inoculation against unspecified single disease [facility]* Diagnosis Controlled type 2 diabetes mellitus without complication, without long-term current use of insulin ([facility])- Primary History of delivery Multigravida of advanced maternal age in second trimester ([facility]) 17 weeks gestation of ([facility]) state, incidental Controlled type 2 diabetes mellitus without complication, without long-term current use of insulin ([facility])- Primary Multigravida of advanced maternal age in second trimester ([facility]) Insulin controlled gestational diabetes mellitus (GDM) in second trimester ([facility])- Primary Controlled type 2 diabetes mellitus without complication, without long-term current use of insulin ([facility]) Supervision of high risk in second trimester ([facility])- Primary Unspecified high-risk Multigravida of advanced maternal age in second trimester ([facility]) Preexisting diabetes complicating in second trimester, antepartum ([facility]) Late care ([facility]) Insufficient care History of delivery 25 weeks gestation of ([facility]) state, incidental Controlled type 2 diabetes mellitus without complication, without long-term current use of insulin ([facility])- Primary [facility]* Diagnosis Controlled type 2 diabetes mellitus without complication, without long-term current use of insulin ([facility])- Primary History of delivery Multigravida of advanced maternal age in second trimester ([facility]) 17 weeks gestation of ([facility]) state, incidental Controlled type 2 diabetes mellitus without complication, without long-term current use of insulin ([facility])- Primary Multigravida of advanced maternal age in second trimester ([facility]) Insulin controlled gestational diabetes mellitus (GDM) in second trimester ([facility])- Primary Controlled type 2 diabetes mellitus without complication, without long-term current use of insulin ([facility]) Supervision of high risk in second trimester ([facility])- Primary Unspecified high-risk Multigravida of advanced maternal age in second trimester ([facility]) Preexisting diabetes complicating in second trimester, antepartum ([facility]) Late care ([facility]) Insufficient care History of delivery 25 weeks gestation of ([facility]) state, incidental Insulin controlled gestational diabetes mellitus (GDM) in second trimester ([facility]) [facility]* Diagnosis Controlled type 2 diabetes mellitus without complication, without long-term current use of insulin ([facility])- Primary History of delivery Multigravida of advanced maternal age in second trimester ([facility]) 17 weeks gestation of ([facility]) state, incidental Controlled type 2 diabetes mellitus without complication, without long-term current use of insulin ([facility])- Primary Multigravida of advanced maternal age in second trimester (HCC) Insulin controlled gestational diabetes mellitus (GDM) in second trimester ([facility])- Primary Controlled type 2 diabetes mellitus without complication, without long-term current use of insulin ([facility]) Supervision of high risk in second trimester ([facility])- Primary Unspecified high-risk Multigravida of advanced maternal age in second trimester ([facility]) Preexisting diabetes complicating in second trimester, antepartum ([facility]) Late care ([facility]) Insufficient care History of delivery 25 weeks gestation of ([facility]) state, incidental 31 weeks gestation of ([facility])- Primary state, incidental Supervision of high risk in second trimester ([facility]) Unspecified high-risk Multigravida of advanced maternal age in second trimester ([facility]) Preexisting diabetes complicating in second trimester, antepartum ([facility]) documented in this encounter [facility] note* Diagnosis Controlled type 2 diabetes mellitus without complication, without long-term current use of insulin ([facility])- Primary History of delivery Multigravida of advanced maternal age in second trimester ([facility]) 17 weeks gestation of ([facility]) state, incidental Controlled type 2 diabetes mellitus without complication, without long-term current use of insulin ([facility])- Primary Multigravida of advanced maternal age in second trimester ([facility]) Insulin controlled gestational diabetes mellitus (GDM) in second trimester ([facility])- Primary Controlled type 2 diabetes mellitus without complication, without long-term current use of insulin ([facility]) Supervision of high risk in second trimester ([facility])- Primary Unspecified high-risk Multigravida of advanced maternal age in second trimester ([facility]) Preexisting diabetes complicating in second trimester, antepartum ([facility]) Late care ([facility]) Insufficient care History of delivery 25 weeks gestation of ([facility]) state, incidental Supervision of high risk in third trimester ([facility])- Primary Unspecified high-risk Preexisting diabetes complicating in third trimester, antepartum ([facility]) 32 weeks gestation of ([facility]) state, incidental Insulin controlled gestational diabetes mellitus (GDM) in second trimester ([facility]) GDM, class A2 ([facility])- Primary Abnormal maternal glucose tolerance, complicating , childbirth, or the puerperium, unspecified as to episode of care Controlled type 2 diabetes mellitus without complication, without long-term current use of insulin ([facility]) History of delivery 32 weeks gestation of ([facility]) state, incidental documented in this encounter [facility] note* Diagnosis Controlled type 2 diabetes mellitus without complication, without long-term current use of insulin ([facility])- Primary History of delivery Multigravida of advanced maternal age in second trimester ([facility]) 17 weeks gestation of ([facility]) state, incidental Controlled type 2 diabetes mellitus without complication, without long-term current use of insulin ([facility])- Primary Multigravida of advanced maternal age in second trimester ([facility]) Insulin controlled gestational diabetes mellitus (GDM) in second trimester ([facility])- Primary Controlled type 2 diabetes mellitus without complication, without long-term current use of insulin ([facility]) Supervision of high risk in second trimester ([facility])- Primary Unspecified high-risk Multigravida of advanced maternal age in second trimester ([facility]) Preexisting diabetes complicating in second trimester, antepartum ([facility]) Late care ([facility]) Insufficient care History of delivery 25 weeks gestation of ([facility]) state, incidental Encounter for ultrasound to check growth ([facility])- Primary Encounter for routine screening for malformation using ultrasonics Controlled type 2 diabetes mellitus without complication, without long-term current use of insulin ([facility]) Multigravida of advanced maternal age in second trimester ([facility]) 32 weeks gestation of ([facility]) state, incidental GDM, class A2 ([facility])- Primary Abnormal maternal glucose tolerance, complicating , childbirth, or the puerperium, unspecified as to episode of care Controlled type 2 diabetes mellitus without complication, without long-term current use of insulin ([facility]) History of delivery 32 weeks gestation of ([facility]) state, incidental documented in this encounter [facility] note* Diagnosis Controlled type 2 diabetes mellitus without complication, without long-term current use of insulin ([facility])- Primary History of delivery Multigravida of advanced maternal age in second trimester ([facility]) 17 weeks gestation of ([facility]) state, incidental Controlled type 2 diabetes mellitus without complication, without long-term current use of insulin ([facility])- Primary Multigravida of advanced maternal age in second trimester ([facility]) Insulin controlled gestational diabetes mellitus (GDM) in second trimester ([facility])- Primary Controlled type 2 diabetes mellitus without complication, without long-term current use of insulin ([facility]) Supervision of high risk in second trimester ([facility])- Primary Unspecified high-risk Multigravida of advanced maternal age in second trimester (HCC) Preexisting diabetes complicating in second trimester, antepartum (HCC) Late care (HCC) Insufficient care History of delivery 25 weeks gestation of ([facility]) state, incidental GDM, class A2 ([facility])- Primary Abnormal maternal glucose tolerance, complicating , childbirth, or the puerperium, unspecified as to episode of care Controlled type 2 diabetes mellitus without complication, without long-term current use of insulin ([facility]) History of delivery 32 weeks gestation of ([facility]) state, incidental * Assessment & Plan Note - Jaime Nunn MD - 2024 11:58 AM EDTAssociated Problem(s): History of delivery Had 36w delivery with fast labors - recommended coming to hospital if she starts having regular contractions - explained that risk for earlier delivery is elevated * Assessment & Plan Note - Jaime Nunn MD - 2024 11:57 AM EDTAssociated Problem(s): Controlled type 2 diabetes mellitus without complication, without long-term current use of insulin ([facility]) Following with MFM - insulin was adjusted 2 days ago - discussed need for twice weekly testing - BPP/NST - discussed delivery timing - delivery between 38-39w if stable , - I explained that if diabetes is suboptimal we may need to consider an earlier delivery Plan BPP/NST weekly - BPP ordered Growth in 3-4w Monitor glucose if she has continuous spikes informed Ms. Katharine Farah to let us know [facility] Diagnosis Controlled type 2 diabetes mellitus without complication, without long-term current use of insulin ([facility])- Primary History of delivery Multigravida of advanced maternal age in second trimester (HCC) 17 weeks gestation of ([facility]) state, incidental Controlled type 2 diabetes mellitus without complication, without long-term current use of insulin ([facility])- Primary Multigravida of advanced maternal age in second trimester ([facility]) Insulin controlled gestational diabetes mellitus (GDM) in second trimester ([facility])- Primary Controlled type 2 diabetes mellitus without complication, without long-term current use of insulin ([facility]) Supervision of high risk in second trimester ([facility])- Primary Unspecified high-risk Multigravida of advanced maternal age in second trimester ([facility]) Preexisting diabetes complicating in second trimester, antepartum (HCC) Late care ([facility]) Insufficient care History of delivery 25 weeks gestation of ([facility]) state, incidental GDM, class A2 ([facility])- Primary Abnormal maternal glucose tolerance, complicating , childbirth, or the puerperium, unspecified as to episode of care Controlled type 2 diabetes mellitus without complication, without long-term current use of insulin ([facility]) History of delivery 32 weeks gestation of ([facility]) state, incidental Supervision of high risk in third trimester ([facility])- Primary Unspecified high-risk Preexisting diabetes complicating in third trimester, antepartum ([facility]) AMA (advanced maternal age) multigravida 35+, third trimester ([facility]) 34 weeks gestation of ([facility]) state, incidental documented in this encounter [facility] for referral (narrative)* Consultation (Routine) - Authorized Specialty Diagnoses / Procedures Referred By Wendy briggs Referred To Contact Primary Care Procedures Follow Up In Primary Care - Established Patricia Aaron DO [address] [place] [address] [place] [address] Referral ID Status Reason Start Date Expiration Date V isits Requested Visits Authorized [id number] Authorized 02/22/2024 02/21/2025 1 1 [facility] Work Phone: [facility] Narrative* Consultation (Routine) - Authorized Specialty Diagnoses / Procedures Referred By Wendy briggs Referred To Contact Primary Care Procedures Follow Up In Primary Care - Established Patricia Aaron DO [address] [facility] [place] [address] Phone: tel: fax: Referral ID Status Reason Start Date Expiration Date V isits Requested Visits Authorized [id number] Authorized 05/30/2024 05/30/2025 1 1 [facility] Work Phone: Summary Purpose Family History No Family History Records FoundNo Family History Records FoundNo Family History Records FoundNo Family History Records FoundNo Family History Records FoundNo Family History Records FoundNo Family History Records FoundNo Family History Records FoundNo Family History Records Found Advance Directives No Advanced Directives Records FoundNo Advanced Directives Records FoundNo Advanced Directives Records FoundNo Advanced Directives Records FoundNo Advanced Directives Records FoundNo Advanced Directives Records FoundNo Advanced Directives Records FoundNo Advanced Directives Records FoundNo Advanced Directives Records Found Hospital Course Note [facility] edical Records Department [address] [place] [address] Discharge Summary 04/13/18828 MR#: [id number] Acct: [id number] Name: KATHARINE FARAH Rep #: [id number] : 1990 27 From: Crispin Benton MD PCP: Crispin Madrigal MD Status: ADM IN Location: [id number] Discharge Date and Diagnosis - Problem List [...] PP day#2.] Patient Problems: Active and Suspected P (more content not included)... Additional Source Comments INFORMATION SOURCE (unrecogn ized section and content) DATE CREATED AUTHOR 08/09/2018 [facility] DATE CREATED AUTHOR AUTHOR'S ORGANIZ ATION 11/07/2018 [facility] DATE CREATED AUTHOR AUTHOR'S ORGANIZ ATION 01/06/2020 [facility] DATE CREATED AUTHOR AUTHOR'S ORGANIZ ATION 03/15/2021 [facility] DATE CREATED AUTHOR AUTHOR'S ORGANIZ ATION 10/04/2022 [facility] DATE CREATED AUTHOR AUTHOR'S ORGANIZ ATION 02/01/2024 [facility] DATE CREATED AUTHOR AUTHOR'S ORGANIZ ATION 06/06/2024 [facility] DATE CREATED AUTHOR AUTHOR'S ORGANIZ ATION 07/27/2024 [facility] DATE CREATED AUTHOR AUTHOR'S ORGANIZ ATION 01/17/2025 [facility] Reason for Visit (unrecogniz ed section and content) Reason Onset Date Comments Care 2024 Specialty Diagnoses / Procedures Referred By Wendy t Referred To Contact Hospitalist / CUSTOMER SERVICE LEADER Diagnoses with uncertain dates in first trimester (HCC) OB Routine Procedures OFFICE/OUTPATIENT EST PT MAY NOT REQ PHYS/QHP OFFICE/OUTPATIENT ESTABLISHED HIGH MDM 40 MIN EST WHI OB Haylee Sepulveda APRN.CN [address] [place] [address] Phone: tel: fax: Brittaney Chauhan MD [address] [place] [address] Phone: tel: fax: Referral ID Status Reason Start Date Expiration Date V isits Requested Visits Authorized [id number] Authorized 06/15/2024 06/14/2025 99 99 Reason Onset Date Comments Care 12/19/2024 Specialty Diagnoses / Procedures Referred By Wendy briggs Referred To Contact Hospitalist / CUSTOMER SERVICE LEADER Diagnoses with uncertain dates in first trimester (HCC) OB Routine Procedures OFFICE/OUTPATIENT EST PT MAY NOT REQ PHYS/QHP OFFICE/OUTPATIENT ESTABLISHED HIGH MDM 40 MIN EST I Haylee Roach APRN.CN [address] [place] [address] Phone: tel: fax: Brittaney Chauhan MD [address] [place] [address] Phone: tel: fax: Reason Onset Date Comments Care 12/02/2024 Reason Onset Date Comments Care 10/14/2024 Reason Comments Establish Care NPV/ CHECK-UPPt repo rts the last time she was at a doctor she was told she was a pre-diabetic (3 years ago)Requesting labs Heartburn Pt states she had an episode about 3 weeks agoShe though it was turning into chest pain which have her anxiety and she had a mild panic attack Reason Comments Follow-up 3 month Specialty Diagnoses / Procedures Referred By Wendy briggs Referred To Contact Primary Care Procedures Follow Up In Primary Care - Established Patricia Aaron, DO [address] [facility] [place] [address] Phone: tel: fax: Referral ID Status Reason Start Date Expiration Date V isits Requested Visits Authorized [id number] Authorized 02/22/2024 02/21/2025 1 1 Reason Comments Diabetes Discuss medications Pt states she has not been taking her metforminWould like to get back on track Reason Comments Appointment Reason Comments Initial OB Visit Reason Comments US Specialty Diagnoses / Procedures Referred By Wendy briggs Referred To Contact [facility] Diagnoses with uncertain dates in first trimester (HCC) 12 weeks gestation of (HCC) Controlled type 2 diabetes mellitus without complication, without long-term current use of insulin (HCC) History of delivery Procedures OBSTETRIC ULTRASOUND WHI US PREG UTERUS AFTER 1ST TRIMEST GESTATION Haylee Sepulveda APRN.CNM [address] [place] [place] [address] Phone: tel: fax: [facility] [place] [facility] [place] [address] [place] [address] Referral ID Status Reason Start Date Expiration Date V isits Requested Visits Authorized [id number] Closed Auto-Generate d Referral 08/11/2024 08/11/2025 1 1 Reason Comments US Specialty Diagnoses / Procedures Referred By Wendy briggs Referred To Contact Diagnoses Controlled type 2 diabetes mellitus without complication, without long-term current use of insulin (HCC) History of delivery Procedures CONSULT TO MATERNAL MEDI OFFICE/OUTPATIENT NEW HIGH MDM 60 MINUTES Haylee Sepulveda APRN.CNM [address] [place] [place] [address] Phone: tel: fax:[phone] Referral ID Status Reason Start Date Expiration Date V isits Requested Visits Authorized [id number] Closed PCP Requested Referral Auto-Generated Referral 08/11/2024 08/11/2025 1 1 Reason Onset Date Comments Care 09/13/2024 Specialty Diagnoses / Procedures Referred By Contac t Referred To Contact [facility] Diagnoses Controlled type 2 diabetes mellitus without complication, without long-term current use of insulin (HCC) Multigravida of advanced maternal age in second trimester (HCC) Procedures OBSTETRIC ULTRASOUND WHI US PREG UTERUS AFTER 1ST TRIMEST GESTATION Brittaney Chauhan MD [address] [place] [place] [address] Phone: tel: fax: [address] [address] Referral ID Status Reason Start Date Expiration Date V isits Requested Visits Authorized [id number] Closed Auto-Generate d Referral 09/13/2024 09/13/2025 1 1 Reason Onset Date Comments Care 11/11/2024 Reason Onset Date Comments Opened In Error 11/18/2024 Specialty Diagnoses / Procedures Referred By Contac t Referred To Contact [facility] Diagnoses Controlled type 2 diabetes mellitus without complication, without long-term current use of insulin (HCC) Multigravida of advanced maternal age in second trimester (HCC) Procedures OBSTETRIC ULTRASOUND WHI US PREG UTERUS AFTER 1ST TRIMEST GESTATION Sheyla Ellis MD [address] [place] [address] Phone: tel: fax:[phone] [facility] [place] [facility] [place] [address] [place] [address] Referral ID Status Reason Start Date Expiration Date V isits Requested Visits Authorized [id number] Closed Auto-Generate d Referral 10/14/2024 10/14/2025 5 1 Reason Onset Date Comments Refill Request 12/12/2024 Reason Comments Refill Request Reason Comments Care Reason Onset Date Comments Care 01/09/2025 Specialty Diagnoses / Procedures Referred By Contac t Referred To Contact Hospitalist / CUSTOMER SERVICE LEADER Diagnoses NST/OB Procedures EST WHI OB Bert Wagner MD [address] [place] [address] Phone: tel: fax: Sheyla Ellis MD [address] [place] [address] Phone: tel: fax: Referral ID Status Reason Start Date Expiration Date V isits Requested Visits Authorized [id number] Authorized 01/09/2025 06/14/2025 99 99 Care Teams (unrecognized sec tion and content) Manager Benefit Relationship Specialty Start Date End Date Patricia Aaron DO [address] [facility] [place] [address] PCP - General Internal Medicine 09/08/22 Manager Benefit Relationship Specialty Start Date End Date Patricia Aaron DO [address] [facility] [place] [address] PCP - General Internal Medicine 09/08/22 Manager Benefit Relationship Specialty Start Date End Date Patricia Aaron DO [address] [facility] [place] [address] PCP - General Internal Medicine 09/08/22 Manager Benefit Relationship Specialty Start Date End Date Patricia Aaron DO [address] [place] [address] PCP - General Internal Medicine 08/03/24 Manager Benefit Relationship Specialty Start Date End Date Patricia Aaron DO [address] [place] [address] PCP - General Internal Medicine 08/03/24 Manager Benefit Relationship Specialty Start Date End Date Patricia Aaron DO [address] [place] [address] (Fax) PCP - General Internal Medicine 08/03/24 Manager Benefit Relationship Specialty Start Date End Date Patricia Aaron DO [address] [place] [address] (Fax) PCP - General Internal Medicine 08/03/24 Manager Benefit Relationship Specialty Start Date End Date Patricia Aaron DO [address] [place] [address] (Fax) PCP - General Internal Medicine 08/03/24 Manager Benefit Relationship Specialty Start Date End Date Patricia Aaron DO [address] [place] [address] (Fax) PCP - General Internal Medicine 08/03/24 Manager Benefit Relationship Specialty Start Date End Date Patricia Aaron DO [address] [place] [address] (Fax) PCP - General Internal Medicine 08/03/24 Manager Benefit Relationship Specialty Start Date End Date Patricia Aaron DO [address] [place] [address] PCP - General Internal Medicine 08/03/24 Manager Benefit Relationship Specialty Start Date End Date Patricia Aaron DO [address] [place] [address] PCP - General Internal Medicine 08/03/24 Manager Benefit Relationship Specialty Start Date End Date Patricia Aaron DO [address] [place] [address] PCP - General Internal Medicine 08/03/24 Manager Benefit Relationship Specialty Start Date End Date Patricia Aaron DO [address] [place] [address] PCP - General Internal Medicine 08/03/24 Manager Benefit Relationship Specialty Start Date End Date Patricia Aaron DO [address] [place] [address] PCP - General Internal Medicine 08/03/24 Manager Benefit Relationship Specialty Start Date End Date Patricia Aaron DO [address] [place] [address] PCP - General Internal Medicine 08/03/24 Manager Benefit Relationship Specialty Start Date End Date Patricia Aaron DO [address] [place] [address] PCP - General Internal Medicine 08/03/24 Manager Benefit Relationship Specialty Start Date End Date Patricia Aaron DO [address] [place] [address] PCP - General Internal Medicine 08/03/24 Manager Benefit Relationship Specialty Start Date End Date Patricia Aaron DO [address] [place] [address] PCP - General Internal Medicine 08/03/24 Manager Benefit Relationship Specialty Start Date End Date Patricia Aaron DO [address] [place] [address] PCP - General Internal Medicine 08/03/24 Manager Benefit Relationship Specialty Start Date End Date Patricia Aaron DO [address] [place] [address] PCP - General Internal Medicine 08/03/24 Manager Benefit Relationship Specialty Start Date End Date Patricia Aaron DO [address] [place] [address] PCP - General Internal Medicine 08/03/24 Manager Benefit Relationship Specialty Start Date End Date Patricia Aaron DO [address] [place] [address] PCP - General Internal Medicine 08/03/24 Manager Benefit Relationship Specialty Start Date End Date Patricia Aaron DO [address] [place] [address] PCP - General Internal Medicine 08/03/24 Manager Benefit Relationship Specialty Start Date End Date Patricia Aaron DO [address] [place] [address] PCP - General Internal Medicine 08/03/24 Manager Benefit Relationship Specialty Start Date End Date Patricia Aaron DO [address] [place] [address] PCP - General Internal Medicine 08/03/24 Manager Benefit Relationship Specialty Start Date End Date Patricia Aaron DO [address] [place] [address] PCP - General Internal Medicine 08/03/24 Manager Benefit Relationship Specialty Start Date End Date Patricia Aaron DO [address] [place] [address] PCP - General Internal Medicine 08/03/24 Source Comments (unrecognize d section and content) In the event this informatio n is protected by the Federal Confidentiality of Alcohol and Drug Abuse Patient Records regulations: The Federal rules restrict any use of the information to criminally investigate or prosecute any alcohol or drug abuse patient.[facility] event this information is protected by the Federal Confidentiality of Alcohol and Drug Abuse Patient Records regulations: The Federal rules restrict any use of the information to criminally investigate or prosecute any alcohol or drug abuse patient.[facility] HospitalIn the event this information is protected by the Federal Confidentiality of Alcohol and Drug Abuse Patient Records regulations: The Federal rules restrict any use of the information to criminally investigate or prosecute any alcohol or drug abuse patient.[facility] HospitalIn the event this information is protected by the Federal Confidentiality of Alcohol and Drug Abuse Patient Records regulations: The Federal rules restrict any use of the information to criminally investigate or prosecute any alcohol or drug abuse patient.[facility] HospitalIn the event this information is protected by the Federal Confidentiality of Alcohol and Drug Abuse Patient Records regulations: The Federal rules restrict any use of the information to criminally investigate or prosecute any alcohol or drug abuse patient.[facility] HospitalIn the event this information is protected by the Federal Confidentiality of Alcohol and Drug Abuse Patient Records regulations: The Federal rules restrict any use of the information to criminally investigate or prosecute any alcohol or drug abuse patient.[facility] HospitalIn the event this information is protected by the Federal Confidentiality of Alcohol and Drug Abuse Patient Records regulations: The Federal rules restrict any use of the information to criminally investigate or prosecute any alcohol or drug abuse patient.[facility] HospitalIn the event this information is protected by the Federal Confidentiality of Alcohol and Drug Abuse Patient Records regulations: The Federal rules restrict any use of the information to criminally investigate or prosecute any alcohol or drug abuse patient.[facility] HospitalIn the event this information is protected by the Federal Confidentiality of Alcohol and Drug Abuse Patient Records regulations: The Federal rules restrict any use of the information to criminally investigate or prosecute any alcohol or drug abuse patient.[facility] HospitalIn the event this information is protected by the Federal Confidentiality of Alcohol and Drug Abuse Patient Records regulations: The Federal rules restrict any use of the information to criminally investigate or prosecute any alcohol or drug abuse patient.[facility] HospitalIn the event this information is protected by the Federal Confidentiality of Alcohol and Drug Abuse Patient Records regulations: The Federal rules restrict any use of the information to criminally investigate or prosecute any alcohol or drug abuse patient.[facility] HospitalIn the event this information is protected by the Federal Confidentiality of Alcohol and Drug Abuse Patient Records regulations: The Federal rules restrict any use of the information to criminally investigate or prosecute any alcohol or drug abuse patient.[facility] HospitalIn the event this information is protected by the Federal Confidentiality of Alcohol and Drug Abuse Patient Records regulations: The Federal rules restrict any use of the information to criminally investigate or prosecute any alcohol or drug abuse patient.[facility] HospitalIn the event this information is protected by the Federal Confidentiality of Alcohol and Drug Abuse Patient Records regulations: The Federal rules restrict any use of the information to criminally investigate or prosecute any alcohol or drug abuse patient.[facility] HospitalIn the event this information is protected by the Federal Confidentiality of Alcohol and Drug Abuse Patient Records regulations: The Federal rules restrict any use of the information to criminally investigate or prosecute any alcohol or drug abuse patient.[facility] HospitalIn the event this information is protected by the Federal Confidentiality of Alcohol and Drug Abuse Patient Records regulations: The Federal rules restrict any use of the information to criminally investigate or prosecute any alcohol or drug abuse patient.[facility] HospitalIn the event this information is protected by the Federal Confidentiality of Alcohol and Drug Abuse Patient Records regulations: The Federal rules restrict any use of the information to criminally investigate or prosecute any alcohol or drug abuse patient.[facility] HospitalIn the event this information is protected by the Federal Confidentiality of Alcohol and Drug Abuse Patient Records regulations: The Federal rules restrict any use of the information to criminally investigate or prosecute any alcohol or drug abuse patient.[facility] HospitalIn the event this information is protected by the Federal Confidentiality of Alcohol and Drug Abuse Patient Records regulations: The Federal rules restrict any use of the information to criminally investigate or prosecute any alcohol or drug abuse patient.[facility] HospitalIn the event this information is protected by the Federal Confidentiality of Alcohol and Drug Abuse Patient Records regulations: The Federal rules restrict any use of the information to criminally investigate or prosecute any alcohol or drug abuse patient.[facility] HospitalIn the event this information is protected by the Federal Confidentiality of Alcohol and Drug Abuse Patient Records regulations: The Federal rules restrict any use of the information to criminally investigate or prosecute any alcohol or drug abuse patient.[facility] HospitalIn the event this information is protected by the Federal Confidentiality of Alcohol and Drug Abuse Patient Records regulations: The Federal rules restrict any use of the information to criminally investigate or prosecute any alcohol or drug abuse patient.[facility] HospitalIn the event this information is protected by the Federal Confidentiality of Alcohol and Drug Abuse Patient Records regulations: The Federal rules restrict any use of the information to criminally investigate or prosecute any alcohol or drug abuse patient.[facility] HospitalIn the event this information is protected by the Federal Confidentiality of Alcohol and Drug Abuse Patient Records regulations: The Federal rules restrict any use of the information to criminally investigate or prosecute any alcohol or drug abuse patient.[facility] HospitalIn the event this information is protected by the Federal Confidentiality of Alcohol and Drug Abuse Patient Records regulations: The Federal rules restrict any use of the information to criminally investigate or prosecute any alcohol or drug abuse patient.[facility] HospitalIn the event this information is protected by the Federal Confidentiality of Alcohol and Drug Abuse Patient Records regulations: The Federal rules restrict any use of the information to criminally investigate or prosecute any alcohol or drug abuse patient.[facility] HospitalIn the event this information is protected by the Federal Confidentiality of Alcohol and Drug Abuse Patient Records regulations: The Federal rules restrict any use of the information to criminally investigate or prosecute any alcohol or drug abuse patient.[facility] HospitalIn the event this information is protected by the Federal Confidentiality of Alcohol and Drug Abuse Patient Records regulations: The Federal rules restrict any use of the information to criminally investigate or prosecute any alcohol or drug abuse patient.[facility] HospitalIn the event this information is protected by the Federal Confidentiality of Alcohol and Drug Abuse Patient Records regulations: The Federal rules restrict any use of the information to criminally investigate or prosecute any alcohol or drug abuse patient.[facility] HospitalIn the event this information is protected by the Federal Confidentiality of Alcohol and Drug Abuse Patient Records regulations: The Federal rules restrict any use of the information to criminally investigate or prosecute any alcohol or drug abuse patient.[facility] HospitalIn the event this information is protected by the Federal Confidentiality of Alcohol and Drug Abuse Patient Records regulations: The Federal rules restrict any use of the information to criminally investigate or prosecute any alcohol or drug abuse patient.[facility] HospitalIn the event this information is protected by the Federal Confidentiality of Alcohol and Drug Abuse Patient Records regulations: The Federal rules restrict any use of the information to criminally investigate or prosecute any alcohol or drug abuse patient.[facility] HospitalIn the event this information is protected by the Federal Confidentiality of Alcohol and Drug Abuse Patient Records regulations: The Federal rules restrict any use of the information to criminally investigate or prosecute any alcohol or drug abuse patient.[facility] HospitalIn the event this information is protected by the Federal Confidentiality of Alcohol and Drug Abuse Patient Records regulations: The Federal rules restrict any use of the information to criminally investigate or prosecute any alcohol or drug abuse patient.[facility] HospitalIn the event this information is protected by the Federal Confidentiality of Alcohol and Drug Abuse Patient Records regulations: The Federal rules restrict any use of the information to criminally investigate or prosecute any alcohol or drug abuse patient.[facility] HospitalIn the event this information is protected by the Federal Confidentiality of Alcohol and Drug Abuse Patient Records regulations: The Federal rules restrict any use of the information to criminally investigate or prosecute any alcohol or drug abuse patient.[facility] HospitalIn the event this information is protected by the Federal Confidentiality of Alcohol and Drug Abuse Patient Records regulations: The Federal rules restrict any use of the information to criminally investigate or prosecute any alcohol or drug abuse patient.[facility] HospitalIn the event this information is protected by the Federal Confidentiality of Alcohol and Drug Abuse Patient Records regulations: The Federal rules restrict any use of the information to criminally investigate or prosecute any alcohol or drug abuse patient.[facility] FOR RECORDS PERTAINING TO PATIENTS WHO ARE OR HAVE BEEN ENROLLED IN A CHEMICAL DEPENDENCY/SUBSTANCEABUSE PROGRAM, SOME INFORMATION MAY BE OMITTED. This clinical summary was aggregated from multiple sources. Caution should be exercised in using it in the provision of clinical care. This summary normalizes information from multiple sources, and as a consequence, information in this document may materially change the coding, format and clinical context of patient data. In addition, data may be omitted in some cases. CLINICAL DECISIONS SHOULD BE BASED ON THE PRIMARY CLINICAL RECORDS. [facility] [employer] [facility]. provides no warranty or guarantee of the accuracy or completeness of information in this document.
--- NOTE | 2025-01-23 22:29 | OB.TRI.NOTE ---
HPI - General General Date of Admission: 01/23/25 Date of Service: 01/23/25 Chief Complaint: pressure HPI Narrative KATHARINE MACIAS, is a 34 F who presents pelvic pressure at 36+1 weeks. Hx of 3 precipitous deliveries with minimal pain. Frequent contractions on toco. 2-3 cm and high station with bloody show. Has not made significant change but given hx of precipitous deliveries and bleeding will observe over night. Maternal Data Information Final JOSEMANUEL: 02[birth year] Gestational age: 36+1 [facility] Medical History (Updated 01/23/25 @ 22:[address] Sheyla Ellis MD) Family history of hearing loss at age younger than 7 years History of pre-term labor Diabetes mellitus Home Medications ?Medication ?Instructions ?Recorded ?Last Taken ?Type vits,calcium no.78-iron 1 tab PO DAILY 04/11/18 01/22/25 History fumarate-folic acid 29 mg-1 mg tablet (Prenatabs FA) aspirin 81 mg chewable tablet 81 mg PO DAILY 01/23/25 01/22/25 History insulin NPH isoph U-100 human 100 14 unit subcut QHS 01/23/25 Unknown History unit/mL (3 mL) subcutaneous pen (Humulin N NPH U-100 Insulin KwikPen) insulin NPH isoph U-100 human 100 24 unit subcut DAILY diabetes 01/23/25 01/23/25 History unit/mL (3 mL) subcutaneous pen (Humulin N NPH U-100 Insulin KwikPen) insulin lispro 100 unit/mL 4 unit subcut DAILY diabetes 01/23/25 01/23/25 12:30 History subcutaneous pen (Humalog KwikPen (U-100) Insulin) Allergy/AdvReac Type Severity Reaction Status Date / Time Penicillins Allergy Rash Verified 01/23/25 17:32 Social History Smoking Status: Never smoker History Elective abortions Hx Para 3 Spontaneous abortions Hx # Term Pregnancies Ectopic pregnancies Hx # Pregnancies Multiple births # of living children NST FHR Rate Baby A Baseline: 140 Variability:: Moderate Accelerations:: 15 x 15 Decelerations:: None NST Reactive:: Yes Uterine Activity:: q 3 Assessment & Plan (1) 36 weeks gestation of : (2) Uterine contractions: PLAN: Plan Observe over night
[2025-01-24] MEDS: Insulin NPH Human 100 UNITS/ML PEN 14 UNITS SC (00:02)
[2025-01-24 02:13] VITALS: BP 117/67; PULSE 77; RESP 16; TEMP 36.5
[2025-01-24 02:14] VITALS: PULSE 67; O2SAT 97
--- NOTE | 2025-01-24 07:00 | US_ITS ---
PROCEDURE: OB BIOPHYSICAL PROF W/O NST 01/24/2025 REASON FOR EXAM: CATEGORY 2 TRACING AND VAGINAL BLEEDING TECHNIQUE: OB BIOPHYSICAL PROF W/O NST COMPARISON: None FINDINGS age by LMP = 36 weeks 2 days, JOSEMANUEL by LMP = February 19, 2025 Breathing movements = 2 Gross body movement =2 tone = 2 Amniotic fluid volume CORBIN = 12.4 = 2 Total score = 8/8. A nuchal cord is visible with 1 complete wrap. Gender = female heart motion = 130 beats per minute position = cephalic. Placenta = grade 2, posterior, fundal US/OB Biophysical Prof W/O NST IMPRESSION: A nuchal cord is visible with 1 complete wrap. Biophysical profile = 8/8. Reading Location: [facility]
--- NOTE | 2025-01-24 07:13 | OB.TRI.NOTE ---
HPI - General General Date of Service: 01/24/25 Chief Complaint: pressure HPI Narrative KATHARINE MACIAS, is a 34 F at 36 weeks. No further bleeding overnight. Contractions spaced out and patient was able to sleep. Is feeling some contractions this morning. Good movement. Several variables overnight. BPP ordered this am. 01/20 vertex, CORBIN 12.4. 3cm very high station Maternal Data Information Final JOSEMANUEL: 02[birth year] Gestational age: 36+1 PFSH PFS Medical History (Updated 01/23/25 @ 22:[address] Sheyla Ellis MD) Family history of hearing loss at age younger than 7 years History of pre-term labor Diabetes mellitus Home Medications ?Medication ?Instructions ?Recorded ?Last Taken ?Type vits,calcium no.78-iron 1 tab PO DAILY 04/11/18 01/22/25 History fumarate-folic acid 29 mg-1 mg tablet (Prenatabs FA) aspirin 81 mg chewable tablet 81 mg PO DAILY 01/23/25 01/22/25 History insulin NPH isoph U-100 human 100 14 unit subcut QHS 01/23/25 Unknown History unit/mL (3 mL) subcutaneous pen (Humulin N NPH U-100 Insulin KwikPen) insulin NPH isoph U-100 human 100 24 unit subcut DAILY diabetes 01/23/25 01/23/25 History unit/mL (3 mL) subcutaneous pen (Humulin N NPH U-100 Insulin KwikPen) insulin lispro 100 unit/mL 4 unit subcut DAILY diabetes 01/23/25 01/23/25 12:30 History subcutaneous pen (Humalog KwikPen (U-100) Insulin) Allergy/AdvReac Type Severity Reaction Status Date / Time Penicillins Allergy Rash Verified 01/23/25 17:32 Social History Smoking Status: Never smoker History Elective abortions Hx Para 3 Spontaneous abortions Hx # Term Pregnancies Ectopic pregnancies Hx # Pregnancies Multiple births # of living children NST FHR Rate Baby A Baseline: 120 Variability:: Moderate Accelerations:: 15 x 15 Decelerations:: Variable NST Reactive:: Yes Uterine Activity:: q2-q8 Assessment & Plan (1) Uterine contractions: (2) 36 weeks gestation of : PLAN: Plan BPP 01/20 CORBIN 12.4 Vtx Precautions reviewed. Pt has appointment today with Dr. Ortiz
== END 2025-01-24 07:30 | disposition home or self-care (01) ==
LOC: WPOUT 17:21 → WP 17:21
PROVIDERS: Referring Provider Obstetrics & Gynecology; Visit Provider Obstetrics & Gynecology
DX: O47.03 False labor before 37 completed weeks of gestation, third trimester (principal); Z79.4 Long term (current) use of insulin; Z3A.36 36 weeks gestation of pregnancy; O24.913 Unspecified diabetes mellitus in pregnancy, third trimester
CPT/HCPCS: 59025; 59050; 76815; 76819; 82962; 87081; 87653; 96372; 99221; A4216; G0378

== ENCOUNTER 2025-01-25 08:25 | Inpatient (IN) | payer OTHER, SELFPAY ==
[2025-01-25] VITALS (21 sets, daily range): BP systolic 128–173; BP diastolic 67–82; PULSE 58–81; RESP 16–18; TEMP 36.2–36.9; O2SAT 96–98
--- NOTE | 2025-01-25 08:19 | PCM.HP.OB ---
HPI - General General Date of Admission: 01/25/25 Date of Service: 01/25/25 HPI Narrative KATHARINE MACIAS, is a 34 F who presents after delivery in car on way to [facility]. Placenta delivered spontaneously on unit with RN present. Maternal Data Information JOSEMANUEL Calculator Estimated Delivery Date Method Current WG Current Estimate 02/19/25 Manual 36w 3d [facility] Medical History Family history of hearing loss at age younger than 7 years History of pre-term labor Diabetes mellitus Home Medications ?Medication ?Instructions ?Recorded ?Last Taken ?Type vits,calcium no.78-iron 1 tab PO DAILY 04/11/18 01/24/25 History fumarate-folic acid 29 mg-1 mg tablet (Prenatabs FA) aspirin 81 mg chewable tablet 81 mg PO DAILY prophylatic 01/23/25 01/24/25 History insulin NPH isoph U-100 human 100 14 unit subcut QHS type 2 DM 01/23/25 01/24/25 History unit/mL (3 mL) subcutaneous pen (Humulin N NPH U-100 Insulin KwikPen) insulin NPH isoph U-100 human 100 24 unit subcut DAILY diabetes 01/23/25 01/24/25 History unit/mL (3 mL) subcutaneous pen (Humulin N NPH U-100 Insulin KwikPen) insulin lispro 100 unit/mL 4 unit subcut DAILY diabetes 01/23/25 01/24/25 History subcutaneous pen (Humalog KwikPen (U-100) Insulin) Allergy/AdvReac Type Severity Reaction Status Date / Time Penicillins Allergy Rash Verified 01/25/25 07:56 Social History Smoking Status: Never smoker History Elective abortions Hx Para 3 Spontaneous abortions Hx # Term Pregnancies Ectopic pregnancies Hx # Pregnancies Multiple births # of living children Vital Signs Vital Signs Vital Signs: 01/25/25 07:39 01/25/25 07:39 01/25/25 07:58 Pulse Rate 72 Blood Pressure 131/79 H 172/75 H BP Systolic 131 172 BP Diastolic 79 75 01/25/25 07:58 01/25/25 08:12 01/25/25 08:12 Pulse Rate 58 L 66 Blood Pressure 173/74 H BP Systolic 173 BP Diastolic 74 01/25/25 08:15 01/25/25 08:15 Pulse Rate 81 Blood Pressure 152/67 H BP Systolic 152 BP Diastolic 67 Physical Exam Const alert, oriented x3 and no apparent distress Chest inspection of chest normal GI normal to inspection, nondistended, normoactive bowel sounds, soft to palpation and non-tender GI Narrative: FF mid and below umbilicus external exam normal Narrative: no lacerations Labs Labs Labs: Blood Type A POSITIVE Antibody Screen NEGATIVE Hct 42.1 % (37-47) Hgb 13.9 g/dl (12.0-15.0) Rubella IgG Antibody 97.4 IU/mL Hep Bs Antigen Negative (Negative) Hepatitis C Ab (EIA) <0.1 s/co ratio (0.0-0.9) HIV 1&2 Antibody Non-Reactive (Nonreactive) Glucose 1 Hr 50 gm 171 mg/dL (70-140) H Gest Glucose Tolerance MG/DL Group B Strep DNA Negative (Negative) Rhogam given: No Assessment & Plan (1) Labor, precipitous, delivered: (2) Diabetes mellitus affecting childbirth: COMMENT: PLAN: Plan Admit to L&D after precipitous delivery in care. Patient is currently stable. Elevated BP - check preE labs and serial BPs. to be updated. DM - resume metformin bid and follow diabetic protocol. ROutine PP care.
[2025-01-25 09:07] LABS: Hematocrit 36.6 % (37-47); Hemoglobin 12.6 g/dL (12.0-15.0); Mean Corp Hgb Conc 34.4 g/dL (32-36); Mean Corpuscular Volume 90.6 fL (81-99); Mean Platelet Vol. 12.3 fl (6.2-12.0); Platelet Count 221 K/mm3 (150-450); RBC Distribution Width CV 13.5 % (11.6-14.6); RBC Distribution Width SD 44.7 fl (35.1-43.9); Red Blood Count 4.04 M/mm3 (4.2-5.4); White Blood Count 16.2 K/mm3 (4.4-11.0)
[2025-01-25 09:22] LABS: Partial Thromboplast Time 29.2 Seconds (24.1-36.2); Prothrombin Time (Protime)PT. 11.9 SECONDS (11.7-14.9)
[2025-01-25 10:27] LABS: Uric Acid 2.6 mg/dL (2.6-6.0)
[2025-01-25 10:34] LABS: AST(SGOT) 13 U/L (<=31); Alanine Aminotransfer ALT/SGPT < 5 U/L (<=34)
[2025-01-25 11:13] LABS: Syphilis Antibodies Nonreactive (Nonreactive)
[2025-01-26 00:15] VITALS: BP 144/90; PULSE 78; RESP 16; TEMP 36.2; O2SAT 98
[2025-01-26 00:55] VITALS: BP 125/71; PULSE 64; RESP 16; TEMP 36.3; O2SAT 96
[2025-01-26 04:25] VITALS: BP 114/60; PULSE 60; RESP 16; TEMP 36.5; O2SAT 97
[2025-01-26 08:45] VITALS: BP 129/88; PULSE 77; RESP 16; TEMP 36.4; O2SAT 97
--- NOTE | 2025-01-26 09:34 | PCM.PN.OB ---
Subjective Subjective Pt doing well. She offers no complaints. She denies headaches or vision changes. Pain is well-controlled. She is ambulating voiding without difficulty. No chest pain, shortness of breath, leg pain. Lochia is normal. She desires discharge today. Tolerating a regular diet without nausea or vomiting. Objective Data Objective Data Vital Signs: Vital Signs Temp Pulse Resp BP Pulse Ox O2 Del Method 97.7 F L 60 16 114/60 97 Room Air 01/26/25 04:25 01/26/25 04:25 01/26/25 04:25 01/26/25 04:25 01/26/25 04:25 01/26/25 04:25 Oxygen Delivery Method Room Air Intake & Output: Intake and Output for Last 24 Hours 01/24/25 01/25/25 01/26/25 23:59 23:59 23:59 Output Total 50 / 50 Balance -50 / -50 Lab / Micro Data 01/25/25 08:31 01/25/25 08:31 Labs: Laboratory Results - last 24 hr 01/25/25 08:31: Creatinine 0.50 L, Est GFR (MDRD) Non-Af 124, Uric Acid 2.6, AST 13, ALT < 5, Syphilis Total Ab Nonreactive Physical Exam Const alert and no apparent distress General Appearance: comfortable HEENT normocephalic Resp normal respiratory effort GI soft to palpation, non-tender and non-distended Extremity normal to inspection and no calf tenderness Assessment & Plan (1) Vaginal delivery: PLAN: PPD#1 s/p . Doing well. No symptoms of pre e this morning. Desires discharge home. Discussed checking BP's at home and coming in next week for a BP check. Discussed reasons to call. (2) Labor, precipitous, delivered: (3) Diabetes mellitus affecting childbirth: COMMENT:
--- NOTE | 2025-01-26 09:44 | DCINST_ITS ---
Discharge Instructions DC O2, CPAP, BIPAP needs Home O2 Discharge instructions: No Dressing / Incision Discharge Activity: May Drive and May Shower May resume sexual activity in: 6 weeks (nothing in the vagina) Ice area for (Minutes): 15 Lifting Restrictions: nothing heavier than baby Additional Activity Instructions:: Check your blood pressure once or twice daily. Call the office if your blood pressures are 140-150's/90's. Check your blood pressure if you have a severe headache, vision changes, upper abdominal pain with nausea and vomiting. Dressing / Incision Call your doctor if you observe: Fever of 101 or Higher, Numbness or Tingling, Using more than 1 pad per hour, Shortness of breath, Dizziness, Chest pain, Increased palpitations (irregular heartbeat), Calf discomfort and Uncontrolled pain Cleanse incision/area with: Soap & Water Follow Up Care Please Follow Up With: Hortencia Ortiz MD When: 1 week for a blood pressure check 6 week visit Test Results: Test results from this visit will be discussed in further detail at your follow- up appointment, if applicable. Discharge Plan Admission Admit Date/Time: 01/25/25 08:25 Primary Reason for Your Visit: care Attending Provider: Silvina Kelley Primary Care Provider: Ida Julien Primary Instructions Patient Instructions: After a Vaginal Delivery (WP) Discharge Orders/Prescriptions Prescriptions: Continued Prenatabs FA 1 TABLET tablet 1 tab PO DAILY Discontinued insulin lispro [Humalog KwikPen Insulin] 100 unit/mL insulin pen 4 unit subcut DAILY Rx Instructions: 4 units of lispro with breakfast/ 8 units with lunch/ 14 units at dinner aspirin 81 mg tablet,chewable 81 mg PO DAILY Humulin N NPH Insulin KwikPen 100 unit/mL (3 mL) insulin pen 24 unit subcut DAILY Rx Instructions: 24 units in the morning Humulin N NPH Insulin KwikPen 100 unit/mL (3 mL) insulin pen 14 unit subcut QHS Rx Instructions: 14 units at bedtime Referrals / Follow Up: Care Physician,No Primary [Primary Care Provider] - Disposition Disposition (needs filled in before D/C Order can be placed): Home, Self Care
[2025-01-26 15:35] VITALS: BP 139/93; PULSE 61; RESP 18; TEMP 36.4; O2SAT 100
[2025-01-26 17:00] VITALS: BP 129/84
--- NOTE | 2025-01-27 01:04 | PCM.DC.SUM ---
Providers Date of Admission: 01/25/25 Date of Discharge: 01/26/25 Primary Care Physician: Ida Primary Care Phys Reason For Visit: MATERNITY Diagnosis Discharge Diagnosis (1) Vaginal delivery: Status: Acute Code(s): O80 - Encounter for full-term uncomplicated delivery Plan: PPD#1 s/p . Doing well. No symptoms of pre e this morning. Desires discharge home. Discussed checking BP's at home and coming in next week for a BP check. Discussed reasons to call. (2) Labor, precipitous, delivered: Status: Acute Code(s): O62.3 - Precipitate labor (3) Diabetes mellitus affecting childbirth: Status: Acute Code(s): O24.92 - Unspecified diabetes mellitus in childbirth Medications at Discharge Home Medications vits,calcium no.78-iron fumarate-folic acid 29 mg-1 mg tablet (Prenatabs FA) 1 tab PO DAILY 04/11/18 Hospital Course Summary of Care Provided Minutes Spent on Discharge: 10 Hospital Course: Patient admitted after a precipitous delivery at the car. Routine care was provided. She was discharged home in good condition. ABG / Lab / Microbiology Data 01/25/25 08:31 01/25/25 08:31 D/C Instructions May resume sexual activity in: 6 weeks (nothing in the vagina) Ice area for (Minutes): 15 Additional Activity Instructions: Check your blood pressure once or twice daily. Call the office if your blood pressures are 140-150's/90's. Check your blood pressure if you have a severe headache, vision changes, upper abdominal pain with nausea and vomiting. Call your doctor if you observe: Fever of 101 or Higher, Numbness or Tingling, Using more than 1 pad per hour, Shortness of breath, Dizziness, Chest pain, Increased palpitations (irregular heartbeat), Calf discomfort and Uncontrolled pain Cleanse incision/area with: Soap & Water DC O2, CPAP, BIPAP Needs Home O2 Discharge instructions: No Please Follow Up With: Hortencia Ortiz MD When: 1 week for a blood pressure check 6 week visit Meaningful Use Info Meaningful Use Meaningful Use Diagnoses (Choose all that apply): None applicable Discharge Plan Admission Admit Date/Time: 01/25/25 08:25 Primary Reason for Your Visit: care Attending Provider: Silvina Kelley Primary Care Provider: Care Physician,No Primary Instructions Patient Instructions: After a Vaginal Delivery (WP) Discharge Orders/Prescriptions Prescriptions: Continued Prenatabs FA 1 TABLET tablet 1 tab PO DAILY Discontinued insulin lispro [Humalog KwikPen Insulin] 100 unit/mL insulin pen 4 unit subcut DAILY Rx Instructions: 4 units of lispro with breakfast/ 8 units with lunch/ 14 units at dinner aspirin 81 mg tablet,chewable 81 mg PO DAILY Humulin N NPH Insulin KwikPen 100 unit/mL (3 mL) insulin pen 24 unit subcut DAILY Rx Instructions: 24 units in the morning Humulin N NPH Insulin KwikPen 100 unit/mL (3 mL) insulin pen 14 unit subcut QHS Rx Instructions: 14 units at bedtime Referrals / Follow Up: Care Physician,No Primary [Primary Care Provider] - Disposition Disposition (needs filled in before D/C Order can be placed): Home, Self Care
== END 2025-01-26 17:38 | disposition home or self-care (01) | DRG 807 ==
PROVIDERS: Obstetrics & Gynecology; Admitting Provider Obstetrics & Gynecology; Visit Provider Obstetrics & Gynecology
DX: O62.3 Precipitate labor (principal); Z37.0 Single live birth; O24.92 Unspecified diabetes mellitus in childbirth; Z79.4 Long term (current) use of insulin; Z3A.36 36 weeks gestation of pregnancy
CPT/HCPCS: 82565; 82962; 84450; 84460; 84550; 85027; 85610; 85730; 86780